=== PATIENT | male | born 1945 | race Caucasian/White ===

== ENCOUNTER 2019-09-01 11:16 | Inpatient (IN) | payer MEDICARE ==
--- OUTSIDE RECORDS SUMMARY | 2019-09-01 13:40 | XMS REPORT | Continuity of Care Document ---
:1945 External Reference #:[id number] Author Name Rafaela Gaviria MD Address [address] [place] [id number] Care Team Providers Name Role Phone Rafaela Gaviria MD - Family Medicine Care Team Information Stem Setter Problems Active Problems Provider Date Peripheral vascular disease Jose Main M.D., Onset: 01/08/[address] [facility] Testicular hypofunction Charline Shi M.D. Onset: 03/02/2012 Hyperlipidemia Charline Shi M.D. Onset: 07/23/2011 Edema Charline Shi M.D. Onset: 07/23/2011 Obesity Charline Shi M.D. Onset: 07/23/2011 Psoriasis Charline Shi M.D. Onset: 05/22/2016 Low back pain Vanessa Enriquez M.D. Onset: 02/12/2017 Benign prostatic hypertrophy without Evita Adler M.D. Onset: 07/07/2017 outflow obstruction Nocturia Bert Saleem M.D. Onset: 02/10/2018 Iron deficiency anemia Rafaela Gaviria MD Onset: 08/26/2018 Post-inflammatory pulmonary fibrosis Rafaela Gaviria MD Onset: 08/26/2018 Paroxysmal atrial fibrillation Rafaela Gaviria MD Onset: 08/26/2018 Hypertensive chronic kidney disease Rafaela Gaviria MD Onset: 08/26/2018 with stage 1 through stage 4 chronic kidney disease, or unspecified chronic kidney disease Dyspnea Jose Main M.D., Onset: 09/23/[address] [facility] Chronic obstructive lung disease Jose Main M.D., Onset: 12/21/[address] [facility] Type 2 diabetes mellitus Rafaela Gaviria MD Onset: 01/24/2019 History of acute renal failure Rafaela Gaviria MD Onset: 05/06/2019 Atopic dermatitis Rafaela Gaviria MD Onset: 08/02/2019 Arenas-Everette syndrome Rafaela Gaviria MD Onset: 08/20/2019 Social History Type Date Description Comments Sex Unknown Tobacco Use Start: Unknown End: Unknown Quit Cigarette Use Pack Years - 50 Smoking Status Reviewed: 08/20/19 Quit ETOH Use Denies alcohol use Tobacco Use Start: Unknown End: Unknown Patient is a former smoker Tobacco Use Start: Unknown Quit 10/2006 Allergies, Adverse Reactions, Alerts Description No Known Drug Allergies Medications Active Medications SIG Qnty Indications Ordering Date Provider Lidocaine Viscous 15 min gargle, 300ml K12.0 Clgerardo, 08/11/2019 HCL swish and swallow Jenniferleigh, 2% Solution up to 4 x a day CREDIT OFFICE MANAGER Methotrexate 7 tabs by mouth 42tabs Rafaela Gaviria, 08/02/2019 2.5mg each Sat. MD Tablets Folic Acid 1 by mouth every 100tabs Rafaela Gaviria, 08/02/2019 1mg day derm MD Tablets Hydroxyzine HCL 2 tablets by mouth 100tabs Rafaela Gaviria, 08/02/2019 25mg every 4 hours as MD Tablets needed for itching Clobetasol apply to affected 30gm Rafaela Gaviria, 08/02/2019 Propionate Emollient area(s) at bedtime MD as needed 0.05% Cream Sore Throat Lozenges 1 lozenger every 2 36units L20.9 Rafalea Gaviria, 04/2019 hrs as needed for MD 6-10mg Lozenges throat pain Tramadol HCL take one tablet by 90tabs Desmond, 08/26/2018 50mg mouth three times Jenniferleigh, Tablets a day as needed CREDIT OFFICE MANAGER for severe pain Reference #: [id number] Finasteride 1 by mouth every 90tabs Harper, 08/11/2018 5mg day Katina Noel Tablets Norvasc take one tablet by 90tabs Rafaela Gaviria, 05/13/2018 10mg Tablets mouth every day Oxygen increase oxygen to Rafaela Gaviria, 04/23/2018 2 l/min with MD ambulation. diagnosis: ild. Alcohol Swabs when checking 200units Vanessa Enriquez, 09/23/2017 70% blood glucose M.D. Pads Tamsulosin HCL 1 by mouth every 90caps N40.1 Harper, 07/08/2017 0.4mg day at bedtime Katina Noel Capsules Freestyle Lite Test test fingerstick 200units Vanessa Enriquez, 08/07/2016 blood sugar three M.D. Strips times a day Onetouch Ultra use to check bs 1units E11.9 Yuridia, 05/29/2015 System one to two times a Katina Olivier W/Device Kit day dx: 250.62 Onetouch Ultra Blue use to test blood 100units E11.9 Shi, 05/29/2015 sugar 1-2 a day Katina Olivier Strips Plavix 1 po qd 90tabs Unknown 75mg Tablets Aspirin Adult Low 1 po qd 30tabs Yuridia, Strength MD Charline 81mg Tablets DR Lovastatin take one tablet by 90tabs Rafaela Gaviria, 20mg mouth every day Tablets Triamcinolone apply to psoriatic 80gm Rafaela Gaviria, Acetonide lesions two times 0.1% Cream a day History Medications Prednisone 1 by mouth every 7tabs Rafaela Gaviria MD 08/02/2019 - 50mg Tablets day until gone 08/20/2019 Immunizations CPT Code Status Date Vaccine Lot # [id number] Given 07/20/2018 Influenza High Dose [id number] 81347 Given 07/31/2017 Influenza High Dose [id number] Q2038 Given 07/26/2016 Influenza Vaccine (Fluzone) Age 3 And Older [id number] 69942 Given 09/06/2015 Pneumococcal Conjugate Vaccine 13 Valent For [id number] Intramuscular Use Q2038 Given 07/11/2015 Influenza Vaccine (Fluzone) Age 3 And Older 57961 Given 05/29/2015 Tdap injection [id number] 92811 Given 07/19/2014 flu vaccination 79206 Given 07/18/2013 flu vaccination 93326 Given 07/22/2012 flu vaccination 56490 Given 09/02/2011 flu vaccination 99606 Given 09/02/2011 flu vaccination 67534 Given 08/29/2010 Pneumovax Injection 45825 Given 08/29/2010 flu vaccination 60920 Given 01/23/2010 H1N1 Immuniation Adminstration 32159 Given 07/27/2009 flu vaccination Vital Signs Date Vital Result Comment 08/20/2019 11:06am BP Systolic Sitting Left Arm 120 mmHg BP Diastolic Sitting Left Arm 64 mmHg Body Temperature 98.7 F Heart Rate 88 /min Respiratory Rate 18 /min Height 72 inches 6'0" Weight 225.00 lb BMI (Body Mass Index) 30.5 kg/m2 BSA (Body Surface Area) 2.24 m2 [place] body weight in kilograms 81 kg O2 % BldC Oximetry 97 % 08/19/2019 10:20am BP Systolic 132 mmHg BP Diastolic 69 mmHg Body Temperature 98.5 F Heart Rate 91 /min Respiratory Rate 18 /min Height 72 inches 6'0" Weight 228.00 lb BMI (Body Mass Index) 30.9 kg/m2 BSA (Body Surface Area) 2.25 m2 [place] body weight in kilograms 81 kg O2 % BldC Oximetry 96 % Pain Level 0 Results Test Date Facility Test Result H/L Range Note Ua RFX Micro & 07/31/2019 [facility] Urine Color Light-Yellow Yellow 1 Culture II [address] [place] [address] [phone] Urine Clarity Clear Clear Urine Glucose - Dipstick NEGATIVE mg/dL Negative Urine Bilirubin - Dipstick NEGATIVE Negative Urine Ketone NEGATIVE mg/dL Negative Urine Specific [place] 1.013 Normal 1.010-1.030 Urine Blood NEGATIVE 0-2 Urine PH 5.5 Low 6.5-7.5 Urine Protein - Dipstick TRACE mg/dL Negative Urine Urobilinogen - Dipstick < 2.0 mg/dL < 2.0 Urine Nitrite - Dipstick NEGATIVE Negative Urine Leuk Esterase SMALL Abnormal Negative Urine RBC 6-10 rbc/hpf Abnormal 0-2 Urine WBC 21-30 wbc/hpf 0-5 Urine Epithelial Cells FEW /lpf None Seen Urine Bacteria FEW None Seen Urine Mucus SMALL None Seen Source: URINE, CLEAN CAT <SEE NOTE> 2 Culture If 07/31/2019 [facility] Culture If CULTURE TO 3 Indicated Comment [address] Indicated Comment FOLLO <[place] [address] NOTE> [phone] Source: URINE, CLEAN CAT <SEE NOTE> 4 Urine Culture 07/31/2019 [facility] Urine Culture PSEUDOMONAS SPEC Abnormal [address] <SEE NOTE> [place] [address] [phone] Quantity 10,000 - 50,000 <SEE NOTE> 6 Urine Culture URETHRAL HUY Quantity < 10,000 CFU/mL Pseudomonas 07/31/2019 [facility] Ciprofloxacin <=0.25 Susceptible Species [address] [place] [address] [phone] Piperacillin/Tazobactam 8 Susceptible Ceftazidime 4 Susceptible Levofloxacin 0.5 Susceptible Gentamicin <=1 Susceptible Tobramycin <=1 Susceptible CBC W/Automated 07/31/2019 [facility] White Blood 7.7 K/uL Normal 3.4-10.[address] [place] [address] [phone] Red Blood Count 3.50 M/uL Low 4.20-5.80 Hemoglobin 10.2 gm/dL Low 12.8-17.0 Hematocrit 32.4 % Low 38.0-48.0 Mean Cell Volume 92.6 fl Normal 80.0-96.0 Mean Corpuscular HGB 29.1 pg Normal 27.0-33.0 Mean Corpuscular HGB Conc 31.5 g/dL Low 31.7-36.0 Platelet Count 192 K/uL Normal 155-360 Red Cell Distri Width SD 46.0 fl Normal 36-51 Red Cell Distri Width %CV 13.6 % Normal 11.6-15.8 Mean Platelet Volume 9.9 fl Normal 6.6-10.6 Neut% 74.1 % High 33.0-73.0 Lymph % 22.0 % Normal 20.0-42.0 [place] % 0.8 % Normal 0.0-10.0 Eo% 2.2 % Normal 0.0-6.6 Bas% 0.4 % Normal 0.0-1.1 Immature Grans 0.5 % Normal 0.0-5.0 NRBC % 0.0 /100WBC < 10/ 100 WBC Neut# 5.69 K/uL Normal 1.8-7.0 Lymph # 1.69 K/uL Normal 1.0-4.0 [place] # 0.06 K/uL Normal 0.0-0.8 Eos # 0.17 K/uL Normal 0.0-0.5 Baso # 0.03 K/uL Normal 0.0-0.1 Immature Grans Absolute 0.04 K/uL NRBC # 0.00 K/uL Comprehensive Metabolic 07/31/2019 [facility] Glucose 139 mg/dL High 74-106 Panel [address] [place] [address] [phone] BUN 43 mg/dL High 7-18 Creatinine 2.5 mg/dL High 0.6-1.3 Glom Filtration Rate, Estimate 27 mL/min >60 If 32 mL/min >60 7 BUN/Creat 17.2 ratio Sodium 136 mmol/L Normal 136-145 Potassium 4.7 mmol/L Normal 3.5-5.1 Chloride 108 mmol/L High 98-107 Carbon Dioxide 23 mmol/L Normal 21-32 Anion Gap 5 mEq/L Low 8-16 Calcium 8.5 mg/dL Normal 8.5-10.1 Total Protein 7.9 g/dL Normal 6.4-8.2 Albumin 3.7 g/dL Normal 3.4-5.0 Globulin 4.2 g/dL Normal 1.9-4.3 Alb/Glob 0.9 ratio Bilirubin,Total 0.8 mg/dL Normal 0.2-1.0 Sgot/Ast 15 U/L Normal 15-37 SGPT/Alt 20 U/L Normal 12-78 Alkaline Phosphatase 72 U/L Normal 45-117 Laboratory test 07/31/2019 [facility] Lipase 198 U/L Normal 56-289 finding [address] [place] [address] [phone] Basic Metabolic Panel 05/05/2019 [facility] Glucose 91 mg/dL Normal 74-106 8 [address] [place] [address] [phone] BUN 36 mg/dL High 7-18 Creatinine 2.2 mg/dL High 0.6-1.3 Glom Filtration Rate, Estimate 31 mL/min >60 If 38 mL/min >60 9 BUN/Creat 16.3 ratio Sodium 143 mmol/L Normal 136-145 Potassium 4.1 mmol/L Normal 3.5-5.1 Chloride 113 mmol/L High 98-107 Carbon Dioxide 22 mmol/L Normal 21-32 Anion Gap 8 mEq/L Normal 8-16 Calcium 8.6 mg/dL Normal 8.5-10.1 CBC W/Automated 05/05/2019 [facility] White Blood 10.3 K/uL Normal 3.4-10.[address] [place] [address] [phone] Red Blood Count 3.50 M/uL Low 4.20-5.80 Hemoglobin 10.2 gm/dL Low 12.8-17.0 Hematocrit 33.0 % Low 38.0-48.0 Mean Cell Volume 94.3 fl Normal 80.0-96.0 Mean Corpuscular HGB 29.1 pg Normal 27.0-33.0 Mean Corpuscular HGB Conc 30.9 g/dL Low 31.7-36.0 Platelet Count 248 K/uL Normal 155-360 Red Cell Distri Width SD 48.6 fl Normal 36-51 Red Cell Distri Width %CV 14.4 % Normal 11.6-15.8 Mean Platelet Volume 11.1 fl High 6.6-10.6 Neut% 61.1 % Normal 33.0-73.0 Lymph % 24.7 % Normal 20.0-42.0 [place] % 7.5 % Normal 0.0-10.0 Eo% 5.4 % Normal 0.0-6.6 Bas% 0.4 % Normal 0.0-1.1 Immature Grans 0.9 % Normal 0.0-5.0 NRBC % 0.0 /100WBC < 10/ 100 WBC Neut# 6.30 K/uL Normal 1.8-7.0 Lymph # 2.54 K/uL Normal 1.0-4.0 [place] # 0.77 K/uL Normal 0.0-0.8 Eos # 0.56 K/uL High 0.0-0.5 Baso # 0.04 K/uL Normal 0.0-0.1 Immature Grans Absolute 0.09 K/uL NRBC # 0.00 K/uL 1 FLU SYMPTOMS 2 URINE, CLEAN CATCH 3 CULTURE TO FOLLOW 4 URINE, CLEAN CATCH 5 PSEUDOMONAS SPECIES 6 10,000 - 50,000 CFU/mL 7 Note: Persistent reduction for 3 months or more in an eGFR <60 mL/min/1.73 m2 defines CKD. Patients with eGFR values >/=60 mL/min/1.73 m2 may also have CKD if evidence of persistent proteinuria is present. The original MDRD equation for estimated GFR is not valid for patients less than 18 years of age. Additional information may be found at [email or web address]. 8 I12.9 D50.9 9 Note: Persistent reduction for 3 months or more in an eGFR <60 mL/min/1.73 m2 defines CKD. Patients with eGFR values >/=60 mL/min/1.73 m2 may also have CKD if evidence of persistent proteinuria is present. The original MDRD equation for estimated GFR is not valid for patients less than 18 years of age. Additional information may be found at [email or web address]. Procedures Date Code Description Status 09/24/2017 [id number] Diabetic Foot Exam Completed 06/26/2015 [id number] Colonoscopy Completed Medical Devices Description No Information Available Encounters Type Date Location Provider Dx Diagnosis Office Visit 08/20/2019 Family Rafaela Solo L51.1 [place]- [place] 10:45a Christopher WETZEL MD syndrome Office Visit 08/19/2019 Urology Brian Kruger N40.1 Benign prostatic 10:15a SAMI Smith hyperplasia with lower urinary tract symp Office Visit 08/11/2019 Family Ruben Logan, K12.0 Recurrent oral 11:00a diana Gilliland RD CREDIT OFFICE MANAGER Office Visit 08/02/2019 Family Medicine Rafaela Gaviria L20.9 Atopic dermatitis, 1:45p Christopher WETZEL MD unspecified L40.9 Psoriasis, unspecified Office Visit 05/05/2019 2:45p Family Rafaela Solo, I12.9 Hypertensive Christopher WETZEL MD chronic kidney disease w stg 1-4/unsp chr kdny D50.9 Iron deficiency anemia, unspecified Assessments Date Code Description Provider 08/20/2019 L51.1 Arenas-Everette syndrome Rafaela Gaviria MD 08/19/2019 N40.1 Benign prostatic hyperplasia with lower Brian Kruger PA urinary tract symptoms 08/11/2019 K12.0 Recurrent oral aphthae Kole Logan FNP 08/02/2019 L20.9 Atopic dermatitis, unspecified Rafaela Gaviria MD 08/02/2019 L40.9 Psoriasis, unspecified Rafaela Gaviria MD 05/05/2019 I12.9 Hypertensive chronic kidney disease with Rafaela Gaviria MD stage 1 through sta 05/05/2019 D50.9 Iron deficiency anemia, unspecified Rafaela Gaviria MD Plan of Treatment Future Appointment(s):02/21/2020 1:15 pm - Brian Kruger PA at [email or web address] 3:30 pm - Rafaela Gaviria MD at [facility] RD08/20/2019 - Rafaela Gaviria MDL51.1 Arenas-Everette syndromeComments:CONTINUE ON CURRENT MEDS, FINISH PREDNISONE;LIDOCAINE VISCOUS FOR THROAT.Follow up:HAS APPT Functional Status Functional Condition Comment Date Status Independent with all ADL's Active Mental Status Description No Information Available Referrals Description No Information Available
--- OUTSIDE RECORDS SUMMARY | 2019-09-01 13:40 | XMS REPORT | Continuity of Care Document ---
:1945 External Reference #:[id number] Author Name Brian Kruger PA Address [address], [address] [place] [address] Care Team Providers Name Role Phone Rafaela Gaviria MD - Family Medicine Care Team Information Privacy Analyst [phone] Problems Active Problems Provider Date Peripheral vascular disease Jose Main M.D., Onset: 01/08/2012 [facility] Testicular hypofunction Charline Shi M.D. Onset: 03/02/2012 [...] disease Dyspnea Jose Main M.D., Onset: 09/23/2018 [facility] Chronic obstructive lung disease Jose Main M.D., Onset: 12/21/2018 [facility] Type 2 diabetes mellitus Rafaela Gaviria MD Onset: 01/24/2019 History of acute renal failure Rafaela Gaviria MD Onset: 05/06/2019 Atopic dermatitis Rafaela Gaviria MD Onset: 08/02/2019 Social History Type Date Description Comments Sex Unknown Tobacco Use Start: Unknown End: Unknown Quit Cigarette Use Pack Years - 50 Smoking Status Reviewed: 08/11/19 Quit ETOH Use Denies alcohol use Tobacco Use Start: Unknown End: Unknown Patient is a former smoker Tobacco Use Start: Unknown Quit 10/2006 Allergies, Adverse Reactions, Alerts Description No Known Drug Allergies Medications Active Medications SIG Qnty Indications Ordering Date Provider Lidocaine Viscous 15 min gargle, 300ml K12.0 Clune, 08/11/2019 HCL swish and swallow Jenniferleigh, 2% Solution up to 4 x a day SHIPPING CLERK CRATING Methotrexate 5 tabs by mouth 42tabs Rafaela Gaviria, 08/02/2019 2.5mg each friday derm. MD Tablets Folic Acid 1 by mouth every 100tabs Rafaela Gaviria, 08/02/2019 1mg day derm MD Tablets Prednisone 1 by mouth every 7tabs Rafaela Gaviria, 08/02/2019 50mg day until gone MD Tablets Hydroxyzine HCL 2 tablets by mouth 100tabs Rafaela Gaviria, 08/02/2019 25mg every 4 hours as MD Tablets needed for itching Clobetasol apply to affected 30gm Rafaela Gaviria, 08/02/2019 Propionate Emollient area(s) at bedtime MD as needed 0.05% Cream Sore Throat Lozenges 1 lozenger every 2 36units L20.9 Rafaela Gaviria, 04/2019 hrs as needed for MD 6-10mg Lozenges throat pain Tramadol HCL take one tablet by 90tabs Clune, 08/26/2018 50mg mouth three times Jenniferleigh, Tablets a day as needed SHIPPING CLERK CRATING for severe pain Reference #: [id number] Finasteride 1 by mouth every 90tabs Harper, 08/11/2018 5mg day Katina Noel Tablets Norvasc take one tablet by 90tabs Rafaela Gaviria, 05/13/2018 10mg Tablets mouth every day Oxygen increase oxygen to Rafaela Gaviria, 04/23/2018 2 l/min with MD ambulation. diagnosis: ild. Alcohol Swabs when checking 200units Zoe Vanessa, 09/23/2017 70% blood glucose M.DJaz Pads Tamsulosin HCL 1 by mouth every [...] 30tabs Yuridia, Strength MD Charline 81mg Tablets Lovastatin take one tablet by 90tabs Rafaela Gaviria, 20mg mouth every day Tablets Triamcinolone apply to psoriatic 453.600gm Rafaela Gaviria, Acetonide lesions two times 0.1% Cream a day Immunizations CPT Code Status Date Vaccine Lot # [id number] Given 07/20/2018 Influenza High Dose [id number] 51738 Given 07/31/2017 Influenza High Dose [id number] Q2038 Given 07/26/2016 Influenza Vaccine (Fluzone) Age 3 And Older [id number] 19603 Given 09/06/2015 Pneumococcal Conjugate Vaccine 13 Valent For [id number] Intramuscular Use Q2038 Given 07/11/2015 Influenza Vaccine (Fluzone) Age 3 And Older 89482 Given 05/29/2015 Tdap injection [id number] 47194 Given 07/19/2014 flu vaccination 66262 Given 07/18/2013 flu vaccination 29179 Given 07/22/2012 flu vaccination 87267 Given 09/02/2011 flu vaccination 42371 Given 09/02/2011 flu vaccination 40127 Given 08/29/2010 Pneumovax Injection 88159 Given 08/29/2010 flu vaccination 60279 Given 01/23/2010 H1N1 Immuniation Adminstration 93049 Given 07/27/2009 flu vaccination Vital Signs Date Vital Result Comment 08/19/2019 10:20am BP Systolic 132 mmHg BP Diastolic 69 mmHg Body Temperature 98.5 F Heart Rate 91 /min Respiratory Rate 18 /min Height 72 inches 6'0" Weight 228.00 lb BMI (Body Mass Index) 30.9 kg/m2 BSA (Body Surface Area) 2.25 m2 [place] body weight in kilograms 81 kg O2 % BldC Oximetry 96 % Pain Level 0 08/11/2019 10:56am BP Systolic 124 mmHg BP Diastolic 72 mmHg Body Temperature 97.9 F Heart Rate 92 /min Height 70 inches 5'10" Weight 227.00 lb BMI (Body Mass Index) 32.6 kg/m2 BSA (Body Surface Area) 2.20 m2 [place] body weight in kilograms 75 kg O2 % BldC Oximetry 97 % Ra Results Test Date Facility Test Result H/L Range Note Ua RFX Micro & 07/31/2019 [facility] Urine Color Light-Yellow Yellow 1 Culture II [address] [place], [place] [id number] [phone] Urine Clarity Clear Clear Urine Glucose - Dipstick NEGATIVE mg/dL Negative Urine Bilirubin - Dipstick NEGATIVE Negative Urine Ketone NEGATIVE mg/dL Negative Urine Specific [place] 1.013 Normal 1.010-1.030 Urine Blood NEGATIVE 0-2 [...] CAT <SEE NOTE> 2 Culture If 07/31/2019 [facility] Culture If CULTURE TO 3 Indicated Comment [address] Indicated Comment FOLLO <[place] [address] NOTE> [phone] Source: URINE, CLEAN CAT <SEE NOTE> 4 Urine Culture 07/31/2019 [facility] Urine Culture PSEUDOMONAS SPEC Abnormal [address] <SEE NOTE> [place], [place] [id number] [phone] Quantity 10,000 - 50,000 <SEE NOTE> 6 Urine Culture URETHRAL HUY Quantity < 10,000 CFU/mL Pseudomonas 07/31/2019 [facility] Ciprofloxacin <=0.25 Susceptible Species [address] [place] [address] [phone] Piperacillin/Tazobactam 8 Susceptible Ceftazidime 4 Susceptible Levofloxacin 0.5 Susceptible Gentamicin <=1 Susceptible Tobramycin <=1 Susceptible CBC W/Automated 07/31/2019 [facility] White Blood 7.7 K/uL Normal 3.4-10.[address] [place] [address] [phone] Red Blood Count 3.50 M/uL Low 4.20-5.80 [...] 33.0-73.0 Lymph % 22.0 % Normal 20.0-42.0 [place] % 0.8 % Normal 0.0-10.0 Eo% 2.2 % Normal 0.0-6.6 Bas% 0.4 % Normal 0.0-1.1 Immature Grans 0.5 % Normal 0.0-5.0 NRBC % 0.0 /100WBC < 10/ 100 WBC Neut# 5.69 K/uL Normal 1.8-7.0 Lymph # 1.69 K/uL Normal 1.0-4.0 [place] # 0.06 K/uL Normal 0.0-0.8 Eos # 0.17 K/uL Normal 0.0-0.5 Baso # 0.03 K/uL Normal 0.0-0.1 Immature Grans Absolute 0.04 K/uL NRBC # 0.00 K/uL Comprehensive Metabolic 07/31/2019 [facility] Glucose 139 mg/dL High 74-106 Panel [address] [place] [address] [phone] BUN 43 mg/dL High 7-18 Creatinine 2.5 [...] 72 U/L Normal 45-117 Laboratory test 07/31/2019 [facility] Lipase 198 U/L Normal 56-289 finding [address] [facility] [place] [address] [phone] Basic Metabolic Panel 05/05/2019 [facility] Glucose 91 mg/dL Normal 74-106 8 [address] [place] [address] [phone] BUN 36 mg/dL High 7-18 Creatinine 2.2 mg/dL High 0.6-1.3 Glom Filtration Rate, Estimate 31 mL/min >60 If 38 mL/min >60 9 BUN/Creat 16.3 ratio Sodium 143 mmol/L Normal 136-145 Potassium 4.1 mmol/L Normal 3.5-5.1 Chloride 113 mmol/L High 98-107 Carbon Dioxide 22 mmol/L Normal 21-32 Anion Gap 8 mEq/L Normal 8-16 Calcium 8.6 mg/dL Normal 8.5-10.1 CBC W/Automated 05/05/2019 [facility] White Blood 10.3 K/uL Normal 3.4-10.[address] [place] [address] [phone] Red Blood Count 3.50 M/uL Low 4.20-5.80 [...] 33.0-73.0 Lymph % 24.7 % Normal 20.0-42.0 [place] % 7.5 % Normal 0.0-10.0 Eo% 5.4 % Normal 0.0-6.6 Bas% 0.4 % Normal 0.0-1.1 Immature Grans 0.9 % Normal 0.0-5.0 NRBC % 0.0 /100WBC < 10/ 100 WBC Neut# 6.30 K/uL Normal 1.8-7.0 Lymph # 2.54 K/uL Normal 1.0-4.0 [place] # 0.77 K/uL Normal 0.0-0.8 Eos # [...] [email or web address]. Procedures Date Code Description Status 09/24/2017 [id number] Diabetic Foot Exam Completed 06/26/2015 [id number] Colonoscopy Completed Medical Devices Description No Information Available Encounters Type Date Location Provider Dx Diagnosis Office Visit 08/19/2019 Urology Brian Kruger N40.1 Benign prostatic 10:15a SAMI Smith hyperplasia with lower urinary tract symp Office Visit 08/11/2019 [facility] Desmond, K12.0 Recurrent oral 11:00a diana Gilliland RD SHIPPING CLERK CRATING Office Visit 08/02/2019 [facility] Rafaela Gaviria, L20.9 Atopic dermatitis, 1:45p Christopher WETZEL MD unspecified L40.9 Psoriasis, unspecified Office Visit 05/05/2019 2:45p [facility] Medicine Rafaela Gaviria, I12.9 Hypertensive Christopher WETZEL MD chronic kidney disease w stg 1-4/unsp chr kdny D50.9 Iron deficiency anemia, unspecified Assessments Date Code Description Provider 08/19/2019 N40.1 Benign prostatic hyperplasia with lower Brian Kruger PA urinary tract symptoms 08/11/2019 K12.0 Recurrent oral aphthae Kole Logan SHIPPING CLERK CRATING 08/02/2019 L20.9 Atopic dermatitis, unspecified Rafaela Gaviria MD 08/02/2019 L40.9 Psoriasis, unspecified Rafaela Gaviria MD 05/05/2019 I12.9 Hypertensive chronic kidney disease with Rafaela Gaviria MD stage 1 through sta 05/05/2019 D50.9 Iron deficiency anemia, unspecified Rafaela Gaviria MD Plan of Treatment Future Appointment(s):02/21/2020 1:15 pm - Brian Kruger PA at [email or web address] 3:30 pm - Rafaela G[facility]ia MD at [facility]08/19/2019 - Brian Kruger PAN40.1 Benign prostatic hyperplasia with lower urinary tract symptomsComments:Prescription refills faxed before pharmacy. Call for his review. I would hold off on any immunizations until this situation improves with his dermatologic condition Functional Status Functional Condition Comment Date Status Independent with all ADL's Active Mental Status Description No Information Available Referrals Description No Information Available
--- OUTSIDE RECORDS SUMMARY | 2019-09-01 13:40 | XMS REPORT | Continuity of Care Document ---
:1945 External Reference #:[id number] Author Name Kole LoganJUSTO Address [address] [place] [id number] Care Team Providers Name Role Phone Rafaela Gaviria MD - Family Medicine Care Team Information Sight Effects Specialist Problems Active Problems Provider Date Peripheral vascular disease Jose Main M.D., Onset: 01/08/2012 [facility] Testicular hypofunction Charline Shi M.D. Onset: [...] disease Dyspnea Jose Main M.D., Onset: 09/23/2018 [facility] Chronic obstructive lung disease Jose Main M.D., Onset: 12/21/2018 [facility] Type 2 diabetes mellitus Rafaela Gaviria [...] Solution up to 4 x a day REFRIGERATOR CRATER Methotrexate 5 tabs by mouth 42tabs Rafaela [...] times Jenniferleigh, Tablets a day as needed REFRIGERATOR CRATER for severe pain Reference #: [id number] Finasteride 1 by mouth every 90tabs Harper, 08/11/2018 5mg day Katina Noel Tablets Norvasc take one tablet by 90tabs Rafaela Gaviria, 05/13/2018 10mg Tablets mouth every day Oxygen increase oxygen to Rafaela Gaviria, 04/23/2018 2 l/min with MD ambulation. diagnosis: ild. Alcohol Swabs when checking 200units Zoe, Vanessa, 09/23/2017 70% blood glucose M.DJaz Pads [...] Blue use to test blood 100units E11.9 Yuridia, 05/29/2015 sugar 1-2 a day Katina Olivier [...] CPT Code Status Date Vaccine Lot # [id number] Given 07/20/2018 Influenza High Dose [id number] 71478 Given 07/31/2017 Influenza High Dose [id number] Q2038 Given 07/26/2016 Influenza Vaccine (Fluzone) Age 3 And Older [id number] 40421 Given 09/06/2015 Pneumococcal Conjugate Vaccine 13 Valent For [id number] Intramuscular Use Q2038 Given 07/11/2015 Influenza Vaccine (Fluzone) Age 3 And Older 39767 Given 05/29/2015 Tdap injection [id number] 52394 Given 07/19/2014 flu vaccination 51938 Given 07/18/2013 flu vaccination 17768 Given 07/22/2012 flu vaccination 82909 Given 09/02/2011 flu vaccination 96789 Given 09/02/2011 flu vaccination 71360 Given 08/29/2010 Pneumovax Injection 47937 Given 08/29/2010 flu vaccination 72205 Given 01/23/2010 H1N1 Immuniation Adminstration 73090 Given 07/27/2009 flu vaccination Vital Signs Date Vital Result Comment 08/11/2019 10:56am BP Systolic 124 mmHg BP Diastolic 72 mmHg Body Temperature 97.9 F Heart Rate 92 /min Height 70 inches 5'10" Weight 227.00 lb BMI (Body Mass Index) 32.6 kg/m2 BSA (Body Surface Area) 2.20 m2 [place] body weight in kilograms 75 kg O2 % BldC Oximetry 97 % Ra 08/02/2019 1:43pm BP Systolic Sitting Left Arm 122 mmHg BP Diastolic Sitting Left Arm 78 mmHg Body Temperature 97.9 F Heart Rate 92 /min Respiratory Rate 20 /min Height 70 inches 5'10" Weight 229.00 lb BMI (Body Mass Index) 32.9 kg/m2 BSA (Body Surface Area) 2.21 m2 [place] body weight in kilograms 75 kg Results Test Date Facility Test Result H/L Range Note Ua RFX Micro & 07/31/2019 [facility] Urine Color Light-Yellow Yellow 1 Culture II [address] [place] [address] [phone] Urine Clarity Clear Clear Urine Glucose - Dipstick NEGATIVE mg/dL Negative Urine Bilirubin - Dipstick NEGATIVE Negative Urine Ketone NEGATIVE mg/dL Negative Urine Specific [place] 1.013 Normal 1.010-1.030 Urine Blood NEGATIVE 0-2 [...] CAT <SEE NOTE> 2 Culture If 07/31/2019 [facility] Culture If CULTURE TO 3 Indicated Comment [address] Indicated Comment FOLLO <[place] [address] NOTE> [phone] Source: URINE, CLEAN CAT <SEE NOTE> 4 Urine Culture 07/31/2019 [facility] Urine Culture PSEUDOMONAS SPEC Abnormal [address] <SEE NOTE> [place] [id number] [phone] Quantity 10,000 - 50,000 <SEE NOTE> 6 Urine Culture URETHRAL HUY Quantity < 10,000 CFU/mL Pseudomonas 07/31/2019 [facility] Ciprofloxacin <=0.25 Susceptible Species [address] [place] [address] [phone] Piperacillin/Tazobactam 8 Susceptible Ceftazidime 4 Susceptible Levofloxacin 0.5 Susceptible Gentamicin <=1 Susceptible Tobramycin <=1 Susceptible CBC W/Automated 07/31/2019 [facility] White Blood 7.7 K/uL Normal 3.4-10.[address] [place] [address] [phone] Red Blood Count 3.50 M/uL Low 4.20-5.80 [...] 33.0-73.0 Lymph % 22.0 % Normal 20.0-42.0 Will % 0.8 % Normal 0.0-10.0 Eo% 2.2 % Normal 0.0-6.6 Bas% 0.4 % Normal 0.0-1.1 Immature Grans 0.5 % Normal 0.0-5.0 NRBC % 0.0 /100WBC < 10/ 100 WBC Neut# 5.69 K/uL Normal 1.8-7.0 Lymph # 1.69 K/uL Normal 1.0-4.0 Will # 0.06 K/uL Normal 0.0-0.8 Eos # 0.17 K/uL Normal 0.0-0.5 Baso # 0.03 K/uL Normal 0.0-0.1 Immature Grans Absolute 0.04 K/uL NRBC # 0.00 K/uL Comprehensive Metabolic 07/31/2019 [facility] Glucose 139 mg/dL High 74-106 Panel [address] [place], [place] [id number] [phone] BUN 43 mg/dL High 7-18 Creatinine 2.5 [...] 72 U/L Normal 45-117 Laboratory test 07/31/2019 [facility] Lipase 198 U/L Normal 56-289 finding [address] [place], [place] [id number] [phone] Basic Metabolic Panel 05/05/2019 [facility] Glucose 91 mg/dL Normal 74-106 8 [address] [place], [place] [address] [phone] BUN 36 mg/dL High 7-18 Creatinine 2.2 mg/dL High 0.6-1.3 Glom Filtration Rate, Estimate 31 mL/min >60 If 38 mL/min >60 9 BUN/Creat 16.3 ratio Sodium 143 mmol/L Normal 136-145 Potassium 4.1 mmol/L Normal 3.5-5.1 Chloride 113 mmol/L High 98-107 Carbon Dioxide 22 mmol/L Normal 21-32 Anion Gap 8 mEq/L Normal 8-16 Calcium 8.6 mg/dL Normal 8.5-10.1 CBC W/Automated 05/05/2019 [facility] White Blood 10.3 K/uL Normal 3.4-10.5 Diff [address] [place] [address] [phone] Red Blood Count 3.50 M/uL Low 4.20-5.80 [...] 33.0-73.0 Lymph % 24.7 % Normal 20.0-42.0 Will % 7.5 % Normal 0.0-10.0 Eo% 5.4 % Normal 0.0-6.6 Bas% 0.4 % Normal 0.0-1.1 Immature Grans 0.9 % Normal 0.0-5.0 NRBC % 0.0 /100WBC < 10/ 100 WBC Neut# 6.30 K/uL Normal 1.8-7.0 Lymph # 2.54 K/uL Normal 1.0-4.0 Will # 0.77 K/uL Normal 0.0-0.8 Eos # [...] [email or web address] Procedures Date Code Description Status 09/24/2017 [id number] Diabetic Foot Exam Completed 06/26/2015 [id number] Colonoscopy Completed Medical Devices Description No Information Available Encounters Type Date Location Provider Dx Diagnosis Office Visit 08/11/2019 [facility] Ruben Logan, K12.0 Recurrent oral 11:00a diana [address] REFRIGERATOR CRATER Office Visit 08/02/2019 [facility] Rafaela Solo, L20.9 Atopic dermatitis, 1:45p Christopher WETZEL MD unspecified L40.9 Psoriasis, unspecified Office Visit 05/05/2019 2:45p [facility] Rafaela Solo, I12.9 Hypertensive Christopher WETZEL MD chronic kidney disease w stg 1-4/unsp chr kdny D50.9 Iron deficiency anemia, unspecified Assessments Date Code Description Provider 08/11/2019 K12.0 Recurrent oral aphthae Kole Logan FNP 08/02/2019 L20.9 Atopic dermatitis, unspecified Rafaela Gaviria MD 08/02/2019 L40.9 Psoriasis, unspecified Rafaela Gaviria MD 05/05/2019 I12.9 Hypertensive chronic kidney disease with Rafaela Gaviria MD stage 1 through sta 05/05/2019 D50.9 Iron deficiency anemia, unspecified Rafaela Gaviria MD Plan of Treatment Future Appointment(s):08/20/2019 10:45 am - Rafaela Gaviria MD at [facility] Ruben [facility]09/08/2019 3:30 pm - Rafaela Gaviria MD at [facility] Functional Status Functional Condition Comment Date Status Independent with all ADL's Active Mental Status Description No Information Available Referrals Description No Information Available
--- OUTSIDE RECORDS SUMMARY | 2019-09-01 13:40 | XMS REPORT | Continuity of Care Document ---
:1945 External Reference #:[id number] Author Name Rafaela Gaviria MD Address [address] [place] [id number] Care Team Providers Name Role Phone Rafaela Gaviria MD - Family Medicine Care Team Information Biosecurity Officer [phone] Problems Active Problems Provider Date Peripheral vascular disease Jose Main M.D., Onset: 01/08/2012 [facility] Testicular hypofunction Charline Shi M.D. [...] disease Dyspnea Jose Main M.D., Onset: 09/23/2018 [facility] Chronic obstructive lung disease Jose Main M.D., Onset: 12/21/2018 [facility] Type 2 diabetes mellitus Rafaela Gaviria MD Onset: 01/24/2019 History of acute renal failure Rafaela Gaviria MD Onset: 05/06/2019 Atopic dermatitis Rafaela Gaviria MD Onset: 08/02/2019 Social History Type Date Description Comments Sex Unknown Tobacco Use Start: Unknown End: Unknown Quit Cigarette Use Pack Years - 48 Smoking Status Reviewed: 08/02/19 Quit ETOH Use Occasionally consumes alcohol RARE Tobacco Use Start: Unknown End: Unknown Patient is a former smoker Tobacco Use Start: Unknown Quit 10/2006 Allergies, Adverse Reactions, Alerts Description No Known Drug Allergies Medications Active Medications SIG Qnty Indications Ordering Date Provider Methotrexate 5 tabs by mouth 42tabs Rafaela [...] Tramadol HCL take one tablet by 90tabs Rafaela Gaviria, 08/26/2018 50mg mouth three times MD Tablets a day as needed for severe pain Reference #: [id number] Finasteride 1 by mouth every 90tabs Harper, [...] Ultra use to check bs 1units E11.9 Rew, 05/29/2015 System one to two times a Katina Olivier W/Device Kit day dx: 250.62 Onetouch Ultra Blue use to test blood 100units E11.9 Rew, 05/29/2015 sugar 1-2 a day Katina Olivier Strips Plavix 1 po qd 90tabs Unknown 75mg Tablets Aspirin Adult Low 1 po qd 30tabs Yuridia, Strength MD Charline 81mg Tablets Lovastatin take one tablet by 90tabs Rafaela Gaviria, 20mg mouth every day MD Tablets Triamcinolone apply to psoriatic 453.600gm Rafaela Gaviria, Acetonide lesions two times 0.1% Cream a day Immunizations CPT Code Status Date Vaccine Lot # [id number] Given 07/20/2018 Influenza High Dose [id number] 07147 Given 07/31/2017 Influenza High Dose [id number] Q2038 Given 07/26/2016 Influenza Vaccine (Fluzone) Age 3 And Older [id number] 41586 Given 09/06/2015 Pneumococcal Conjugate Vaccine 13 Valent For [id number] Intramuscular Use Q2038 Given 07/11/2015 Influenza Vaccine (Fluzone) Age 3 And Older 52514 Given 05/29/2015 Tdap injection [id number] 66972 Given 07/19/2014 flu vaccination 45678 Given 07/18/2013 flu vaccination 92278 Given 07/22/2012 flu vaccination 23372 Given 09/02/2011 flu vaccination 87788 Given 09/02/2011 flu vaccination 74130 Given 08/29/2010 Pneumovax Injection 51582 Given 08/29/2010 flu vaccination 86682 Given 01/23/2010 H1N1 Immuniation Adminstration 00599 Given 07/27/2009 flu vaccination Vital Signs Date Vital Result Comment 08/02/2019 1:43pm BP Systolic Sitting Left Arm 122 mmHg BP Diastolic Sitting Left Arm 78 mmHg Body Temperature 97.9 F Heart Rate 92 /min Respiratory Rate 20 /min Height 70 inches 5'10" Weight 229.00 lb BMI (Body Mass Index) 32.9 kg/m2 BSA (Body Surface Area) 2.21 m2 [place] body weight in kilograms 75 kg 05/05/2019 2:48pm BP Systolic Sitting Left Arm 128 mmHg BP Diastolic Sitting Left Arm 72 mmHg Heart Rate 76 /min Respiratory Rate 18 /min Height 70 inches 5'10" Weight 240.00 lb BMI (Body Mass Index) 34.4 kg/m2 BSA (Body Surface Area) 2.26 m2 [place] body weight in kilograms 75 kg O2 % BldC Oximetry 93 % Results Test Date Facility Test Result H/L Range Note Ua RFX Micro & 07/31/2019 [facility] Urine Color Light-Yellow Yellow 1 Culture II [address] [place] [address] [phone] Urine Clarity Clear Clear Urine Glucose - Dipstick NEGATIVE mg/dL Negative Urine Bilirubin - Dipstick NEGATIVE Negative Urine Ketone NEGATIVE mg/dL Negative Urine Specific [place] 1.013 Normal 1.010-1.030 Urine Blood NEGATIVE 0-2 [...] CAT <SEE NOTE> 2 Culture If 07/31/2019 [facility] Culture If CULTURE TO 3 Indicated Comment [address] Indicated Comment FOLLO <[place] [address] NOTE> [phone] Source: URINE, CLEAN CAT <SEE NOTE> 4 Urine Culture 07/31/2019 [facility] Urine Culture PSEUDOMONAS SPEC Abnormal 5 [address] [facility] <SEE NOTE> [place] [address] [phone] Quantity 10,000 - 50,000 <SEE NOTE> 6 Urine Culture URETHRAL HUY Quantity < 10,000 CFU/mL Pseudomonas 07/31/2019 [facility] Ciprofloxacin <=0.25 Susceptible Species [address] [place], [place] [address] [phone] Piperacillin/Tazobactam 8 Susceptible Ceftazidime 4 Susceptible Levofloxacin 0.5 Susceptible Gentamicin <=1 Susceptible Tobramycin <=1 Susceptible CBC W/Automated 07/31/2019 [facility] White Blood 7.7 K/uL Normal 3.4-10.[address] [place] [address] [phone] Red Blood Count 3.50 M/uL Low 4.20-5.80 [...] 33.0-73.0 Lymph % 22.0 % Normal 20.0-42.0 Tucker % 0.8 % Normal 0.0-10.0 Eo% 2.2 % Normal 0.0-6.6 Bas% 0.4 % Normal 0.0-1.1 Immature Grans 0.5 % Normal 0.0-5.0 NRBC % 0.0 /100WBC < 10/ 100 WBC Neut# 5.69 K/uL Normal 1.8-7.0 Lymph # 1.69 K/uL Normal 1.0-4.0 Tucker # 0.06 K/uL Normal 0.0-0.8 Eos # 0.17 K/uL Normal 0.0-0.5 Baso # 0.03 K/uL Normal 0.0-0.1 Immature Grans Absolute 0.04 K/uL NRBC # 0.00 K/uL Comprehensive Metabolic 07/31/2019 [facility] Glucose 139 mg/dL High 74-[address] [place], [place] [id number] [phone] BUN 43 mg/dL High 7-18 Creatinine 2.5 [...] 72 U/L Normal 45-117 Laboratory test 07/31/2019 [facility] Lipase 198 U/L Normal 56-289 finding [address] [place] [address] [phone] Basic Metabolic Panel 05/05/2019 [facility] Glucose 91 mg/dL Normal 74-106 8 [address] [place] [address] [phone] BUN 36 mg/dL High 7-18 Creatinine 2.2 mg/dL High 0.6-1.3 Glom Filtration Rate, Estimate 31 mL/min >60 If 38 mL/min >60 9 BUN/Creat 16.3 ratio Sodium 143 mmol/L Normal 136-145 Potassium 4.1 mmol/L Normal 3.5-5.1 Chloride 113 mmol/L High 98-107 Carbon Dioxide 22 mmol/L Normal 21-32 Anion Gap 8 mEq/L Normal 8-16 Calcium 8.6 mg/dL Normal 8.5-10.1 CBC W/Automated 05/05/2019 [facility] White Blood 10.3 K/uL Normal 3.4-10.5 Diff [address] [facility] [place] [address] [phone] Red Blood Count 3.50 M/uL Low 4.20-5.80 [...] 33.0-73.0 Lymph % 24.7 % Normal 20.0-42.0 [place] % 7.5 % Normal 0.0-10.0 Eo% 5.4 % Normal 0.0-6.6 Bas% 0.4 % Normal 0.0-1.1 Immature Grans 0.9 % Normal 0.0-5.0 NRBC % 0.0 /100WBC < 10/ 100 WBC Neut# 6.30 K/uL Normal 1.8-7.0 Lymph # 2.54 K/uL Normal 1.0-4.0 Tucker # 0.77 K/uL Normal 0.0-0.8 Eos # [...] [email or web address] Procedures Date Code Description Status 09/24/2017 [id number] Diabetic Foot Exam Completed 06/26/2015 [id number] Colonoscopy Completed Medical Devices Description No Information Available Encounters Type Date Location Provider Dx Diagnosis Office Visit 08/02/2019 Family Rafaela Solo, L20.9 Atopic dermatitis, 1:45p Christopher WETZEL MD unspecified L40.9 Psoriasis, unspecified Office Visit 05/05/2019 2:45p Rafaela Diggs, I12.9 Hypertensive Christopher WETZEL MD chronic kidney disease w stg 1-4/unsp chr kdny D50.9 Iron deficiency anemia, unspecified Assessments Date Code Description Provider 08/02/2019 L20.9 Atopic dermatitis, unspecified Rafaela Gaviria MD 08/02/2019 L40.9 Psoriasis, unspecified Rafaela Gaviria MD 05/05/2019 I12.9 Hypertensive chronic kidney disease with stage 1 Rafaela Gaviria MD through sta 05/05/2019 D50.9 Iron deficiency anemia, unspecified Rafaela Gaviria MD Plan of Treatment Future Appointment(s):08/10/2019 10:00 am - Brian Kruger [facility] at [email or web address] 11:15 am - Rafaela Gaviria MD at [facility]09/08/2019 3: 30 pm - Rafaela Gaviria MD at [facility] Functional Status Functional Condition Comment Date Status Independent with all ADL's Active Mental Status Description No Information Available Referrals Description No Information Available
[2019-09-01] MEDS ORDERED: HYDROmorphone INJ1* 1 MG/ML SYRINGE IV SLOW PU PRN ×2 (14:09→16:20)
--- NOTE | 2019-09-01 15:16 | HP ---
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 He had lab work done yesterday per his oncologist and was called and advised to come in to either the office or ED as lab work was worrying for significant dehydration however patient did not feel like leaving the house until this morning when his son came and got him. He reports 1 month of generalized fatigue, weakness, poor intake, dizziness. On evaluation in ED he was found to be febrile at 101.4 and tachycardic to 138. BP 149/64. On exam noted to appear dehydrated. Lips dry, cracked and bleeding, posterior pharynx with open lesions, tongue with adherent plaque. Open lesions also noted of the epidermis predominantly on extremities, and less so on the trunk. Skin appears dry and cracked open. Vital signs noted to be consistent with SIRS state. Bolused IVF with NS 30 ml/kg. Started on Vancomycin and Zosyn for broad spectrum coverage. CXR did not show any acute pathology. blood cultures sent. Dr. Botello was contacted and requested transfer to [place]. Pt received in [facility] ICU. Alert, complaining of significant pain at skin lesions. - Past Medical History Cardiac: CAD, Hyperlipidemia, Other - peripheral arterial disease Pulmonary: Other - lung disease Renal/: Chronic renal insuff Endocrine: Diabetes Dermatology: Psoriasis, Other - cutaneous Tcell lymphoma - Past Surgical History Past Surgical History: Appendectomy, Other - bilateral ulnar nerve repair, right orchiectomy, lung biopsy 2018, femoral artery stents - Past Social History Smoke: Quit - 2006 Alcohol: None Drugs: None Lives: With Family Review of Systems - Review of Systems Constitutional: Positive: Weakness, Malaise Gastrointestinal: Positive: Other - poor intake Skin: Positive: Lesions Neurological: Positive: Weakness, Other - dizziness - Medications/Allergies Allergies/Adverse Reactions: Allergies Allergy/AdvReac Type Severity Reaction Status Date / Time No Known Allergies Allergy Verified 09/01/19 14:19 Medications: Current Medications Aspirin (Aspirin 81 Mg Chew Tab*) 81 mg PO DAILY JAMES Clopidogrel Bisulfate (Plavix Tab*) 75 mg PO DAILY JAMES Finasteride (Proscar Tab*) 5 mg PO DAILY JAMES Hydromorphone HCl (Dilaudid Inj1s*) 1 mg IV SLOW PU Q4H PRN PRN Reason: PAIN - MODERATE Last Admin: 09/01/19 14:21 Dose: 1 mg Lidocaine (Xylocaine 2% Viscous*) 15 ml SWISH SPIT TID PRN PRN Reason: PAIN - MILD Lovastatin (Mevacor (Nf)) 20 mg PO 1700 JAMES Tamsulosin HCl (Flomax Cap*) 0.4 mg PO BEDTIME JAMES Exam - Exam Vital Signs: Vital Signs (72 hours) 09/01/19 09/01/19 09/01/19 13:46 13:53 13:58 Temperature 100.1 F Pulse Rate 121 120 119 Respiratory 16 19 23 Rate Blood Pressure 152/106 152/106 (mmHg) O2 Sat by Pulse 95 97 94 Oximetry 09/01/19 09/01/19 09/01/19 13:59 14:00 14:21 Temperature Pulse Rate 123 122 Respiratory 19 22 16 Rate Blood Pressure 98/60 122/58 (mmHg) O2 Sat by Pulse 97 96 Oximetry General: Alert, Oriented x3, Cooperative, Mild distress HEENT: Atraumatic, EOMI Lungs: Normal air movement, Other - nonlabored breathing Cardiovascular: Other - Tachycardic, regular rhythm Abdomen: Soft, Other - obese Extremities: Other - Peripheral skin lesions present Neurological: Normal speech, Strength at 5/5 X4 ext Psych/Mental Status: Mental status NL Assessment/Plan - Assessment/Plan Assessment: 74 yo M with recently diagnosed cutaneous Tcell lymphoma. Called by his outpatient oncologist (Dr. Botello) and told to come in. Plan: Hospital Diagnoses: #1: Neutropenic fever #2: #3: #4: Cardiovascular: (1) Sinus tachycardia -- HR 119-130 -- SBP 98-152 -- Telemetry Home meds: Plavix, ASA, amlodipine, lovastatin, Lisinopril Pulmonary: -- RR 16-23 -- sats 94-97 on RA -- CXR: -- ABG: pH ; pCO2 ; pO2 ; HCO3 ; BE ; %O2 Sat . Home meds: Gastrointestinal: (1) Mild hyperbilirubinemia -- LFTs Tbili 1.1, follow trend ALK 56 AST 6 ALT 16 -- diet: -- bowel regimen: -- ulcer prophylaxis: Home meds: Endocrine: -- monitor BGs Home meds: Renal: (1) Acute kidney injury; (2) Dehydration; (3) Hypocalcemia -- Cr 3.6 -- Lytes Na 137 K 4.2 Ca 8.4, replace Mag ordered with AM labs Phos ordered with AM Labs -- IVF: NS @ 100 ml/hr Home meds: Tamsulosin, Finasteride Infectious disease: -- Tmax 100.1 -- WBC 1.1 -- Micro -- ABX Zosyn Home meds: Neurologic: Home meds: Acetaminophen, MS contin, Hematological: (1) Pancytopenia with neutropenia; (2) Cutaneous Tcell lymphoma -- Hgb 6.1, received 1U PRBC in [place] -- Plt 79 -- Coags -- DVT prophylaxis: -- Oncology consulted Home meds: Plavix, ASA Metabolic: (1) Lactic acidosis -- Lactic acid 6.2, hydrate, follow trend Home meds: Other: () Psoriasis Home meds: Methotrexate, Folic acid Deep vein thrombosis prophylaxis: Dietary: Condition: Prognosis: Code status: Disposition: Family updated at bedside regarding interval events and plan of care Cumulative time spent in the care of this patient (excluding any procedure time) : at least minutes. Patient care included clinical interview (with patient and/or family), bedside exam of the patient, review of labs, x-rays, and other ancillary data, coordination of (respiratory, nursing care, review of patient's records, discussion regarding patients management with involved consultants, primary physician, pharmacists, and other healthcare personnel (dietary, case management , physical/occupational therapy etc.)
[2019-09-01] MEDS: NS 0.9% 1000 ML** 1,000 ML IV SCH ×2 (15:20→17:57)
[2019-09-01] MEDS ORDERED: NS 0.9% 1000 ML** 1,000 ML IV ONE (15:32)
[2019-09-01] MEDS ORDERED: ZOSYN 3.375 GM Q8H per EXTENDED INFUSION IVPB SCH ×4 (16:00→20:00)
[2019-09-01] MEDS ORDERED: Vancomycin 1500 MG IV - x ONCE IVPB ONE ×2 (16:00)
[2019-09-01] MEDS ORDERED: Vancomycin per Pharmacy* NOTE FOLLOW UP SCH (16:00)
[2019-09-01] MEDS ORDERED: Zosyn per Pharmacy* NOTE FOLLOW UP SCH ×2 (16:00→20:00)
--- NOTE | 2019-09-01 16:33 | CONSULT ---
Subjective Date of Service: 09/01/19 Interval History: Javy Delgado is a 74 years old white male who had long standing history of psoriasis since 7 years old which was mild for years. He had worsening skin rashes 3 years ago, large plaques of disease with itchiness, treated by Dr. Wing with topical steroid etc initially with no effects. He was subsequently followed by Dr. Early since April 2019, who tried topical therapy , secukinumab without effect. In early June, he started on Risankizumab injection, but noted symptoms worsened significantly after only one injection. He started to develop open wounds through skin with significant bleeding, also developed sore mouth and sore throat. 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 He was started on MTX 12.5mg per week, now taking 15mg on Friday and Friday, also started on pred taper, but his skin lesions got worse despite these treatment. His symptoms significantly worsened in the past 1 month, he felt increasing fatigue, lost weight 50lb in the past 1 month. In the past 1 week, he started to spike fever, with chills and sweats. He received oral antibiotics, but still not feeling better. He complained of severe pain all over the skin, as well as mouth pain and sore throat. Otherwise he denied all infective symptoms. Past Medical/Family/Social History: PMH 1. Benign Prostatic Hypertrophy 2. Hypertension 3. PVD 4. Superficial skin cancer, neck 5. Testicular cancer with surgery in 1970 PSH Appendectomy Stents on both legs Testicle Removal Ulnar Nerve Surgery Social History Mr. Delgado is , taking care of with stage IV throat cancer. He had 8 children, all staying local. Her daughter is the main one helping. No smoking, no alcohol use, worked as a machinist first class. Family History Mother from cancer at 39, unkown type Father lived to 93 3 sisters of cancer, not sure about exact type of cancer Consulting Service: Hematology/Oncology Reason for Consult: Cutaneous T cell lymphoma Review of Systems - Review of Systems Constitutional: Positive: Fever, Chills, Malaise Eyes: Negative: Pain, Vision Change, Conjunctivae Inflammation, Eyelid Inflammation, Redness, Other ENT: Positive: Mouth Pain, Throat Pain Respiratory: Positive: Shortness of Breath Cardiovascular: Negative: Chest Pain, Palpitations, Orthopnea, Paroxysmal Noc. Dyspnea, Edema, Light Headedness, Other Gastrointestinal: Negative: Nausea, Vomiting, Abdominal Pain, Diarrhea, Constipation, Melena, Hematochezia, Other Genitourinary: Negative: Dysuria, Frequency, Incontinence, Hematuria, Retention , Other Musculoskeletal: Negative: Neck Pain, Shoulder Pain, Arm Pain, Back Pain, Hand Pain, Leg Pain, Foot Pain, Other Skin: Negative: Rash, Lesions, Marcello, Bruising, Other Neurological: Positive: Weakness, Other - Dizziness - Medications/Allergies Allergies/Adverse Reactions: Allergies Allergy/AdvReac Type Severity Reaction Status Date / Time No Known Allergies Allergy Verified 09/01/19 14:19 Medications: Home Medication Aspirin (Aspirin 81 Mg Chew Tab*) 81 mg PO DAILY [facility] Clopidogrel Bisulfate (Plavix Tab*) 75 mg PO DAILY [facility] Finasteride (Proscar Tab*) 5 mg PO DAILY [facility] Lovastatin (Mevacor (Nf)) 20 mg PO 1700 [facility]AMES Lisinopril 2.5mg po daily Amlodipine 10mg po daily Methotrexate as directed Tamsulosin HCl (Flomax Cap*) 0.4 mg PO BEDTIME JAMES Clobetasol Propionate topical PRN Objective Active Medications: Aspirin (Aspirin 81 Mg Chew Tab*) 81 mg PO DAILY [facility] Clopidogrel Bisulfate (Plavix Tab*) 75 mg PO DAILY [facility] Finasteride (Proscar Tab*) 5 mg PO DAILY [facility] Hydromorphone HCl (Dilaudid Inj1s*) 1 mg IV SLOW PU Q4H PRN PRN Reason: PAIN - MODERATE Sodium Chloride (Ns 0.9% 1000 Ml) 1,000 mls @ 100 mls/hr IV PER RATE [facility] Last Admin: 09/01/19 15:20 Dose: 100 mls/hr Sodium Chloride (Ns 0.9% 1000 Ml) 1,000 mls @ 1,000 mls/hr IV ONCE ONE Stop: 09/01/19 16:31 Piperacillin Sod/Tazobactam (Sod 3.375 gm/ Sodium Chloride) 100 mls @ 25 mls/ hr IVPB Q8H [facility] Vancomycin HCl 1,500 mg/ (Sodium Chloride) 250 mls @ 166.667 mls/hr IVPB ONCE ONE Stop: 09/01/19 17:29 Lidocaine (Xylocaine 2% Viscous*) 15 ml SWISH SPIT TID PRN PRN Reason: PAIN - MILD Lovastatin (Mevacor (Nf)) 20 mg PO 1700 [facility] Morphine Sulfate (Ms Contin(*)) 30 mg PO Q12H [facility] Pharmacy Consult (Zosyn Per Pharmacy*) 1 note FOLLOW UP .ZOSYN PER PHARMACY [facility] Pharmacy Consult (Vancomycin Per Pharmacy*) 1 note FOLLOW UP .VANC PER PHARMACY [facility]; Protocol Tamsulosin HCl (Flomax Cap*) 0.4 mg PO BEDTIME [facility] Vital Signs - 8 hr 09/01/19 09/01/19 09/01/19 13:46 13:53 13:58 Temperature 100.1 F Pulse Rate 121 120 119 Respiratory 16 19 23 Rate Blood Pressure 152/106 152/106 (mmHg) O2 Sat by Pulse 95 97 94 Oximetry 09/01/19 09/01/19 09/01/19 13:59 14:00 14:21 Temperature Pulse Rate 123 122 Respiratory 19 22 16 Rate Blood Pressure 98/60 122/58 (mmHg) O2 Sat by Pulse 97 96 Oximetry 09/01/19 09/01/19 09/01/19 14:31 15:00 16:11 Temperature 101.1 F Pulse Rate 129 132 Respiratory 13 17 Rate Blood Pressure 131/59 136/74 (mmHg) O2 Sat by Pulse 90 91 Oximetry Oxygen Devices in Use Now: None Exam: General: Obese habitus, lethargic looking, dozed off a few times during conversation, in acute distress due to pain HEENT: Atraumatic, EOMI, large neck circumference, mouth ulcer with crusted blood seen on lower lips. Lungs: Clear anteriorly. Lymph node: no cervical, inguinal lymphadenopathy Cardiovascular: Tachycardic, regular rhythm, no murmur Abdomen: soft, tender due to skin lesion, hepatomegaly Extremities: moving all 4 limbs Neurological: Normal speech, Strength at 5/5 X4 ext Skin: scattered red plaques with scaling surface throughout body, involving about 60% skin, sparing genital mucosa, though mouth ulcer seen as mentioned above Psych/Mental Status: Alert, oriented x4, mood stable Result Diagrams: 09/02/19 04:23 09/02/19 04:23 Assess/Plan/Problems-Billing Assessment: 74 year old male with newly diagnosed cutaneous T cell lymphoma, presented with worsening skin symptoms, pancytopenia with recent treatment with oral MTX and pred 6 weeks ago. His staging is unclear at this moment, he has T3-T4 skin disease, node unclear, visceral involvement unclear, peripheral blood involvement unclear. Differential for his pancytopenia includes Sezary syndrome , marrow suppression from MTX, severe infection(viral, bacterial). He also had LAURE, which could be due to dehydration, sepsis, but need to look out for tumor lysis syndrome in view of the high tumor burden. - Patient Problems (1) Pancytopenia Current Visit: Yes Status: Acute Code(s): D61.818 - OTHER PANCYTOPENIA SNOMED Code(s): 203421066 Comment: - Diff including Sezary syndrome or marrow suppression from MTX or infection (viral or bacterial or tick borne) - neutropenic precaution - infective workup, empirical cover with abx as per ICU team - RBC transfusion - we will perform bone marrow biopsy tomorrow morning 8am with flow cytometry (2) LAURE (acute kidney injury) Current Visit: Yes Status: Acute Code(s): N17.9 - ACUTE KIDNEY FAILURE, UNSPECIFIED SNOMED Code(s): 87060117 Comment: - could be due to dehydration, sepsis, obstruction, but need to watch out for tumor lysis syndrome in view of high tumor burden - US kidney to rule out obstruction - check Ca, P, K, uric acid to watch out for tumor lysis (3) Cutaneous T-cell lymphoma Current Visit: Yes Status: Acute Code(s): C84.A0 - CUTANEOUS T-CELL LYMPHOMA , UNSPECIFIED, UNSPECIFIED SITE SNOMED Code(s): 705490934 Comment: - will do bone marrow tomorrow - will need further imaging to help with staging - will decide on chemotherpy based on the staging results Attestation Documenting Resident: Kiki Chase Supervising Physician: Ligia Cornejo Attending/Supervising Physician Comment: Patient seen and examined at bedside. Newly diagnosed T-cell lymphoma treated with several agents for presumed psoriasis prior to diagnosis, flaring shortly after the last biologic. Now on 30 mg of MTX weekly (with folic acid) presenting with severe pancytopenia and febrile neutropenia. Likely skin source given diffuse cutaneous involvement of lymphoma. Also with marked mucositis, ?oral involvement with lymphoma vs. from profound neutropenia. DDx of pancytopenia is MTX induced vs. marrow involvement. -hold asa and plavix given plts <50k -bone marrow bx, aspiration, flow, cytogenetics, FISH Tcell lymphoma ADEEL with conscious sedation -cont vanco/zosyn -add folic acid given recent MTX -add dexamethasone oral rinses QID -cont generous pain control and wound care as needed We did attempt bedside bone marrow biopsy but where unable to even position comfortably to attempt. will need conscious sedation. Attestation: This service has been performed in part by a resident under the direction of a teaching physician.I, Ligia Cornejo, performed the service, or was physically present during the critical, or triplett portions of the service, furnished by the resident. I participated in the management of the patient.
[2019-09-01 16:55] LABS: Activated Partial Thrombo Time 29.7 seconds (26.0-38.0); INR 1.26 (0.82-1.09)
[2019-09-01] MEDS ORDERED: Lovastatin (NF) 10 MG TAB PO SCH (17:00)
[2019-09-01 17:09] LABS: Albumin 2.9 g/dL (3.2-5.2); Albumin/Globulin Ratio 1.1 (1-3); BUN/Creatinine Ratio 14.4 (8-20); Calcium 7.6 mg/dL (8.6-10.3); EGFR African American 24.3 (>60); EGFR Non-African American 20.1 (>60); Globulin 2.7 g/dL (2-4); Magnesium 1.7 mg/dL (1.9-2.7); Phosphorus 3.9 mg/dL (2.5-5.0); Potassium 4.5 mmol/L (3.5-5.0); Total Bilirubin 1.4 mg/dL (0.2-1.0); Total Protein 5.6 g/dL (6.4-8.9)
[2019-09-01 17:19] LABS: ABS Lymphocytes 0.6 10^3/ul (1.0-4.8); ABS Neutrophils 0.1 10^3/ul (1.5-7.7); Eosinophil % 5.6 %; Hematocrit 18 % (42-52); Lymphocyte % 83.6 %; Mean Corpuscular HGB Conc 34 g/dL (31-36); Mean Corpuscular Hemoglobin 30 pg (27-31); Mean Corpuscular Volume 89 fL (80-94); Mean Platelet Volume 7.8 fL (7.4-10.4); Nucleated Red Blood Cells % 0.2; Platelet Count 70 10^3/uL (150-450); Red Blood Count 1.99 10^6 /uL (4.18-5.48); Red Cell Distribution Width 14 % (10-15); White Blood Count 0.8 10^3/uL (3.5-10.8)
[2019-09-01 17:21] LABS: TSH (Thyroid Stimulating Horm) 2.84 mcIU/mL (0.34-5.60)
[2019-09-01] MEDS ORDERED: Metoprolol Tartrate IV* 1 MG/ML 5 ML VIAL IV PRN (17:31)
[2019-09-01] MEDS ORDERED: Metoprolol Tartrate IV* 1 MG/ML 5 ML VIAL IV ONE (17:31)
[2019-09-01] MEDS ORDERED: Acetaminophen IV 1GM/100ML * 100 ML IVPB ONE (18:30)
[2019-09-01] MEDS: HYDROmorphone INJ1* 1 MG/ML SYRINGE IV SLOW PU PRN (18:51)
[2019-09-01] MEDS ORDERED: Piperacillin/Tazobac ADVAN(*) 3.375 GM in NS 0.9% 100 ML* 100 ML IVPB SCH (20:00)
[2019-09-01] MEDS ORDERED: Albumin Human 25%* 12.5 GM/50 ML BTL IV ONE (20:30)
[2019-09-01] MEDS ORDERED: Albumin Human 25%* 25 GM/100 ML BTL IV ONE (21:00)
[2019-09-01 21:21] LABS: Urine Appearance Cloudy; Urine Bacteria Absent (Absent); Urine Bilirubin Negative (Negative); Urine Blood 1+ (Negative); Urine Color Yellow; Urine Glucose Negative (Negative); Urine Ketones Negative (Negative); Urine Nitrite Negative (Negative); Urine Protein Negative (Negative); Urine Red Blood Cell 1+(3-5/hpf) (Absent); Urine Red Blood Cell Casts Present (Absent); Urine Squamous Epithelial Cell Present (Absent); Urine Urobilinogen Negative (Negative); Urine White Blood Cell Trace(0-5/hpf) (Absent)
[2019-09-01] MEDS: Morphine TAB Extended Release (*) 30 MG TAB.ER PO SCH (21:35)
[2019-09-01] MEDS: Tamsulosin CAP* 0.4 MG PO SCH (21:36)
[2019-09-01] MEDS ORDERED: Piperacillin/Tazobac (*) 3.375 GM BAG IVPB SCH (22:00)
[2019-09-01] MEDS: Piperacillin/Tazobac ADVAN(*) 3.375 GM in NS 0.9% 100 ML* 100 ML IVPB SCH (22:19)
[2019-09-01 23:45] LABS: ABS Lymphocytes 0.5 10^3/ul (1.0-4.8); Eosinophil % 5.9 %; Hematocrit 20 % (42-52); Hemoglobin 6.6 g/dL (14.0-18.0); Lymphocyte % 83.8 %; Mean Corpuscular HGB Conc 33 g/dL (31-36); Mean Corpuscular Hemoglobin 30 pg (27-31); Mean Corpuscular Volume 92 fL (80-94); Mean Platelet Volume 7.4 fL (7.4-10.4); Platelet Count 45 10^3/uL (150-450); Red Blood Count 2.17 10^6 /uL (4.18-5.48); Red Cell Distribution Width 15 % (10-15); White Blood Count 0.6 10^3/uL (3.5-10.8)
[2019-09-02 00:28] LABS: Nucleated Red Blood Cells % 0.7
[2019-09-02] MEDS: HYDROmorphone INJ1* 1 MG/ML SYRINGE IV SLOW PU PRN ×2 (01:00→05:44)
[2019-09-02] MEDS ORDERED: Acetaminophen IV 1GM/100ML * 100 ML ONE (03:22)
[2019-09-02] MEDS ORDERED: Acetaminophen IV 1GM/100ML * 100 ML IVPB ONE ×2 (04:30→18:18)
[2019-09-02 04:32] LABS: Hematocrit 20 % (42-52); Hemoglobin 6.7 g/dL (14.0-18.0); Mean Corpuscular HGB Conc 34 g/dL (31-36); Mean Corpuscular Hemoglobin 31 pg (27-31); Mean Corpuscular Volume 91 fL (80-94); Mean Platelet Volume 6.9 fL (7.4-10.4); Platelet Count 40 10^3/uL (150-450); Red Blood Count 2.18 10^6 /uL (4.18-5.48); Red Cell Distribution Width 14 % (10-15); White Blood Count 0.3 10^3/uL (3.5-10.8)
[2019-09-02 04:47] LABS: Albumin 2.9 g/dL (3.2-5.2); Albumin/Globulin Ratio 1.3 (1-3); BUN/Creatinine Ratio 13.9 (8-20); Calcium 7.3 mg/dL (8.6-10.3); EGFR African American 23.3 (>60); EGFR Non-African American 19.3 (>60); Globulin 2.3 g/dL (2-4); Magnesium 1.6 mg/dL (1.9-2.7); Phosphorus 4.9 mg/dL (2.5-5.0); Potassium 4.3 mmol/L (3.5-5.0); Total Bilirubin 2.5 mg/dL (0.2-1.0); Total Protein 5.2 g/dL (6.4-8.9)
[2019-09-02] MEDS: Piperacillin/Tazobac ADVAN(*) 3.375 GM in NS 0.9% 100 ML* 100 ML IVPB SCH ×3 (05:38→21:51)
[2019-09-02] MEDS ORDERED: Vancomycin Random Level* NOTE FOLLOW UP ONE (06:00)
[2019-09-02] MEDS: NS 0.9% 1000 ML** 1,000 ML IV SCH ×2 (06:24→17:01)
[2019-09-02] MEDS ORDERED: Lidocaine 2% PF * 5 ML VIAL INJ ONE (07:53)
[2019-09-02] MEDS ORDERED: HYDROmorphone INJ* 0.5 MG/0.5 ML SYRINGE IV SLOW PU ONE (07:55)
[2019-09-02] MEDS: Morphine TAB Extended Release (*) 30 MG TAB.ER PO SCH (08:26)
[2019-09-02] MEDS: Finasteride TAB* 5 MG PO SCH (08:26)
[2019-09-02] MEDS ORDERED: Aspirin 81 mg CHEW TAB* 81 MG TAB.CHEW PO SCH (09:00)
[2019-09-02] MEDS ORDERED: Clopidogrel TAB* 75 MG PO SCH (09:00)
--- NOTE | 2019-09-02 13:51 | PN ---
Date of Service: 09/02/19 - HD 2 Critical Care Services: 74 yo M recently diagnosed with cutaneous Tcell lymphoma. He had lab work done yesterday per his oncologist and was called and advised to come in to either the office or ED as lab work was worrying for significant dehydration however patient did not feel like leaving the house until this morning when his son came and got him. He reports 1 month of generalized fatigue, weakness, poor intake, dizziness. On evaluation in ED he was found to be febrile at 101.4 and tachycardic to 138. BP 149/64. On exam noted to appear dehydrated. Lips dry, cracked and bleeding, posterior pharynx with open lesions, tongue with adherent plaque. Open lesions also noted of the epidermis predominantly on extremities, and less so on the trunk. Skin appears dry and cracked open. Vital signs noted to be consistent with SIRS state. Bolused IVF with NS 30 ml/kg. Started on Vancomycin and Zosyn for broad spectrum coverage. CXR did not show any acute pathology. blood cultures sent. Dr. Botello was contacted and requested transfer to [place]. Pt received in [facility] ICU. Alert, complaining of significant pain at skin lesions. 09/02: Bone marrow biopsy attempted but aborted secondary to patient discomfort. Planning for bx by IR under sedation. Spoke with patient and his daughter today; they are both amenable to suspending his DNI to allow for anesthesia and intubation in the periprocedural period with the understanding that we would extubate after. IR is planning for biopsy tomorrow. Vital Signs: Temp Pulse Resp BP SpO2 FiO2 100.8 F 133 14 93/48 91 09/02/19 12:31 09/02/19 12:31 09/02/19 12:31 09/02/19 12:31 09/02/19 12:31 Physical Exam: Gen: appears uncomfortable HEENT: dry mucus membranes Lungs: rhonchorous Cardiac: tachycardic, regular Abdomen: soft, obese Extremities: Dry, warm. Scattered lesions unchanged Neuro: alert, oriented Fluid Balance (Past 24 Hours): I= O= Net Intake & Output 08/31/19 09/01/19 09/02/19 09/03/19 06:59 06:59 06:59 06:59 Intake Total 4598 325 Output Total 0867 610 Balance -17 -285 Weight 226 lb 3.108 oz Intake: IV Fluids 1828 NS 1828 IVPB 205 Tylenol 205 Packed Cells 325 325 Output: Urine 100 Gan 1615 610 Residual 660 Gan 16 Fr Temperature 660 Probe Labs: Laboratory Results - last 24 hr 09/01/19 09/01/19 09/01/19 16:15 16:15 16:15 WBC 0.8 L RBC 1.99 L Hgb 6.0 L* Hct 18 L MCV 89 MCH 30 MCHC 34 RDW 14 Plt Count 70 L MPV 7.8 Neut % (Auto) 9.2 Lymph % (Auto) 83.6 [place] % (Auto) 1.6 Eos % (Auto) 5.6 Baso % (Auto) 0.0 Absolute Neuts (auto) 0.1 L* Absolute Lymphs (auto) 0.6 L Absolute Monos (auto) 0.0 Absolute Eos (auto) 0.0 Absolute Basos (auto) 0.0 Absolute Nucleated RBC 0.0 Neutrophils % Lymphocytes % Monocytes % Eosinophils % Nucleated RBC % 0.2 Normal RBC Morphology Hem Pathologist Commnt INR (Anticoag Therapy) 1.26 H APTT 29.7 ABG pH ABG pCO2 ABG pO2 ABG HCO3 ABG O2 Saturation ABG Base Excess Sodium 136 Potassium 4.5 Chloride 110 Carbon Dioxide 19 L Anion Gap 7 BUN 44 H Creatinine 3.05 H Est GFR ( Amer) 24.3 Est GFR (Non-Af Amer) 20.1 BUN/Creatinine Ratio 14.4 Glucose 110 H Lactic Acid Calcium 7.6 L Phosphorus 3.9 Magnesium 1.7 L Total Bilirubin 1.40 H AST 10 L ALT 11 Alkaline Phosphatase 40 Total Protein 5.6 L Albumin 2.9 L Globulin 2.7 Albumin/Globulin Ratio 1.1 TSH 2.84 Urine Color Urine Appearance Urine pH Ur Specific Reliance Urine Protein Urine Ketones Urine Blood Urine Nitrate Urine Bilirubin Urine Urobilinogen Ur Leukocyte Esterase Urine WBC (Auto) Urine RBC (Auto) Ur Squamous Epith Cells Amorphous Crystals Urine Bacteria RBC Casts Urine Glucose Random Vancomycin Blood Type Antibody Screen Crossmatch Transfusion React Rpt Donor Unit # Post-Trans Blood Type Post-Trans CAROL Reaction Interpretation 09/01/19 09/01/19 09/01/19 16:15 16:15 18:12 WBC RBC Hgb Hct MCV MCH MCHC RDW Plt Count MPV Neut % (Auto) Lymph % (Auto) [place] % (Auto) Eos % (Auto) Baso % (Auto) Absolute Neuts (auto) Absolute Lymphs (auto) Absolute Monos (auto) Absolute Eos (auto) Absolute Basos (auto) Absolute Nucleated RBC Neutrophils % Lymphocytes % Monocytes % Eosinophils % Nucleated RBC % Normal RBC Morphology Hem Pathologist Commnt INR (Anticoag Therapy) APTT ABG pH ABG pCO2 ABG pO2 ABG HCO3 ABG O2 Saturation ABG Base Excess Sodium Potassium Chloride Carbon Dioxide Anion Gap BUN Creatinine Est GFR ( Amer) Est GFR (Non-Af Amer) BUN/Creatinine Ratio Glucose Lactic Acid 1.2 Calcium Phosphorus Magnesium Total Bilirubin AST ALT Alkaline Phosphatase Total Protein Albumin Globulin Albumin/Globulin Ratio TSH Urine Color Urine Appearance Urine pH Ur Specific [place] Urine Protein Urine Ketones Urine Blood Urine Nitrate Urine Bilirubin Urine Urobilinogen Ur Leukocyte Esterase Urine WBC (Auto) Urine RBC (Auto) Ur Squamous Epith Cells Amorphous Crystals Urine Bacteria RBC Casts Urine Glucose Random Vancomycin Blood Type O Negative O Negative Antibody Screen Negative Crossmatch See Detail See Detail Transfusion React Rpt Donor Unit # Post-Trans Blood Type Post-Trans CAROL Reaction Interpretation 09/01/19 09/01/19 09/01/19 20:25 23:21 23:21 WBC 0.6 L RBC 2.17 L Hgb 6.6 L Hct 20 L MCV 92 MCH 30 MCHC 33 RDW 15 Plt Count 45 L MPV 7.4 Neut % (Auto) 7.7 Lymph % (Auto) 83.8 [place] % (Auto) 2.6 Eos % (Auto) 5.9 Baso % (Auto) 0.0 Absolute Neuts (auto) 0.0 L* Absolute Lymphs (auto) 0.5 L Absolute Monos (auto) 0.0 Absolute Eos (auto) 0.0 Absolute Basos (auto) 0.0 Absolute Nucleated RBC 0.0 Neutrophils % 6.0 Lymphocytes % 92.0 Monocytes % 1.0 Eosinophils % 1.0 Nucleated RBC % 0.7 Normal RBC Morphology Normal Hem Pathologist Commnt INR (Anticoag Therapy) APTT ABG pH ABG pCO2 ABG pO2 ABG HCO3 ABG O2 Saturation ABG Base Excess Sodium Potassium Chloride Carbon Dioxide Anion Gap BUN Creatinine Est GFR ( Amer) Est GFR (Non-Af Amer) BUN/Creatinine Ratio Glucose Lactic Acid Calcium Phosphorus Magnesium Total Bilirubin AST ALT Alkaline Phosphatase Total Protein Albumin Globulin Albumin/Globulin Ratio TSH Urine Color Yellow Urine Appearance Cloudy Urine pH 5.0 Ur Specific [place] 1.010 Urine Protein Negative Urine Ketones Negative Urine Blood 1+ A Urine Nitrate Negative Urine Bilirubin Negative Urine Urobilinogen Negative Ur Leukocyte Esterase Negative Urine WBC (Auto) Trace(0-5/hpf) Urine RBC (Auto) 1+(3-5/hpf) A Ur Squamous Epith Cells Present A Amorphous Crystals Present A Urine Bacteria Absent RBC Casts Present A Urine Glucose Negative Random Vancomycin Blood Type Antibody Screen Crossmatch Transfusion React Rpt Donor Unit # [id number] Post-Trans Blood Type O Negative Post-Trans CAROL Negative Reaction Interpretation 09/02/19 09/02/19 09/02/19 04:20 04:20 04:23 WBC RBC Hgb Hct MCV MCH MCHC RDW Plt Count MPV Neut % (Auto) Lymph % (Auto) [place] % (Auto) Eos % (Auto) Baso % (Auto) Absolute Neuts (auto) Absolute Lymphs (auto) Absolute Monos (auto) Absolute Eos (auto) Absolute Basos (auto) Absolute Nucleated RBC Neutrophils % Lymphocytes % Monocytes % Eosinophils % Nucleated RBC % Normal RBC Morphology Hem Pathologist Commnt INR (Anticoag Therapy) APTT ABG pH 7.36 ABG pCO2 27 L ABG pO2 64 L ABG HCO3 18.0 L ABG O2 Saturation TNP ABG Base Excess -8.6 L Sodium Potassium Chloride Carbon Dioxide Anion Gap BUN Creatinine Est GFR ( Amer) Est GFR (Non-Af Amer) BUN/Creatinine Ratio Glucose Lactic Acid Calcium Phosphorus Magnesium Total Bilirubin AST ALT Alkaline Phosphatase Total Protein Albumin Globulin Albumin/Globulin Ratio TSH Urine Color Urine Appearance Urine pH Ur Specific [place] Urine Protein Urine Ketones Urine Blood Urine Nitrate Urine Bilirubin Urine Urobilinogen Ur Leukocyte Esterase Urine WBC (Auto) Urine RBC (Auto) Ur Squamous Epith Cells Amorphous Crystals Urine Bacteria RBC Casts Urine Glucose Random Vancomycin 23.4 Blood Type Antibody Screen Crossmatch Transfusion React Rpt Donor Unit # [id number] Post-Trans Blood Type O Negative Post-Trans CAROL Negative Reaction Interpretation 09/02/19 09/02/19 09/02/19 04:23 04:23 04:23 WBC 0.3 L RBC 2.18 L Hgb 6.7 L Hct 20 L MCV 91 MCH 31 MCHC 34 RDW 14 Plt Count 40 L MPV 6.9 L Neut % (Auto) Lymph % (Auto) [place] % (Auto) Eos % (Auto) Baso % (Auto) Absolute Neuts (auto) Absolute Lymphs (auto) Absolute Monos (auto) Absolute Eos (auto) Absolute Basos (auto) Absolute Nucleated RBC Neutrophils % Lymphocytes % Monocytes % Eosinophils % Nucleated RBC % Normal RBC Morphology Hem Pathologist Commnt INR (Anticoag Therapy) APTT ABG pH ABG pCO2 ABG pO2 ABG HCO3 ABG O2 Saturation ABG Base Excess Sodium 139 Potassium 4.3 Chloride 114 H Carbon Dioxide 16 L Anion Gap 9 BUN 44 H Creatinine 3.16 H Est GFR ( Amer) 23.3 Est GFR (Non-Af Amer) 19.3 BUN/Creatinine Ratio 13.9 Glucose 90 Lactic Acid 0.6 Calcium 7.3 L Phosphorus 4.9 Magnesium 1.6 L Total Bilirubin 2.50 H AST 13 ALT 9 Alkaline Phosphatase 33 L Total Protein 5.2 L Albumin 2.9 L Globulin 2.3 Albumin/Globulin Ratio 1.3 TSH Urine Color Urine Appearance Urine pH Ur Specific [place] Urine Protein Urine Ketones Urine Blood Urine Nitrate Urine Bilirubin Urine Urobilinogen Ur Leukocyte Esterase Urine WBC (Auto) Urine RBC (Auto) Ur Squamous Epith Cells Amorphous Crystals Urine Bacteria RBC Casts Urine Glucose Random Vancomycin Blood Type Antibody Screen Crossmatch Transfusion React Rpt Donor Unit # Post-Trans Blood Type Post-Trans CAROL Reaction Interpretation Studies: None Nutrition: Full liquids with softs as tolerated Impression: 74 yo M with recently diagnosed cutaneous Tcell lymphoma. Called by his outpatient oncologist (Dr. Botello) and told to come in for severe dehydration. Plan: Plan: Hospital Diagnoses: #1: Neutropenic fever #2: Sepsis #3: Dehydration #4: Acute kidney injury Cardiovascular: (1) Sinus tachycardia secondary to sepsis; (2) Hypotension secondary to sepsis; (2) Essential HTN: (3) CAD; (4) Hyperlipidemia; (5) PAD -- HR 88-141 -- SBP 62-139 -- Telemetry -- scheduled albumin -- hold home ASA and Plavix for bone marrow bx -- pt refusing to take home lovastatin because of oral pain Home meds: Plavix, ASA, amlodipine, Lisinopril, Lovastatin Pulmonary: (1) Chronic hypoxic respiratory failure -- RR 16-24 -- sats 84-98 on 3L NC -- CXR ordered for AM Home meds: Home O2 Gastrointestinal: (1) Hyperbilirubinemia -- Liver US ordered -- LFTs Tbili 2.50 from 1.40, follow trend Dbili ordered ALK 33 AST 13 ALT 9 -- diet: FLD -- bowel regimen: None -- ulcer prophylaxis: not indicated at this time Home meds: None Endocrine: No acute issues -- monitor BGs Home meds: None Renal: (1) Acute kidney injury; (2) Dehydration; (3) Hypocalcemia; (4) Hypomagnesemia -- UOP: 200 ml/hr -- Cr 3.16 from 3.05 -- Lytes Na 139 from 137 K 4.3 Ca 7.3, replace Mag 1.6, replace Phos 4.9 -- IVF: NS @ 100 ml/hr Home meds: Tamsulosin, Finasteride Infectious disease: (1) Sepsis; (2) Neutropenic fever -- Tmax 102.4 -- WBC 0.3 from 0.6 -- Micro 09/01 blood in progress UA negative MRSA negative -- ABX Zosyn Vancomycin Home meds: None Neurologic: (1) Pain secondary to oral and cutaneous cancer lesions -- PRN Tylenol -- Resume home MS contin, dose increased -- PRN Dilaudid Home meds: Acetaminophen, MS contin Hematological: (1) Pancytopenia with neutropenia; (2) Cutaneous Tcell lymphoma -- Hgb 6.7 from 6.6, received 1U PRBC in [place] -- Plt 40 from 45, transfuse platelets for planned bone marrow bx tomorrow -- DVT prophylaxis: unable to use chemoprophylaxis due to platelets. unable to use SCDs due to skin lesions -- Viscous lidocaine & dexamethasone, swish and spit, for oral ulcers -- hold home ASA and Plavix for bone marrow biopsy -- Oncology consulted Home meds: Plavix, ASA Metabolic: (1) Lactic acidosis, resolved -- Lactic acid 0.6 from 1.2 Home meds: None Other: (1) Psoriasis -- Folic acid Home meds: Methotrexate, Folic acid Deep vein thrombosis prophylaxis: unable to use chemoprophylaxis due to platelets. unable to use SCDs due to skin lesions Dietary: not indicated at this time Condition: serious Prognosis: guarded Code status: DNR Disposition: continue ICU care Cumulative time spent in the care of this patient (excluding any procedure time) : at least 40 minutes. Patient care included clinical interview (with patient and/or family), bedside exam of the patient, review of labs, x-rays, and other ancillary data, coordination of (respiratory, nursing care, review of patient's records, discussion regarding patients management with involved consultants, primary physician, pharmacists, and other healthcare personnel (dietary, case management , physical/occupational therapy etc.) Critical Care Time: None
[2019-09-02] MEDS ORDERED: Acetaminophen ADULT LIQ* 650 MG/20.3 ML UDC PO PRN (13:53)
[2019-09-02] MEDS: Dexamethasone Oral Solution* 1 MG/ML 10 ML UDC (10 MG) PO SCH ×3 (14:37→21:20)
[2019-09-02] MEDS: Folic Acid TAB* 1 MG PO SCH (14:37)
[2019-09-02] MEDS ORDERED: Magnesium Sulfate 2 GM IV* 2 GM/50 ML BAG IVPB ONE (16:00)
[2019-09-02] MEDS ORDERED: Calcium Gluconate INJ* 1 GM in NS 0.9% 50 ML* 50 ML IVPB ONE (16:30)
[2019-09-02] MEDS ORDERED: Vancomycin(*) 1,250 MG IV x ONCE IVPB ONE ×2 (17:00)
[2019-09-02] MEDS: Albumin Human 25%* 12.5 GM/50 ML BTL IV SCH ×2 (18:08→21:52)
[2019-09-02] MEDS: fentaNYL Patch Check Q Shift 1 NOTE SCH (19:08)
[2019-09-02] MEDS: fentaNYL PATCH 50 MCG/HR TRANSDERM SCH (19:08)
[2019-09-02 19:18] LABS: Hematocrit 20 % (42-52); Hemoglobin 6.5 g/dL (14.0-18.0); Mean Corpuscular HGB Conc 34 g/dL (31-36); Mean Corpuscular Hemoglobin 31 pg (27-31); Mean Corpuscular Volume 93 fL (80-94); Mean Platelet Volume 7.2 fL (7.4-10.4); Platelet Count 27 10^3/uL (150-450); Red Cell Distribution Width 15 % (10-15); White Blood Count 0.4 10^3/uL (3.5-10.8)
[2019-09-02] MEDS: Tamsulosin CAP* 0.4 MG PO SCH (21:04)
[2019-09-03] MEDS: NS 0.9% 1000 ML** 1,000 ML IV SCH ×2 (03:01→12:08)
[2019-09-03] MEDS: Albumin Human 25%* 12.5 GM/50 ML BTL IV SCH ×2 (04:24→11:20)
[2019-09-03] MEDS: Piperacillin/Tazobac ADVAN(*) 3.375 GM in NS 0.9% 100 ML* 100 ML IVPB SCH ×3 (07:09→23:04)
[2019-09-03 07:34] LABS: Mean Platelet Volume 7.8 fL (7.4-10.4); Platelet Count 44 10^3/uL (150-450)
[2019-09-03 07:35] LABS: Hematocrit 29 % (42-52); Hemoglobin 9.8 g/dL (14.0-18.0); Mean Corpuscular HGB Conc 34 g/dL (31-36); Mean Corpuscular Hemoglobin 30 pg (27-31); Mean Corpuscular Volume 90 fL (80-94); Mean Platelet Volume 7.9 fL (7.4-10.4); Platelet Count 46 10^3/uL (150-450); Red Blood Count 3.22 10^6 /uL (4.18-5.48); Red Cell Distribution Width 15 % (10-15); White Blood Count 0.3 10^3/uL (3.5-10.8)
[2019-09-03 07:36] LABS: Albumin 3.3 g/dL (3.2-5.2); Albumin/Globulin Ratio 1.3 (1-3); BUN/Creatinine Ratio 14.4 (8-20); Calcium 7.9 mg/dL (8.6-10.3); EGFR African American 20.8 (>60); EGFR Non-African American 17.2 (>60); Globulin 2.5 g/dL (2-4); Magnesium 2.3 mg/dL (1.9-2.7); Phosphorus 7.2 mg/dL (2.5-5.0); Potassium 4.9 mmol/L (3.5-5.0); Total Bilirubin 1.3 mg/dL (0.2-1.0); Total Protein 5.8 g/dL (6.4-8.9)
--- NOTE | 2019-09-03 09:06 | PN ---
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 He had lab work done yesterday per his oncologist and was called and advised to come in to either the office or ED as lab work was worrying for significant dehydration however patient did not feel like leaving the house until this morning when his son came and got him. He reports 1 month of generalized fatigue, weakness, poor intake, dizziness. On evaluation in ED he was found to be febrile at 101.4 and tachycardic to 138. BP 149/64. On exam noted to appear dehydrated. Lips dry, cracked and bleeding, posterior pharynx with open lesions, tongue with adherent plaque. Open lesions also noted of the epidermis predominantly on extremities, and less so on the trunk. Skin appears dry and cracked open. Vital signs noted to be consistent with SIRS state. Bolused IVF with NS 30 ml/kg. Started on Vancomycin and Zosyn for broad spectrum coverage. CXR did not show any acute pathology. blood cultures sent. Dr. Botello was contacted and requested transfer to [place]. Pt received in [facility] ICU. Alert, complaining of significant pain at skin lesions. 09/02: Bone marrow biopsy attempted but aborted secondary to patient discomfort. Planning for bx by IR under sedation. Spoke with patient and his daughter today; they are both amenable to suspending his DNI to allow for anesthesia and intubation in the periprocedural period with the understanding that we would extubate after. IR is planning for biopsy tomorrow. 09/03: No overnight events. IR bone marrow biopsy today Vital Signs: Temp Pulse Resp BP SpO2 FiO2 97.0 F 98 16 106/53 97 09/03/19 08:00 09/03/19 08:00 09/03/19 08:00 09/03/19 08:00 09/03/19 08:00 Physical Exam: Gen: resting comfortably HEENT: dry mucus membranes Lungs: nonlabored Cardiac: irregularly irregular Abdomen: soft, obese Extremities: warm, dry Neuro: sleeping Fluid Balance (Past 24 Hours): I= O= Net Intake & Output 09/01/19 09/02/19 09/03/19 09/04/19 06:59 06:59 06:59 06:59 Intake Total 2358 2982 1904 Output Total 2375 2045 190 Balance -17 937 1714 Weight 226 lb 3.108 oz 227 lb 11.8 oz Intake: IV Fluids 9809 581 8619 NS 1586 644 5488 IVPB 205 395 Tylenol 205 abx 395 Packed Cells 325 1460 Platelets 580 Albumin 48 Output: Urine 100 Gan 1615 2045 190 Residual 660 Gan 16 Fr Temperature 660 Probe Labs: Laboratory Results - last 24 hr 09/01/19 09/01/19 09/01/19 18:12 23:21 23:21 WBC RBC Hgb Hct MCV MCH MCHC RDW Plt Count MPV Hem Pathologist Commnt Sodium Potassium Chloride Carbon Dioxide Anion Gap BUN Creatinine Est GFR ( Amer) Est GFR (Non-Af Amer) BUN/Creatinine Ratio Glucose Lactic Acid Calcium Phosphorus Magnesium Total Bilirubin Direct Bilirubin AST ALT Alkaline Phosphatase Total Protein Albumin Globulin Albumin/Globulin Ratio Blood Type O Negative Crossmatch See Detail Transfusion React Rpt Donor Unit # Post-Trans Blood Type Post-Trans CAROL Reaction Interpretation 09/02/19 09/02/19 09/02/19 04:20 15:48 15:56 WBC RBC Hgb Hct MCV MCH MCHC RDW Plt Count MPV Hem Pathologist Commnt Sodium Potassium Chloride Carbon Dioxide Anion Gap BUN Creatinine Est GFR ( Amer) Est GFR (Non-Af Amer) BUN/Creatinine Ratio Glucose Lactic Acid Calcium Phosphorus Magnesium Total Bilirubin Direct Bilirubin AST ALT Alkaline Phosphatase Total Protein Albumin Globulin Albumin/Globulin Ratio Blood Type Crossmatch See Detail Transfusion React Rpt Donor Unit # [id number] Post-Trans Blood Type O Negative Post-Trans CAROL Negative Reaction Interpretation 09/02/19 09/03/19 09/03/19 18:55 07:10 07:11 WBC 0.4 L 0.3 L RBC 2.10 L 3.22 L Hgb 6.5 L 9.8 L Hct 20 L 29 L MCV 93 90 MCH 31 30 MCHC 34 34 RDW 15 15 Plt Count 27 L 44 L D 46 L MPV 7.2 L 7.8 7.9 Hem Pathologist Commnt Sodium Potassium Chloride Carbon Dioxide Anion Gap BUN Creatinine Est GFR ( Amer) Est GFR (Non-Af Amer) BUN/Creatinine Ratio Glucose Lactic Acid Calcium Phosphorus Magnesium Total Bilirubin Direct Bilirubin AST ALT Alkaline Phosphatase Total Protein Albumin Globulin Albumin/Globulin Ratio Blood Type Crossmatch Transfusion React Rpt Donor Unit # Post-Trans Blood Type Post-Trans CAROL Reaction Interpretation 09/03/19 09/03/19 07:11 07:11 WBC RBC Hgb Hct MCV MCH MCHC RDW Plt Count MPV Hem Pathologist Commnt Sodium 145 Potassium 4.9 Chloride 117 H Carbon Dioxide 13 L* Anion Gap 15 H BUN 50 H Creatinine 3.48 H Est GFR ( Amer) 20.8 Est GFR (Non-Af Amer) 17.2 BUN/Creatinine Ratio 14.4 Glucose 101 H Lactic Acid 0.8 Calcium 7.9 L Phosphorus 7.2 H Magnesium 2.3 Total Bilirubin 1.30 H Direct Bilirubin 0.70 H AST 21 ALT 12 Alkaline Phosphatase 36 Total Protein 5.8 L Albumin 3.3 Globulin 2.5 Albumin/Globulin Ratio 1.3 Blood Type Crossmatch Transfusion React Rpt Donor Unit # Post-Trans Blood Type Post-Trans CAROL Reaction Interpretation Studies: 09/03 CXR : progression of diffuse pattern of coarse reticular opacitifcation suggestive of acute intersitital process including edema, overlying chronic pulmonary fibrotic changes Nutrition: NPO for procedure Impression: 74 yo M with recently diagnosed cutaneous Tcell lymphoma. Called by his outpatient oncologist (Dr. Botello) and told to come in for severe dehydration. Plan: Hospital Diagnoses: #1: Neutropenic fever #2: Sepsis #3: Dehydration #4: Acute kidney injury Cardiovascular: (1) Paroxysmal atrial fibrillation; (2) Hypotension secondary to sepsis; (2) Essential HTN: (3) CAD; (4) Hyperlipidemia; (5) PAD -- HR 83-137 -- SBP 85-144 -- Telemetry -- TTE ordered for new onset afib -- scheduled albumin -- hold home ASA and Plavix for bone marrow bx -- pt refusing to take home lovastatin because of oral pain Home meds: Plavix, ASA, amlodipine, Lisinopril, Lovastatin Pulmonary: (1) Chronic hypoxic respiratory failure; (2) Pulmonary edema -- RR 10-25 -- sats 84-100 on 4L NC -- CXR, 09/03: pulmonary edema Home meds: Home O2 Gastrointestinal: (1) Hyperbilirubinemia -- Liver US ordered -- LFTs Tbili 1.30 from 2.50, follow trend Dbili 0.70 ALK 36 AST 21 ALT 12 -- diet: NPO for procedure -- bowel regimen: None -- ulcer prophylaxis: not indicated at this time Home meds: None Endocrine: No acute issues -- monitor BGs Home meds: None Renal: (1) Acute kidney injury; (2) Dehydration; (3) Hypocalcemia; (4) Hypomagnesemia -- UOP: 80 ml/hr -- Cr 3.48 from 3.16 -- Lytes Na 145 K 4.9 Ca 7.9, replace Mag 2.3 Phos 7.2, hydrate, follow trend -- IVF: NS @ 100 ml/hr -- consult nephrology for LAURE Home meds: Tamsulosin, Finasteride Infectious disease: (1) Sepsis; (2) Neutropenic fever -- Tmax 101.7 -- WBC 0.3 from 0.3 -- Micro 09/01 blood in progress Urine negative MRSA negative -- ABX Zosyn Vancomycin Home meds: None Neurologic: (1) Pain secondary to oral and cutaneous cancer lesions -- PRN Tylenol -- Fentanyl patch and PRN Dilaudid for pain control Home meds: Acetaminophen, MS contin Hematological: (1) Pancytopenia with neutropenia; (2) Cutaneous Tcell lymphoma -- Hgb 9.8 from 6.7, s/p transfusion -- Plt 46 from 40 -- DVT prophylaxis: unable to use chemoprophylaxis due to platelets. unable to use SCDs due to skin lesions -- Viscous lidocaine & dexamethasone, swish and spit, for oral ulcers -- hold home ASA and Plavix for bone marrow biopsy -- Oncology consulted Home meds: Plavix, ASA Metabolic: (1) Lactic acidosis, resolved Home meds: None Other: (1) Psoriasis -- Folic acid Home meds: Methotrexate, Folic acid Deep vein thrombosis prophylaxis: unable to use chemoprophylaxis due to platelets. unable to use SCDs due to skin lesions Dietary: not indicated at this time Condition: serious Prognosis: guarded Code status: DNR Disposition: continue ICU care Cumulative time spent in the care of this patient (excluding any procedure time) : at least 40 minutes. Patient care included clinical interview (with patient and/or family), bedside exam of the patient, review of labs, x-rays, and other ancillary data, coordination of (respiratory, nursing care, review of patient's records, discussion regarding patients management with involved consultants, primary physician, pharmacists, and other healthcare personnel (dietary, case management , physical/occupational therapy etc.) Critical Care Time: None
[2019-09-03] MEDS ORDERED: Midazolam* 1 MG/ML 10 ML VIAL (10 MG) ONE (09:29)
[2019-09-03] MEDS ORDERED: Etomidate* 2 MG/ML 20 ML VIAL (40 MG) ONE (09:29)
[2019-09-03] MEDS ORDERED: Calcium Gluconate INJ* 1 GM in NS 0.9% 50 ML* 50 ML IVPB ONE (09:30)
[2019-09-03] MEDS: HYDROmorphone INJ1* 1 MG/ML SYRINGE IV SLOW PU PRN ×2 (09:37→12:17)
--- NOTE | 2019-09-03 09:46 | OP ---
Operative Report - Blank - Operative Report Date of Operation: 09/03/19 - INTUBATION Note: Procedure: Intubation Consent obtained: Verbal, from daughter Time out performed: Yes Indications: OR procedure with anesthesia Intubation method: Video-assisted Patient status: Sedated Preoxygenation: BVM Pretreatment meds: Versed Sedation: Etomidate Paralytic: None Laryngoscope size: 3Mac ETT size: 8.0 F Type: Cuffed # of attempts: 1 Cords visualized: Yes Post procedure assessment: CO2 detector Breath sounds: Equal Cuff inflated: Yes ETT to lip: 22cm Tube secured with: ETT rivera CXR: ordered PT tolerated the procedure well with no immediate complications
[2019-09-03] MEDS: Folic Acid TAB* 1 MG PO SCH (09:56)
[2019-09-03] MEDS: Finasteride TAB* 5 MG PO SCH (09:56)
[2019-09-03] MEDS: Dexamethasone Oral Solution* 1 MG/ML 10 ML UDC (10 MG) PO SCH ×3 (09:56→17:43)
[2019-09-03] MEDS: fentaNYL Patch Check Q Shift 1 NOTE SCH ×2 (09:56→18:44)
[2019-09-03] MEDS ORDERED: Midazolam IV for DRIP* 100 MG in NS 0.9% 100 ML* 80 ML IV SCH (10:00)
[2019-09-03] MEDS ORDERED: Perflutren Lipid Microsphere* 3 ML VIAL ONE (10:17)
[2019-09-03] MEDS ORDERED: Vancomycin Random Level* NOTE FOLLOW UP ONE (13:00)
--- NOTE | 2019-09-03 14:17 | ECHO ---
*[facility]* [place] [address] Fax #: [phone] Transthoracic Echocardiogram Patient: Nolan Delgado : 1945 Study Date: 09/03/2019 Age: 74 Gender: M HR: 93 bpm Height: 72 in /182.9 cm BSA: 2.25 m^2 Weight: 226.5 lb /103 kg BMI: 30.8 kg/m^2 *Wildlife Enforcement Major: * Andree Ambrose [facility] *Referring Physician: * Mckenna Branch *Reading Physician: * Taiwo Patten MD Indications: Abnormal EKG. History: Coronary artery disease. Recent Cutaneous T-cell Lymphoma diagnosis. Risk factors: Hypertension. Dyslipidemia. Conclusions Summary: - Left ventricle: The cavity size is at the upper limits of normal. Wall thickness is at the upper limits of normal. Systolic function is normal. The estimated ejection fraction is 55-60%. - Right ventricle: The cavity size is mildly dilated. - Ventricular septum: There is septal flattening of the interventricular septum consistent with RV volume or pressure overload. - Left atrium: The atrium is severely dilated. - Right atrium: The atrium is severely dilated. - Mitral valve: There is trace to mild regurgitation. - Aortic valve: The valve is trileaflet. The leaflets are mildly thickened. - Tricuspid valve: There is mild-moderate regurgitation. - Aortic root: The aortic root is mildly dilated. - Ascending aorta: The ascending aorta is mildly dilated. - Rapid irregular rhythm; possible atrial fibrillation. Study data: Transthoracic echocardiogram. Procedure: Transthoracic echocardiography was performed. Image quality was suboptimal. The study was technically limited due to Patient on ventilator. Intravenous Definity , 3 mlswas administered. Complete 2D, spectral Doppler, and color flow Doppler. Location: ICU Patient status: Inpatient. Patient room number: ICU-2. No prior study is available for comparison. Rhythm: Atrial fibrillation. Findings Left ventricle: The cavity size is at the upper limits of normal. Wall thickness is at the upper limits of normal. Systolic function is normal. The estimated ejection fraction is 55-60%. Wall motion is normal; there are no regional wall motion abnormalities. Left ventricular diastolic function parameters are indeterminate. Right ventricle: The cavity size is mildly dilated. Systolic function is normal. Ventricular septum: There is septal flattening of the interventricular septum consistent with RV volume or pressure overload. Left atrium: The atrium is severely dilated. Right atrium: The atrium is severely dilated. Mitral valve: The leaflets are mildly thickened. There is no evidence of stenosis. There is trace to mild regurgitation. Aortic valve: The valve is trileaflet. The leaflets are mildly thickened. There is no evidence of stenosis. There is no significant regurgitation. Tricuspid valve: The leaflets are normal thickness. There is no evidence of stenosis. There is mild-moderate regurgitation. Pulmonic valve: The leaflets are normal thickness. There is no evidence of stenosis. There is trace regurgitation. Aorta: Aortic root: The aortic root is mildly dilated. Ascending aorta: The ascending aorta is mildly dilated. Aortic arch: The aortic arch is poorly visualized. Pericardium: There is no significant pericardial effusion. Pulmonary arteries: The main pulmonary artery is normal-sized. Systolic pressure cannot be accurately determined, but appears to be increased. Systemic veins: Inferior vena cava: Not well visualized. Measurements Left ventricle Value Ref Right atrium continued Value Ref ALBERTO, LAX 5.8 cm 4.2 - 5.8 SI dim, ES, A4C (H) 6.3 cm 3.4 - 5.3 ESD, LAX 4.0 cm 2.5 - 4.0 SI dim/bsa, ES, 2.8 cm/m^2 1.8 - 3.0 FS, LAX 31 % 25 - 43 A4C PW, ED, LAX 1.0 cm 0.6 - 1.0 FS 31 % 25 - 43 Aortic valve Value Ref PW, ED 1.0 cm 0.6 - 1.0 Espinoza diam, ED 2.4 cm --------- E', lat espinoza, TDI 12.3 cm/sec >=10.0 Peak v, S 0.99 m/sec - -------- E/e', lat espinoza, 9 VTI, S 17.0 cm ---- ----- TDI Mean grad, S 1.0 mm Hg --------- E', med espinoza, TDI 11.1 cm/sec >=7.0 Peak grad, S 4.0 mm Hg - -------- E/e', med espinoza, 10 LVOT/AV, VTI 0.76 ---- ----- TDI ratio E', avg, TDI 11.7 cm/sec E/e', avg, TDI 9 <=14 Mitral valve Value R ef Peak E 1.06 m/sec --------- LVOT Value Ref Peak A 0.02 m/sec --------- Peak janes, S 0.89 m/sec Decel time 215 ms --------- VTI, S 13.0 cm Peak grad, D 4.5 mm Hg --------- Mean grad, S 1 mm Hg Peak E/A ratio 70.7 --------- Ventricular septum Value Ref Pulmonic valve Value Ref IVS, ED 0.9 cm 0.6 - 1.0 Peak v, S 1.05 m/sec --------- Peak grad, S 4.0 mm Hg --------- Right ventricle Value Ref ALBERTO, LAX 3.2 cm Tricuspid valve Value Ref ALBERTO minor ax, (H) 4.2 cm 1.9 - 3.5 TR peak v (H) 3.3 m/sec <=2.8 A4C mid Peak RV-RA grad, 44 mm Hg --------- S Left atrium Value Ref AP dim, ES (H) 5.10 cm 3.00 - Aortic root Value Ref 4.00 Root diam 4.0 cm <4.3 ML dim, A4C 5.2 cm SI dim, A4C 6.1 cm Ascending aorta Value Ref Vol/bsa, ES, 1-p (H) 52 ml/m^2 12 - 37 AAo AP diam, S 3.7 cm --------- A4C Vol/bsa, ES, A/L (H) 58 ml/m^2 16 - 34 Decending aorta Value Ref [place] peak janes 0.84 m/sec --------- Right atrium Value Ref SI dim, ES (H) 6.3 cm 3.4 - 5.3 ML dim, ES, A4C (H) 5.1 cm 2.6 - 4.4 Legend: (L) and (H) kavita values outside specified reference range. Prepared and electronically signed by Taiwo Patten MD 09/03/2019 14:16
--- NOTE | 2019-09-03 14:39 | CONSULT ---
Consult Consult: Consult requested for: LAURE. Consult requested by: Dr. Branch, from ICU Performed by Dr. Steff Nicholson, [facility] Nephrology 09/03/2019 74 yo M recently (06/2019) diagnosed with cutaneous T Cell lymphoma (Mycosis Fungides). He was started on MTX & Prednisone. Dx was delayed as it was thought t be Psoriasis. Of note, has Psoriasis since childhood Had 1 month Hx of fatigue, weakness, poor intake & wt. loss of 50 Lbs. Had fever for 1 week before this with chills and sweats. Admitted via ED 08/31 with BUN/sCr 40/2.80~08/31/2019 44/3.05~09/01/2019 44/3.16~09/02 50/4.48~09/03 He's in Fluid overload and oliguric LAURE likely 2/2 ATN vs. TLS?! but no recent Uric Acid. Family leaning towards not doing HD once indicated. Lactic acid was 1.2 on admission & Hb/Hct 04/13 & neutropenia Baseline sCr baseline 1.1-1.3. eGFR 55-65. CKD 3A On admission had fever 101.4 and tachycardia 140/min. Started on IV ABx and IVF: Vancomycin and Zosyn for broad spectrum coverage. Infection source likely Skin & soft tissue. Today was intubated for BM Bx under sedation, adam to be extubated. He's DNR He was seen by Hem/Onc for Neutropenic fever, Sepsis: Pancytopenia with neutropenia; in setting of Cutaneous T Cell lymphoma, s/p PRBCs & Platelets. s/ p Bone marrow Bx today. Had few episodes of hypotension, SBP 90s. Off Lisinopril. In MICU managed by Fur Polisher, chronic hypoxic respiratory failure On IVF NS @ 100 ml/hr PMH: BPH Testicular CA 1971 HTN PVD CKD 3A Hospital Meds: Acetaminophen Dexamethasone Fentanyl Finasteride Folic Acid Hydromorphone Sodium Chloride 100 mls/hr Piperacillin Sod/Tazobactam 3.375 g Q8Hr Midazolam Tamsulosin Allergies: No Known Allergies Allergy (Verified 09/01/19 14:19) Social History: Denied Alcohol, smoking. No IVDA. . Retired Management Liaison. Has 25 grand kids and 12 great grand kids Family History: Negative for Dialysis, ESRD or Renal Transplant. Positive for HTN & DM 12-Point Review of System obtained from the chart as he's intubated: Constitutional: Fatigue. fever & weight loss as above Eyes No blurry vision. No red eye CV: SOB at rest & exertion, no chest pain no syncope or edema Respiratory: SOB at rest no cough no wheezing G.I: no diarrhea no nausea no vomiting no pain no blood per rectum no burning no obstruction symptoms Skin rash as above Neurology No seizures or neurologic deficit Endocrine no diabetes, no heat or cold intolerance Hem/Lymphatic lymphoma, skin, skin lesions Immune/Allergy no allergic reactions Musculoskeletal: No arthritis, no swelling Psych no anxiety no depression no hallucination Objective: Vital Signs Temp 97.3 F 09/03/19 14:00 Pulse 83 09/03/19 14:00 Resp 18 09/03/19 14:00 BP 96/57 09/03/19 12:00 Pulse Ox 100 09/03/19 14:00 Intake & Output 09/02/19 09/03/19 09/03/19 18:59 06:59 18:59 Intake Total 1267 1715 2814 Output Total 1395 650 430 Balance -128 1065 2384 Weight 103.3 kg Intake: IV Fluids 894 2419 NS 894 2209 abx 210 IVPB 395 abx 395 Packed Cells 325 1135 Platelets 580 Albumin 48 Output: Gan 1395 650 430 Other: Date of Last Bowel Unknown Movement 10 Point multi system exam: Constitutional Alert Oriented x 3 HEENT: No Conjunctivitis Abdomen Soft Abdomen No Ascites Heart: NSR, No LE Edema, No murmur Lungs: B/L Crackles Extremities: No edema Skin rash as above, diffuse, open sores Neurology No deficit. CN intact Hem/Lymph: Cutaneous Lymphoma Musculoskeletal: No joint swelling Laboratory Reviewed ABG pH 7.36 (7.35-7.45) 09/02/19 04:20 ABG HCO3 18.0 mmol/L (19-31) L 09/02/19 04:20 Sodium 145 mmol/L (135-145) 09/03/19 07:11 Potassium 4.9 mmol/L (3.5-5.0) 09/03/19 07:11 BUN 50 mg/dL (6-24) H 09/03/19 07:11 Creatinine 3.48 mg/dL (0.67-1.17) H 09/03/19 07:11 Calcium 7.9 mg/dL (8.6-10.3) L 09/03/19 07:11 Magnesium 2.3 mg/dL (1.9-2.7) 09/03/19 07:11 AST 21 U/L (13-39) 09/03/19 07:11 ALT 12 U/L (7-52) 09/03/19 07:11 Imaging: CXR 09/03/2019 Diffuse coarse reticular opacification suggestive of an acute infiltrative process, including pulmonary interstitial edema overlying pulmonary fibrotic changes Assessment and Plan: LAURE, may progress to requiring POWDER COATER, family hesitant and reluctant. Low Platelet will be challenging wit regard to placing HD access. LAURE 2/2 ATN vs. TLS in a setting Sepsis and pancytopenia. Adjust ABx to eGFR 10-30 TLS. Check Uric Acid. R/O TLS Fluid Oveload. Stop IVF. Trial Lasix 80-100 mg IVP stat Electrolytes: K Ok. HCo3 low: HAGMA 2/2 LAURE and sepsis: Add Biacarb IV pushes 2 amp q 4Hr. Family were informed about lab/radiology results & prognosis. All questions were answered. They were made part of the treatment plan. Case discussed with Dr. Branch
[2019-09-03] MEDS ORDERED: Furosemide IV* 10 MG/ML VIAL (40 MG) IV SLOW PU ONE (15:41)
[2019-09-03] MEDS ORDERED: NS 0.9% 1000 ML** 1,000 ML IV SCH (16:05)
[2019-09-03] MEDS: Sodium Bicarbonate 8.4%* 50 ML SYRINGE IV SCH ×2 (16:14→23:16)
[2019-09-03 16:16] LABS: Uric Acid 5.7 mg/dL (4.4-7.6)
[2019-09-03] MEDS ORDERED: Vancomycin(*) 1,000 MG in NS 0.9% 250 ML* 250 ML IV ONE (19:30)
[2019-09-04] MEDS: Tamsulosin CAP* 0.4 MG PO SCH ×2 (02:48→20:38)
[2019-09-04] MEDS: Lidocaine 2% VISCOUS* 15 ML UDC SWISH SPIT PRN ×4 (02:48→21:07)
[2019-09-04] MEDS: HYDROmorphone INJ1* 1 MG/ML SYRINGE IV SLOW PU PRN ×4 (02:48→22:27)
[2019-09-04] MEDS: Chlorhexidine MOUTHWASH 0.12%* 15 ML UDC TOPICAL SCH ×6 (02:48→23:47)
[2019-09-04] MEDS: Dexamethasone Oral Solution* 1 MG/ML 10 ML UDC (10 MG) PO SCH ×5 (02:56→21:07)
[2019-09-04] MEDS: Sodium Bicarbonate 8.4%* 50 ML SYRINGE IV SCH ×2 (04:16→09:21)
[2019-09-04] MEDS: Piperacillin/Tazobac ADVAN(*) 3.375 GM in NS 0.9% 100 ML* 100 ML IVPB SCH ×2 (05:25→18:18)
[2019-09-04 06:10] LABS: Hematocrit 27 % (42-52); Hemoglobin 8.8 g/dL (14.0-18.0); Mean Corpuscular HGB Conc 33 g/dL (31-36); Mean Corpuscular Hemoglobin 30 pg (27-31); Mean Corpuscular Volume 89 fL (80-94); Mean Platelet Volume 8.3 fL (7.4-10.4); Platelet Count 31 10^3/uL (150-450); Red Blood Count 2.98 10^6 /uL (4.18-5.48); Red Cell Distribution Width 16 % (10-15); White Blood Count 0.5 10^3/uL (3.5-10.8)
[2019-09-04 06:17] LABS: Albumin/Globulin Ratio 1.3 (1-3); BUN/Creatinine Ratio 16.2 (8-20); Calcium 7.8 mg/dL (8.6-10.3); EGFR African American 16.8 (>60); EGFR Non-African American 13.9 (>60); Globulin 2.4 g/dL (2-4); Magnesium 2.4 mg/dL (1.9-2.7); Phosphorus 8.6 mg/dL (2.5-5.0); Potassium 4.8 mmol/L (3.5-5.0); Total Bilirubin 0.8 mg/dL (0.2-1.0); Total Protein 5.4 g/dL (6.4-8.9)
[2019-09-04] MEDS: fentaNYL Patch Check Q Shift 1 NOTE SCH ×2 (07:03→19:31)
[2019-09-04] MEDS ORDERED: Famotidine IV* 10 MG/ML 2 ML (20 mg) IV SLOW PU SCH (09:00)
[2019-09-04] MEDS: Folic Acid TAB* 1 MG PO SCH (09:20)
[2019-09-04] MEDS: Finasteride TAB* 5 MG PO SCH (09:20)
--- NOTE | 2019-09-04 12:13 | PN ---
Date of Service: 09/04/19 Critical Care Services: extubated in AM oxygenating well bump in renal functions Vital Signs: Temp Pulse Resp BP SpO2 FiO2 98.2 F 103 17 159/55 93 30 09/04/19 11:01 09/04/19 11:01 09/04/19 11:20 09/04/19 11:01 09/04/19 11:01 09/04 08:36 Physical Exam: Gen: obese, HEENT:EOMI Lungs:Decreased BS's Cardiac: RRR Abdomen:Obese, Soft, NTP Extremities:1 + MAY. painful to palpation. diffuse skin lesions globally Neuro:moving all extremities but weak and lethargic Fluid Balance (Past 24 Hours): I= O= Net Intake & Output 09/02/19 09/03/19 09/04/19 09/05/19 06:59 06:59 06:59 06:59 Intake Total 2358 2982 4329 Output Total 2375 2045 1018 375 Balance -17 937 3311 -375 Weight 226 lb 3.108 oz 227 lb 11.8 oz 230 lb 13.184 oz Intake: IV Fluids 0552 692 2318 NS 2955 905 7783 Zosyn 210 IVPB 205 916 Vanco 205 287 Zosyn 629 Packed Cells 325 1460 Platelets 580 Albumin 48 Output: Urine 100 Gan 1615 2045 1018 375 Residual 660 Gan 16 Fr Temperature 660 Probe Other: Date of Last Bowel Unknown Movement Labs: Laboratory Results - last 24 hr 09/03/19 09/03/19 09/04/19 07:11 14:38 05:50 WBC 0.5 L RBC 2.98 L Hgb 8.8 L Hct 27 L MCV 89 MCH 30 MCHC 33 RDW 16 H Plt Count 31 L MPV 8.3 Sodium 145 Potassium 4.9 Chloride 117 H Carbon Dioxide 13 L* Anion Gap 15 H BUN 50 H Creatinine 3.48 H Est GFR ( Amer) 20.8 Est GFR (Non-Af Amer) 17.2 BUN/Creatinine Ratio 14.4 Glucose 101 H Lactic Acid Uric Acid 5.7 Calcium 7.9 L Phosphorus 7.2 H Magnesium 2.3 Total Bilirubin 1.30 H Direct Bilirubin 0.70 H AST 21 ALT 12 Alkaline Phosphatase 36 Total Protein 5.8 L Albumin 3.3 Globulin 2.5 Albumin/Globulin Ratio 1.3 Random Vancomycin 19.7 09/04/19 09/04/19 05:50 05:50 WBC RBC Hgb Hct MCV MCH MCHC RDW Plt Count MPV Sodium 148 H Potassium 4.8 Chloride 119 H Carbon Dioxide 15 L Anion Gap 14 H BUN 68 H Creatinine 4.20 H Est GFR ( Amer) 16.8 Est GFR (Non-Af Amer) 13.9 BUN/Creatinine Ratio 16.2 Glucose 118 H Lactic Acid 0.6 Uric Acid Calcium 7.8 L Phosphorus 8.6 H Magnesium 2.4 Total Bilirubin 0.80 Direct Bilirubin AST 11 L ALT 10 Alkaline Phosphatase 29 L Total Protein 5.4 L Albumin 3.0 L Globulin 2.4 Albumin/Globulin Ratio 1.3 Random Vancomycin Impression: Neutropenic fevers s/p BM biopsy LAURE s/p extubation hx of cutaneous T-Cell Lymphoma previously on MTX and Prednisone Thrombocytopenia hypernatremia Plan: continue to monitor secretions increase IVF"s and f/u renal functions BM biopsy pending No need for platelets now continue empiric ABX for neutropenia patient DNR/DNI Family deciding whether or not patient should have renal replacement therapy Critical Care Time: 38
[2019-09-04] MEDS ORDERED: NS 0.9% 1000 ML** 1,000 ML IV SCH (12:15)
[2019-09-04] MEDS ORDERED: Vancomycin Random Level* NOTE FOLLOW UP ONE (13:00)
[2019-09-05] MEDS: HYDROmorphone INJ1* 1 MG/ML SYRINGE IV SLOW PU PRN ×4 (01:39→19:43)
[2019-09-05] MEDS: Chlorhexidine MOUTHWASH 0.12%* 15 ML UDC TOPICAL SCH ×6 (02:17→20:34)
[2019-09-05] MEDS: Piperacillin/Tazobac ADVAN(*) 3.375 GM in NS 0.9% 100 ML* 100 ML IVPB SCH ×2 (05:50→17:12)
[2019-09-05] MEDS ORDERED: Vancomycin Random Level* NOTE FOLLOW UP ONE (06:00)
[2019-09-05 06:25] LABS: Hematocrit 26 % (42-52); Hemoglobin 8.7 g/dL (14.0-18.0); Mean Corpuscular HGB Conc 33 g/dL (31-36); Mean Corpuscular Hemoglobin 30 pg (27-31); Mean Corpuscular Volume 89 fL (80-94); Mean Platelet Volume 8.2 fL (7.4-10.4); Platelet Count 20 10^3/uL (150-450); Red Blood Count 2.94 10^6 /uL (4.18-5.48); Red Cell Distribution Width 16 % (10-15); White Blood Count 0.5 10^3/uL (3.5-10.8)
[2019-09-05 06:31] LABS: Vancomycin Random 24.3 mcg/mL
[2019-09-05 06:32] LABS: Albumin 2.9 g/dL (3.2-5.2); Albumin/Globulin Ratio 1.1 (1-3); BUN/Creatinine Ratio 17.5 (8-20); Calcium 7.7 mg/dL (8.6-10.3); EGFR African American 15.3 (>60); EGFR Non-African American 12.6 (>60); Globulin 2.6 g/dL (2-4); Magnesium 2.5 mg/dL (1.9-2.7); Phosphorus 7.7 mg/dL (2.5-5.0); Potassium 4.7 mmol/L (3.5-5.0); Total Bilirubin 0.7 mg/dL (0.2-1.0); Total Protein 5.5 g/dL (6.4-8.9)
[2019-09-05] MEDS: fentaNYL Patch Check Q Shift 1 NOTE SCH ×2 (07:06→18:52)
[2019-09-05] MEDS: Finasteride TAB* 5 MG PO SCH (08:14)
[2019-09-05] MEDS: Folic Acid TAB* 1 MG PO SCH (08:14)
[2019-09-05] MEDS: Dexamethasone Oral Solution* 1 MG/ML 10 ML UDC (10 MG) PO SCH ×4 (08:15→20:33)
[2019-09-05] MEDS: Famotidine IV* 10 MG/ML 2 ML (20 mg) IV SLOW PU SCH (08:15)
[2019-09-05] MEDS: Lidocaine 2% VISCOUS* 15 ML UDC SWISH SPIT PRN (08:15)
--- NOTE | 2019-09-05 11:12 | PN ---
Date of Service: 09/05/19 Critical Care Services: extubated yesterday still somnolent renal functions worsening platelet count remains low Vital Signs: Temp Pulse Resp BP SpO2 FiO2 97.9 F 84 7 135/62 98 30 09/05/19 10:00 09/05/19 10:00 09/05/19 10:00 09/05/19 10:00 09/05/19 10:00 09/04 08:36 Physical Exam: Gen:lethargic. minimally responsive HEENT:EOMI Lungs:B/L decreased BS"s Cardiac: RRR Abdomen:+BS's, soft, NTP Extremities:painful on palpation LE's B/L Neuro:no focal deficits Fluid Balance (Past 24 Hours): I= O= Net Intake & Output 09/03/19 09/04/19 09/05/19 09/06/19 06:59 06:59 06:59 06:59 Intake Total 2982 4329 1977 Output Total 2045 1018 1990 290 Balance 937 3311 -14 -290 Weight 227 lb 11.8 oz 230 lb 13.184 oz 230 lb 6.129 oz Intake: IV Fluids 894 3413 1889 NS 894 3203 1774 Zosyn 210 115 IVPB 916 88 NS 88 Vanco 287 Zosyn 629 Packed Cells 1460 Platelets 580 Albumin 48 Output: Gan 2045 1018 1990 290 Other: Date of Last Bowel Unknown Movement Labs: Laboratory Results - last 24 hr 09/05/19 09/05/19 09/05/19 05:35 05:35 05:35 WBC 0.5 L RBC 2.94 L Hgb 8.7 L Hct 26 L MCV 89 MCH 30 MCHC 33 RDW 16 H Plt Count 20 L MPV 8.2 Sodium 152 H Potassium 4.7 Chloride 122 H Carbon Dioxide 19 L Anion Gap 11 BUN 80 H Creatinine 4.56 H Est GFR ( Amer) 15.3 Est GFR (Non-Af Amer) 12.6 BUN/Creatinine Ratio 17.5 Glucose 159 H Lactic Acid 0.5 Calcium 7.7 L Phosphorus 7.7 H Magnesium 2.5 Total Bilirubin 0.70 AST 14 ALT 11 Alkaline Phosphatase 27 L Total Protein 5.5 L Albumin 2.9 L Globulin 2.6 Albumin/Globulin Ratio 1.1 Random Vancomycin 24.3 Impression: Neutropenic fevers s/p BM biopsy LAURE s/p extubation hx of cutaneous T-Cell Lymphoma previously on MTX and Prednisone Thrombocytopenia hypernatremia Encephalopathy Plan: Plan: continue to monitor secretions increase IVF"s and f/u renal functions BM biopsy pending No need for platelets now continue empiric ABX for neutropenia patient DNR/DNI Family deciding whether or not patient should have renal replacement therapy add d5w for hypernatremia. keep positive balance Had again d/w family regarding GOC. Also, d/w Oncology at the bedside. Critical Care Time: 45
[2019-09-05] MEDS: D5W 1000 ML BAG* 1,000 ML IV SCH ×2 (12:36→19:17)
[2019-09-05] MEDS: fentaNYL PATCH 50 MCG/HR TRANSDERM SCH (17:09)
[2019-09-05] MEDS: Tamsulosin CAP* 0.4 MG PO SCH (20:33)
--- NOTE | 2019-09-05 21:15 | PN ---
Progress Note - Progress Note Date of Service: 09/05/19 Note: Nephrology f/u note Performed by Dr. Steff Nicholson, [facility] Nephrology 09/05/2019 Cutaneous T Cell lymphoma (Mycosis Fungides). Psoriasis since childhood Baseline sCr baseline 1.1-1.3. eGFR 55-65. CKD 3A BUN/sCr trend 40/2.80~08/31/2019 44/3.05~09/01/2019 44/3.16~09/02 50/4.48~09/03 68/4.20~09/04 80/4.56~09/05 Fluid overload LAURE likely 2/2 ATN. TLS unlikely as Uric Acid normal Family leaning towards not doing HD, still reluctant no final decision Neutropenic fever, Sepsis & Pancytopenia In MICU managed by Freelance Writer, chronic hypoxic respiratory failure Worsening Hypernatremia. 136 on admission, to 139, 145, 148 to 152 today. Was on IVF NS @ 100 cc/hr, switched to D5W today 125 cc/Hr Hospital Meds: Acetaminophen (Tylenol Adult Liq*) 650 mg PO Q4H PRN PRN Reason: MILD PAIN or TEMP > 100.4 Chlorhexidine Gluconate (Peridex Mouth Wash 0.12%*) 15 ml TOPICAL Q4H [facility] Last Admin: 09/05/19 20:34 Dose: Not Given Dexamethasone (Decadron Oral Solution*) 1 mg PO QID [facility] Last Admin: 09/05/19 20:33 Dose: 1 mg Famotidine (Pepcid Iv*) 20 mg IV SLOW PU DAILY [facility] Last Admin: 09/05/19 08:15 Dose: 20 mg Fentanyl (Duragesic Patch 50 Mcg/Hr*) 50 mcg TRANSDERM Q72H [facility] Last Admin: 09/05/19 17:09 Dose: 50 mcg Finasteride (Proscar Tab*) 5 mg PO DAILY [facility] Last Admin: 09/05/19 08:14 Dose: Not Given Folic Acid (Folvite Tab*) 1 mg PO DAILY [facility] Last Admin: 09/05/19 08:14 Dose: Not Given Hydromorphone HCl (Dilaudid Inj1s*) 1 mg IV SLOW PU Q2H PRN PRN Reason: PAIN - MODERATE Last Admin: 09/05/19 19:43 Dose: 1 mg Piperacillin Sod/Tazobactam (Sod 3.375 gm/ Sodium Chloride) 100 mls @ 25 mls/ hr IVPB Q12H [facility] Last Admin: 09/05/19 17:12 Dose: 25 mls/hr Dextrose (D5w 1000 Ml Bag*) 1,000 mls @ 125 mls/hr IV PER RATE [facility] Last Admin: 09/05/19 19:17 Dose: 125 mls/hr Lidocaine (Xylocaine 2% Viscous*) 15 ml SWISH SPIT TID PRN PRN Reason: PAIN - MILD Last Admin: 09/05/19 08:15 Dose: 15 ml Pharmacy Consult (Vancomycin Per Pharmacy*) 1 note FOLLOW UP .VANC PER PHARMACY [facility]; Protocol Pharmacy Consult (Zosyn Per Pharmacy*) 1 note FOLLOW UP .ZOSYN PER PHARMACY [facility] Pharmacy Consult (Vancomycin Random Level*) 1 note FOLLOW UP ONCE ONE Stop: 09/06/19 06:01 Pharmacy Profile Note (Fentanyl Patch Check Q Shift) 1 note N/A 0700,1900 [facility] Last Admin: 09/05/19 18:52 Dose: 1 note Tamsulosin HCl (Flomax Cap*) 0.4 mg PO BEDTIME [facility] Last Admin: 09/05/19 20:33 Dose: Not Given Objective: Vital Signs Temp 98.4 F 09/05/19 19:00 Pulse 101 09/05/19 19:00 Resp 18 09/05/19 19:43 BP 143/72 09/05/19 19:00 Pulse Ox 98 09/05/19 19:00 Intake & Output 09/05/19 09/05/19 09/06/19 06:59 18:59 06:59 Intake Total 1369 1291 Output Total 991 1240 330 Balance 378 51 -330 Weight 104.5 kg Intake: IV Fluids 1281 593 D5W 593 NS 1281 IVPB 88 698 NS 88 Vanco 600 Zosyn 98 Output: Gan 991 1240 330 10 Point multi system exam: HEENT: Oral Ulcers, excessive secretions Abdomen Soft Heart: NSR, No LE Edema Lungs: B/L Crackles Extremities: No edema Skin rash diffuse, open sores Neurology csant fully assess Hem/Lymph: Cutaneous Lymphoma Musculoskeletal: No joint swelling Laboratory Reviewed ABG pH 7.36 (7.35-7.45) 09/02/19 04:20 ABG HCO3 18.0 mmol/L (19-31) L 09/02/19 04:20 Sodium 152 mmol/L (135-145) H 09/05/19 05:35 Potassium 4.7 mmol/L (3.5-5.0) 09/05/19 05:35 BUN 80 mg/dL (6-24) H 09/05/19 05:35 Creatinine 4.56 mg/dL (0.67-1.17) H 09/05/19 05:35 Calcium 7.7 mg/dL (8.6-10.3) L 09/05/19 05:35 Magnesium 2.5 mg/dL (1.9-2.7) 09/05/19 05:35 AST 14 U/L (13-39) 09/05/19 05:35 ALT 11 U/L (7-52) 09/05/19 05:35 Assessment and Plan: LAURE, progressive LAURE 2/2 ATN in a setting Sepsis and pancytopenia. Onc contemplating a treatment regimen vs. possible palliative care Fluid Overload. Off saline. Electrolytes: K Ok. HCo3 Ok Hypernatremia started on D5W Dialysis isn't indicated yet, but if patient is DNR & DNI, with advanced Lymphoma CART[employer] ANIMATOR may not change outcome. Family were informed about lab/radiology results & prognosis. All questions were answered. They were made part of the treatment plan. Case discussed with Dr. Mena. Family still undecided on C[employer]IMATOR.
[2019-09-06] MEDS: HYDROmorphone INJ1* 1 MG/ML SYRINGE IV SLOW PU PRN ×2 (02:52→09:45)
[2019-09-06] MEDS: Chlorhexidine MOUTHWASH 0.12%* 15 ML UDC TOPICAL SCH ×6 (02:52→21:34)
[2019-09-06] MEDS: D5W 1000 ML BAG* 1,000 ML IV SCH ×4 (04:00→17:36)
[2019-09-06 05:08] LABS: Hematocrit 28 % (42-52); Hemoglobin 9.1 g/dL (14.0-18.0); Mean Corpuscular HGB Conc 33 g/dL (31-36); Mean Corpuscular Hemoglobin 30 pg (27-31); Mean Corpuscular Volume 90 fL (80-94); Mean Platelet Volume 8.1 fL (7.4-10.4); Platelet Count 15 10^3/uL (150-450); Red Blood Count 3.08 10^6 /uL (4.18-5.48); Red Cell Distribution Width 16 % (10-15); White Blood Count 0.8 10^3/uL (3.5-10.8)
[2019-09-06 05:23] LABS: Albumin 2.9 g/dL (3.2-5.2); Albumin/Globulin Ratio 1.2 (1-3); BUN/Creatinine Ratio 17.6 (8-20); Calcium 7.6 mg/dL (8.6-10.3); EGFR African American 16.2 (>60); EGFR Non-African American 13.4 (>60); Globulin 2.5 g/dL (2-4); Magnesium 2.2 mg/dL (1.9-2.7); Phosphorus 4.9 mg/dL (2.5-5.0); Total Bilirubin 0.8 mg/dL (0.2-1.0); Total Protein 5.4 g/dL (6.4-8.9); Vancomycin Random 20.1 mcg/mL
[2019-09-06] MEDS: Piperacillin/Tazobac ADVAN(*) 3.375 GM in NS 0.9% 100 ML* 100 ML IVPB SCH ×2 (05:35→18:25)
[2019-09-06] MEDS ORDERED: Vancomycin Random Level* NOTE FOLLOW UP ONE (06:00)
[2019-09-06] MEDS: Folic Acid TAB* 1 MG PO SCH (10:17)
[2019-09-06] MEDS: Finasteride TAB* 5 MG PO SCH (10:17)
[2019-09-06] MEDS: fentaNYL Patch Check Q Shift 1 NOTE SCH ×2 (10:17→18:57)
[2019-09-06] MEDS: Dexamethasone Oral Solution* 1 MG/ML 10 ML UDC (10 MG) PO SCH ×4 (10:17→21:34)
[2019-09-06] MEDS: Famotidine IV* 10 MG/ML 2 ML (20 mg) IV SLOW PU SCH (10:29)
--- NOTE | 2019-09-06 10:30 | PN ---
Progress Note - Progress Note Date of Service: 09/06/19 SOAP: Subjective: [Delirium, not responding to questions, in sever pain with any movement. ] Acetaminophen (Tylenol Adult Liq*) 650 mg PO Q4H PRN PRN Reason: MILD PAIN or TEMP > 100.4 Chlorhexidine Gluconate (Peridex Mouth Wash 0.12%*) 15 ml TOPICAL Q4H [facility] Last Admin: 09/06/19 05:35 Dose: Not Given Dexamethasone (Decadron Oral Solution*) 1 mg PO QID [facility] Last Admin: 09/05/19 20:33 Dose: 1 mg Famotidine (Pepcid Iv*) 20 mg IV SLOW PU DAILY [facility] Last Admin: 09/05/19 08:15 Dose: 20 mg Fentanyl (Duragesic Patch 50 Mcg/Hr*) 50 mcg TRANSDERM Q72H [facility] Last Admin: 09/05/19 17:09 Dose: 50 mcg Finasteride (Proscar Tab*) 5 mg PO DAILY [facility] Last Admin: 09/05/19 08:14 Dose: Not Given Folic Acid (Folvite Tab*) 1 mg PO DAILY [facility] Last Admin: 09/05/19 08:14 Dose: Not Given Piperacillin Sod/Tazobactam (Sod 3.375 gm/ Sodium Chloride) 100 mls @ 25 mls/ hr IVPB Q12H [facility] Last Admin: 09/06/19 05:35 Dose: 25 mls/hr Dextrose (D5w 1000 Ml Bag*) 1,000 mls @ 125 mls/hr IV PER RATE [facility] Last Admin: 09/06/19 04:00 Dose: 125 mls/hr Lidocaine (Xylocaine 2% Viscous*) 15 ml SWISH SPIT TID PRN PRN Reason: PAIN - MILD Last Admin: 09/05/19 08:15 Dose: 15 ml Pharmacy Consult (Vancomycin Per Pharmacy*) 1 note FOLLOW UP .VANC PER PHARMACY [facility]; Protocol Pharmacy Consult (Zosyn Per Pharmacy*) 1 note FOLLOW UP .ZOSYN PER PHARMACY [facility] Pharmacy Consult (Vancomycin Random Level*) 1 note FOLLOW UP ONCE ONE Stop: 09/07/19 06:01 Pharmacy Profile Note (Fentanyl Patch Check Q Shift) 1 note N/A 0700,1900 [facility] Last Admin: 09/05/19 18:52 Dose: 1 note Tamsulosin HCl (Flomax Cap*) 0.4 mg PO BEDTIME [facility] Last Admin: 09/05/19 20:33 Dose: Not Given Objective: [] Vital Signs Temp Pulse Resp BP Pulse Ox 98.4 F 87 15 130/72 100 09/06/19 09:00 09/06/19 09:00 09/06/19 09:45 09/06/19 09:00 09/06/19 09:00 HEENT: OM dry and blood. he is very tender to any palpation, movment. diffuse skin breakdown, cutaneous lesions, unchanged to slightly improved with RN care poor BS, non cooperative, no crackles RRR S1S2 +BS tender to palpatin. Ext +1 MAY Cr 4.33 (up) WBC 0.8 Plts 15 Hgb 9.1 (up) B12 [address] CT for Bmbx: no hydronephrosis. BmBx: aspirate, hyopcellular, scattered RBC progenitors. Assessment: [] 74 year old who presented with CTCL, dehydrated, ARF and pancytopenic after several weeks therapy with MTX. Admission with IVF, pain control with Fentanyl and Dilaudid. He has contined ARF, c/w ATN after fluid challenge, slight rise in blood counts. Prognosis from CTCL if he survives acute event is 1-2 years with therapy. Plan: []1. Pancytopenia. Ddx: paraneoplastic, MTX toxicity and I suspect the later. - check differential and follow counts next 2-3 days. - BL B12. Check MMA, then will give B12 - Bmbx next 48 hrs 2. CTCL. No therapy at this time, skin lesions c/w known disiease. 3. Delirium. Ddx: hypernatremia, pain medication - D5 - stop dialudid, ineffective 4. Pain. Sever pain from skin lesions and hyper-sensitized. - Cont Fentanly, hold Dilaudid. 5. ARF. Will follow, no indication for HD 6. DNR/DNI
--- NOTE | 2019-09-06 11:48 | PN ---
Date of Service: 09/06/19 Critical Care Services: confused slight improvement in renal functions and WBC count family at the bedside low platelets Vital Signs: Temp Pulse Resp BP SpO2 FiO2 99.0 F 93 14 131/63 99 30 09/06/19 11:00 09/06/19 11:00 09/06/19 11:00 09/06/19 11:00 09/06/19 11:00 09/04 08:36 Physical Exam: gen:lethargic. minimally responsive . obese. HEENT:EOMI Lungs:B/L decreased BS"s Cardiac: RRR Abdomen:+BS's, soft, NTP Extremities:painful on palpation LE's B/L Neuro:no focal deficits Fluid Balance (Past 24 Hours): I= O= Net Intake & Output 09/04/19 09/05/19 09/06/19 09/07/19 06:59 06:59 06:59 06:59 Intake Total 4329 1976 2969 714 Output Total 1018 1990 2535 405 Balance 3311 -14 434 309 Weight 230 lb 13.184 oz 230 lb 6.129 oz 230 lb 12.93 oz Intake: IV Fluids 3413 1889 2167 607 D5W 2167 607 NS 3203 1774 Zosyn 210 115 IVPB 916 88 802 107 D5W 104 107 NS 88 Vanco 287 600 Zosyn 629 98 Output: Gan 1018 1990 2535 405 Other: Date of Last Bowel Unknown Movement Labs: Laboratory Results - last 24 hr 09/06/19 09/06/19 04:50 04:50 WBC 0.8 L RBC 3.08 L Hgb 9.1 L Hct 28 L MCV 90 MCH 30 MCHC 33 RDW 16 H Plt Count 15 L* MPV 8.1 Sodium 150 H Potassium 4.0 Chloride 122 H Carbon Dioxide 20 L Anion Gap 8 BUN 76 H Creatinine 4.33 H Est GFR ( Amer) 16.2 Est GFR (Non-Af Amer) 13.4 BUN/Creatinine Ratio 17.6 Glucose 166 H Calcium 7.6 L Phosphorus 4.9 Magnesium 2.2 Total Bilirubin 0.80 AST 17 ALT 13 Alkaline Phosphatase 30 L Total Protein 5.4 L Albumin 2.9 L Globulin 2.5 Albumin/Globulin Ratio 1.2 Random Vancomycin 20.1 Impression: Neutropenic fevers s/p BM biopsy LAURE s/p extubation hx of cutaneous T-Cell Lymphoma previously on MTX and Prednisone Thrombocytopenia hypernatremia Encephalopathy Plan: Plan: continue IVF"s, D5w, and f/u renal functions No need for platelets now as not bleeding continue empiric ABX for neutropenia patient DNR/DNI keep positive balance Had again d/w family regarding GOC. Also, d/w Oncology at the bedside. Critical Care Time: 56
--- NOTE | 2019-09-06 13:13 | PN ---
PROGRESS NOTE: DATE OF VISIT: 09/06/19 SERVICE: [facility] Nephrology. SUBJECTIVE: The patient was seen and examined at bedside. The patient appears confused, but alert and responds to questions. Vitals and labs have been reviewed. PHYSICAL EXAMINATION: HEENT: NC/AT. Heart: S1, S2 present. Regular at the time of exam. Lungs: Decreased breath sounds bilaterally. Noted to have minimal crackles. Abdomen: Soft. Extremities noted to have multiple rashes, purpura and open areas with edema. ASSESSMENT AND PLAN: 1. Acute kidney injury secondary to acute tubular necrosis in the setting of pancytopenia and sepsis. 2. Possible methotrexate renal toxicity; however, this is usually seen with methotrexate infusion and it appears that the patient was only on low-dose p.o. methotrexate and hence we will hold off on further treatment and does not need any leucovorin rescue; however, we will add sodium bicarbonate p.o. to keep his urine alkaline. 3. Metabolic acidosis. We will add p.o. bicarbonate. 4. Acute tubular necrosis. Appears to be in plateau to recovery phase. The patient's creatinine noted to be mildly improved and the patient is beginning to make urine. The patient does not have any acute indications for dialysis and the patient's family also does not want dialysis. The patient may be able to recover his renal function without dialysis during this hospital stay and we will monitor his renal function and acute tubular necrosis recovery closely. 5. Hypernatremia. We will watch closely for post acute tubular necrosis diuresis and hypernatremia. Also agree with D5W supplementation and this can be increased further and follow sodium closely. We will follow with the ICU team and Oncology. [id number]/[facility] #: [id number] DONYA
[2019-09-06] MEDS: Sodium Citrate/Citric Acid* 15 ML UDC PO SCH ×2 (14:14→21:34)
[2019-09-06] MEDS ORDERED: Cyanocobalamin INJ * 1,000 MCG/ML VIAL 1 ML VIAL IM ONE (15:00)
[2019-09-06] MEDS: Tamsulosin CAP* 0.4 MG PO SCH (21:34)
[2019-09-07] MEDS: D5W 1000 ML BAG* 1,000 ML IV SCH ×4 (02:34→23:16)
[2019-09-07] MEDS: Chlorhexidine MOUTHWASH 0.12%* 15 ML UDC TOPICAL SCH ×3 (03:25→10:26)
[2019-09-07 04:50] LABS: Hematocrit 28 % (42-52); Hemoglobin 9.3 g/dL (14.0-18.0); Mean Corpuscular HGB Conc 34 g/dL (31-36); Mean Corpuscular Hemoglobin 30 pg (27-31); Mean Corpuscular Volume 88 fL (80-94); Mean Platelet Volume 8.6 fL (7.4-10.4); Platelet Count 11 10^3/uL (150-450); Red Blood Count 3.12 10^6 /uL (4.18-5.48); Red Cell Distribution Width 16 % (10-15)
[2019-09-07 05:05] LABS: Albumin 2.8 g/dL (3.2-5.2); Albumin/Globulin Ratio 1.1 (1-3); BUN/Creatinine Ratio 16.8 (8-20); Calcium 7.8 mg/dL (8.6-10.3); EGFR African American 18.5 (>60); EGFR Non-African American 15.3 (>60); Globulin 2.6 g/dL (2-4); Phosphorus 2.8 mg/dL (2.5-5.0); Potassium 3.7 mmol/L (3.5-5.0); Total Bilirubin 1.4 mg/dL (0.2-1.0); Total Protein 5.4 g/dL (6.4-8.9)
[2019-09-07 05:22] LABS: Vancomycin Random 16.7 mcg/mL
[2019-09-07] MEDS ORDERED: Vancomycin Random Level* NOTE FOLLOW UP ONE (06:00)
[2019-09-07] MEDS: Piperacillin/Tazobac ADVAN(*) 3.375 GM in NS 0.9% 100 ML* 100 ML IVPB SCH ×2 (06:24→18:12)
[2019-09-07 06:43] LABS: ABS Eosinophils 0.1 10^3/ul (0-0.6); ABS Lymphocytes 0.8 10^3/ul (1.0-4.8); ABS Monocytes 0.1 10^3/ul (0-0.8); Eosinophil % 9.5 %; Lymphocyte % 82.8 %; Nucleated Red Blood Cells % 0.1
[2019-09-07] MEDS: fentaNYL Patch Check Q Shift 1 NOTE SCH (07:32)
[2019-09-07] MEDS: Famotidine IV* 10 MG/ML 2 ML (20 mg) IV SLOW PU SCH (08:53)
[2019-09-07] MEDS: fentaNYL PATCH 50 MCG/HR TRANSDERM SCH (10:25)
--- NOTE | 2019-09-07 10:29 | PN ---
Date of Service: 09/07/19 Critical Care Services: more awake today though only AO times 1. Still lethargic Less pain on LE's Renal functions, UOP, and WBC count improving Vital Signs: Temp Pulse Resp BP SpO2 FiO2 99.3 F 92 19 148/68 98 30 09/07/19 09:00 09/07/19 09:00 09/07/19 09:00 09/07/19 09:00 09/07/19 09:00 09/04 08:36 Physical Exam: Gen:. AO times 1. lethargic. Heart: RRR, Lungs: Decreased Breath sounds, crackles b/l. GI: +BSs, soft, NTP. No rebound or guarding. Neuro: No focal deficits. Extremities: less swelling and tenderness to palpation. Fluid Balance (Past 24 Hours): I= O= Net Intake & Output 09/05/19 09/06/19 09/07/19 09/08/19 06:59 06:59 06:59 06:59 Intake Total 1976 2969 2324 Output Total 1990 0188 1419 897 Balance -14 434 -326 -843 Weight 230 lb 6.129 oz 230 lb 12.93 oz 227 lb 11.8 oz Intake: IV Fluids 1889 2167 2217 D5W 2167 2112 NS 1774 Zosyn 115 105 IVPB 88 802 107 D5W 104 107 NS 88 Vanco 600 Zosyn 98 Output: Urine 200 Gan 1990 0150 5166 580 Labs: Laboratory Results - last 24 hr 09/07/19 09/07/19 04:30 04:30 WBC 1.0 L RBC 3.12 L Hgb 9.3 L Hct 28 L MCV 88 MCH 30 MCHC 34 RDW 16 H Plt Count 11 L* MPV 8.6 Neut % (Auto) 1.4 Lymph % (Auto) 82.8 [place] % (Auto) 6.3 Eos % (Auto) 9.5 Baso % (Auto) 0.0 Absolute Neuts (auto) 0.0 L* Absolute Lymphs (auto) 0.8 L Absolute Monos (auto) 0.1 Absolute Eos (auto) 0.1 Absolute Basos (auto) 0.0 Absolute Nucleated RBC 0.0 Neutrophils % 0.0 Lymphocytes % 89.0 Monocytes % 4.0 Eosinophils % 7.0 Nucleated RBC % 0.1 Normal RBC Morphology Not Reportable Anisocytosis 2+ Sodium 145 Potassium 3.7 Chloride 115 H Carbon Dioxide 22 Anion Gap 8 BUN 65 H Creatinine 3.86 H Est GFR ( Amer) 18.5 Est GFR (Non-Af Amer) 15.3 BUN/Creatinine Ratio 16.8 Glucose 166 H Calcium 7.8 L Phosphorus 2.8 Magnesium 2.0 Total Bilirubin 1.40 H AST 18 ALT 15 Alkaline Phosphatase 36 Total Protein 5.4 L Albumin 2.8 L Globulin 2.6 Albumin/Globulin Ratio 1.1 Random Vancomycin 16.7 Impression: Neutropenic fevers LAURE- resolving s/p extubation hx of cutaneous T-Cell Lymphoma previously on MTX and Prednisone Thrombocytopenia hypernatremia Encephalopathy Plan: Plan: continue d5w for 24 more hours continue empiric ABX for neutropenia patient DNR/DNI keep positive balance hold Fentanyl patch to see if becomes more alert. only PRN pain medications D/W Oncology at the bedside. Critical Care Time: 56
[2019-09-07] MEDS ORDERED: Morphine INJ* 2 MG/ML 1 ML SYRINGE (TWO MG - NEW SYRINGE VERSION) ONE (12:04)
[2019-09-07] MEDS: Morphine INJ* 2 MG/ML 1 ML SYRINGE (TWO MG - NEW SYRINGE VERSION) IV PRN (12:06)
--- NOTE | 2019-09-07 13:16 | PN ---
PROGRESS NOTE: DATE OF VISIT: 09/07/19 SERVICE: [facility] Nephrology. SUBJECTIVE: The patient was seen and examined at bedside. The patient appears less confused and able to communicate more today. Vitals and labs have been reviewed. PHYSICAL EXAMINATION: HEENT: NC/AT. Heart: S1, S2 present. Regular at the time of exam. Lungs: Decreased breath sounds bilaterally. Abdomen: Soft. Extremities noted to have significant edema and purpura and rashes including psoriasis. ASSESSMENT AND PLAN: 1. Acute kidney injury secondary to acute tubular necrosis in the setting of pancytopenia and sepsis. 2. Possible methotrexate renal toxicity, but the patient has only been on p.o. methotrexate. 3. Metabolic acidosis. Started on p.o. bicarbonate. 4. Also recommend p.o. bicarbonate to keep to his urine alkaline in the setting of prior methotrexate use. Does not need further aggressive therapy. 5. Acute tubular necrosis in recovery phase. Does not need dialysis. The patient's kidney function and urine output have improved. 6. Hypernatremia. Agree with continuing D5W for another 24 hours and this is resolved. 7. We will follow with the ICU team. [id number]/[facility] #: [id number] DONYA
[2019-09-07] MEDS: fentaNYL PATCH 25 MCG/HR TRANSDERM SCH (13:27)
[2019-09-07] MEDS ORDERED: Dexamethasone IV* 4 MG/ML 1 ML (4 MG) IV SLOW PU SCH (14:00)
[2019-09-07] MEDS: Dexamethasone Oral Solution* 1 MG/ML 10 ML UDC (10 MG) PO SCH (14:01)
[2019-09-07] MEDS: Sodium Citrate/Citric Acid* 15 ML UDC PO SCH ×3 (14:11→20:53)
[2019-09-07] MEDS: Finasteride TAB* 5 MG PO SCH (14:11)
[2019-09-07] MEDS: Folic Acid TAB* 1 MG PO SCH (14:11)
--- NOTE | 2019-09-07 14:59 | PN ---
Progress Note - Progress Note Date of Service: 09/07/19 SOAP: Subjective: []More oriented today, alert to hospital and name. responding to basic questions , pain is decreased but remains high. Acetaminophen (Tylenol Adult Liq*) 650 mg PO Q4H PRN PRN Reason: MILD PAIN or TEMP > 100.4 Citric Acid/Sodium Citrate (Bicitra*) 30 ml PO TID [facility] Last Admin: 09/07/19 14:11 Dose: Not Given Dexamethasone (Decadron Oral Solution*) 1 mg PO QID [facility] Dexamethasone Sodium Phosphate (Decadron Iv*) 40 mg IVPB DAILY [facility] Stop: 09/11/19 13:59 Famotidine (Pepcid Iv*) 20 mg IV SLOW PU DAILY [facility] Last Admin: 09/07/19 08:53 Dose: 20 mg Fentanyl (Duragesic Patch 25 Mcg/Hr*) 25 mcg TRANSDERM Q72H [facility] Last Admin: 09/07/19 13:27 Dose: 25 mcg Finasteride (Proscar Tab*) 5 mg PO DAILY [facility] Last Admin: 09/07/19 14:11 Dose: Not Given Folic Acid (Folvite Tab*) 1 mg PO DAILY [facility] Last Admin: 09/07/19 14:11 Dose: Not Given Piperacillin Sod/Tazobactam (Sod 3.375 gm/ Sodium Chloride) 100 mls @ 25 mls/ hr IVPB Q12H [facility] Last Admin: 09/07/19 06:24 Dose: 25 mls/hr Dextrose (D5w 1000 Ml Bag*) 1,000 mls @ 150 mls/hr IV PER RATE [facility] Last Admin: 09/07/19 09:06 Dose: 150 mls/hr Vancomycin HCl 1,000 mg/ (Sodium Chloride) 250 mls @ 166.667 mls/hr IV ONCE ONE Stop: 09/07/19 18:29 Lidocaine (Xylocaine 2% Viscous*) 15 ml SWISH SPIT TID PRN PRN Reason: PAIN - MILD Last Admin: 09/05/19 08:15 Dose: 15 ml Morphine Sulfate (Morphine Inj (Syringe))*) 2 mg IV Q2H PRN PRN Reason: PAIN - SEVERE Last Admin: 09/07/19 12:06 Dose: 2 mg Pantoprazole Sodium (Protonix Iv*) 40 mg IV Q12H [facility] Pharmacy Consult (Vancomycin Per Pharmacy*) 1 note FOLLOW UP .VANC PER PHARMACY [facility]; Protocol Pharmacy Consult (Zosyn Per Pharmacy*) 1 note FOLLOW UP .ZOSYN PER PHARMACY [facility] Pharmacy Consult (Vancomycin Random Level*) 1 note FOLLOW UP 0600 ONE Stop: 09/09/19 06:01 Pharmacy Profile Note (Fentanyl Patch Check Q Shift) 1 note FOLLOW UP 0700, 1900 [facility] Tamsulosin HCl (Flomax Cap*) 0.4 mg PO BEDTIME [facility] Last Admin: 09/06/19 21:34 Dose: Not Given Objective: [] Vital Signs Temp Pulse Resp BP Pulse Ox 99.3 F 90 20 128/59 94 09/07/19 11:00 09/07/19 13:00 09/07/19 13:27 09/07/19 13:00 09/07/19 13:00 HEENT: OM dry and blood. skin non tender oriented to hospital diffuse skin breakdown, cutaneous lesions, unchanged to slightly improved with RN care poor BS, non cooperative, no crackles RRR S1S2 +BS non tender. Ext +1 MAY Cr 4.33 (up) WBC 0.8 Plts 15 Hgb 9.1 (up) B12 210 BmBx: marked hypocellularity, flow failed peripheral blood: reactive lyphocytes, not appear to be malignant. Assessment: [] 74 year old who presented with CTCL, dehydrated, ARF and pancytopenic after several weeks therapy with MTX. Admission with IVF, pain control with Fentanyl and Dilaudid. He has contined ARF, c/w ATN after fluid challenge, slight rise in blood counts. Prognosis from CTCL if he survives acute event is 1-2 years with therapy. Plan: []1. Pancytopenia. Ddx: paraneoplastic, MTX toxicity. He has atypical regeneration w/o neutrophils. Suspect tumor effect. - Dex 40 IV qd x 4 days - check differential and follow counts next 2-3 days. - Consider GCSF if no response - Tx pltx < 10k 2. CTCL. HD Steriods, skin improving s/p MTX 3. Delirium. Ddx: hypernatremia, pain medication - D5 - Decrease Fentanyl to 25 mcg 4. Pain. Sever pain but improved today. 5. ARF. Will follow, no indication for HD 6. PPI with Dex 7. DNR/DNI
[2019-09-07] MEDS: Pantoprazole IV* 40 MG IV SCH (15:25)
[2019-09-07] MEDS ORDERED: Vancomycin(*) 1,000 MG in NS 0.9% 250 ML* 250 ML IV ONE (17:00)
[2019-09-07] MEDS: fentaNYL Patch Check Q Shift 1 NOTE FOLLOW UP SCH (19:01)
[2019-09-07] MEDS: Tamsulosin CAP* 0.4 MG PO SCH (20:54)
[2019-09-08] MEDS: Pantoprazole IV* 40 MG IV SCH ×2 (02:04→14:06)
[2019-09-08] MEDS: Morphine INJ* 2 MG/ML 1 ML SYRINGE (TWO MG - NEW SYRINGE VERSION) IV PRN ×2 (03:05→18:53)
[2019-09-08] MEDS: Piperacillin/Tazobac ADVAN(*) 3.375 GM in NS 0.9% 100 ML* 100 ML IVPB SCH ×3 (05:32→21:39)
[2019-09-08 06:04] LABS: ABS Eosinophils 0.1 10^3/ul (0-0.6); ABS Lymphocytes 1.1 10^3/ul (1.0-4.8); ABS Monocytes 0.1 10^3/ul (0-0.8); ABS Neutrophils 0.1 10^3/ul (1.5-7.7); Eosinophil % 5.4 %; Hematocrit 29 % (42-52); Hemoglobin 9.7 g/dL (14.0-18.0); Lymphocyte % 80.4 %; Mean Corpuscular HGB Conc 34 g/dL (31-36); Mean Corpuscular Hemoglobin 30 pg (27-31); Mean Corpuscular Volume 88 fL (80-94); Mean Platelet Volume 8.8 fL (7.4-10.4); Nucleated Red Blood Cells % 0.5; Platelet Count 19 10^3/uL (150-450); Red Blood Count 3.27 10^6 /uL (4.18-5.48); Red Cell Distribution Width 15 % (10-15); White Blood Count 1.4 10^3/uL (3.5-10.8)
[2019-09-08 06:13] LABS: Albumin 2.7 g/dL (3.2-5.2); BUN/Creatinine Ratio 15.4 (8-20); Calcium 7.5 mg/dL (8.6-10.3); EGFR Non-African American 18.2 (>60); Globulin 2.6 g/dL (2-4); Magnesium 1.7 mg/dL (1.9-2.7); Potassium 3.1 mmol/L (3.5-5.0); Total Bilirubin 1.9 mg/dL (0.2-1.0); Total Protein 5.3 g/dL (6.4-8.9)
[2019-09-08] MEDS: D5W 1000 ML BAG* 1,000 ML IV SCH ×4 (06:22→21:39)
[2019-09-08] MEDS: fentaNYL Patch Check Q Shift 1 NOTE FOLLOW UP SCH ×3 (07:15→18:48)
[2019-09-08] MEDS: Dexamethasone IV* 4 MG/ML 5 ML VIAL (20 MG) IVPB SCH (09:14)
[2019-09-08] MEDS: Famotidine IV* 10 MG/ML 2 ML (20 mg) IV SLOW PU SCH (09:14)
[2019-09-08] MEDS ORDERED: Potassium Chlor TAB* 20 MEQ TAB.ER PO ONE (09:40)
--- NOTE | 2019-09-08 10:33 | PN ---
Progress Note - Progress Note Date of Service: 09/08/19 SOAP: Subjective: hematuria started at some point yesterday. refusing all POs ("I am not hungry") . When asked if he wants to live he states "Yes" Objective: Vital Signs Temp Pulse Resp BP Pulse Ox 99.7 F 95 13 147/71 92 09/08/19 06:00 09/08/19 06:00 09/08/19 06:12 09/08/19 06:00 09/08/19 06:00 lying flat, minimally responsive but will engage if prompted +mucositis dry lips cta ant s1 s2 nl tender everywhere but not focally diffuse skin ulceration, dressings applied A+O x 3, globally weak Laboratory Results - last 24 hr 09/03/19 09/07/19 09/08/19 13:20 04:30 05:45 WBC 1.4 L RBC 3.27 L Hgb 9.7 L Hct 29 L MCV 88 MCH 30 MCHC 34 RDW 15 Plt Count 19 L* D MPV 8.8 Neut % (Auto) 9.7 Lymph % (Auto) 80.4 Cherry % (Auto) 4.2 Eos % (Auto) 5.4 Baso % (Auto) 0.3 Absolute Neuts (auto) 0.1 L* Absolute Lymphs (auto) 1.1 Absolute Monos (auto) 0.1 Absolute Eos (auto) 0.1 Absolute Basos (auto) 0.0 Absolute Nucleated RBC 0.0 Neutrophils % 6.0 Lymphocytes % 88.0 Reactive Lymphs % 2.0 Monocytes % 4.0 Eosinophils % 0.0 Basophils % 0.0 Nucleated RBC % 0.5 Normal RBC Morphology Not Reportable Anisocytosis 1+ Hem Pathologist Commnt Sodium Potassium Chloride Carbon Dioxide Anion Gap BUN Creatinine Est GFR ( Amer) Est GFR (Non-Af Amer) BUN/Creatinine Ratio Glucose Calcium Phosphorus Magnesium Total Bilirubin AST ALT Alkaline Phosphatase Total Protein Albumin Globulin Albumin/Globulin Ratio Flow Intrp 2-8 Markers TNP Flow Intrp 9-15 Marker TNP Flow Intrp 16+ Markers 09/08/19 05:45 WBC RBC Hgb Hct MCV MCH MCHC RDW Plt Count MPV Neut % (Auto) Lymph % (Auto) Cherry % (Auto) Eos % (Auto) Baso % (Auto) Absolute Neuts (auto) Absolute Lymphs (auto) Absolute Monos (auto) Absolute Eos (auto) Absolute Basos (auto) Absolute Nucleated RBC Neutrophils % Lymphocytes % Reactive Lymphs % Monocytes % Eosinophils % Basophils % Nucleated RBC % Normal RBC Morphology Anisocytosis Hem Pathologist Commnt Sodium 139 Potassium 3.1 L Chloride 109 Carbon Dioxide 23 Anion Gap 7 BUN 51 H Creatinine 3.32 H Est GFR ( Amer) 22.0 Est GFR (Non-Af Amer) 18.2 BUN/Creatinine Ratio 15.4 Glucose 169 H Calcium 7.5 L Phosphorus 2.0 L Magnesium 1.7 L Total Bilirubin 1.90 H AST 13 ALT 13 Alkaline Phosphatase 40 Total Protein 5.3 L Albumin 2.7 L Globulin 2.6 Albumin/Globulin Ratio 1.0 Flow Intrp 2-8 Markers Flow Intrp 9-15 Marker Flow Intrp 16+ Markers Acetaminophen (Tylenol Adult Liq*) 650 mg PO Q4H PRN PRN Reason: MILD PAIN or TEMP > 100.4 Citric Acid/Sodium Citrate (Bicitra*) 30 ml PO TID [facility] Last Admin: 09/07/19 20:53 Dose: Not Given Dexamethasone (Decadron Oral Solution*) 1 mg PO QID [facility] Dexamethasone Sodium Phosphate (Decadron Iv*) 40 mg IVPB DAILY [facility] Stop: 09/11/19 13:59 Last Admin: 09/08/19 09:14 Dose: 40 mg Famotidine (Pepcid Iv*) 20 mg IV SLOW PU DAILY [facility] Last Admin: 09/08/19 09:14 Dose: 20 mg Fentanyl (Duragesic Patch 25 Mcg/Hr*) 25 mcg TRANSDERM Q72H [facility] Last Admin: 09/07/19 13:27 Dose: 25 mcg Filgrastim-Sndz (Zarxio*) 480 mcg SUBCUT DAILY [facility] Finasteride (Proscar Tab*) 5 mg PO DAILY [facility] Last Admin: 09/07/19 14:11 Dose: Not Given Folic Acid (Folvite Tab*) 1 mg PO DAILY [facility] Last Admin: 09/07/19 14:11 Dose: Not Given Piperacillin Sod/Tazobactam (Sod 3.375 gm/ Sodium Chloride) 100 mls @ 25 mls/ hr IVPB Q12H [facility] Last Admin: 09/08/19 05:32 Dose: 25 mls/hr Dextrose (D5w 1000 Ml Bag*) 1,000 mls @ 150 mls/hr IV PER RATE [facility] Last Admin: 09/08/19 06:22 Dose: 150 mls/hr Lidocaine (Xylocaine 2% Viscous*) 15 ml SWISH SPIT TID PRN PRN Reason: PAIN - MILD Last Admin: 09/05/19 08:15 Dose: 15 ml Loperamide HCl (Imodium Liq*) 2 mg PO .SEE ORDER PRN PRN Reason: DIARRHEA Morphine Sulfate (Morphine Inj (Syringe))*) 2 mg IV Q2H PRN PRN Reason: PAIN - SEVERE Last Admin: 09/08/19 03:05 Dose: 2 mg Pantoprazole Sodium (Protonix Iv*) 40 mg IV Q12H [facility] Last Admin: 09/08/19 02:04 Dose: 40 mg Pharmacy Consult (Vancomycin Per Pharmacy*) 1 note FOLLOW UP .VANC PER PHARMACY [facility]; Protocol Pharmacy Consult (Zosyn Per Pharmacy*) 1 note FOLLOW UP .ZOSYN PER PHARMACY [facility] Pharmacy Consult (Vancomycin Random Level*) 1 note FOLLOW UP 0600 ONE Stop: 09/09/19 06:01 Pharmacy Profile Note (Fentanyl Patch Check Q Shift) 1 note FOLLOW UP 0700, 1900 [facility] Last Admin: 09/08/19 07:15 Dose: 1 note Tamsulosin HCl (Flomax Cap*) 0.4 mg PO BEDTIME [facility] Last Admin: 09/07/19 20:54 Dose: Not Given Assessment: 74 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 His temperature has started to increase after being completely afebrile for several days. Will need to panculture and consider ID consult and broadening abx. I did have a very ty conversation with Bill about needing to eat/get nutrition, vs. pursuing hospice. He is very clear that he wants to try to live and fight this, and did verbally contract to try eating a little more today. That being said, it is unclear to me if he will survive this acute event. Plan: -if temp >100.4 please reculture urine/blood, particularly given de-escalation of abx after several days of being afebrile -cont zosyn -cont high dose dexamethasone, day 2 -add neupogen today -resume PO dex rinses (topical anti-inflammatory for mucositis) -transfuse platelets today for ty hematuria -add imodium for diarrhea -renal failure stable dnr 60 mins spent in discussing with patient and coordination of care
[2019-09-08] MEDS ORDERED: fentaNYL PATCH 25 MCG/HR TRANSDERM SCH (10:45)
[2019-09-08] MEDS: Sodium Citrate/Citric Acid* 15 ML UDC PO SCH ×2 (11:06→16:09)
[2019-09-08] MEDS: Loperamide LIQ* 2 MG/10 ML UDC PO PRN (11:06)
[2019-09-08] MEDS: FILGRASTIM-SNDZ* 480 MCG/0.8 ML SYRINGE SUBCUT SCH (11:10)
--- NOTE | 2019-09-08 11:11 | PN ---
Date of Service: 09/08/19 Critical Care Services: Ao times 3 though lethargic. hematuria this AM and Platelets at 19 pain improved. renal functions continue to improve spiked low grade fevers last night but now AF. refusing PT/OT and to eat Vital Signs: Temp Pulse Resp BP SpO2 FiO2 99.7 F 95 13 147/71 92 30 09/08/19 06:00 09/08/19 06:00 09/08/19 06:12 09/08/19 06:00 09/08/19 06:00 09/08 04:00 Physical Exam: Gen: letharic. obese. MM dry. RRR. Decreased BS's. Diffused skin lesions especially tender to palpation on LE's B/L. No MAY. Fluid Balance (Past 24 Hours): I= O= Net Intake & Output 09/06/19 09/07/19 09/08/19 09/09/19 06:59 06:59 06:59 06:59 Intake Total 2969 2324 3561 1166 Output Total 2535 3120 2786 340 Balance 434 -796 775 826 Weight 230 lb 12.93 oz 227 lb 11.8 oz 225 lb 8.526 oz Intake: IV Fluids 2167 2217 3199 1166 D5W 2167 2112 3199 1166 Zosyn 105 IVPB 802 107 362 D5W 104 107 Vanco 600 255 Zosyn 98 107 Output: Urine 200 Gan 2535 2920 2786 340 Other: Estimated Void Large Estimated Stool Amount Large # Voids 1 Labs: Laboratory Results - last 24 hr 09/03/19 09/07/19 09/08/19 13:20 04:30 05:45 WBC 1.4 L RBC 3.27 L Hgb 9.7 L Hct 29 L MCV 88 MCH 30 MCHC 34 RDW 15 Plt Count 19 L* D MPV 8.8 Neut % (Auto) 9.7 Lymph % (Auto) 80.4 [place] % (Auto) 4.2 Eos % (Auto) 5.4 Baso % (Auto) 0.3 Absolute Neuts (auto) 0.1 L* Absolute Lymphs (auto) 1.1 Absolute Monos (auto) 0.1 Absolute Eos (auto) 0.1 Absolute Basos (auto) 0.0 Absolute Nucleated RBC 0.0 Neutrophils % 6.0 Lymphocytes % 88.0 Reactive Lymphs % 2.0 Monocytes % 4.0 Eosinophils % 0.0 Basophils % 0.0 Nucleated RBC % 0.5 Normal RBC Morphology Not Reportable Anisocytosis 1+ Hem Pathologist Commnt Sodium Potassium Chloride Carbon Dioxide Anion Gap BUN Creatinine Est GFR ( Amer) Est GFR (Non-Af Amer) BUN/Creatinine Ratio Glucose Calcium Phosphorus Magnesium Total Bilirubin AST ALT Alkaline Phosphatase Total Protein Albumin Globulin Albumin/Globulin Ratio Flow Intrp 2-8 Markers TNP Flow Intrp 9-15 Marker TNP Flow Intrp 16+ Markers 09/08/19 05:45 WBC RBC Hgb Hct MCV MCH MCHC RDW Plt Count MPV Neut % (Auto) Lymph % (Auto) Norman % (Auto) Eos % (Auto) Baso % (Auto) Absolute Neuts (auto) Absolute Lymphs (auto) Absolute Monos (auto) Absolute Eos (auto) Absolute Basos (auto) Absolute Nucleated RBC Neutrophils % Lymphocytes % Reactive Lymphs % Monocytes % Eosinophils % Basophils % Nucleated RBC % Normal RBC Morphology Anisocytosis Hem Pathologist Commnt Sodium 139 Potassium 3.1 L Chloride 109 Carbon Dioxide 23 Anion Gap 7 BUN 51 H Creatinine 3.32 H Est GFR ( Amer) 22.0 Est GFR (Non-Af Amer) 18.2 BUN/Creatinine Ratio 15.4 Glucose 169 H Calcium 7.5 L Phosphorus 2.0 L Magnesium 1.7 L Total Bilirubin 1.90 H AST 13 ALT 13 Alkaline Phosphatase 40 Total Protein 5.3 L Albumin 2.7 L Globulin 2.6 Albumin/Globulin Ratio 1.0 Flow Intrp 2-8 Markers Flow Intrp 9-15 Marker Flow Intrp 16+ Markers Impression: s/p Neutropenic fevers LAURE- resolving s/p extubation s/p delirium 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 Patient was re-cultured today keep positive balance requires low dose Fentanyl patch--when took off patient complained of severe pain remains on chemotherapy keep in ICU overnight as high nursing demands Platelets ordered requires dietary and nutrition input D/W Oncologist at the bedside Critical Care Time: 56 minutes
[2019-09-08] MEDS: Finasteride TAB* 5 MG PO SCH (11:16)
[2019-09-08] MEDS: Dexamethasone Oral Solution* 1 MG/ML 10 ML UDC (10 MG) PO SCH ×3 (11:16→21:25)
[2019-09-08] MEDS: Folic Acid TAB* 1 MG PO SCH (11:16)
--- NOTE | 2019-09-08 12:25 | PN ---
PROGRESS NOTE: DATE OF VISIT: 09/08/19 - ROOM #ICU-02 SUBJECTIVE: The patient was seen and examined at bedside, appears to be more alert, awake, and answering questions; however, is not eating yet. Vitals and labs have been reviewed. PHYSICAL EXAMINATION: HEENT: NC/AT. Heart: S1, S2 present. Lungs: Decreased breath sounds bilaterally. Abdomen: Soft. Extremities noted to have some edema with multiple lesions. ASSESSMENT AND PLAN: 1. Acute kidney injury secondary to acute tubular necrosis, in recovery phase. Urine output has improved and kidney function is improving. 2. No indication for acute renal replacement therapy. 3. We will sign off for now and be available for any questions based on the patient's hospital course. [id number]/[facility] #: [id number] [facility]ITAL[facility]a
[2019-09-08] MEDS ORDERED: KCL 20 MEQ/100 ML IVPREMIX* 20 MEQ/100 ML BAG IV SCH (13:00)
[2019-09-08] MEDS: Tamsulosin CAP* 0.4 MG PO SCH (21:26)
[2019-09-09] MEDS: Pantoprazole IV* 40 MG IV SCH (02:09)
[2019-09-09] MEDS: D5W 1000 ML BAG* 1,000 ML IV SCH ×3 (04:06→21:45)
[2019-09-09] MEDS ORDERED: Vancomycin Random Level* NOTE FOLLOW UP ONE (06:00)
[2019-09-09] MEDS: Piperacillin/Tazobac ADVAN(*) 3.375 GM in NS 0.9% 100 ML* 100 ML IVPB SCH ×3 (06:10→21:45)
[2019-09-09] MEDS: fentaNYL Patch Check Q Shift 1 NOTE FOLLOW UP SCH ×2 (06:45→18:45)
[2019-09-09 07:20] LABS: Mean Platelet Volume 9.9 fL (7.4-10.4); Platelet Count 60 10^3/uL (150-450)
[2019-09-09] MEDS: Dexamethasone IV* 4 MG/ML 5 ML VIAL (20 MG) IVPB SCH (08:11)
[2019-09-09] MEDS: Finasteride TAB* 5 MG PO SCH (08:11)
[2019-09-09] MEDS: Dexamethasone Oral Solution* 1 MG/ML 10 ML UDC (10 MG) PO SCH ×4 (08:11→21:45)
[2019-09-09] MEDS: Folic Acid TAB* 1 MG PO SCH (08:11)
[2019-09-09] MEDS: FILGRASTIM-SNDZ* 480 MCG/0.8 ML SYRINGE SUBCUT SCH (08:35)
[2019-09-09 08:43] LABS: Albumin 2.8 g/dL (3.2-5.2); BUN/Creatinine Ratio 16.2 (8-20); Calcium 7.6 mg/dL (8.6-10.3); EGFR African American 23.4 (>60); EGFR Non-African American 19.3 (>60); Globulin 2.7 g/dL (2-4); Potassium 3.6 mmol/L (3.5-5.0); Total Bilirubin 1.7 mg/dL (0.2-1.0); Total Protein 5.5 g/dL (6.4-8.9)
--- NOTE | 2019-09-09 08:59 | PN ---
Progress Note - Progress Note Date of Service: 09/09/19 SOAP: Subjective: markedly better this am. did take some POs last night. pain under better control Objective: Vital Signs Temp Pulse Resp BP Pulse Ox 97.3 F 73 24 142/69 97 09/09/19 08:00 09/09/19 08:00 09/09/19 08:00 09/09/19 08:00 09/09/19 08:00 lying flat, talkative this am op less ulcerated CTA anteriorly s1 s2 nl soft nt +Bs trace LE edema diffuse skin changes/ulcerations moving all extremities coherent having full conversation with me today Laboratory Results - last 24 hr 09/08/19 09/09/19 09/09/19 05:45 07:00 07:05 Plt Count 60 L D MPV 9.9 Hem Pathologist Commnt Sodium 134 L Potassium 3.6 Chloride 105 Carbon Dioxide 18 L Anion Gap 11 BUN 51 H Creatinine 3.15 H Est GFR ( Amer) 23.4 Est GFR (Non-Af Amer) 19.3 BUN/Creatinine Ratio 16.2 Glucose 367 H Calcium 7.6 L Total Bilirubin 1.70 H AST 12 L ALT 14 Alkaline Phosphatase 42 Total Protein 5.5 L Albumin 2.8 L Globulin 2.7 Albumin/Globulin Ratio 1.0 Acetaminophen (Tylenol Adult Liq*) 650 mg PO Q4H PRN PRN Reason: MILD PAIN or TEMP > 100.4 Dexamethasone (Decadron Oral Solution*) 1 mg PO QID [facility] Last Admin: 09/09/19 08:11 Dose: 1 mg Dexamethasone Sodium Phosphate (Decadron Iv*) 40 mg IVPB DAILY [facility] Stop: 09/11/19 13:59 Last Admin: 09/09/19 08:11 Dose: 40 mg Fentanyl (Duragesic Patch 25 Mcg/Hr*) 25 mcg TRANSDERM Q72H [facility] Last Admin: 09/07/19 13:27 Dose: 25 mcg Filgrastim-Sndz (Zarxio*) 480 mcg SUBCUT DAILY [facility] Last Admin: 09/09/19 08:35 Dose: 480 mcg Finasteride (Proscar Tab*) 5 mg PO DAILY [facility] Last Admin: 09/09/19 08:11 Dose: 5 mg Folic Acid (Folvite Tab*) 1 mg PO DAILY [facility] Last Admin: 09/09/19 08:11 Dose: 1 mg Dextrose (D5w 1000 Ml Bag*) 1,000 mls @ 150 mls/hr IV PER RATE [facility] Last Admin: 09/09/19 04:06 Dose: 150 mls/hr Piperacillin Sod/Tazobactam (Sod 3.375 gm/ Sodium Chloride) 100 mls @ 25 mls/ hr IVPB Q8H [facility] Last Admin: 09/09/19 06:10 Dose: 25 mls/hr Lidocaine (Xylocaine 2% Viscous*) 15 ml SWISH SPIT TID PRN PRN Reason: PAIN - MILD Last Admin: 09/05/19 08:15 Dose: 15 ml Loperamide HCl (Imodium Liq*) 2 mg PO .SEE ORDER PRN PRN Reason: DIARRHEA Last Admin: 09/08/19 11:06 Dose: 2 mg Morphine Sulfate (Morphine Inj (Syringe))*) 2 mg IV Q2H PRN PRN Reason: PAIN - SEVERE Last Admin: 09/08/19 18:53 Dose: 2 mg Pantoprazole Sodium (Protonix Iv*) 40 mg IV Q12H [facility] Last Admin: 09/09/19 02:09 Dose: 40 mg Pharmacy Consult (Vancomycin Per Pharmacy*) 1 note FOLLOW UP .VANC PER PHARMACY [facility]; Protocol Pharmacy Consult (Zosyn Per Pharmacy*) 1 note FOLLOW UP .ZOSYN PER PHARMACY [facility] Pharmacy Profile Note (Fentanyl Patch Check Q Shift) 1 note FOLLOW UP 0700, 1900 [facility] Last Admin: 09/09/19 06:45 Dose: 1 note Tamsulosin HCl (Flomax Cap*) 0.4 mg PO BEDTIME [facility] Last Admin: 09/08/19 21:26 Dose: 0.4 mg Assessment: 74 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 He does seem to be turning the corner today and has started to participate in some self care. I had an extensive conversation again with Nolan, and with his family today, about goals of care. He does seem to be improving/recovering from this acute insult. Plan: -cont zosyn -cont high dose dexamethasone, day 3 -cont neupogen -cont PO dex rinses (topical anti-inflammatory for mucositis) -cont imodium for diarrhea -renal failure improving -transfer out of ICU dnr but wants to pursue care
[2019-09-09] MEDS: Morphine INJ* 2 MG/ML 1 ML SYRINGE (TWO MG - NEW SYRINGE VERSION) IV PRN (09:15)
[2019-09-09 11:03] LABS: Hematocrit 29 % (42-52); Hemoglobin 9.8 g/dL (14.0-18.0); Mean Corpuscular HGB Conc 34 g/dL (31-36); Mean Corpuscular Hemoglobin 30 pg (27-31); Mean Corpuscular Volume 88 fL (80-94); Red Blood Count 3.33 10^6 /uL (4.18-5.48); Red Cell Distribution Width 15 % (10-15); White Blood Count 1.4 10^3/uL (3.5-10.8)
[2019-09-09] MEDS: Tamsulosin CAP* 0.4 MG PO SCH (21:45)
[2019-09-10] MEDS: D5W 1000 ML BAG* 1,000 ML IV SCH (04:32)
[2019-09-10] MEDS: Piperacillin/Tazobac ADVAN(*) 3.375 GM in NS 0.9% 100 ML* 100 ML IVPB SCH ×3 (06:08→21:38)
[2019-09-10] MEDS: fentaNYL Patch Check Q Shift 1 NOTE FOLLOW UP SCH ×2 (06:46→19:33)
[2019-09-10] MEDS: Dexamethasone IV* 4 MG/ML 5 ML VIAL (20 MG) IVPB SCH (08:01)
[2019-09-10] MEDS: Dexamethasone Oral Solution* 1 MG/ML 10 ML UDC (10 MG) PO SCH ×4 (08:01→21:38)
[2019-09-10] MEDS: Folic Acid TAB* 1 MG PO SCH (08:02)
[2019-09-10] MEDS: Finasteride TAB* 5 MG PO SCH (08:02)
[2019-09-10] MEDS: FILGRASTIM-SNDZ* 480 MCG/0.8 ML SYRINGE SUBCUT SCH (08:02)
[2019-09-10] MEDS: Pantoprazole TAB * 40 MG TAB PO SCH (08:02)
[2019-09-10] MEDS: Morphine INJ* 2 MG/ML 1 ML SYRINGE (TWO MG - NEW SYRINGE VERSION) IV PRN (08:25)
[2019-09-10 08:48] LABS: Hematocrit 27 % (42-52); Hemoglobin 9.2 g/dL (14.0-18.0); Mean Corpuscular HGB Conc 34 g/dL (31-36); Mean Corpuscular Hemoglobin 30 pg (27-31); Mean Corpuscular Volume 89 fL (80-94); Mean Platelet Volume 10.6 fL (7.4-10.4); Platelet Count 116 10^3/uL (150-450); Red Blood Count 3.08 10^6 /uL (4.18-5.48); Red Cell Distribution Width 15 % (10-15); White Blood Count 7.6 10^3/uL (3.5-10.8)
[2019-09-10 09:09] LABS: Albumin 2.7 g/dL (3.2-5.2); BUN/Creatinine Ratio 16.7 (8-20); Calcium 7.5 mg/dL (8.6-10.3); EGFR Non-African American 16.6 (>60); Globulin 2.7 g/dL (2-4); Potassium 3.7 mmol/L (3.5-5.0); Total Bilirubin 1.5 mg/dL (0.2-1.0); Total Protein 5.4 g/dL (6.4-8.9)
[2019-09-10] MEDS ORDERED: Dextrose 50% VIAL 50 ml IV PUSH PRN (09:56)
[2019-09-10] MEDS ORDERED: NS 0.45% IV SCH (11:30)
[2019-09-10] MEDS ORDERED: SODIUM BICARBONATE IV SCH (11:30)
--- NOTE | 2019-09-10 12:27 | PN ---
PROGRESS NOTE: DATE OF VISIT: 09/10/19 SUBJECTIVE: The patient was seen and examined at bedside. Looks significantly better today. Alert, oriented, communicating, also eating more. Vitals and labs have been reviewed. PHYSICAL EXAMINATION: HEENT: NC/AT. Heart: S1, S2 present. Regular at the time of exam. Lungs: Decreased breath sounds bilaterally. Abdomen: Soft. 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 ASSESSMENT AND PLAN: 1. Acute kidney injury on chronic kidney disease secondary to acute tubular necrosis in recovery pha se, improved. 2. No acute renal replacement therapy indication. 3. Minimal worsening in kidney function. Recommend continuing IV fluids. 4. Agree with stopping D5W. The patient's glucose noted to be elevated. 5. We will recommend bicarb with the half-normal saline that he is on to continue bicarb infusion fo r his metabolic acidosis and acute kidney injury. 6. Metabolic acidosis. Continue IV bicarb. 7. We will also place the patient on p.o. bicarbonate. We will follow with the medical team as needed for any renal issues. [id number]/[facility] #: [id number]
[2019-09-10] MEDS: fentaNYL PATCH 25 MCG/HR TRANSDERM SCH (14:09)
[2019-09-10] MEDS: Sodium Bicarbonate (ANTACID)* 650 MG TAB PO SCH ×2 (14:09→19:41)
[2019-09-10] MEDS: Insulin LISPRO* 1 UNITS UNIT SUBCUT SCH ×2 (14:10→19:40)
--- NOTE | 2019-09-10 17:36 | PN ---
Progress Note - Progress Note Date of Service: 09/10/19 SOAP: Subjective: [Continues to do relatively well. Reports that his mouth sores are somewhat worse today, making it difficult to eat. Pain is reasonably well controlled. ] Objective: [ Vital Signs: Temp Pulse Resp BP Pulse Ox 97.2 F 70 18 114/45 95 09/10/19 08:01 09/10/19 08:01 09/10/19 14:09 09/10/19 08:01 09/10/19 08:01 Acetaminophen (Tylenol Adult Liq*) 650 mg PO Q4H PRN PRN Reason: MILD PAIN or TEMP > 100.4 Dexamethasone (Decadron Oral Solution*) 1 mg PO QID [facility] Last Admin: 09/10/19 14:24 Dose: 1 mg Dexamethasone Sodium Phosphate (Decadron Iv*) 40 mg IVPB DAILY [facility] Stop: 09/11/19 13:59 Last Admin: 09/10/19 08:01 Dose: 40 mg Dextrose (Dextrose 50% Vial 50 Ml*) 25 ml IV PUSH .FOR FS < 60 - SS PRN PRN Reason: FS < 60 Fentanyl (Duragesic Patch 25 Mcg/Hr*) 25 mcg TRANSDERM Q72H [facility] Last Admin: 09/10/19 14:09 Dose: 25 mcg Finasteride (Proscar Tab*) 5 mg PO DAILY [facility] Last Admin: 09/10/19 08:02 Dose: 5 mg Folic Acid (Folvite Tab*) 1 mg PO DAILY [facility] Last Admin: 09/10/19 08:02 Dose: 1 mg Piperacillin Sod/Tazobactam (Sod 3.375 gm/ Sodium Chloride) 100 mls @ 25 mls/ hr IVPB Q8H [facility] Last Admin: 09/10/19 14:24 Dose: 25 mls/hr Sodium Bicarbonate 150 meq/ (Sodium Chloride) 1,000 mls @ 100 mls/hr IV .Q24H [facility] Last Admin: 09/10/19 13:35 Dose: 100 mls/hr Insulin Human Lispro (Humalog*) 0 units SUBCUT AC [facility]; Protocol Last Admin: 09/10/19 14:10 Dose: 12 units Lidocaine (Xylocaine 2% Viscous*) 15 ml SWISH SPIT TID PRN PRN Reason: PAIN - MILD Last Admin: 09/05/19 08:15 Dose: 15 ml Loperamide HCl (Imodium Liq*) 2 mg PO .SEE ORDER PRN PRN Reason: DIARRHEA Last Admin: 09/08/19 11:06 Dose: 2 mg Morphine Sulfate (Morphine Inj (Syringe))*) 2 mg IV Q2H PRN PRN Reason: PAIN - SEVERE Last Admin: 09/10/19 08:25 Dose: 2 mg Pantoprazole Sodium (Protonix Tab*) 40 mg PO DAILY [facility] Last Admin: 09/10/19 08:02 Dose: 40 mg Pharmacy Consult (Zosyn Per Pharmacy*) 1 note FOLLOW UP .ZOSYN PER PHARMACY [facility] Pharmacy Profile Note (Fentanyl Patch Check Q Shift) 1 note FOLLOW UP 0700, 1900 [facility] Last Admin: 09/10/19 06:46 Dose: 1 note Sodium Bicarbonate (Sodium Bicarbonate (Antacid)*) 1,300 mg PO Q8H [facility] Last Admin: 09/10/19 14:09 Dose: 1,300 mg Tamsulosin HCl (Flomax Cap*) 0.4 mg PO BEDTIME [facility] Last Admin: 09/09/19 21:45 Dose: 0.4 mg Valacyclovir HCl (Valtrex 1 Gm(*)) 1 gm PO BID [facility]; Protocol Laboratory Results - last 24 hr 09/10/19 09/10/19 09/10/19 08:42 08:42 13:28 WBC 7.6 RBC 3.08 L Hgb 9.2 L Hct 27 L MCV 89 MCH 30 MCHC 34 RDW 15 Plt Count 116 L MPV 10.6 H Neut % (Auto) Not Reportable Lymph % (Auto) Not Reportable [place] % (Auto) Not Reportable Eos % (Auto) Not Reportable Baso % (Auto) Not Reportable Absolute Neuts (auto) Not Reportable Absolute Lymphs (auto) Not Reportable Absolute Monos (auto) Not Reportable Absolute Eos (auto) Not Reportable Absolute Basos (auto) Not Reportable Absolute Nucleated RBC Not Reportable Immature Gran % 19.0 H Neutrophils % 41.0 Band Neutrophils % 13.0 H Lymphocytes % 24.0 Reactive Lymphs % 5.0 Monocytes % 8.0 Metamyelocytes % 2.0 Myelocytes % 1.0 Promyelocytes % 3.0 Blast Cells % 3.0 H* Nucleated RBC % Not Reportable Abs Neuts (Manual) 4.6 Abs Lymphs (Manual) 2.2 Abs Monocytes (Manual) 0.6 Absolute Eos (Manual) 0.0 Abs Basophils (Manual) 0.0 Normal RBC Morphology Not Reportable Anisocytosis 1+ Hem Pathologist Commnt Sodium 132 L Potassium 3.7 Chloride 103 Carbon Dioxide 17 L Anion Gap 12 H BUN 60 H Creatinine 3.60 H Est GFR ( Amer) 20.0 Est GFR (Non-Af Amer) 16.6 BUN/Creatinine Ratio 16.7 Glucose 501 H* POC Glucose (mg/dL) > 444 H* Glucose Meter Confirm Calcium 7.5 L Total Bilirubin 1.50 H AST 16 ALT 14 Alkaline Phosphatase 49 Total Protein 5.4 L Albumin 2.7 L Globulin 2.7 Albumin/Globulin Ratio 1.0 09/10/19 13:33 WBC RBC Hgb Hct MCV MCH MCHC RDW Plt Count MPV Neut % (Auto) Lymph % (Auto) [place] % (Auto) Eos % (Auto) Baso % (Auto) Absolute Neuts (auto) Absolute Lymphs (auto) Absolute Monos (auto) Absolute Eos (auto) Absolute Basos (auto) Absolute Nucleated RBC Immature Gran % Neutrophils % Band Neutrophils % Lymphocytes % Reactive Lymphs % Monocytes % Metamyelocytes % Myelocytes % Promyelocytes % Blast Cells % Nucleated RBC % Abs Neuts (Manual) Abs Lymphs (Manual) Abs Monocytes (Manual) Absolute Eos (Manual) Abs Basophils (Manual) Normal RBC Morphology Anisocytosis Hem Pathologist Commnt Sodium Potassium Chloride Carbon Dioxide Anion Gap BUN Creatinine Est GFR ( Amer) Est GFR (Non-Af Amer) BUN/Creatinine Ratio Glucose POC Glucose (mg/dL) Glucose Meter Confirm 455 H Calcium Total Bilirubin AST ALT Alkaline Phosphatase Total Protein Albumin Globulin Albumin/Globulin Ratio Exam: Gen: generally ill appearing 74 yo male in NAD HEENT: diffuse mucositis, but few small bullae over his lips CV:RRR, no m/r/g Resp: CTA, no w/c/r Skin: diffuse skin ulcerations] [Assessment: 74 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 Plan: 1. Febrile neutropenia - resolved - stop neupogen - cont Zosyn for now 2. 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 Renal failure - improving - maintain Gan for additional 24h for monitoring purposes, but consider dc tomorrow if continuing to improve 4. Hyperglycemia - pt has known DM, but has not required an hypoglycemic agents for some time, hyperglycemia is certainly induced by high dose steroids and D5 drip - stop D5 - start SS Humalog with glucose monitoring at mealtime 4. 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 DNR Dispo: transfer to medical floor
[2019-09-10] MEDS: ValACYclovir (*) 1 GM TAB PO SCH (19:41)
[2019-09-10] MEDS: Tamsulosin CAP* 0.4 MG PO SCH (21:38)
[2019-09-11 04:55] LABS: Hematocrit 28 % (42-52); Hemoglobin 9.4 g/dL (14.0-18.0); Mean Corpuscular HGB Conc 34 g/dL (31-36); Mean Corpuscular Hemoglobin 29 pg (27-31); Mean Corpuscular Volume 87 fL (80-94); Red Blood Count 3.23 10^6 /uL (4.18-5.48); Red Cell Distribution Width 15 % (10-15); White Blood Count 21.6 10^3/uL (3.5-10.8)
[2019-09-11] MEDS: Sodium Bicarbonate (ANTACID)* 650 MG TAB PO SCH ×4 (05:12→22:21)
[2019-09-11] MEDS: NS 0.45% IV SCH ×2 (05:12→16:38)
[2019-09-11] MEDS: Piperacillin/Tazobac ADVAN(*) 3.375 GM in NS 0.9% 100 ML* 100 ML IVPB SCH ×3 (05:12→22:24)
[2019-09-11] MEDS: SODIUM BICARBONATE IV SCH ×2 (05:12→16:38)
[2019-09-11 05:13] LABS: Albumin 2.6 g/dL (3.2-5.2); Calcium 7.5 mg/dL (8.6-10.3); EGFR African American 21.2 (>60); EGFR Non-African American 17.5 (>60); Globulin 2.5 g/dL (2-4); Potassium 3.8 mmol/L (3.5-5.0); Total Bilirubin 1.6 mg/dL (0.2-1.0); Total Protein 5.1 g/dL (6.4-8.9)
[2019-09-11 06:04] LABS: Microcytosis 2+
[2019-09-11 06:06] LABS: ABS Lymphocytes 3.3 10^3/ul (1.0-4.8); ABS Monocytes 0.1 10^3/ul (0-0.8); ABS Neutrophils 18.2 10^3/ul (1.5-7.7); ABS Nucleated RBC 0.1 10^3/ul; Lymphocyte % 15.2 %; Nucleated Red Blood Cells % 0.2; Platelet Count Platelets clumped. 10^3/uL (150-450); Platelet Morphology Large
[2019-09-11] MEDS: fentaNYL Patch Check Q Shift 1 NOTE FOLLOW UP SCH ×2 (06:49→19:08)
--- NOTE | 2019-09-11 07:30 | PN ---
Progress Note - Progress Note Date of Service: 09/11/19 SOAP: Subjective: feeling better (looks much better than ). mouth still sore but healing. trying to eat more Objective: [] Vital Signs Temp Pulse Resp BP Pulse Ox 97.2 F 70 14 114/45 95 09/10/19 08:01 09/10/19 08:01 09/10/19 20:00 09/10/19 08:01 09/10/19 08:01 sitting up watching TV in nad perr eomi op much less mucositis, lip healed almost CTA ant s1 s2 nl soft nt +bs sloughing of skin, much less erythema, appears to be healing A+O x 3 today, nonfocal Laboratory Results - last 24 hr 09/10/19 09/10/19 09/10/19 08:42 08:42 13:28 WBC 7.6 RBC 3.08 L Hgb 9.2 L Hct 27 L MCV 89 MCH 30 MCHC 34 RDW 15 Plt Count 116 L MPV 10.6 H Neut % (Auto) Not Reportable Lymph % (Auto) Not Reportable [place] % (Auto) Not Reportable Eos % (Auto) Not Reportable Baso % (Auto) Not Reportable Absolute Neuts (auto) Not Reportable Absolute Lymphs (auto) Not Reportable Absolute Monos (auto) Not Reportable Absolute Eos (auto) Not Reportable Absolute Basos (auto) Not Reportable Absolute Nucleated RBC Not Reportable Immature Gran % 19.0 H Neutrophils % 41.0 Band Neutrophils % 13.0 H Lymphocytes % 24.0 Reactive Lymphs % 5.0 Monocytes % 8.0 Metamyelocytes % 2.0 Myelocytes % 1.0 Promyelocytes % 3.0 Blast Cells % 3.0 H* Nucleated RBC % Not Reportable Abs Neuts (Manual) 4.6 Abs Lymphs (Manual) 2.2 Abs Monocytes (Manual) 0.6 Absolute Eos (Manual) 0.0 Abs Basophils (Manual) 0.0 Platelet Morphology Normal RBC Morphology Not Reportable Anisocytosis 1+ Microcytosis Hem Pathologist Commnt Sodium 132 L Potassium 3.7 Chloride 103 Carbon Dioxide 17 L Anion Gap 12 H BUN 60 H Creatinine 3.60 H Est GFR ( Amer) 20.0 Est GFR (Non-Af Amer) 16.6 BUN/Creatinine Ratio 16.7 Glucose 501 H* POC Glucose (mg/dL) > 444 H* Glucose Meter Confirm Calcium 7.5 L Total Bilirubin 1.50 H AST 16 ALT 14 Alkaline Phosphatase 49 Total Protein 5.4 L Albumin 2.7 L Globulin 2.7 Albumin/Globulin Ratio 1.0 09/10/19 09/10/19 09/11/19 13:33 19:32 04:42 WBC 21.6 H RBC 3.23 L Hgb 9.4 L Hct 28 L MCV 87 MCH 29 MCHC 34 RDW 15 Plt Count Platelets clumped. H MPV Vehicle Window [place] Neut % (Auto) 84.2 Lymph % (Auto) 15.2 [place] % (Auto) 0.6 Eos % (Auto) 0.0 Baso % (Auto) 0.0 Absolute Neuts (auto) 18.2 H Absolute Lymphs (auto) 3.3 Absolute Monos (auto) 0.1 Absolute Eos (auto) 0.0 Absolute Basos (auto) 0.0 Absolute Nucleated RBC 0.1 Immature Gran % 16.0 H Neutrophils % 56.0 Band Neutrophils % 10.0 H Lymphocytes % 19.0 Reactive Lymphs % 3.0 Monocytes % 6.0 Metamyelocytes % 2.0 Myelocytes % 2.0 H Promyelocytes % 2.0 Blast Cells % Nucleated RBC % 0.2 Abs Neuts (Manual) Abs Lymphs (Manual) Abs Monocytes (Manual) Absolute Eos (Manual) Abs Basophils (Manual) Platelet Morphology Large Normal RBC Morphology Not Reportable Anisocytosis Microcytosis 2+ Hem Pathologist Commnt Sodium Potassium Chloride Carbon Dioxide Anion Gap BUN Creatinine Est GFR ( Amer) Est GFR (Non-Af Amer) BUN/Creatinine Ratio Glucose POC Glucose (mg/dL) 283 H Glucose Meter Confirm 455 H Calcium Total Bilirubin AST ALT Alkaline Phosphatase Total Protein Albumin Globulin Albumin/Globulin Ratio 09/11/19 04:42 WBC RBC Hgb Hct MCV MCH MCHC RDW Plt Count MPV Neut % (Auto) Lymph % (Auto) [place] % (Auto) Eos % (Auto) Baso % (Auto) Absolute Neuts (auto) Absolute Lymphs (auto) Absolute Monos (auto) Absolute Eos (auto) Absolute Basos (auto) Absolute Nucleated RBC Immature Gran % Neutrophils % Band Neutrophils % Lymphocytes % Reactive Lymphs % Monocytes % Metamyelocytes % Myelocytes % Promyelocytes % Blast Cells % Nucleated RBC % Abs Neuts (Manual) Abs Lymphs (Manual) Abs Monocytes (Manual) Absolute Eos (Manual) Abs Basophils (Manual) Platelet Morphology Normal RBC Morphology Anisocytosis Microcytosis Hem Pathologist Commnt Sodium 141 D Potassium 3.8 Chloride 107 Carbon Dioxide 23 Anion Gap 11 BUN 65 H Creatinine 3.43 H Est GFR ( Amer) 21.2 Est GFR (Non-Af Amer) 17.5 BUN/Creatinine Ratio 19.0 Glucose 204 H POC Glucose (mg/dL) Glucose Meter Confirm Calcium 7.5 L Total Bilirubin 1.60 H AST 28 ALT 19 Alkaline Phosphatase 66 Total Protein 5.1 L Albumin 2.6 L Globulin 2.5 Albumin/Globulin Ratio 1.0 Acetaminophen (Tylenol Adult Liq*) 650 mg PO Q4H PRN PRN Reason: MILD PAIN or TEMP > 100.4 Dexamethasone (Decadron Oral Solution*) 1 mg PO QID [facility] Last Admin: 09/10/19 21:38 Dose: 1 mg Dexamethasone Sodium Phosphate (Decadron Iv*) 40 mg IVPB DAILY [facility] Stop: 09/11/19 13:59 Last Admin: 09/10/19 08:01 Dose: 40 mg Dextrose (Dextrose 50% Vial 50 Ml*) 25 ml IV PUSH .FOR FS < 60 - SS PRN PRN Reason: FS < 60 Fentanyl (Duragesic Patch 25 Mcg/Hr*) 25 mcg TRANSDERM Q72H [facility] Last Admin: 09/10/19 14:09 Dose: 25 mcg Finasteride (Proscar Tab*) 5 mg PO DAILY [facility] Last Admin: 09/10/19 08:02 Dose: 5 mg Folic Acid (Folvite Tab*) 1 mg PO DAILY [facility] Last Admin: 09/10/19 08:02 Dose: 1 mg Piperacillin Sod/Tazobactam (Sod 3.375 gm/ Sodium Chloride) 100 mls @ 25 mls/ hr IVPB Q8H [facility] Last Admin: 09/11/19 05:12 Dose: 25 mls/hr Sodium Bicarbonate 150 meq/ (Sodium Chloride) 1,000 mls @ 100 mls/hr IV Q10H [facility] Last Admin: 09/11/19 05:12 Dose: 100 mls/hr Insulin Human Lispro (Humalog*) 0 units SUBCUT AC [facility]; Protocol Last Admin: 09/10/19 19:40 Dose: 6 units Lidocaine (Xylocaine 2% Viscous*) 15 ml SWISH SPIT TID PRN PRN Reason: PAIN - MILD Last Admin: 09/05/19 08:15 Dose: 15 ml Loperamide HCl (Imodium Liq*) 2 mg PO .SEE ORDER PRN PRN Reason: DIARRHEA Last Admin: 09/08/19 11:06 Dose: 2 mg Morphine Sulfate (Morphine Inj (Syringe))*) 2 mg IV Q2H PRN PRN Reason: PAIN - SEVERE Last Admin: 09/10/19 08:25 Dose: 2 mg Pantoprazole Sodium (Protonix Tab*) 40 mg PO DAILY [facility] Last Admin: 09/10/19 08:02 Dose: 40 mg Pharmacy Consult (Zosyn Per Pharmacy*) 1 note FOLLOW UP .ZOSYN PER PHARMACY [facility] Pharmacy Profile Note (Fentanyl Patch Check Q Shift) 1 note FOLLOW UP 0700, 1900 [facility] Last Admin: 09/11/19 06:49 Dose: 1 note Sodium Bicarbonate (Sodium Bicarbonate (Antacid)*) 1,300 mg PO Q8HR [facility] Last Admin: 09/11/19 05:12 Dose: 1,300 mg Tamsulosin HCl (Flomax Cap*) 0.4 mg PO BEDTIME [facility] Last Admin: 09/10/19 21:38 Dose: 0.4 mg Valacyclovir HCl (Valtrex 1 Gm(*)) 1 gm PO Q24H [facility]; Protocol Last Admin: 09/10/19 19:41 Dose: 1 gm Assessment: 74 yo M w CTCL a/w pancytopenia, febrile neutropenia and hypocellular marrow, likely related to MTX, recovering! Plan: 1. Febrile neutropenia - resolved -neupogen stopped - cont Zosyn for now, will likely D/C Friday if stable 2. 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 Renal failure - stable, appreciate renal consultation, on sodium bicarb w 1/2 NS now 4. 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 DNR Dispo: transfer to medical floor
[2019-09-11] MEDS: Dexamethasone Oral Solution* 1 MG/ML 10 ML UDC (10 MG) PO SCH ×4 (08:15→22:22)
[2019-09-11] MEDS: Pantoprazole TAB * 40 MG TAB PO SCH (08:15)
[2019-09-11] MEDS: Dexamethasone IV* 4 MG/ML 5 ML VIAL (20 MG) IVPB SCH (08:15)
[2019-09-11] MEDS: Folic Acid TAB* 1 MG PO SCH (08:15)
[2019-09-11] MEDS: Finasteride TAB* 5 MG PO SCH (08:15)
[2019-09-11] MEDS: Insulin LISPRO* 1 UNITS UNIT SUBCUT SCH ×3 (08:15→18:09)
[2019-09-11] MEDS: Morphine INJ* 2 MG/ML 1 ML SYRINGE (TWO MG - NEW SYRINGE VERSION) IV PRN ×3 (08:15→16:39)
[2019-09-11] MEDS: Heparin VIAL(*) 5000 UNITS/ML VIAL (FIVE THOUSAND) SUBCUT SCH (13:37)
[2019-09-11] MEDS: ValACYclovir (*) 1 GM TAB PO SCH (18:09)
[2019-09-11] MEDS: Tamsulosin CAP* 0.4 MG PO SCH (22:21)
[2019-09-12] MEDS: Heparin VIAL(*) 5000 UNITS/ML VIAL (FIVE THOUSAND) SUBCUT SCH ×2 (00:19→13:16)
[2019-09-12] MEDS: SODIUM BICARBONATE IV SCH ×3 (03:32→21:38)
[2019-09-12] MEDS: NS 0.45% IV SCH ×3 (03:32→21:38)
[2019-09-12] MEDS: Lidocaine 2% VISCOUS* 15 ML UDC SWISH SPIT PRN ×2 (03:35→18:16)
[2019-09-12 04:58] LABS: Hematocrit 26 % (42-52); Hemoglobin 8.6 g/dL (14.0-18.0); Mean Corpuscular HGB Conc 33 g/dL (31-36); Mean Corpuscular Hemoglobin 28 pg (27-31); Mean Corpuscular Volume 87 fL (80-94); Mean Platelet Volume 10.8 fL (7.4-10.4); Platelet Count 186 10^3/uL (150-450); Red Blood Count 3.04 10^6 /uL (4.18-5.48); Red Cell Distribution Width 15 % (10-15); White Blood Count 29.2 10^3/uL (3.5-10.8)
[2019-09-12 05:21] LABS: Albumin 2.5 g/dL (3.2-5.2); Calcium 7.1 mg/dL (8.6-10.3); Magnesium 1.8 mg/dL (1.9-2.7); Potassium 3.3 mmol/L (3.5-5.0); Total Bilirubin 1.1 mg/dL (0.2-1.0)
[2019-09-12 05:27] LABS: ABS Basophils 0.1 10^3/ul (0-0.2); ABS Lymphocytes 3.1 10^3/ul (1.0-4.8); ABS Monocytes 0.7 10^3/ul (0-0.8); ABS Neutrophils 25.2 10^3/ul (1.5-7.7); ABS Nucleated RBC 0.1 10^3/ul; Albumin/Globulin Ratio 1.1 (1-3); EGFR African American 21.8 (>60); Globulin 2.2 g/dL (2-4); Lymphocyte % 10.7 %; Nucleated Red Blood Cells % 0.2; Total Protein 4.7 g/dL (6.4-8.9)
[2019-09-12 05:34] LABS: Polychromasia 1+
[2019-09-12] MEDS: Piperacillin/Tazobac ADVAN(*) 3.375 GM in NS 0.9% 100 ML* 100 ML IVPB SCH ×3 (05:59→21:50)
[2019-09-12] MEDS: Sodium Bicarbonate (ANTACID)* 650 MG TAB PO SCH ×3 (06:54→21:52)
[2019-09-12] MEDS: fentaNYL Patch Check Q Shift 1 NOTE FOLLOW UP SCH ×2 (06:55→19:46)
[2019-09-12] MEDS: Dexamethasone Oral Solution* 1 MG/ML 10 ML UDC (10 MG) PO SCH ×4 (07:35→21:52)
[2019-09-12] MEDS: Folic Acid TAB* 1 MG PO SCH (07:35)
[2019-09-12] MEDS: Finasteride TAB* 5 MG PO SCH ×3 (07:35→09:20)
[2019-09-12] MEDS: Pantoprazole TAB * 40 MG TAB PO SCH (07:35)
[2019-09-12] MEDS ORDERED: Magnesium Sulfate 2 GM IV* 2 GM/50 ML BAG IVPB ONE (07:54)
[2019-09-12] MEDS ORDERED: Petrolatum 390 GM* 390 GM GEL TOPICAL ONE (08:04)
--- NOTE | 2019-09-12 08:07 | PN ---
Progress Note - Progress Note Date of Service: 09/12/19 SOAP: Subjective: feels better this am. "I want to go home tomorrow". tachy/amrita over night. reports being told at some point in the past that he had a slow or irregular HB. sees Dr. Main in [place], actually has an appointment this week. denies chest pain. Objective: Vital Signs Temp Pulse Resp BP Pulse Ox 97.5 F 57 15 145/55 88 09/12/19 07:14 09/12/19 07:14 09/12/19 07:14 09/12/19 07:14 09/12/19 07:14 lying flat in nad perr eomi op dry, crusted lesion on lip CTA bl irregular soft nt +Bs diffuse sloughing of skin, improved A+O x 3 Laboratory Results - last 24 hr 09/11/19 09/11/19 09/11/19 07:53 12:29 16:43 WBC RBC Hgb Hct MCV MCH MCHC RDW Plt Count MPV Neut % (Auto) Lymph % (Auto) [place] % (Auto) Eos % (Auto) Baso % (Auto) Absolute Neuts (auto) Absolute Lymphs (auto) Absolute Monos (auto) Absolute Eos (auto) Absolute Basos (auto) Absolute Nucleated RBC Immature Gran % Neutrophils % Band Neutrophils % Lymphocytes % Monocytes % Metamyelocytes % Myelocytes % Promyelocytes % Blast Cells % Nucleated RBC % Nucleated RBCs/100 WBC Normal RBC Morphology Polychromasia Acanthocytes (Spur) Sodium Potassium Chloride Carbon Dioxide Anion Gap BUN Creatinine Est GFR ( Amer) Est GFR (Non-Af Amer) BUN/Creatinine Ratio Glucose POC Glucose (mg/dL) 240 H 303 H 310 H Calcium Magnesium Total Bilirubin AST ALT Alkaline Phosphatase Total Protein Albumin Globulin Albumin/Globulin Ratio 09/12/19 09/12/19 04:15 04:15 WBC 29.2 H RBC 3.04 L Hgb 8.6 L Hct 26 L MCV 87 MCH 28 MCHC 33 RDW 15 Plt Count 186 MPV 10.8 H Neut % (Auto) 86.5 Lymph % (Auto) 10.7 [place] % (Auto) 2.5 Eos % (Auto) 0.0 Baso % (Auto) 0.3 Absolute Neuts (auto) 25.2 H Absolute Lymphs (auto) 3.1 Absolute Monos (auto) 0.7 Absolute Eos (auto) 0.0 Absolute Basos (auto) 0.1 Absolute Nucleated RBC 0.1 Immature Gran % 10.0 H Neutrophils % 65.0 Band Neutrophils % 1.0 Lymphocytes % 15.0 Monocytes % 9.0 Metamyelocytes % 3.0 H Myelocytes % 2.0 H Promyelocytes % 4.0 Blast Cells % 1.0 H* Nucleated RBC % 0.2 Nucleated RBCs/100 WBC 1.0 H Normal RBC Morphology Not Reportable Polychromasia 1+ Acanthocytes (Spur) Sodium 144 Potassium 3.3 L Chloride 105 Carbon Dioxide 30 Anion Gap 9 BUN 67 H Creatinine 3.35 H Est GFR ( Amer) 21.8 Est GFR (Non-Af Amer) 18.0 BUN/Creatinine Ratio 20.0 Glucose 212 H POC Glucose (mg/dL) Calcium 7.1 L Magnesium 1.8 L Total Bilirubin 1.10 H AST 30 ALT 18 Alkaline Phosphatase 84 Total Protein 4.7 L Albumin 2.5 L Globulin 2.2 Albumin/Globulin Ratio 1.1 Acetaminophen (Tylenol Adult Liq*) 650 mg PO Q4H PRN PRN Reason: MILD PAIN or TEMP > 100.4 Dexamethasone (Decadron Oral Solution*) 1 mg PO QID [facility] Last Admin: 09/12/19 07:35 Dose: 1 mg Dextrose (Dextrose 50% Vial 50 Ml*) 25 ml IV PUSH .FOR FS < 60 - SS PRN PRN Reason: FS < 60 Fentanyl (Duragesic Patch 25 Mcg/Hr*) 25 mcg TRANSDERM Q72H [facility] Last Admin: 09/10/19 14:09 Dose: 25 mcg Finasteride (Proscar Tab*) 5 mg PO DAILY [facility] Last Admin: 09/12/19 07:41 Dose: Not Given Folic Acid (Folvite Tab*) 1 mg PO DAILY [facility] Last Admin: 09/12/19 07:35 Dose: 1 mg Heparin Sodium (Porcine) (Heparin Vial(*)) 5,000 units SUBCUT Q12H [facility] Last Admin: 09/12/19 00:19 Dose: 5,000 units Piperacillin Sod/Tazobactam (Sod 3.375 gm/ Sodium Chloride) 100 mls @ 25 mls/ hr IVPB Q8H [facility] Last Admin: 09/12/19 05:59 Dose: 25 mls/hr Sodium Bicarbonate 150 meq/ (Sodium Chloride) 1,000 mls @ 100 mls/hr IV Q10H [facility] Last Admin: 09/12/19 03:32 Dose: 100 mls/hr Magnesium Sulfate (Magnesium Sulfate 2 Gm Iv*) 2 gm in 50 mls @ 50 mls/hr IVPB ONCE ONE Stop: 09/12/19 08:53 Insulin Human Lispro (Humalog*) 0 units SUBCUT AC [facility]; Protocol Last Admin: 09/11/19 18:09 Dose: 8 units Lidocaine (Xylocaine 2% Viscous*) 15 ml SWISH SPIT TID PRN PRN Reason: PAIN - MILD Last Admin: 09/12/19 03:35 Dose: 15 ml Loperamide HCl (Imodium Liq*) 2 mg PO .SEE ORDER PRN PRN Reason: DIARRHEA Last Admin: 09/08/19 11:06 Dose: 2 mg Morphine Sulfate (Morphine Inj (Syringe))*) 2 mg IV Q2H PRN PRN Reason: PAIN - SEVERE Last Admin: 09/11/19 16:39 Dose: 2 mg Pantoprazole Sodium (Protonix Tab*) 40 mg PO DAILY [facility] Last Admin: 09/12/19 07:35 Dose: 40 mg Pharmacy Consult (Zosyn Per Pharmacy*) 1 note FOLLOW UP .ZOSYN PER PHARMACY [facility] Pharmacy Profile Note (Fentanyl Patch Check Q Shift) 1 note FOLLOW UP 0700, 1900 [facility] Last Admin: 09/12/19 06:55 Dose: 1 note Potassium Chloride (Klor Con Er Tab*) 20 meq PO BID [facility] Sodium Bicarbonate (Sodium Bicarbonate (Antacid)*) 1,300 mg PO Q8HR [facility] Last Admin: 09/12/19 06:54 Dose: 1,300 mg Tamsulosin HCl (Flomax Cap*) 0.4 mg PO BEDTIME [facility] Last Admin: 09/11/19 22:21 Dose: 0.4 mg Valacyclovir HCl (Valtrex 1 Gm(*)) 1 gm PO Q24H [facility]; Protocol Last Admin: 09/11/19 18:09 Dose: 1 gm Assessment: 74 yo M w CTCL a/w pancytopenia, febrile neutropenia and hypocellular marrow, likely related to MTX, recovering. leukocytosis and blasts VERY likely from neupogen, not sepsis. Plan: 1. Febrile neutropenia - resolved -neupogen stopped - cont Zosyn for now, will likely D/C Friday if stable 2. 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 Renal failure - stable, appreciate renal consultation, on sodium bicarb w 1/2 NS now 4. 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 tachy/amrita: unclear to me on strips if sinus arrhythmia or afib. will get EKG this am. May need cardiology consult -replete electrolytes -tele monitoring 7. DNR Dispo: PT/OT consult, may need STR, though patient hopeful for discharge home at this point this seems unlikely to me
[2019-09-12] MEDS: Potassium Chlor TAB* 20 MEQ TAB.ER PO SCH ×2 (09:20→21:52)
[2019-09-12] MEDS: Morphine INJ* 2 MG/ML 1 ML SYRINGE (TWO MG - NEW SYRINGE VERSION) IV PRN (09:22)
[2019-09-12] MEDS: Insulin LISPRO* 1 UNITS UNIT SUBCUT SCH ×3 (09:27→18:06)
[2019-09-12] MEDS: ValACYclovir (*) 1 GM TAB PO SCH (18:06)
[2019-09-12] MEDS: Tamsulosin CAP* 0.4 MG PO SCH (21:52)
[2019-09-13] MEDS: Heparin VIAL(*) 5000 UNITS/ML VIAL (FIVE THOUSAND) SUBCUT SCH ×2 (00:14→13:36)
[2019-09-13] MEDS: SODIUM BICARBONATE IV SCH ×5 (03:00→15:14)
[2019-09-13] MEDS: NS 0.45% IV SCH (03:00)
[2019-09-13] MEDS: NS IV SCH ×4 (03:16→15:14)
[2019-09-13] MEDS: Piperacillin/Tazobac ADVAN(*) 3.375 GM in NS 0.9% 100 ML* 100 ML IVPB SCH (06:21)
[2019-09-13] MEDS: fentaNYL Patch Check Q Shift 1 NOTE FOLLOW UP SCH ×2 (07:11→19:31)
[2019-09-13 09:10] LABS: Hematocrit 30 % (42-52); Mean Corpuscular HGB Conc 33 g/dL (31-36); Mean Corpuscular Hemoglobin 29 pg (27-31); Mean Corpuscular Volume 88 fL (80-94); Mean Platelet Volume 10.4 fL (7.4-10.4); Platelet Count 193 10^3/uL (150-450); Red Blood Count 3.46 10^6 /uL (4.18-5.48); Red Cell Distribution Width 15 % (10-15)
[2019-09-13] MEDS: Folic Acid TAB* 1 MG PO SCH (09:10)
[2019-09-13] MEDS: Dexamethasone Oral Solution* 1 MG/ML 10 ML UDC (10 MG) PO SCH ×4 (09:11→20:41)
[2019-09-13] MEDS: Finasteride TAB* 5 MG PO SCH (09:11)
[2019-09-13] MEDS: Potassium Chlor TAB* 20 MEQ TAB.ER PO SCH ×2 (09:11→20:40)
[2019-09-13] MEDS: Lidocaine 2% VISCOUS* 15 ML UDC SWISH SPIT PRN ×2 (09:11→13:43)
[2019-09-13] MEDS: Insulin LISPRO* 1 UNITS UNIT SUBCUT SCH ×3 (09:11→17:38)
[2019-09-13] MEDS: Pantoprazole TAB * 40 MG TAB PO SCH (09:11)
[2019-09-13 09:20] LABS: Albumin 2.7 g/dL (3.2-5.2); Albumin/Globulin Ratio 1.1 (1-3); BUN/Creatinine Ratio 17.4 (8-20); Calcium 7.1 mg/dL (8.6-10.3); EGFR African American 22.8 (>60); EGFR Non-African American 18.8 (>60); Globulin 2.5 g/dL (2-4); Potassium 3.1 mmol/L (3.5-5.0); Total Protein 5.2 g/dL (6.4-8.9)
--- NOTE | 2019-09-13 09:40 | PN ---
Progress Note - Progress Note Date of Service: 09/13/19 SOAP: Subjective: []Feeling better, still pain in mouth and pain with swallowing. Also, cannot eat thicket because causes nausea. No SOB and no chest pain, no palpitations. Skin is better less pain but still an issues. He cannot get up without assistance. Acetaminophen (Tylenol Adult Liq*) 650 mg PO Q4H PRN PRN Reason: MILD PAIN or TEMP > 100.4 Dexamethasone (Decadron Oral Solution*) 1 mg PO QID [facility] Last Admin: 09/13/19 09:11 Dose: 1 mg Dextrose (Dextrose 50% Vial 50 Ml*) 25 ml IV PUSH .FOR FS < 60 - SS PRN PRN Reason: FS < 60 Fentanyl (Duragesic Patch 25 Mcg/Hr*) 25 mcg TRANSDERM Q72H [facility] Last Admin: 09/10/19 14:09 Dose: 25 mcg Finasteride (Proscar Tab*) 5 mg PO DAILY [facility] Last Admin: 09/13/19 09:11 Dose: 5 mg Folic Acid (Folvite Tab*) 1 mg PO DAILY [facility] Last Admin: 09/13/19 09:10 Dose: 1 mg Heparin Sodium (Porcine) (Heparin Vial(*)) 5,000 units SUBCUT Q12H [facility] Last Admin: 09/13/19 00:14 Dose: 5,000 units Piperacillin Sod/Tazobactam (Sod 3.375 gm/ Sodium Chloride) 100 mls @ 25 mls/ hr IVPB Q8H [facility] Last Admin: 09/13/19 06:21 Dose: 25 mls/hr Sodium Bicarbonate 150 meq/ (Sodium Chloride) 1,150 mls @ 115 mls/hr IV Q10H [facility] Last Admin: 09/13/19 03:16 Dose: Not Given Insulin Human Lispro (Humalog*) 0 units SUBCUT AC [facility]; Protocol Last Admin: 09/13/19 09:11 Dose: 2 units Lidocaine (Xylocaine 2% Viscous*) 15 ml SWISH SPIT TID PRN PRN Reason: PAIN - MILD Last Admin: 09/13/19 09:11 Dose: 15 ml Loperamide HCl (Imodium Liq*) 2 mg PO .SEE ORDER PRN PRN Reason: DIARRHEA Last Admin: 09/08/19 11:06 Dose: 2 mg Morphine Sulfate (Morphine Inj (Syringe))*) 2 mg IV Q2H PRN PRN Reason: PAIN - SEVERE Last Admin: 09/12/19 09:22 Dose: 2 mg Pantoprazole Sodium (Protonix Tab*) 40 mg PO DAILY [facility] Last Admin: 09/13/19 09:11 Dose: 40 mg Pharmacy Consult (Zosyn Per Pharmacy*) 1 note FOLLOW UP .ZOSYN PER PHARMACY [facility] Pharmacy Profile Note (Fentanyl Patch Check Q Shift) 1 note FOLLOW UP 0700, 1900 [facility] Last Admin: 09/13/19 07:11 Dose: 1 note Potassium Chloride (Klor Con Er Tab*) 20 meq PO BID [facility] Last Admin: 09/13/19 09:11 Dose: 20 meq Sodium Bicarbonate (Sodium Bicarbonate (Antacid)*) 1,300 mg PO Q8HR [facility] Last Admin: 09/12/19 21:52 Dose: 1,300 mg Tamsulosin HCl (Flomax Cap*) 0.4 mg PO BEDTIME [facility] Last Admin: 09/12/19 21:52 Dose: 0.4 mg Valacyclovir HCl (Valtrex 1 Gm(*)) 1 gm PO Q24H [facility]; Protocol Last Admin: 09/12/19 18:06 Dose: 1 gm Objective: [] Vital Signs Temp Pulse Resp BP Pulse Ox 97.7 F 64 14 149/60 96 09/13/19 08:00 09/13/19 08:00 09/13/19 08:00 09/13/19 08:00 09/13/19 08:00 HEENT: mouth soars and lip ulcerations are much better. Still dry, still some lip lesions. CTA Irreg at 90-100, S1S2, sounds distant +BS NT ND obeses Ext +1 edema skin: diffuse ulcerations but much better then last week. has very good skin care by nursing. Assessment: 74 yo M w CTCL a/w pancytopenia, febrile neutropenia and hypocellular marrow, likely related to MTX, recovering. Diffuse skin lesions are improving, likely from MTX therapy. Plan: 1. Febrile neutropenia - resolved -neupogen stopped - will dc zozyn 2. Mucositis - cont dexamethasone rise - Valtrex for possible HSV - Improving 3. Renal failure - stable, appreciate renal consultation, on sodium bicarb w 1/2 NS - would like to see further improvement 4. 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 6. tachy/amrita: - No intervention as rate < 120 - check lytes today - consult cardiology, case discussed. 7. DNR 8. MS improved, re-check swallow evaluation today. 9. Discussed may need ST rehab prior to going home.
[2019-09-13] MEDS: Sodium Bicarbonate (ANTACID)* 650 MG TAB PO SCH ×3 (09:59→21:38)
[2019-09-13 10:36] LABS: ABS Basophils 0.2 10^3/ul (0-0.2); ABS Eosinophils 0.1 10^3/ul (0-0.6); ABS Lymphocytes 4.2 10^3/ul (1.0-4.8); ABS Monocytes 0.7 10^3/ul (0-0.8); ABS Neutrophils 24.9 10^3/ul (1.5-7.7); ABS Nucleated RBC 0.1 10^3/ul; Eosinophil % 0.2 %; Lymphocyte % 13.9 %; Nucleated Red Blood Cells % 0.2
[2019-09-13] MEDS: fentaNYL PATCH 25 MCG/HR TRANSDERM SCH (13:36)
[2019-09-13] MEDS: Loperamide LIQ* 2 MG/10 ML UDC PO PRN (15:23)
[2019-09-13] MEDS: ValACYclovir (*) 1 GM TAB PO SCH (17:18)
[2019-09-13] MEDS: Sodium Bicarbonate 8.4% IV* 150 MEQ in NS 0.45% 1000 ML BAG* 1,000 ML IV SCH (17:18)
--- NOTE | 2019-09-13 19:43 | CONS ---
CC: Dr. Botello; Dr. Main, [place], [place] * CARDIOLOGY CONSULTATION: DATE OF CONSULT: 09/13/19 INDICATION FOR CONSULTATION: Paroxysmal atrial fibrillation. HISTORY OF PRESENT ILLNESS: The patient is a 74-year-old gentleman with a history of peripheral vascular disease, hyperlipidemia, and atrial fibrillation who is now admitted to the hospital for his cutaneous T-cell lymphoma. The patient has had a reaction to the current chemotherapy and has had neutropenic fever. The patient has been on telemetry at [facility] since 09/03/19 and he has had episodes of paroxysmal atrial fibrillation. Occasionally, his atrial fibrillation goes up to as high as 150 beats a minute, but then resolves on its own. He has had sinus bradycardia down to 50 beats per minute. In speaking with the patient, I cannot elicit any cardiac symptoms. He denies any palpitations. He denies any chest pain. He denies any shortness of breath. He denies any lightheadedness or dizziness. The patient's hospitalization has been complicated by recurrent febrile episodes. The patient does state that he has a history of atrial fibrillation. He is seen by Dr. Main. Apparently, he has not been on any treatment for it, nor has been on anticoagulation. The patient is on chronic Plavix therapy because of his peripheral vascular disease. PAST MEDICAL HISTORY: Significant for peripheral vascular disease, hyperlipidemia, lung pneumonitis, chronic renal insufficiency, diabetes, psoriasis, and now continuous T-cell lymphoma. PAST SURGICAL HISTORY: Appendectomy, right orchiectomy, lung biopsy, femoral artery stents in the past. OUTPATIENT MEDICATIONS: Difficult to assess as I do not have an accurate list of his outpatient medications. He was on: 1. Plavix 75 mg a day. 2. Aspirin 81 mg a day. 3. Finasteride 5 mg a day. Other medications are difficult to assess. ALLERGIES: No known drug allergies. SOCIAL HISTORY: He is . Denies tobacco or alcohol use. He is retired. He does not get any regular exercise. REVIEW OF SYSTEMS: Negative for changes in bowel or bladder habits. Negative for change in weight. Positive for fevers. Other 12-point review is unremarkable. PHYSICAL EXAM: Height is 6 feet, weight 227 pounds. Temperature is 98.2, heart rate is 60, blood pressure 153/68, oxygen saturation 94% on 2 L. Sclerae anicteric. Oropharynx is pink without erythema. Carotids are 2+ without bruits. JVD is normal. Thyroid is normal. Cardiac Exam: S1, S2 without any murmurs, rubs, or gallops. Lungs are clear to auscultation. Abdomen is soft, nontender, and nondistended with normoactive bowel sounds. Extremities show 2+ edema. He has 2+ pulses throughout. The patient is awake, alert, and oriented. He moves all 4 extremities equally. DIAGNOSTIC STUDIES/LAB DATA: Laboratory Studies: White cell count today is 30, 000; it was 1.4 back on 09/08/19, hemoglobin 10, hematocrit 30, platelet count 193. Chemistries: Potassium 3.1, BUN 56, creatinine 3.2. Troponins were never obtained. AST and ALT are normal. TSH is normal on 09/01/19 at 2.8. Today's EKG demonstrates normal EKG with frequent PACs. Telemetry strips do show mostly sinus rhythm, but brief episodes of atrial fibrillation, some atrial fibrillation with rapid ventricular response. Echocardiogram during this hospitalization demonstrates normal LV size and systolic function, no focal wall motion abnormalities, severe left atrial enlargement, mild- to-moderate tricuspid regurgitation. I could not estimate PA systolic pressures. IMPRESSION AND PLAN: This is a 74-year-old gentleman with a history of paroxysmal atrial fibrillation who was admitted to the hospital with a reaction to the medications for his chemotherapy. The patient also had some worsening of his renal insufficiency while he was here in the hospital. The patient does have some mild tachybrady syndrome. He was having tachycardias up to 160 beats a minute with atrial fibrillation at rest. He has heart rates down into the 50s. The patient denies any symptoms associated with his arrhythmias or bradycardia. For now, my recommendation is to not do any medical therapy. The patient does not need antiarrhythmic therapy. The only medication I will use for antiarrhythmic will be amiodarone given his severe renal insufficiency. The patient is asymptomatic from his atrial fibrillation. Thus, I do not think antiarrhythmics are necessary. The patient is on Plavix and aspirin for his peripheral vascular disease. It would be my recommendation that the patient undergo full anticoagulation given his frequency of paroxysmal atrial fibrillation. I did talk to Hematology/ Oncology about potentially starting Coumadin for him as he is not a candidate for the NOACs. Please feel free to contact me if he has further episodes of atrial fibrillation that are difficult to control. Otherwise, the patient should see Dr. Main as an outpatient. [id number]/[facility] #: [id number] DONYA
[2019-09-13] MEDS: Tamsulosin CAP* 0.4 MG PO SCH (20:40)
[2019-09-14] MEDS: Heparin VIAL(*) 5000 UNITS/ML VIAL (FIVE THOUSAND) SUBCUT SCH ×2 (00:29→12:50)
[2019-09-14] MEDS: Sodium Bicarbonate 8.4% IV* 150 MEQ in NS 0.45% 1000 ML BAG* 1,000 ML IV SCH ×3 (03:22→23:45)
[2019-09-14] MEDS: Sodium Bicarbonate (ANTACID)* 650 MG TAB PO SCH ×2 (05:04→14:08)
[2019-09-14 05:42] LABS: Hematocrit 28 % (42-52); Hemoglobin 9.2 g/dL (14.0-18.0); Mean Corpuscular HGB Conc 33 g/dL (31-36); Mean Corpuscular Hemoglobin 29 pg (27-31); Mean Corpuscular Volume 88 fL (80-94); Mean Platelet Volume 10.5 fL (7.4-10.4); Platelet Count 157 10^3/uL (150-450); Red Blood Count 3.14 10^6 /uL (4.18-5.48); Red Cell Distribution Width 16 % (10-15); White Blood Count 26.8 10^3/uL (3.5-10.8)
[2019-09-14 05:59] LABS: Albumin 2.5 g/dL (3.2-5.2); Albumin/Globulin Ratio 1.1 (1-3); Calcium 6.7 mg/dL (8.6-10.3); EGFR African American 24.2 (>60); Globulin 2.3 g/dL (2-4); Magnesium 1.8 mg/dL (1.9-2.7); Total Bilirubin 0.8 mg/dL (0.2-1.0); Total Protein 4.8 g/dL (6.4-8.9)
[2019-09-14 07:38] LABS: ABS Basophils 0.1 10^3/ul (0-0.2); ABS Lymphocytes 3.7 10^3/ul (1.0-4.8); ABS Neutrophils 22.1 10^3/ul (1.5-7.7); Lymphocyte % 13.9 %; Nucleated Red Blood Cells % 0.1
[2019-09-14] MEDS: fentaNYL Patch Check Q Shift 1 NOTE FOLLOW UP SCH ×2 (07:55→19:05)
[2019-09-14] MEDS: Pantoprazole TAB * 40 MG TAB PO SCH (08:26)
[2019-09-14] MEDS: Insulin LISPRO* 1 UNITS UNIT SUBCUT SCH ×3 (08:26→17:37)
[2019-09-14] MEDS: Folic Acid TAB* 1 MG PO SCH (08:26)
[2019-09-14] MEDS: Potassium Chlor TAB* 20 MEQ TAB.ER PO SCH ×2 (08:26→20:44)
[2019-09-14] MEDS: Finasteride TAB* 5 MG PO SCH (08:26)
[2019-09-14] MEDS: Dexamethasone Oral Solution* 1 MG/ML 10 ML UDC (10 MG) PO SCH ×4 (08:26→21:06)
[2019-09-14] MEDS ORDERED: Magnesium Sulfate 2 GM IV* 2 GM/50 ML BAG IVPB ONE (09:46)
--- NOTE | 2019-09-14 09:48 | PN ---
Progress Note - Progress Note Date of Service: 09/14/19 SOAP: Subjective: []Feeling well today and in good spritits. Motivated to be working towards rehab. Mouth still sore, but a little better day by day and swallowing better. Denies chest pain and pressure. Medications: Acetaminophen (Tylenol Adult Liq*) 650 mg PO Q4H PRN PRN Reason: MILD PAIN or TEMP > 100.4 Dexamethasone (Decadron Oral Solution*) 1 mg PO QID [facility] Last Admin: 09/14/19 08:26 Dose: 1 mg Dextrose (Dextrose 50% Vial 50 Ml*) 25 ml IV PUSH .FOR FS < 60 - SS PRN PRN Reason: FS < 60 Fentanyl (Duragesic Patch 25 Mcg/Hr*) 25 mcg TRANSDERM Q72H [facility] Last Admin: 09/13/19 13:36 Dose: 25 mcg Finasteride (Proscar Tab*) 5 mg PO DAILY [facility] Last Admin: 09/14/19 08:26 Dose: 5 mg Folic Acid (Folvite Tab*) 1 mg PO DAILY [facility] Last Admin: 09/14/19 08:26 Dose: 1 mg Heparin Sodium (Porcine) (Heparin Vial(*)) 5,000 units SUBCUT Q12H [facility] Last Admin: 09/14/19 00:29 Dose: 5,000 units Sodium Bicarbonate 150 meq/ (Sodium Chloride) 1,150 mls @ 115 mls/hr IV Q10H [facility] Last Admin: 09/14/19 03:22 Dose: 115 mls/hr Magnesium Sulfate (Magnesium Sulfate 2 Gm Iv*) 2 gm in 50 mls @ 50 mls/hr IVPB ONCE ONE Stop: 09/14/19 10:45 Potassium Chloride (Potassium Chloride 20 Meq/100 Ml Ivpremix*) 20 meq in 100 mls @ 50 mls/hr IV Q2H [facility] Stop: 09/14/19 13:59 Insulin Human Lispro (Humalog*) 0 units SUBCUT AC [facility]; Protocol Last Admin: 09/14/19 08:26 Dose: 1 units Lidocaine (Xylocaine 2% Viscous*) 15 ml SWISH SPIT TID PRN PRN Reason: PAIN - MILD Last Admin: 09/13/19 13:43 Dose: 15 ml Loperamide HCl (Imodium Liq*) 2 mg PO .SEE ORDER PRN PRN Reason: DIARRHEA Last Admin: 09/13/19 15:23 Dose: 2 mg Morphine Sulfate (Morphine Inj (Syringe))*) 2 mg IV Q2H PRN PRN Reason: PAIN - SEVERE Last Admin: 09/12/19 09:22 Dose: 2 mg Pantoprazole Sodium (Protonix Tab*) 40 mg PO DAILY [facility] Last Admin: 09/14/19 08:26 Dose: 40 mg Pharmacy Profile Note (Fentanyl Patch Check Q Shift) 1 note FOLLOW UP 0700, 1900 [facility] Last Admin: 09/14/19 07:55 Dose: 1 note Potassium Chloride (Klor Con Er Tab*) 20 meq PO BID [facility] Last Admin: 09/14/19 08:26 Dose: 20 meq Sodium Bicarbonate (Sodium Bicarbonate (Antacid)*) 1,300 mg PO Q8HR [facility] Last Admin: 09/14/19 05:04 Dose: 1,300 mg Tamsulosin HCl (Flomax Cap*) 0.4 mg PO BEDTIME [facility] Last Admin: 09/13/19 20:40 Dose: 0.4 mg Valacyclovir HCl (Valtrex 1 Gm(*)) 1 gm PO Q24H [facility]; Protocol Last Admin: 09/13/19 17:18 Dose: 1 gm Objective: [] Vital Signs Temp Pulse Resp BP Pulse Ox 97.9 F 82 24 142/58 94 09/14/19 08:00 09/14/19 08:00 09/14/19 08:00 09/14/19 08:00 09/14/19 08:00 A&Ox3, EOMI, neuro grossly non-focal HRR, S1S2, tele SR with no further SVT overnight LS clear though poor resp. effort with mildly dim. bases +BS, soft and non-tender Bilat. LEs with several open areas no deep ulcerations, healing lesions as well Laboratory Results - last 24 hr 09/11/19 09/12/19 09/13/19 04:42 04:15 08:41 WBC 30.0 H RBC 3.46 L Hgb 10.0 L Hct 30 L MCV 88 MCH 29 MCHC 33 RDW 15 Plt Count 193 MPV 10.4 Neut % (Auto) 83.1 Lymph % (Auto) 13.9 [place] % (Auto) 2.3 Eos % (Auto) 0.2 Baso % (Auto) 0.5 Absolute Neuts (auto) 24.9 H Absolute Lymphs (auto) 4.2 Absolute Monos (auto) 0.7 Absolute Eos (auto) 0.1 Absolute Basos (auto) 0.2 Absolute Nucleated RBC 0.1 Immature Gran % 15.0 H Neutrophils % 57.0 Band Neutrophils % 4.0 Lymphocytes % 19.0 Reactive Lymphs % 2.0 Monocytes % 4.0 Metamyelocytes % 3.0 H Myelocytes % 5.0 H Promyelocytes % 3.0 Blast Cells % 3.0 H* Nucleated RBC % 0.2 Nucleated RBCs/100 WBC 1.0 H Toxic Granulation 2+ Normal RBC Morphology Not Reportable Hem Pathologist Commnt Sodium Potassium Chloride Carbon Dioxide Anion Gap BUN Creatinine Est GFR ( Amer) Est GFR (Non-Af Amer) BUN/Creatinine Ratio Glucose POC Glucose (mg/dL) Calcium Magnesium Total Bilirubin AST ALT Alkaline Phosphatase Total Protein Albumin Globulin Albumin/Globulin Ratio 09/13/19 09/13/19 09/14/19 12:14 17:32 05:12 WBC 26.8 H RBC 3.14 L Hgb 9.2 L Hct 28 L MCV 88 MCH 29 MCHC 33 RDW 16 H Plt Count 157 MPV 10.5 H Neut % (Auto) 82.2 Lymph % (Auto) 13.9 [place] % (Auto) 3.7 Eos % (Auto) 0.0 Baso % (Auto) 0.2 Absolute Neuts (auto) 22.1 H Absolute Lymphs (auto) 3.7 Absolute Monos (auto) 1.0 H Absolute Eos (auto) 0.0 Absolute Basos (auto) 0.1 Absolute Nucleated RBC 0.0 Immature Gran % 16.0 H Neutrophils % 62.0 Band Neutrophils % 8.0 Lymphocytes % 16.0 Reactive Lymphs % Monocytes % 3.0 Metamyelocytes % 5.0 H Myelocytes % 3.0 H Promyelocytes % Blast Cells % 3.0 H* Nucleated RBC % 0.1 Nucleated RBCs/100 WBC Toxic Granulation 2+ Normal RBC Morphology Normal Hem Pathologist Commnt Sodium Potassium Chloride Carbon Dioxide Anion Gap BUN Creatinine Est GFR ( Amer) Est GFR (Non-Af Amer) BUN/Creatinine Ratio Glucose POC Glucose (mg/dL) 165 H 285 H Calcium Magnesium Total Bilirubin AST ALT Alkaline Phosphatase Total Protein Albumin Globulin Albumin/Globulin Ratio 09/14/19 09/14/19 05:12 07:38 WBC RBC Hgb Hct MCV MCH MCHC RDW Plt Count MPV Neut % (Auto) Lymph % (Auto) [place] % (Auto) Eos % (Auto) Baso % (Auto) Absolute Neuts (auto) Absolute Lymphs (auto) Absolute Monos (auto) Absolute Eos (auto) Absolute Basos (auto) Absolute Nucleated RBC Immature Gran % Neutrophils % Band Neutrophils % Lymphocytes % Reactive Lymphs % Monocytes % Metamyelocytes % Myelocytes % Promyelocytes % Blast Cells % Nucleated RBC % Nucleated RBCs/100 WBC Toxic Granulation Normal RBC Morphology Hem Pathologist Commnt Sodium 145 Potassium 3.0 L Chloride 100 L Carbon Dioxide 37 H Anion Gap 8 BUN 46 H Creatinine 3.06 H Est GFR ( Amer) 24.2 Est GFR (Non-Af Amer) 20.0 BUN/Creatinine Ratio 15.0 Glucose 152 H POC Glucose (mg/dL) 139 H Calcium 6.7 L Magnesium 1.8 L Total Bilirubin 0.80 AST 29 ALT 16 Alkaline Phosphatase 87 Total Protein 4.8 L Albumin 2.5 L Globulin 2.3 Albumin/Globulin Ratio 1.1 Assessment: []74 yo M w CTCL a/w pancytopenia, febrile neutropenia and hypocellular marrow, likely related to MTX, recovering. Diffuse skin lesions are improving, likely from MTX therapy. Plan: []1. Febrile neutropenia: resolved - excellent response to neupogen, follow counts - off abx. 2. Mucositis: slowly improving - cont dexamethasone rise - Valtrex for possible HSV 3. Renal failure - stable, appreciate renal consultation, on sodium bicarb w 1/2 NS 4. 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 6. tachy/amrita: - no further episodes overnight, cont. to monitor - aggressive electrolyte management with daily labs DNR Dispo: pending stabilization of electrolytes however will need rehab, request consult from [facility] though I suspect he needs [facility]
[2019-09-14] MEDS: KCL 20 MEQ/100 ML IVPREMIX* 20 MEQ/100 ML BAG IV SCH ×3 (11:52→14:03)
[2019-09-14] MEDS: ValACYclovir (*) 1 GM TAB PO SCH (17:37)
--- NOTE | 2019-09-14 18:20 | CONSULT ---
Subjective Date of Service: 09/14/19 Interval History: Mr. Delgado is a 74 yo male with PMH significant for CAD, HLD, PAD s/p femoral stenting, chronic renal insufficiency, DM2, psoriasis, and cutaneous T cell lymphoma. He presented to the hospital at the request of Oncology for dehydration and was found to have neutropenic fever. He presented to the hospital with lesions on the extremities and torso secondary to T cell lymphoma. The wounds have been treated with Vaseline during his hospitalization. He was not seen last week for a wound consultation, per [facility] staff due to being very combative in the ICU (this behavior has resolved). Patient seen and examined at bedside. Family History: Unchanged from Admission Social History: Unchanged from Admission Past Medical History: Unchanged from Admission Review of Systems - Measurements Intake and Output: Intake and Output Last 24 Hours 09/12/19 09/13/19 09/14/19 09/15/19 06:59 06:59 06:59 06:59 Intake Total 2202 4969 3692 640 Output Total 1690 1250 3480 1525 Balance 512 3719 212 -885 Intake: IV Fluids 1300 81 1382 Bicarb 1130 1357 NS (0.9%) 70 25 Zosyn 100 81 IVPB 842 2268 1110 Bicarb 632 1892 1000 Vanco 110 Zosyn 100 376 110 Oral 60 2620 1200 640 Output: Urine 0 400 3480 1525 Gan 1690 850 Other: Estimated Void Large Medium # Bowel Movements 1 1 Estimated Stool Amount Large Medium # Voids 1 0 1 - Review of Systems Constitutional Symptoms: Negative: Fever, Other - Chills Dermatology: Positive: Skin Lesions Objective Active Medications: Acetaminophen (Tylenol Adult Liq*) 650 mg PO Q4H PRN Reason: MILD PAIN or TEMP > 100.4 Dexamethasone (Decadron Oral Solution*) 1 mg PO QID [facility] Dextrose (Dextrose 50% Vial 50 Ml*) 25 ml IV PUSH PRN Reason: FS < 60 Fentanyl (Duragesic Patch 25 Mcg/Hr*) 25 mcg TRANSDERM Q72H [facility] Finasteride (Proscar Tab*) 5 mg PO DAILY [facility] Folic Acid (Folvite Tab*) 1 mg PO DAILY [facility] Heparin Sodium (Porcine) (Heparin Vial(*)) 5,000 units SUBCUT Q12H [facility] Sodium Bicarbonate 150 meq/ (Sodium Chloride) 1,150 mls @ 115 mls/hr IV Q10H [facility] Insulin Human Lispro (Humalog*) 0 units SUBCUT AC [facility]; Protocol Lidocaine (Xylocaine 2% Viscous*) 15 ml SWISH SPIT TID PRN Reason: PAIN - MILD Loperamide HCl (Imodium Liq*) 2 mg PO .SEE ORDER PRN Reason: DIARRHEA Oxycodone HCl (Roxycodone Tab*) 5 mg PO Q6H PRN Reason: PAIN - MODERATE Pantoprazole Sodium (Protonix Tab*) 40 mg PO DAILY [facility] Pharmacy Profile Note (Fentanyl Patch Check Q Shift) 1 note FOLLOW UP 0700, 1900 [facility] Potassium Chloride (Klor Con Er Tab*) 20 meq PO BID [facility] Sodium Bicarbonate (Sodium Bicarbonate (Antacid)*) 1,300 mg PO Q8HR [facility] Tamsulosin HCl (Flomax Cap*) 0.4 mg PO BEDTIME [facility] Valacyclovir HCl (Valtrex 1 Gm(*)) 1 gm PO Q24H [facility]; Protocol Vital Signs 09/14/19 09/14/19 15:00 16:00 Temperature 97.9 F Temperature Oral Source Heart Rate 94 Respiratory 20 Rate Blood Pressure 153/50 (mmHg) Blood Pressure 84 Mean O2 Sat by Pulse 92 Oximetry Patient on Room Yes Air Oxygen Devices in Use Now: None Appearance: NAD, laying in bed Ears/Nose/Mouth/Throat: Mucous Membranes Moist Respiratory: Symmetrical Chest Expansion and Respiratory Effort Skin: - - see skin note below Neurological: Alert and Oriented x 3 Result Diagrams: 09/19/19 07:27 09/19/19 07:27 Additional Lab and Data: Above labs were pulled into the note, when the note was edited prior to signing. Please see below for labs from day of consultation. Laboratory Tests 09/14/19 09/14/19 05:12 05:12 WBC 26.8 H Hgb 9.2 L Hct 28 L Plt Count 157 Sodium 145 Potassium 3.0 L Chloride 100 L Carbon Dioxide 37 H BUN 46 H Creatinine 3.06 H Glucose 152 H Total Protein 4.8 L Albumin 2.5 L Microbiology and Other Data: 07/21/19 - Skin Biopsy: 1. Skin, right superior lateral mid back, biopsy: -- Cutaneous T cell lymphoma (mycosis fungoides); see comment. 2. Skin, right lateral abdomen, biopsy: -- Subacute spongiotic dermatitis; see comment. Skin Deviation Note - Skin Deviation Findings Buttocks - Right hip with superficial open areas. The proximal wound measures 4.5 cm x 2.5 cm x 0.1 cm and the distal cluster of wounds measures 3.5 cm x 5 cm x 0.1 cm. The wound bases are red granulation tissue. There is no drainage. Left buttock with 2 superficial open wounds, proximal and smaller wound measures 0.5 cm x 0.5 cm x 0.1 cm. The wound base is red granulation tissue. There is no drainage. The larger and distal wound measures 1.6 cm x 1.7 cm x 0.1 cm. The wound base is yellow slough, surrounded by red granulation tissue. The surrounding skin with blanchable erythema. Left back/flank - There are superficial open areas and scabbing. Open area at the lateral back (left of the ruler), measures 1.7 cm x 1.3 cm x 0.1 cm. The wound base is yellow slough with red granulation tissue. The surrounding skin is intact, there is no drainage. Open area on the right side, measures 1.5 cm x 1 cm x 0.1 cm. The wound base is yellow slough. The surrounding skin is intact. There area of erythema, these are healed ulcers. There are 2 scabbed areas on the right side, not measured. Right lower leg - Multiple areas with skin flaking and some black eschar. There is mild erythema. No warmth. No drainage. The surrounding skin is intact. Left lateral lower leg and right medial lower leg - Multiple areas with skin flaking and some black eschar. There is mild erythema. No warmth. No drainage. The surrounding skin is intact. Wound Problem/Plan Assessment: Mr. Delgado is a 74 yo male with PMH significant for CAD, HLD, PAD s/p femoral stenting, chronic renal insufficiency, DM2, psoriasis, and cutaneous T cell lymphoma. He presented to the hospital at the request of Oncology for dehydration and was found to have neutropenic fever. He presented to the hospital with lesions on the extremities and torso secondary to T cell lymphoma. 1. Lesions secondary to cutaneous T cell lymphoma. Recommend washing the skin with soap and water, apply lotion to the intact area. Apply petroleum jelly or petroleum impregnated gauze to the open areas once daily and as needed. Could consider using rolled gauze on the legs to help keep the ointment/dressing in place. Consider obtaining ABIs to evaluate vascular status in legs. 2. Psoriasis. On methotrexate at home. 3. DM2. HgA1C was 6.1 on 07/26/19. 4. Diet. Unrestricted, mechanical ground. 5. Code Status. DNR. 6. Disposition. Inpatient, disposition per primary team. TIME SPENT: Time for this wound consultation was 30 minutes and 20 minutes was spent with the patient at bedside discussing past medical history; assessing, measuring, and photographing wounds. Is Patient a Wound Clinic Patient: No Attending: Zoila Atkins
[2019-09-14] MEDS: Tamsulosin CAP* 0.4 MG PO SCH (20:44)
[2019-09-15] MEDS: Sodium Bicarbonate 8.4% IV* 150 MEQ in NS 0.45% 1000 ML BAG* 1,000 ML IV SCH ×3 (00:07→23:32)
[2019-09-15] MEDS: Sodium Bicarbonate (ANTACID)* 650 MG TAB PO SCH ×4 (00:55→20:01)
[2019-09-15] MEDS: Heparin VIAL(*) 5000 UNITS/ML VIAL (FIVE THOUSAND) SUBCUT SCH (00:55)
[2019-09-15] MEDS: oxyCODONE TAB* 5 MG TAB PO PRN (02:41)
[2019-09-15 04:52] LABS: Hematocrit 26 % (42-52); Hemoglobin 8.4 g/dL (14.0-18.0); Mean Corpuscular HGB Conc 33 g/dL (31-36); Mean Corpuscular Hemoglobin 29 pg (27-31); Mean Corpuscular Volume 89 fL (80-94); Mean Platelet Volume 10.4 fL (7.4-10.4); Platelet Count 137 10^3/uL (150-450); Red Blood Count 2.89 10^6 /uL (4.18-5.48); Red Cell Distribution Width 15 % (10-15); White Blood Count 27.1 10^3/uL (3.5-10.8)
[2019-09-15 04:59] LABS: Albumin 2.4 g/dL (3.2-5.2); Albumin/Globulin Ratio 1.1 (1-3); BUN/Creatinine Ratio 12.6 (8-20); Calcium 6.5 mg/dL (8.6-10.3); EGFR African American 26.2 (>60); EGFR Non-African American 21.7 (>60); Globulin 2.2 g/dL (2-4); Potassium 3.5 mmol/L (3.5-5.0); Total Bilirubin 0.8 mg/dL (0.2-1.0); Total Protein 4.6 g/dL (6.4-8.9)
[2019-09-15 06:22] LABS: ABS Basophils 0.1 10^3/ul (0-0.2); ABS Lymphocytes 3.1 10^3/ul (1.0-4.8); ABS Monocytes 1.3 10^3/ul (0-0.8); ABS Neutrophils 22.6 10^3/ul (1.5-7.7); Lymphocyte % 11.5 %; Nucleated Red Blood Cells % 0.1
[2019-09-15] MEDS: fentaNYL Patch Check Q Shift 1 NOTE FOLLOW UP SCH ×2 (07:09→19:28)
[2019-09-15] MEDS: Finasteride TAB* 5 MG PO SCH (09:11)
[2019-09-15] MEDS: Folic Acid TAB* 1 MG PO SCH (09:13)
[2019-09-15] MEDS: Potassium Chlor TAB* 20 MEQ TAB.ER PO SCH ×2 (09:14→19:59)
[2019-09-15] MEDS: Pantoprazole TAB * 40 MG TAB PO SCH (09:14)
[2019-09-15] MEDS: Insulin LISPRO* 1 UNITS UNIT SUBCUT SCH ×3 (09:18→19:09)
[2019-09-15] MEDS: Dexamethasone Oral Solution* 1 MG/ML 10 ML UDC (10 MG) PO SCH (10:44)
--- NOTE | 2019-09-15 11:31 | PN ---
Progress Note - Progress Note Date of Service: 09/15/19 SOAP: Subjective: []Called this AM by nursing with dark red and brown stool (not streaked), liquid with some mucous. Mr. Delgado states he feels more fatigued than he has in several days. "I don't know why." Admits to dizziness when he got up, this is new. No exertion that would cause SOB. No chest pain or pressure No abd. pain or cramping. Medications: Acetaminophen (Tylenol Adult Liq*) 650 mg PO Q4H PRN PRN Reason: MILD PAIN or TEMP > 100.4 Dextrose (Dextrose 50% Vial 50 Ml*) 25 ml IV PUSH .FOR FS < 60 - SS PRN PRN Reason: FS < 60 Fentanyl (Duragesic Patch 25 Mcg/Hr*) 25 mcg TRANSDERM Q72H [facility] Last Admin: 09/13/19 13:36 Dose: 25 mcg Finasteride (Proscar Tab*) 5 mg PO DAILY [facility] Last Admin: 09/15/19 09:11 Dose: 5 mg Folic Acid (Folvite Tab*) 1 mg PO DAILY [facility] Last Admin: 09/15/19 09:13 Dose: 1 mg Sodium Bicarbonate 150 meq/ (Sodium Chloride) 1,150 mls @ 115 mls/hr IV Q10H [facility] Last Admin: 09/15/19 11:07 Dose: 115 mls/hr Insulin Human Lispro (Humalog*) 0 units SUBCUT AC [facility]; Protocol Last Admin: 09/15/19 09:18 Dose: 1 units Lidocaine (Xylocaine 2% Viscous*) 15 ml SWISH SPIT TID PRN PRN Reason: PAIN - MILD Last Admin: 09/13/19 13:43 Dose: 15 ml Loperamide HCl (Imodium Liq*) 2 mg PO .SEE ORDER PRN PRN Reason: DIARRHEA Last Admin: 09/13/19 15:23 Dose: 2 mg Multi-Ingredient Mouthwash/Gargle (Magic Mouth Was-Clyde/Maal/Lido*) 10 ml SWISH SPIT QID [facility] Oxycodone HCl (Roxycodone Tab*) 5 mg PO Q6H PRN PRN Reason: PAIN - MODERATE Last Admin: 09/15/19 02:41 Dose: 5 mg Pantoprazole Sodium (Protonix Iv*) 40 mg IV DAILY [facility] Pharmacy Profile Note (Fentanyl Patch Check Q Shift) 1 note FOLLOW UP 0700, 1900 [facility] Last Admin: 09/15/19 07:09 Dose: 1 note Potassium Chloride (Klor Con Er Tab*) 20 meq PO BID [facility] Last Admin: 09/15/19 09:14 Dose: 20 meq Sodium Bicarbonate (Sodium Bicarbonate (Antacid)*) 1,300 mg PO Q8HR [facility] Last Admin: 09/15/19 07:29 Dose: 1,300 mg Tamsulosin HCl (Flomax Cap*) 0.4 mg PO BEDTIME [facility] Last Admin: 09/14/19 20:44 Dose: 0.4 mg Valacyclovir HCl (Valtrex 1 Gm(*)) 1 gm PO Q24H [facility]; Protocol Last Admin: 09/14/19 17:37 Dose: 1 gm Objective: [] Vital Signs Temp Pulse Resp BP Pulse Ox 98.2 F 113 17 116/43 91 09/15/19 10:53 09/15/19 10:53 09/15/19 10:53 09/15/19 10:53 09/15/19 10:53 A&Ox3, neuro grossly non-focal HRR, S1S2 LS clear +BS, abd. soft and non-tender throughout Diffuse skin lesions healing, no deep ulcerations Laboratory Results - last 24 hr 09/14/19 09/14/19 09/14/19 05:12 05:12 12:08 WBC RBC Hgb Hct MCV MCH MCHC RDW Plt Count MPV Neut % (Auto) Lymph % (Auto) [place] % (Auto) Eos % (Auto) Baso % (Auto) Absolute Neuts (auto) Absolute Lymphs (auto) Absolute Monos (auto) Absolute Eos (auto) Absolute Basos (auto) Absolute Nucleated RBC Immature Gran % Neutrophils % Band Neutrophils % Lymphocytes % Reactive Lymphs % Monocytes % Eosinophils % Metamyelocytes % Myelocytes % Blast Cells % Nucleated RBC % Normal RBC Morphology Hem Pathologist Commnt INR (Anticoag Therapy) APTT Sodium 145 Potassium 3.0 L Chloride 100 L Carbon Dioxide 37 H Anion Gap 8 BUN 46 H Creatinine 3.06 H Est GFR ( Amer) 24.2 Est GFR (Non-Af Amer) 20.0 BUN/Creatinine Ratio 15.0 Glucose 152 H POC Glucose (mg/dL) 138 H Calcium 6.7 L Magnesium 1.8 L Total Bilirubin 0.80 AST 29 ALT 16 Alkaline Phosphatase 87 Total Protein 4.8 L Albumin 2.5 L Globulin 2.3 Albumin/Globulin Ratio 1.1 Prealbumin 18 Blood Type Antibody Screen Crossmatch 09/14/19 09/15/19 09/15/19 17:01 04:21 04:30 WBC 27.1 H RBC 2.89 L Hgb 8.4 L Hct 26 L MCV 89 MCH 29 MCHC 33 RDW 15 Plt Count 137 L MPV 10.4 Neut % (Auto) 83.4 Lymph % (Auto) 11.5 [place] % (Auto) 4.8 Eos % (Auto) 0.0 Baso % (Auto) 0.3 Absolute Neuts (auto) 22.6 H Absolute Lymphs (auto) 3.1 Absolute Monos (auto) 1.3 H Absolute Eos (auto) 0.0 Absolute Basos (auto) 0.1 Absolute Nucleated RBC 0.0 Immature Gran % 9.0 Neutrophils % 70.0 Band Neutrophils % 3.0 Lymphocytes % 13.0 Reactive Lymphs % 1.0 Monocytes % 5.0 Eosinophils % 1.0 Metamyelocytes % 2.0 Myelocytes % 4.0 H Blast Cells % 1.0 H* Nucleated RBC % 0.1 Normal RBC Morphology Normal Hem Pathologist Commnt INR (Anticoag Therapy) APTT Sodium Potassium Chloride Carbon Dioxide Anion Gap BUN Creatinine Est GFR ( Amer) Est GFR (Non-Af Amer) BUN/Creatinine Ratio Glucose POC Glucose (mg/dL) 290 H Calcium Magnesium Total Bilirubin AST ALT Alkaline Phosphatase Total Protein Albumin Globulin Albumin/Globulin Ratio Prealbumin Blood Type O Negative Antibody Screen Negative Crossmatch See Detail 09/15/19 09/15/19 09/15/19 04:30 07:56 11:36 WBC RBC Hgb Hct MCV MCH MCHC RDW Plt Count MPV Neut % (Auto) Lymph % (Auto) [place] % (Auto) Eos % (Auto) Baso % (Auto) Absolute Neuts (auto) Absolute Lymphs (auto) Absolute Monos (auto) Absolute Eos (auto) Absolute Basos (auto) Absolute Nucleated RBC Immature Gran % Neutrophils % Band Neutrophils % Lymphocytes % Reactive Lymphs % Monocytes % Eosinophils % Metamyelocytes % Myelocytes % Blast Cells % Nucleated RBC % Normal RBC Morphology Hem Pathologist Commnt INR (Anticoag Therapy) 1.30 H APTT 29.7 Sodium 142 Potassium 3.5 Chloride 99 L Carbon Dioxide 37 H Anion Gap 6 BUN 36 H Creatinine 2.85 H Est GFR ( Amer) 26.2 Est GFR (Non-Af Amer) 21.7 BUN/Creatinine Ratio 12.6 Glucose 142 H POC Glucose (mg/dL) 131 H Calcium 6.5 L Magnesium 2.0 Total Bilirubin 0.80 AST 29 ALT 16 Alkaline Phosphatase 83 Total Protein 4.6 L Albumin 2.4 L Globulin 2.2 Albumin/Globulin Ratio 1.1 Prealbumin Blood Type Antibody Screen Crossmatch Assessment: []74 yo M w CTCL a/w pancytopenia, febrile neutropenia and hypocellular marrow, likely related to MTX, with improvement, however now with evidence for GI bleed. Plan: []1. GI Bleed: - NPO except ice chips and meds OK - IV protonix, additional 40 mg now - Consult GI, Dr. De La Torre aware 2. Recurrent anemia: - related GI bleed and management as above - transfuse 1 unit PRBCs today, pt. aware of plan and denies questions 3. Febrile neutropenia: resolved, follow counts 4. Mucositis: improving - d/c steroid rinse with GI bleed, start Magic Mouth Wash - Valtrex for possible HSV 5. Renal failure - appreciate renal consultation, on sodium bicarb w 1/2 NS with slow improvement - follow labs 6. 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 8. tachy/amrita: - no further episodes overnight, cont. to monitor - aggressive electrolyte management with daily labs DNR
[2019-09-15 11:54] LABS: Activated Partial Thrombo Time 29.7 seconds (26.0-38.0); INR 1.3 (0.82-1.09)
[2019-09-15] MEDS ORDERED: fentaNYL* 50 MCG/ML 2 ML VIAL (100 MCG VIAL) ONE (16:16)
[2019-09-15] MEDS ORDERED: Midazolam* 1 MG/ML 10 ML VIAL (10 MG) ONE (16:17)
[2019-09-15] MEDS: Magic Mouth Was-BEN/MAAL/LIDO SWISH SPIT SCH ×3 (16:18→19:59)
--- NOTE | 2019-09-15 18:01 | PN ---
Progress Note - Progress Note Date of Service: 09/15/19
--- NOTE | 2019-09-15 18:16 | CONS ---
CC: Piedad Murphy NP; Dr. Botello * GASTROENTEROLOGY CONSULT REPORT: DATE OF CONSULT: 09/15/19 REQUESTING PROVIDER: Piedad Murphy NP. REASON FOR CONSULT: Concern for GI bleeding. HISTORY OF PRESENT ILLNESS: Mr. Delgado is a 74-year-old gentleman with a history of peripheral arterial disease and recent diagnosis with cutaneous T- cell lymphoma, who is admitted after he presented with dehydration, renal failure, pancytopenia, and fever in the setting of several weeks of methotrexate therapy. After admission, patient was started on IV fluids and pain control. Labs concerning for acute tubular necrosis with a recent improvement in his creatinine level over the last few days. Per the primary team, Mr. Delgado had been doing better over the last few days. This morning, however, he had an episode of brown stool mixed with dark blood. He had 2 subsequent episodes at 10:30 a.m. and approximately at 2 p.m. Per nursing, there was slightly more red blood seen in the later episode. No hematemesis. Hemodynamically, the patient has remained stable. Labs have demonstrated a decrease in his hemoglobin to 8.4, which is in comparison to 9.2 and 10 over the last 2 days. He was given a unit of blood. GI was consulted. On interview, Mr. Delgado reports that he feels a bit sleepy, but he denies any other symptoms. No nausea, vomiting, dysphagia, GERD, abdominal pain. He is uncertain of his bowel movement consistency or appearance. He does not believe that he has ever had GI bleeding in the past. He has a history of Plavix use, which was stopped on admission. Last colonoscopy in August 2018 demonstrated 2 polyps (hyperplastic) and moderate diverticulosis. PAST MEDICAL HISTORY: 1. Peripheral arterial disease. 2. Hyperlipidemia. 3. Cutaneous T-cell lymphoma, managed initially with methotrexate and prednisone. Methotrexate has been held due to pancytopenia. 4. Testicular cancer in 1970. 5. CKD. PAST SURGICAL HISTORY: 1. Appendectomy. 2. Bilateral ulnar nerve repair. 3. Right orchiectomy. 4. Lung biopsy. 5. Femoral artery stents. HOME MEDICATIONS: 1. Aspirin 81 mg daily. 2. Clopidogrel 75 mg daily. 3. Finasteride 5 mg daily. 4. Lovastatin 20 mg daily. 5. Tamsulosin 0.4 mg daily. ALLERGIES: No known allergies. SOCIAL HISTORY: The patient lives in [place]. He is and has been for the past 60 years. He is retired and worked at [employer] as his last job. Former smoker. No significant alcohol or drug use. REVIEW OF SYSTEMS: Twelve point review of systems is negative, except as above. PHYSICAL EXAM: Vital Signs: Temperature 98.2, heart rate in the 70s, although it was charted as 113 this morning, blood pressure of 116/43, 91% on room air. General: Elderly gentleman. Chronically ill appearing. Lying comfortably in bed. No acute distress. HEENT: Mucous membranes are moist. Cardiovascular: Regular rate and rhythm. Pulmonary: Breathing comfortably. Lungs: Clear to auscultation in the anterior lung miranda. Abdomen: Soft, nontender, nondistended. Obese. Extremities: Diffuse skin lesions. DIAGNOSTIC STUDIES/LAB DATA: Labs reviewed. White count is 27.1, hemoglobin is 8.4 with a hematocrit of 26. Hemoglobin trend has been as low as 6 on admission in the setting of pancytopenia up to 10 as the peak on 09/13/19. INR is 1.3. Comprehensive panel notable for a BUN of 36 and creatinine of 2.85. Albumin is low at 2.4. Imaging: No abdominal imaging. Endoscopy: Colonoscopy report from 08/2018 reviewed. Two hyperplastic polyps were removed. Moderate diverticulosis seen. IMPRESSION AND RECOMMENDATIONS: Mr. Delgado is a 74-year-old gentleman with a history of testicular cancer, peripheral arterial disease, chronic renal insufficiency, diabetes, and recent diagnosis of cutaneous T-cell lymphoma, who is admitted for neutropenic fever, acute kidney injury, dehydration, and pancytopenia in the setting of methotrexate use. Methotrexate has been discontinued. The patient received Neupogen. His labs had improved and he appeared to be clinically improving as well over the last few days. Today, he developed several episodes of rectal bleeding with initially dark bloody stools with some change to more bright red blood this afternoon. Hemodynamically stable. Labs notable for a mild decrease in the hemoglobin, although this is not outside of where he has been over the last few days. I think it is reasonable to proceed with upper endoscopy to evaluate upper GI tract to make sure there is no brisk upper GI bleeding source. Agree with IV PPI drip or b.i.d. Please keep n.p.o. Will plan for an EGD this afternoon. If upper endoscopy is unrevealing, then a lower GI source is more probable. The patient is certainly at risk for diverticular bleeding having a history of diverticulosis seen on the colonoscopy in August 2018. A colon polyp or mass is unlikely given this colonoscopy within the last year. Colitis is possible, particularly ischemic in the setting of vascular disease. Thank you very much for this consult. GI will continue to follow along. [id number]/[facility] #: [id number] [facility] HOSPITALFreda
--- NOTE | 2019-09-15 19:14 | PRO ---
CC: Piedad Murphy NP; Espinoza Botello MD * DATE OF PROCEDURE: 09/15/19 - ROOM #401 PROCEDURE: EGD with biopsy and clip placement x2. REFERRING PROVIDER: Piedad Murphy NP and Espinoza Botello MD. INDICATION: The patient was admitted with complications of cutaneous T-cell lymphoma treatment. Noted to have dark bloody stools today with a slight drop in his hemoglobin. The patient had been on prednisone in the outpatient setting for treatment of the methotrexate. Plan is for EGD to evaluate for any upper GI bleeding source. MEDICATIONS GIVEN: Midazolam 5 mg IV, Fentanyl 50 mcg IV. DESCRIPTION OF PROCEDURE: Full disclosure of risks was reviewed with the patient as detailed on the consent form. The patient was placed in the left lateral decubitus position and monitored with continuous pulse oximetry, capnography, interval blood pressure monitoring, and direct observation. An adult gastroscope was then inserted into the patient's mouth and advanced down the esophagus, into the stomach, and into the distal duodenum. Findings and interventions are described below. FINDINGS: Esophagus was a tubular structure without rings or strictures. GE junction was irregular and occurred at 40 cm. No esophagitis. Scope was advanced into the stomach. Stomach was examined in the forward and retroflexed views. Gastric mucosa was normal in appearance. No ulcers or erosions. No fresh or old blood. Scope was then advanced into the duodenum to at least the third portion. Distal duodenum was unremarkable with cornelius bilious fluid. No fresh or old blood. Scope was then withdrawn back into the duodenal bulb. There was a mildly pitted appearance to the duodenal bulb as well as some erythema and nodularity. There was also a duodenal bulb ulcer, which was clean- based. Ulcer was not bleeding. Two clips were placed to close ulcer site. Biopsies were obtained from the duodenal bulb. Scope was then withdrawn from the patient. The patient tolerated the procedure well and was recovered in the GI recovery area. IMPRESSION: 1. Complete upper endoscopy to the distal duodenum. 2. No fresh or active bleeding. 3. Duodenal bulb ulcer. Clipped x 2. It is possible that this ulcer could be a source of bleeding, although I would have expected the patient to have had melena as opposed to maroon to bright red blood. In addition, there was no evidence of any old blood within the stomach or duodenum arguing against recent bleeding. Possible that this ulcer was incidental with the bleeding source in the lower GI tract. FOLLOWUP: 1. PPI IV b.i.d. 2. Sips and ice chips okay tonight. Can advance to clears tomororw if stable. 3. Would check stool for H. pylori antigen. 4. If ongoing bleeding and hemoglobin drop continues, then I would consider evaluation for a lower GI source of bleeding. Diverticular bleeding is on the differential as diverticulosis was seen on last colonoscopy. Thank you very much for this consult. GI will continue to follow. [id number]/[facility] #: [id number] [facility] NETWORKFreda
[2019-09-15] MEDS: ValACYclovir (*) 1 GM TAB PO SCH (19:22)
[2019-09-15] MEDS: Tamsulosin CAP* 0.4 MG PO SCH (19:59)
[2019-09-16] MEDS: oxyCODONE TAB* 5 MG TAB PO PRN (01:04)
[2019-09-16 07:02] LABS: Albumin 1.9 g/dL (3.2-5.2); Albumin/Globulin Ratio 0.9 (1-3); BUN/Creatinine Ratio 9.9 (8-20); EGFR African American 25.5 (>60); EGFR Non-African American 21.1 (>60); Globulin 2.1 g/dL (2-4); Magnesium 1.7 mg/dL (1.9-2.7); Potassium 3.3 mmol/L (3.5-5.0); Total Bilirubin 0.7 mg/dL (0.2-1.0)
[2019-09-16 07:14] LABS: Hematocrit 19 % (42-52); Hemoglobin 6.3 g/dL (14.0-18.0); Mean Corpuscular HGB Conc 34 g/dL (31-36); Mean Corpuscular Hemoglobin 30 pg (27-31); Mean Corpuscular Volume 88 fL (80-94); Mean Platelet Volume 10.2 fL (7.4-10.4); Platelet Count 123 10^3/uL (150-450); Red Blood Count 2.12 10^6 /uL (4.18-5.48); Red Cell Distribution Width 15 % (10-15); White Blood Count 27.6 10^3/uL (3.5-10.8)
[2019-09-16] MEDS: fentaNYL Patch Check Q Shift 1 NOTE FOLLOW UP SCH ×2 (07:44→19:37)
[2019-09-16 08:18] LABS: ABS Basophils 0.2 10^3/ul (0-0.2); ABS Lymphocytes 4.4 10^3/ul (1.0-4.8); ABS Monocytes 1.7 10^3/ul (0-0.8); ABS Neutrophils 21.4 10^3/ul (1.5-7.7); Eosinophil % 0.1 %; Lymphocyte % 15.9 %; Nucleated Red Blood Cells % 0.1
[2019-09-16] MEDS ORDERED: Calcium Gluconate INJ* 2 GM in NS 0.9% 100 ML* 100 ML IV ONE (08:48)
[2019-09-16] MEDS ORDERED: KCL 20 MEQ/100 ML IVPREMIX* 20 MEQ/100 ML BAG IV ONE (08:48)
[2019-09-16] MEDS ORDERED: Magnesium Sulfate 2 GM IV* 2 GM/50 ML BAG IVPB ONE (08:49)
[2019-09-16 08:50] LABS: Hematocrit 19 % (42-52); Hemoglobin 6.3 g/dL (14.0-18.0); Mean Corpuscular HGB Conc 33 g/dL (31-36); Mean Corpuscular Hemoglobin 29 pg (27-31); Mean Corpuscular Volume 88 fL (80-94); Mean Platelet Volume 10.6 fL (7.4-10.4); Platelet Count 132 10^3/uL (150-450); Red Blood Count 2.16 10^6 /uL (4.18-5.48); Red Cell Distribution Width 15 % (10-15); White Blood Count 29.1 10^3/uL (3.5-10.8)
--- NOTE | 2019-09-16 08:51 | PN ---
Progress Note - Progress Note Date of Service: 09/16/19 SOAP: Subjective: []Ty red bloody stools this AM with hmg down to 6.3, mild hypoxia on RA resolved with supplemental O2. No hypotension or tachycardia. Feels very weak and tired. C/o feeling cold, though improved with warm blanket. Wants to have medical interventions, but would not want CPR or Intubation. Medications: Acetaminophen (Tylenol Adult Liq*) 650 mg PO Q4H PRN PRN Reason: MILD PAIN or TEMP > 100.4 Dextrose (Dextrose 50% Vial 50 Ml*) 25 ml IV PUSH .FOR FS < 60 - SS PRN PRN Reason: FS < 60 Fentanyl (Duragesic Patch 25 Mcg/Hr*) 25 mcg TRANSDERM Q72H [facility] Last Admin: 09/13/19 13:36 Dose: 25 mcg Finasteride (Proscar Tab*) 5 mg PO DAILY [facility] Last Admin: 09/15/19 09:11 Dose: 5 mg Folic Acid (Folvite Tab*) 1 mg PO DAILY [facility] Last Admin: 09/15/19 09:13 Dose: 1 mg Sodium Bicarbonate 150 meq/ (Sodium Chloride) 1,150 mls @ 115 mls/hr IV Q10H [facility] Last Admin: 09/15/19 23:32 Dose: 115 mls/hr Insulin Human Lispro (Humalog*) [address] [facility]; Protocol Last Admin: 09/15/19 19:09 Dose: Not Given Lidocaine (Xylocaine 2% Viscous*) 15 ml SWISH SPIT TID PRN PRN Reason: PAIN - MILD Last Admin: 09/13/19 13:43 Dose: 15 ml Loperamide HCl (Imodium Liq*) 2 mg PO .SEE ORDER PRN PRN Reason: DIARRHEA Last Admin: 09/13/19 15:23 Dose: 2 mg Morphine Sulfate (Morphine Inj (Syringe))*) 2 mg IV Q4H PRN PRN Reason: PAIN - MODERATE Multi-Ingredient Mouthwash/Gargle (Magic Mouth Was-Clyde/Maal/Lido*) 10 ml SWISH SPIT QID [facility] Last Admin: 09/15/19 19:59 Dose: 10 ml Oxycodone HCl (Roxycodone Tab*) 5 mg PO Q6H PRN PRN Reason: PAIN - MODERATE Last Admin: 09/16/19 01:04 Dose: 5 mg Pantoprazole Sodium (Protonix Iv*) 40 mg IV BID [facility] Pharmacy Profile Note (Fentanyl Patch Check Q Shift) 1 note FOLLOW UP 0700, 1900 [facility] Last Admin: 09/16/19 07:44 Dose: 1 note Potassium Chloride (Klor Con Er Tab*) 20 meq PO BID [facility] Last Admin: 09/15/19 19:59 Dose: 20 meq Sodium Bicarbonate (Sodium Bicarbonate (Antacid)*) 1,300 mg PO Q8HR JAMES Last Admin: 09/15/19 20:01 Dose: 1,300 mg Tamsulosin HCl (Flomax Cap*) 0.4 mg PO BEDTIME JAMES Last Admin: 09/15/19 19:59 Dose: 0.4 mg Valacyclovir HCl (Valtrex 1 Gm(*)) 1 gm PO Q24H [facility]; Protocol Last Admin: 09/15/19 19:22 Dose: 1 gm Objective: [] Vital Signs Temp Pulse Resp BP Pulse Ox 98.7 F 91 18 146/40 89 09/16/19 07:15 09/16/19 07:15 09/16/19 07:15 09/16/19 07:15 09/16/19 07:15 A&Ox3, notably tired today Palor HRR, tele SR LS dim. @ bases +BS, non-tender Laboratory Results - last 24 hr 09/15/19 09/15/19 09/15/19 04:21 04:30 11:36 WBC RBC Hgb Hct MCV MCH MCHC RDW Plt Count MPV Neut % (Auto) Lymph % (Auto) Hill % (Auto) Eos % (Auto) Baso % (Auto) Absolute Neuts (auto) Absolute Lymphs (auto) Absolute Monos (auto) Absolute Eos (auto) Absolute Basos (auto) Absolute Nucleated RBC Immature Gran % Neutrophils % Band Neutrophils % Lymphocytes % Monocytes % Eosinophils % Basophils % Metamyelocytes % Myelocytes % Nucleated RBC % Normal RBC Morphology Hem Pathologist Commnt INR (Anticoag Therapy) 1.30 H APTT 29.7 Sodium Potassium Chloride Carbon Dioxide Anion Gap BUN Creatinine Est GFR ( Amer) Est GFR (Non-Af Amer) BUN/Creatinine Ratio Glucose POC Glucose (mg/dL) Calcium Magnesium Total Bilirubin AST ALT Alkaline Phosphatase Total Protein Albumin Globulin Albumin/Globulin Ratio Blood Type O Negative Antibody Screen Negative Crossmatch See Detail 09/15/19 09/15/19 09/16/19 12:47 18:55 06:35 WBC 27.6 H RBC 2.12 L Hgb 6.3 L* Hct 19 L MCV 88 MCH 30 MCHC 34 RDW 15 Plt Count 123 L MPV 10.2 Neut % (Auto) 77.2 Lymph % (Auto) 15.9 Hill % (Auto) 6.1 Eos % (Auto) 0.1 Baso % (Auto) 0.7 Absolute Neuts (auto) 21.4 H Absolute Lymphs (auto) 4.4 Absolute Monos (auto) 1.7 H Absolute Eos (auto) 0.0 Absolute Basos (auto) 0.2 Absolute Nucleated RBC 0.0 Immature Gran % 25.0 H Neutrophils % 48.0 Band Neutrophils % 11.0 H Lymphocytes % 20.0 Monocytes % 5.0 Eosinophils % 1.0 Basophils % 1.0 Metamyelocytes % 4.0 H Myelocytes % 10.0 H Nucleated RBC % 0.1 Normal RBC Morphology Normal Hem Pathologist Commnt INR (Anticoag Therapy) APTT Sodium Potassium Chloride Carbon Dioxide Anion Gap BUN Creatinine Est GFR ( Amer) Est GFR (Non-Af Amer) BUN/Creatinine Ratio Glucose POC Glucose (mg/dL) 312 H 188 H Calcium Magnesium Total Bilirubin AST ALT Alkaline Phosphatase Total Protein Albumin Globulin Albumin/Globulin Ratio Blood Type Antibody Screen Crossmatch 09/16/19 09/16/19 09/16/19 06:35 08:11 08:23 WBC 29.1 H RBC 2.16 L Hgb 6.3 L* Hct 19 L MCV 88 MCH 29 MCHC 33 RDW 15 Plt Count 132 L MPV 10.6 H Neut % (Auto) Lymph % (Auto) Hill % (Auto) Eos % (Auto) Baso % (Auto) Absolute Neuts (auto) Absolute Lymphs (auto) Absolute Monos (auto) Absolute Eos (auto) Absolute Basos (auto) Absolute Nucleated RBC Immature Gran % Neutrophils % Band Neutrophils % Lymphocytes % Monocytes % Eosinophils % Basophils % Metamyelocytes % Myelocytes % Nucleated RBC % Normal RBC Morphology Hem Pathologist Commnt INR (Anticoag Therapy) APTT Sodium 142 Potassium 3.3 L Chloride 100 L Carbon Dioxide 37 H Anion Gap 5 BUN 29 H Creatinine 2.92 H Est GFR ( Amer) 25.5 Est GFR (Non-Af Amer) 21.1 BUN/Creatinine Ratio 9.9 Glucose 123 H POC Glucose (mg/dL) 147 H Calcium 6.0 L* Magnesium 1.7 L Total Bilirubin 0.70 AST 23 ALT 12 Alkaline Phosphatase 63 Total Protein 4.0 L Albumin 1.9 L Globulin 2.1 Albumin/Globulin Ratio 0.9 L Blood Type Antibody Screen Crossmatch Assessment: []74 yo M w CTCL a/w pancytopenia, febrile neutropenia and hypocellular marrow, likely related to MTX, with improvement, however evidence for GI bleed yesterday with EGD without significant source of bleed and now ty red blood per rectum. Plan: []1. GI Bleed: - NPO - IV protonix 40 mg BID - Consult GI: called Dr. Johnson regarding progressive symptoms of lower bowl bleed with hopes for colonoscopy 2. Acute Blood loss anemia: - transfuse 2 units PRBCs today 3. Electrolyte imbalance - IV replacement today 4. Renal failure - appreciate renal consultation, on sodium bicarb w 1/2 NS since 09/11 with slow improvement, however now acute blood loss with slight recurrent bump. Requested nephrology weigh back in and management. 5. Mucositis: improving - cont. Magic Mouth Wash - Valtrex for possible HSV 6. 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 8. tachy/amrita: - no further episodes overnight, cont. to monitor - aggressive electrolyte management with daily labs 9. Febrile neutropenia: resolved, follow counts DNR
[2019-09-16] MEDS ORDERED: Morphine INJ* 4 MG/ML 1 ML SYRINGE (NEW SYRINGE VERSION) IV PRN (08:52)
[2019-09-16] MEDS ORDERED: Morphine INJ* 2 MG/ML 1 ML SYRINGE (TWO MG - NEW SYRINGE VERSION) IV PRN ×2 (08:54→12:10)
[2019-09-16 08:57] LABS: BUN/Creatinine Ratio 9.9 (8-20); EGFR African American 25.5 (>60); EGFR Non-African American 21.1 (>60); Potassium 3.4 mmol/L (3.5-5.0); Total Bilirubin 0.7 mg/dL (0.2-1.0)
[2019-09-16 09:05] LABS: Calcium 5.9 mg/dL (8.6-10.3)
[2019-09-16] MEDS: Pantoprazole IV* 40 MG IV SCH ×2 (09:35→21:39)
[2019-09-16] MEDS: Insulin LISPRO* 1 UNITS UNIT SUBCUT SCH ×4 (09:35→21:31)
[2019-09-16] MEDS: Sodium Bicarbonate 8.4% IV* 150 MEQ in NS 0.45% 1000 ML BAG* 1,000 ML IV SCH ×3 (09:36→19:36)
[2019-09-16] MEDS: Magic Mouth Was-BEN/MAAL/LIDO SWISH SPIT SCH ×4 (09:52→21:57)
[2019-09-16] MEDS ORDERED: Pantoprazole IV* 40 MG IV SCH (11:20)
[2019-09-16] MEDS: Sodium Bicarbonate (ANTACID)* 650 MG TAB PO SCH ×3 (11:21→21:28)
[2019-09-16] MEDS: Folic Acid TAB* 1 MG PO SCH (11:21)
[2019-09-16] MEDS: Potassium Chlor TAB* 20 MEQ TAB.ER PO SCH ×2 (11:21→21:57)
[2019-09-16] MEDS: Finasteride TAB* 5 MG PO SCH (11:21)
[2019-09-16 12:38] LABS: Hematocrit 17 % (42-52); Hemoglobin 5.7 g/dL (14.0-18.0)
[2019-09-16] MEDS ORDERED: Midazolam* 1 MG/ML 10 ML VIAL (10 MG) ONE (13:54)
[2019-09-16] MEDS ORDERED: fentaNYL* 50 MCG/ML 2 ML VIAL (100 MCG VIAL) ONE (13:54)
[2019-09-16] MEDS: fentaNYL PATCH 25 MCG/HR TRANSDERM SCH (14:25)
--- NOTE | 2019-09-16 16:35 | PN ---
Progress Note - Progress Note Date of Service: 09/16/19 Note: GI Brief Note 2nd look EGD: E: nml G: gastritis, no ulcer D: duodenal ulcer with clip. No fresh or old blood on entire exam Colon to TI Extensive old blood and clot Irrigated and suctioned with biovac. On TI valve, large very irregular ulcer ?mass. Bx taken. No fresh bleeding at site Continued washing entire colon again to rectum, reintubated to terminal ileum. No active site Terminal ileum without any blood or backwash. Rec: Keep 2 units on hold at all times Transfuse 2 additional units ? Cecal ulcer as source, may be mass. unusual location for stercoral ulcer. no other clear finding but views limited by old blood Monitor in ICU Small biopsies taken due to concern for bleeding, yield may not be high. Kyaw Mayes DO 09/16/19 [id number]
[2019-09-16 18:18] LABS: Hematocrit 23 % (42-52); Hemoglobin 7.6 g/dL (14.0-18.0)
[2019-09-16] MEDS ORDERED: Ergocalciferol CAP* 50000 UNIT PO SCH (19:00)
--- NOTE | 2019-09-16 19:23 | PN ---
NEPHROLOGY HOSPITAL PROGRESS NOTE: DATE OF SERVICE: 09/16/19 CHIEF COMPLAINT: Acute kidney injury. HISTORY OF PRESENT ILLNESS: Mr. Delgado is a very nice gentleman who was admitted on 09/01/19 with neutropenia, sepsis, volume depletion, and acute kidney injury. Nephrology service was initially consulted at the time of admission. The patient was felt to have ATN secondary to septic shock. Since then, the patient has received appropriate antibiotics and treatment and his serum creatinine has been getting better every day. His serum creatinine peaked on 09/05/19 where it was 4.56 and since then has been slowly declining down to 2.85 mg/dL on 09/15/19. On 09/16/19, his creatinine has remained stable at 2.92 mg/dL. On 09/15/19, he was found to have significant blood loss with a hemoglobin that slowly dropped from 10 on 09/13/19 to 8.4 on 09/15/19 and dropped severely on 09/16/19 down to 6.3 g/dL. The last hemoglobin at 12 o' clock today was 5.7 g/dL. He had an EGD on 09/15/19, which showed no fresh or active bleeding. Duodenal bulb ulcer, which was clipped x2. It was felt that this ulcer could have been the source of bleeding. It was also possible that the ulcer was incidentally found with a bleeding source in the lower GI tract. He continues to have good urine output. On 09/15/19, he was recorded to have about 1.8 L, but previously 3.4 L in a day. He has been receiving IV fluids including bicarbonate. CURRENT MEDICATIONS: 1. Acetaminophen 650 mg p.o. q.4 hours as needed. 2. Ergocalciferol 50,000 units every 7 days. 3. Fentanyl patch 25 mcg every 72 hours. 4. Finasteride 5 mg daily. 5. Folic acid 1 mg daily. 6. Insulin Humalog lispro, which is sliding scale. 7. Loperamide 2 mg p.o. as needed for diarrhea. 8. Morphine sulfate 4 mg IV every 4 hours as needed for pain. 9. Mouthwash. 10. Oxycodone as needed for pain. 11. Protonix IV 40 mg twice a day. 12. Potassium chloride 20 mEq p.o. b.i.d. 13. Sodium bicarbonate 1300 mg by mouth every 8 hours. 14. Bicarbonate drip. 15. Tamsulosin 0.4 mg p.o. at bedtime. 16. Valtrex 1 g p.o. every 24 hours. REVIEW OF SYSTEMS: He states he feels weak, but other than that he does not have any abdominal pain. No chest pain, no shortness of breath, no palpitations. He still makes urine.denies dysuria or hematuria. denies abdominal pain, nausea or vomiting. all systems were reviewed and they were all negative unless otherwise specified. PHYSICAL EXAM: Temperature is 98.7 Fahrenheit, heart rate is 91 beats per minute, respiratory rate is 18 per minute, blood pressure 146/40, and pulse ox is 89. Constitutional: He is alert and oriented x3, in no acute distress, conversational, very pleasant. HEENT: head is atraumatic and normocephalic, neck is supple , with good ROM, no thyromegaly , trachea midline. ears and nose appear normal. poor dentition. Eyes: conjunctiva slightly pale , anicteric sclerae, no ptosis , normal eyelids. Chest is clear to auscultation with good respiratory effort. Heart shows S1, S2. Regular rate and rhythm. No murmurs, rubs, or gallops. Abdomen has positive bowel sounds. Nontender, nondistended, without organomegaly appreciated.Extremities:. He has significant lower extremity edema about 2+ and no clubbing, no cyanosis. Skin: no ulcerations . normal turgor. Neurological: speech fluent , no tremors and grossly non focal . Psychiatric: AAOx3 , judgement and insight appropriate, normal mood. LABORATORY DATA: Labs from today show white blood cell count of 29.1, hemoglobin 6.3 in the morning and then 5.7 later in the day, hematocrit 19 and then dropped to 17, platelet count 132. Sodium 142, potassium 3.4, chloride 100 , total CO2 of 35, creatinine 2.92, glucose 119, calcium is 5.9. Albumin is 2.0. PTH 146. The only UA was done on 09/01/19 at the time of admission and he had no protein, but was 1+ positive for blood and had 1+ red blood cells by auto microscopy. Interestingly, red blood cell casts were described as present. ASSESSMENT AND PLAN: Mr. Nolan Delgado is a very unfortunate gentleman who was admitted with neutropenic fever, sepsis, acute kidney injury. He has been improving. He was transferred from ICU to the floor. For the last day, he was noted to have ty red bloody stools, hemoglobin dropped significantly and his creatinine has remained elevated without further decline. 1. Acute kidney injury, initially was acute tubular necrosis which was recovering. The reason why his creatinine is not recovering anymore is probably due to hemodynamic changes associated with significant gastrointestinal bleed. I would continue conservative management. Blood transfusions to keep hemoglobin greater than 7 or 8. 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 - strict intake and output, daily weights if possible. 2. Acute blood loss. He is on PPI IV twice a day. GI is following. 3. Metabolic alkalosis, due to alkali addition through iv and po routes. The most recent bicarb is 35. I would stop bicarb drip and p.o. bicarbonate. 4. Hypocalcemia. Replace calcium. 5. Hyperparathyroidism due to hypocalcemia. It should recover when the calcium is repleted. 6. Hypomagnesemia. Last magnesium was 1.7. Replete IV. [id number]/[facility] #: [id number] [facility]a
--- NOTE | 2019-09-16 19:26 | PN ---
Date of Service: 09/16/19 Critical Care Services: Patient with T-cell lymphoma known to this service, had GI endoscopy today for BRB per rectum this AM - Hb down to 5.7 - caecal ulcer identified as possible aource, although no active bleeding at time of endoscopy Vital Signs: Temp Pulse Resp BP SpO2 FiO2 98.5 F 88 12 140/66 100 30 Physical Exam: Gen:Somnolent but arousable HEENT:no facial asymmetry Lungs: clear Cardiac: reg rhythm Abdomen:not distended Extremities: Warm. No cyanosi Fluid Balance (Past 24 Hours): 09/14/19 09/15/19 09/16/19 06:59 06:59 06:59 Intake Total 3692 2963 1880 Output Total 3480 3235 625 Balance 212 -272 1255 Intake: IV Fluids 1382 1853 1440 Bicarb 1357 1853 1440 NS (0.9%) 25 IVPB 1110 260 Bicarb 1000 Zosyn 110 magnesium 60 potasium chloride 200 Oral 1200 850 440 Output: Urine 3480 1835 350 Gan 1100 275 Liquid Stool 300 Other: Estimated Void Medium Small Date of Last Bowel 09/15/19 Movement # Bowel Movements 1 1 0 Estimated Stool Amount Medium Medium Medium # Voids 1 1 Labs: Laboratory Results - last 24 hr 09/15/19 09/15/19 09/16/19 04:21 18:55 06:35 WBC 27.6 H RBC 2.12 L Hgb 6.3 L* Hct 19 L MCV 88 MCH 30 MCHC 34 RDW 15 Plt Count 123 L MPV 10.2 Neut % (Auto) 77.2 Lymph % (Auto) 15.9 Harper % (Auto) 6.1 Eos % (Auto) 0.1 Baso % (Auto) 0.7 Absolute Neuts (auto) 21.4 H Absolute Lymphs (auto) 4.4 Absolute Monos (auto) 1.7 H Absolute Eos (auto) 0.0 Absolute Basos (auto) 0.2 Absolute Nucleated RBC 0.0 Immature Gran % 25.0 H Neutrophils % 48.0 Band Neutrophils % 11.0 H Lymphocytes % 20.0 Monocytes % 5.0 Eosinophils % 1.0 Basophils % 1.0 Metamyelocytes % 4.0 H Myelocytes % 10.0 H Nucleated RBC % 0.1 Normal RBC Morphology Normal Hem Pathologist Commnt Sodium Potassium Chloride Carbon Dioxide Anion Gap BUN Creatinine Est GFR ( Amer) Est GFR (Non-Af Amer) BUN/Creatinine Ratio Glucose POC Glucose (mg/dL) 188 H Calcium Magnesium Total Bilirubin AST ALT Alkaline Phosphatase Total Protein Albumin Globulin Albumin/Globulin Ratio 25-OH Vitamin D Total PTH Intact Calcium (PTH Intact) Blood Type O Negative Antibody Screen Negative Crossmatch See Detail 09/16/19 09/16/19 09/16/19 06:35 06:35 08:11 WBC 29.1 H RBC 2.16 L Hgb 6.3 L* Hct 19 L MCV 88 MCH 29 MCHC 33 RDW 15 Plt Count 132 L MPV 10.6 H Neut % (Auto) Lymph % (Auto) Harper % (Auto) Eos % (Auto) Baso % (Auto) Absolute Neuts (auto) Absolute Lymphs (auto) Absolute Monos (auto) Absolute Eos (auto) Absolute Basos (auto) Absolute Nucleated RBC Immature Gran % Neutrophils % Band Neutrophils % Lymphocytes % Monocytes % Eosinophils % Basophils % Metamyelocytes % Myelocytes % Nucleated RBC % Normal RBC Morphology Hem Pathologist Commnt Sodium 142 Potassium 3.3 L Chloride 100 L Carbon Dioxide 37 H Anion Gap 5 BUN 29 H Creatinine 2.92 H Est GFR ( Amer) 25.5 Est GFR (Non-Af Amer) 21.1 BUN/Creatinine Ratio 9.9 Glucose 123 H POC Glucose (mg/dL) Calcium 6.0 L* Magnesium 1.7 L Total Bilirubin 0.70 AST 23 ALT 12 Alkaline Phosphatase 63 Total Protein 4.0 L Albumin 1.9 L Globulin 2.1 Albumin/Globulin Ratio 0.9 L 25-OH Vitamin D Total 7.0 L PTH Intact 146.4 H Calcium (PTH Intact) 5.9 L* Blood Type Antibody Screen Crossmatch 09/16/19 09/16/19 09/16/19 08:11 08:23 12:08 WBC RBC Hgb 5.7 L* Hct 17 L MCV MCH MCHC RDW Plt Count MPV Neut % (Auto) Lymph % (Auto) Harper % (Auto) Eos % (Auto) Baso % (Auto) Absolute Neuts (auto) Absolute Lymphs (auto) Absolute Monos (auto) Absolute Eos (auto) Absolute Basos (auto) Absolute Nucleated RBC Immature Gran % Neutrophils % Band Neutrophils % Lymphocytes % Monocytes % Eosinophils % Basophils % Metamyelocytes % Myelocytes % Nucleated RBC % Normal RBC Morphology Hem Pathologist Commnt Sodium 142 Potassium 3.4 L Chloride 100 L Carbon Dioxide 35 H Anion Gap 7 BUN 29 H Creatinine 2.92 H Est GFR ( Amer) 25.5 Est GFR (Non-Af Amer) 21.1 BUN/Creatinine Ratio 9.9 Glucose 119 H POC Glucose (mg/dL) 147 H Calcium 5.9 L* Magnesium Total Bilirubin 0.70 AST 28 ALT 14 Alkaline Phosphatase 64 Total Protein 4.0 L Albumin 2.0 L Globulin 2.0 Albumin/Globulin Ratio 1.0 25-OH Vitamin D Total PTH Intact Calcium (PTH Intact) Blood Type Antibody Screen Crossmatch 09/16/19 09/16/19 12:34 18:00 WBC RBC Hgb 7.6 L Hct 23 L MCV MCH MCHC RDW Plt Count MPV Neut % (Auto) Lymph % (Auto) Harper % (Auto) Eos % (Auto) Baso % (Auto) Absolute Neuts (auto) Absolute Lymphs (auto) Absolute Monos (auto) Absolute Eos (auto) Absolute Basos (auto) Absolute Nucleated RBC Immature Gran % Neutrophils % Band Neutrophils % Lymphocytes % Monocytes % Eosinophils % Basophils % Metamyelocytes % Myelocytes % Nucleated RBC % Normal RBC Morphology Hem Pathologist Commnt Sodium Potassium Chloride Carbon Dioxide Anion Gap BUN Creatinine Est GFR ( Amer) Est GFR (Non-Af Amer) BUN/Creatinine Ratio Glucose POC Glucose (mg/dL) 147 H Calcium Magnesium Total Bilirubin AST ALT Alkaline Phosphatase Total Protein Albumin Globulin Albumin/Globulin Ratio 25-OH Vitamin D Total PTH Intact Calcium (PTH Intact) Blood Type Antibody Screen Crossmatch Studies: Endoscopy, as mentoned Impression: No evidence of active bleeding at the present time. Plan: Monitor BP, urine output, H/H. Transfuse RBCs to keep Hb above 7 gm/dL Critical Care Time: 35 minutes
[2019-09-16] MEDS: ValACYclovir (*) 1 GM TAB PO SCH (21:26)
[2019-09-16] MEDS: Tamsulosin CAP* 0.4 MG PO SCH (21:57)
[2019-09-16 22:10] LABS: Hematocrit 24 % (42-52)
[2019-09-16 22:29] LABS: BUN/Creatinine Ratio 8.6 (8-20); Calcium 6.5 mg/dL (8.6-10.3); EGFR African American 25.7 (>60); EGFR Non-African American 21.3 (>60)
[2019-09-16 22:32] LABS: Potassium 3.7 mmol/L (3.5-5.0)
[2019-09-17] MEDS: Insulin LISPRO* 1 UNITS UNIT SUBCUT SCH ×6 (02:08→21:59)
[2019-09-17] MEDS: Sodium Bicarbonate 8.4% IV* 150 MEQ in NS 0.45% 1000 ML BAG* 1,000 ML IV SCH ×3 (02:20→09:22)
[2019-09-17] MEDS ORDERED: Dextrose 50% VIAL 50 ml IV PUSH ONE (03:00)
[2019-09-17 04:57] LABS: Hematocrit 22 % (42-52); Hemoglobin 7.3 g/dL (14.0-18.0)
[2019-09-17] MEDS: Sodium Bicarbonate (ANTACID)* 650 MG TAB PO SCH (04:57)
[2019-09-17 06:31] LABS: Hematocrit 23 % (42-52); Hemoglobin 7.6 g/dL (14.0-18.0); Mean Corpuscular HGB Conc 34 g/dL (31-36); Mean Corpuscular Hemoglobin 29 pg (27-31); Mean Corpuscular Volume 87 fL (80-94); Mean Platelet Volume 9.9 fL (7.4-10.4); Platelet Count 96 10^3/uL (150-450); Red Cell Distribution Width 16 % (10-15); White Blood Count 27.6 10^3/uL (3.5-10.8)
[2019-09-17 06:42] LABS: ABS Basophils 0.2 10^3/ul (0-0.2); ABS Lymphocytes 3.3 10^3/ul (1.0-4.8); ABS Monocytes 2.5 10^3/ul (0-0.8); ABS Neutrophils 21.7 10^3/ul (1.5-7.7); Albumin 2.2 g/dL (3.2-5.2); BUN/Creatinine Ratio 8.3 (8-20); EGFR African American 25.9 (>60); EGFR Non-African American 21.4 (>60); Eosinophil % 0.1 %; Globulin 2.1 g/dL (2-4); Lymphocyte % 11.9 %; Magnesium 1.9 mg/dL (1.9-2.7); Potassium 3.4 mmol/L (3.5-5.0); Total Bilirubin 0.8 mg/dL (0.2-1.0); Total Protein 4.3 g/dL (6.4-8.9)
[2019-09-17 06:46] LABS: Calcium 6.4 mg/dL (8.6-10.3)
[2019-09-17] MEDS: fentaNYL Patch Check Q Shift 1 NOTE FOLLOW UP SCH ×2 (07:24→20:25)
[2019-09-17] MEDS: Folic Acid TAB* 1 MG PO SCH (09:21)
[2019-09-17] MEDS: Finasteride TAB* 5 MG PO SCH (09:21)
[2019-09-17] MEDS: Pantoprazole IV* 40 MG IV SCH ×2 (09:21→21:57)
[2019-09-17] MEDS: Magic Mouth Was-BEN/MAAL/LIDO SWISH SPIT SCH ×4 (09:21→21:59)
[2019-09-17] MEDS: Potassium Chlor TAB* 20 MEQ TAB.ER PO SCH ×2 (09:22→21:59)
[2019-09-17] MEDS ORDERED: Calcium Gluconate INJ* 2 GM in NS 0.9% 100 ML* 100 ML IV ONE (10:00)
--- NOTE | 2019-09-17 15:18 | PRO ---
CC: Dr. Rafaela Gaviria * ESOPHAGOGASTRODUODENOSCOPY AND COLONOSCOPY REPORT: DATE OF PROCEDURE: 09/16/19 - ROOM #[id number] PRIMARY CARE PHYSICIAN: Dr. Rafaela Gaviria. INDICATION FOR PROCEDURE: Acute blood loss anemia. PROCEDURE PERFORMED: Esophagogastroduodenoscopy and complete colonoscopy to the terminal ileum with biopsies. MEDICATIONS GIVEN: 5 mg IV midazolam. DESCRIPTION OF PROCEDURE: After the EGD and colonoscopy procedure including the risks, benefits, and alternatives with the risks not limited to perforation , surgery, missed lesions, and/or were explained to the patient, written informed consent was obtained, IV medication was given, and a bite-block was placed between the teeth. The adult Olympus gastroscope was then inserted into the patient's oropharynx into the tubular esophagus. The tubular esophagus was normal in appearance. The scope was advanced through the lower esophageal sphincter into the stomach. Mild gastritis was appreciated. No fresh or old blood on the exam. On retroflexion, no significant abnormalities were appreciated. The scope was advanced through the widely patent pylorus into the duodenal bulb, C-loop, and distal duodenum. Evidence of previous duodenal ulcer with clips was visualized. There was no bleeding from the site. There was no fresh or old blood on the exam. Scope was then removed from the patient. He tolerated the procedure well. He was then rotated, given additional IV sedation medication. A rectal exam was performed. The rectal exam revealed maroon-colored stool with normal tone. Next, the adult Olympus colonoscope was inserted into the patient's rectum and advanced very carefully through the entirety of the colon into the cecal base. Extensive washing needed to be done with lots of old blood and clots. Over 3 L of irrigation was used along with suctioning. At the cecum along the terminal ileal valve, there was ty ulceration, very irregular. No distinct mass-like lesion, but appear to be full underneath the ulcerated area. I did take biopsies of this gently. After extensive washing and suctioning, no fresh blood was noted and no distinct vessel to clip was visualized given the friability. No therapy was done given no active bleeding. The scope was carefully withdrawn washing the mucosa all the way back to the rectum. No other source of bleeding was visualized. However, the views were limited by the old blood. I then reintubated all the way into the cecum again. I did not find any evidence of fresh bleeding. The scope was then removed from the patient. He tolerated the procedure well. He did have slight episodes of hypotension during the procedure without even any fentanyl, down to 76/48. He was getting blood during the procedure as well. Given the large bleed that he did have even though he is currently stable, he has high risk feature for re-bleeding and I would plan on having him transfer to the ICU for monitoring overnight at least. IMPRESSION: 1. Complete esophagogastroduodenoscopy. 2. Complete colonoscopy to the terminal ileum with biopsies. 3. Normal EGD with duodenal ulcer clip. 4. No fresh or old blood on EGD exam. 5. Complete colonoscopy to the terminal ileum with biopsies. 6. Poor prep limited by the old blood and clots. 7. Extensive irrigation. 8. Ulcer on the TI valve, very irregular, biopsied. 9. No bleeding at conclusion of exam. RECOMMENDATIONS: We will transfer the patient to ICU for monitoring given the large bleed that he did have. Suspect that he bled from the ulcerated area on the GI, unclear etiology. I do wonder if there is a mass below this or a primary source, potentially malignancy here on top of this T-cell lymphoma. The yield on the biopsies may be low as I took a very small bite given the large blood loss that he did have. Would monitor in the ICU. Transfuse as needed. Addendum: biopsies suspicious for bone marrow emboli. Would like to repeat with a full prep to ensure no further malignancy. [id number]/[facility] #: [id number] DONYA
[2019-09-17 15:42] LABS: BM Result Summary Abnormal
--- NOTE | 2019-09-17 16:55 | PN ---
Progress Note - Progress Note Date of Service: 09/17/19 SOAP: Subjective: [Feeling ok today, just fatigued. No stools overnight. He was transferred to ICU following upper and lower endoscopy which revealed a large cecal ulceration. Hgb has been stable since the procedure. No c/o abd pain.] Objective: [ Vital Signs: Temp Pulse Resp BP Pulse Ox 99.1 F 92 18 144/57 92 09/17/19 15:10 09/17/19 15:10 09/17/19 15:10 09/17/19 15:10 09/17/19 15:10 Acetaminophen (Tylenol Adult Liq*) 650 mg PO Q4H PRN PRN Reason: MILD PAIN or TEMP > 100.4 Dextrose (Dextrose 50% Vial 50 Ml*) 25 ml IV PUSH .FOR FS < 60 - SS PRN PRN Reason: FS < 60 Ergocalciferol (Drisdol Cap*) 50,000 unit PO Q7D [facility] Last Admin: 09/16/19 21:27 Dose: Not Given Fentanyl (Duragesic Patch 25 Mcg/Hr*) 25 mcg TRANSDERM Q72H [facility] Last Admin: 09/16/19 14:25 Dose: 25 mcg Finasteride (Proscar Tab*) 5 mg PO DAILY [facility] Last Admin: 09/17/19 09:21 Dose: 5 mg Folic Acid (Folvite Tab*) 1 mg PO DAILY [facility] Last Admin: 09/17/19 09:21 Dose: 1 mg Insulin Human Lispro (Humalog*) 0 units SUBCUT [facility]; Protocol Lidocaine (Xylocaine 2% Viscous*) 15 ml SWISH SPIT TID PRN PRN Reason: PAIN - MILD Last Admin: 09/13/19 13:43 Dose: 15 ml Loperamide HCl (Imodium Liq*) 2 mg PO .SEE ORDER PRN PRN Reason: DIARRHEA Last Admin: 09/13/19 15:23 Dose: 2 mg Morphine Sulfate (Morphine Inj (Syringe))*) 4 mg IV Q4H PRN PRN Reason: PAIN - MODERATE WHILE NPO Multi-Ingredient Mouthwash/Gargle (Magic Mouth Was-Clyde/Maal/Lido*) 10 ml SWISH SPIT QID [facility] Last Admin: 09/17/19 13:59 Dose: 10 ml Oxycodone HCl (Roxycodone Tab*) 5 mg PO Q6H PRN PRN Reason: PAIN - MODERATE Last Admin: 09/16/19 01:04 Dose: 5 mg Pantoprazole Sodium (Protonix Iv*) 40 mg IV BID [facility] Last Admin: 09/17/19 09:21 Dose: 40 mg Pharmacy Profile Note (Fentanyl Patch Check Q Shift) 1 note FOLLOW UP 0700, 1900 [facility] Last Admin: 09/17/19 07:24 Dose: 1 note Potassium Chloride (Klor Con Er Tab*) 20 meq PO BID [facility] Last Admin: 09/17/19 09:22 Dose: 20 meq Tamsulosin HCl (Flomax Cap*) 0.4 mg PO BEDTIME [facility] Last Admin: 09/16/19 21:57 Dose: Not Given Valacyclovir HCl (Valtrex 1 Gm(*)) 1 gm PO Q24H [facility]; Protocol Last Admin: 09/16/19 21:26 Dose: Not Given Laboratory Results - last 24 hr 09/03/19 09/15/19 09/16/19 13:20 04:21 18:00 WBC RBC Hgb 7.6 L Hct 23 L MCV MCH MCHC RDW Plt Count MPV Neut % (Auto) Lymph % (Auto) Randolph % (Auto) Eos % (Auto) Baso % (Auto) Absolute Neuts (auto) Absolute Lymphs (auto) Absolute Monos (auto) Absolute Eos (auto) Absolute Basos (auto) Absolute Nucleated RBC Immature Gran % Neutrophils % Band Neutrophils % Lymphocytes % Reactive Lymphs % Monocytes % Eosinophils % Basophils % Blast Cells % Nucleated RBC % Normal RBC Morphology Hem Pathologist Commnt Sodium Potassium Chloride Carbon Dioxide Anion Gap BUN Creatinine Est GFR ( Amer) Est GFR (Non-Af Amer) BUN/Creatinine Ratio Glucose POC Glucose (mg/dL) Calcium Magnesium Total Bilirubin AST ALT Alkaline Phosphatase Total Protein Albumin Globulin Albumin/Globulin Ratio BM Chromosome Specimen Bone marrow BM Chromo Refer Reason See comment BM Chromosome Source Not Reportable BM Chromosome Method See comment Banding Technique See comment BM Chromosome Analysis See comment BM Chromosome Res Sum Abnormal BM Chromosome Interp See comment BM Chromo Add Info Not Reportable BM Chromo Release By See comment Misc Pathology Test See comment Blood Type O Negative Antibody Screen Negative Crossmatch See Detail Transfusion React Rpt Donor Unit # Post-Trans Blood Type Post-Trans CAROL Reaction Interpretation 09/16/19 09/16/19 09/16/19 18:00 18:19 20:12 WBC RBC Hgb Hct MCV MCH MCHC RDW Plt Count MPV Neut % (Auto) Lymph % (Auto) Randolph % (Auto) Eos % (Auto) Baso % (Auto) Absolute Neuts (auto) Absolute Lymphs (auto) Absolute Monos (auto) Absolute Eos (auto) Absolute Basos (auto) Absolute Nucleated RBC Immature Gran % Neutrophils % Band Neutrophils % Lymphocytes % Reactive Lymphs % Monocytes % Eosinophils % Basophils % Blast Cells % Nucleated RBC % Normal RBC Morphology Hem Pathologist Commnt Sodium Potassium Chloride Carbon Dioxide Anion Gap BUN Creatinine Est GFR ( Amer) Est GFR (Non-Af Amer) BUN/Creatinine Ratio Glucose POC Glucose (mg/dL) 123 H 167 H Calcium Magnesium Total Bilirubin AST ALT Alkaline Phosphatase Total Protein Albumin Globulin Albumin/Globulin Ratio BM Chromosome Specimen BM Chromo Refer Reason BM Chromosome Source BM Chromosome Method Banding Technique BM Chromosome Analysis BM Chromosome Res Sum BM Chromosome Interp BM Chromo Add Info BM Chromo Release By [facility] Test Blood Type Antibody Screen Crossmatch Transfusion React Rpt Donor Unit # [id number] Post-Trans Blood Type O Negative Post-Trans CAROL Negative Reaction Interpretation 09/16/19 09/16/19 09/16/19 21:48 21:48 23:55 WBC RBC Hgb 8.0 L Hct 24 L MCV MCH MCHC RDW Plt Count MPV Neut % (Auto) Lymph % (Auto) Randolph % (Auto) Eos % (Auto) Baso % (Auto) Absolute Neuts (auto) Absolute Lymphs (auto) Absolute Monos (auto) Absolute Eos (auto) Absolute Basos (auto) Absolute Nucleated RBC Immature Gran % Neutrophils % Band Neutrophils % Lymphocytes % Reactive Lymphs % Monocytes % Eosinophils % Basophils % Blast Cells % Nucleated RBC % Normal RBC Morphology Hem Pathologist Commnt Sodium 142 Potassium 3.7 Chloride 100 L Carbon Dioxide 37 H Anion Gap 5 BUN 25 H Creatinine 2.90 H Est GFR ( Amer) 25.7 Est GFR (Non-Af Amer) 21.3 BUN/Creatinine Ratio 8.6 Glucose 103 H POC Glucose (mg/dL) 114 H Calcium 6.5 L Magnesium Total Bilirubin AST ALT Alkaline Phosphatase Total Protein Albumin Globulin Albumin/Globulin Ratio BM Chromosome Specimen BM Chromo Refer Reason BM Chromosome Source BM Chromosome Method Banding Technique BM Chromosome Analysis BM Chromosome Res Sum BM Chromosome Interp BM Chromo Add Info BM Chromo Release By Misc Pathology Test Blood Type Antibody Screen Crossmatch Transfusion React Rpt Donor Unit # Post-Trans Blood Type Post-Trans CAROL Reaction Interpretation 09/17/19 09/17/19 09/17/19 02:07 02:19 05:50 WBC 27.6 H RBC 2.60 L Hgb 7.3 L 7.6 L Hct 22 L 23 L MCV 87 MCH 29 MCHC 34 RDW 16 H Plt Count 96 L MPV 9.9 Neut % (Auto) 78.5 Lymph % (Auto) 11.9 Randolph % (Auto) 8.9 Eos % (Auto) 0.1 Baso % (Auto) 0.6 Absolute Neuts (auto) 21.7 H Absolute Lymphs (auto) 3.3 Absolute Monos (auto) 2.5 H Absolute Eos (auto) 0.0 Absolute Basos (auto) 0.2 Absolute Nucleated RBC 0.0 Immature Gran % 1.0 Neutrophils % 47.0 Band Neutrophils % 1.0 Lymphocytes % 24.0 Reactive Lymphs % 3.0 Monocytes % 18.0 Eosinophils % 4.0 Basophils % 1.0 Blast Cells % 2.0 H* Nucleated RBC % 0.0 Normal RBC Morphology Normal Hem Pathologist Commnt Sodium Potassium Chloride Carbon Dioxide Anion Gap BUN Creatinine Est GFR ( Amer) Est GFR (Non-Af Amer) BUN/Creatinine Ratio Glucose POC Glucose (mg/dL) 68 L Calcium Magnesium Total Bilirubin AST ALT Alkaline Phosphatase Total Protein Albumin Globulin Albumin/Globulin Ratio BM Chromosome Specimen BM Chromo Refer Reason BM Chromosome Source BM Chromosome Method Banding Technique BM Chromosome Analysis BM Chromosome Res Sum BM Chromosome Interp BM Chromo Add Info BM Chromo Release By [facility] Test Blood Type Antibody Screen Crossmatch Transfusion React Rpt Donor Unit # Post-Trans Blood Type Post-Trans CAROL Reaction Interpretation 09/17/19 09/17/19 05:50 10:38 WBC RBC Hgb Hct MCV MCH MCHC RDW Plt Count MPV Neut % (Auto) Lymph % (Auto) Randolph % (Auto) Eos % (Auto) Baso % (Auto) Absolute Neuts (auto) Absolute Lymphs (auto) Absolute Monos (auto) Absolute Eos (auto) Absolute Basos (auto) Absolute Nucleated RBC Immature Gran % Neutrophils % Band Neutrophils % Lymphocytes % Reactive Lymphs % Monocytes % Eosinophils % Basophils % Blast Cells % Nucleated RBC % Normal RBC Morphology Hem Pathologist Commnt Sodium 142 Potassium 3.4 L Chloride 102 Carbon Dioxide 34 H Anion Gap 6 BUN 24 Creatinine 2.88 H Est GFR ( Amer) 25.9 Est GFR (Non-Af Amer) 21.4 BUN/Creatinine Ratio 8.3 Glucose 99 POC Glucose (mg/dL) 89 Calcium 6.4 L* Magnesium 1.9 Total Bilirubin 0.80 AST 30 ALT 11 Alkaline Phosphatase 63 Total Protein 4.3 L Albumin 2.2 L Globulin 2.1 Albumin/Globulin Ratio 1.0 BM Chromosome Specimen BM Chromo Refer Reason BM Chromosome Source BM Chromosome Method Banding Technique BM Chromosome Analysis BM Chromosome Res Sum BM Chromosome Interp BM Chromo Add Info BM Chromo Release By [facility] Test Blood Type Antibody Screen Crossmatch Transfusion React Rpt Donor Unit # Post-Trans Blood Type Post-Trans CAROL Reaction Interpretation Exam: Gen: chronically ill appearing 74 yo male in NAD HEENT: MMM, mucositis which appears to be improving CV: RRR, no m/r/g Resp: CTA, no w/c/r Abd: soft, nonTTP Ext: diffuse edema, ~2+ Skin: multiple areas of ecchymosis - few ulcerated skin lesions around ankles] Assessment: [Assessment: []74 yo M w CTCL a/w pancytopenia, febrile neutropenia and hypocellular marrow, likely related to MTX, with improvement now c/b a large GIB, likely from a cecal ulceration with biopsies pending. Plan: []1. GI Bleed: - likely from cecal ulceration - biopsy results are pending - cont IV protonix 40 mg BID - advance diet to clear liquids, if Hgb remains stable can progress to a soft diet over the next 24 hours 2. Acute Blood loss anemia: - Hgb stable with appropriate response to transfusion yesterday - transfuse 1 additional unit of PRBCs today with goal of keeping Hgb >8 given other comorbities 3. Electrolyte imbalance - replete Ca - gave additional 2g ca gluconate today 4. Renal failure - appreciate nephrology consultation - serum bicarb is noted to be high - stop HCO3 drip and oral supplementation 5. Mucositis: improving - cont. Magic Mouth Wash - Valtrex for possible HSV 6. 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 8. tachy/amrita: - no further episodes overnight, cont. to monitor - aggressive electrolyte management with daily labs 9. Febrile neutropenia: resolved, follow counts DNR Dispo: appropriate to transfer back to the telemetry floor at this time. Anticipate dc to [facility] early next week
[2019-09-17] MEDS: ValACYclovir (*) 1 GM TAB PO SCH (18:06)
--- NOTE | 2019-09-17 18:25 | PN ---
Progress Note - Progress Note Date of Service: 09/17/19 Note: Cc: LAURE HPI: I saw Weeks after he was transferred back to the medical floor after he recovered in ICU post repeat EGD and colonoscopy which showed old blood in the colon , and possibly a cecal ulcer . no active bleeding was noted. He is still a little sleepy, but states he feels well. Kidney function is stable. He denies CP, SOB, abdominal pain or vomiting. Intake and output was 3.4 L in and 1.2 L out. His 2 L positive in the last 24 hours and 7 L positive since admission On exam : Blood pressure 133/56, heart rate 84 bpm, respiration rate 18/min, oxygen saturation 92% on room air Constitutional: Chronically ill patient, he is in no acute distress, conversant Chest is clear to auscultation with good respiratory effort. Anasarca present. Heart shows S1-S2 regular rate and rhythm no murmurs rubs or gallops Abdomen is soft, nontender and nondistended and obese. Difficult to appreciate masses or hepatosplenomegaly Extremities: +3 lower extremities edema, no clubbing or cyanosis Labs: Hemoglobin 7.6 g/dL from the lowest 5.7, platelets 96, sodium 142, potassium 3.4, total CO2 34, creatinine 2.88 stable Assessment and plan: 74-year-old gentleman with complicated past medical history admitted for neutropenic fever and sepsis, complicated with ATN. Hospital course was further complicated by GI bleed with acute anemia. 1. Acute kidney injury secondary to acute tubular necrosis, hemodynamic changes, and decreased oxygen delivery to the kidneys , associated with significant GI bleed. Kidney function is stable. 2. Anasarca. Continue Is and Os and daily weights. Start Lasix 60 mg IV twice a day. This can cause hyponatremia but hydrochlorothiazide is not going to work with his level of kidney function. He may respond to Diuril , which will try if hypernatremia occurs with loop diuretic. 3. Metabolic alkalosis due to sodium bicarbonate which was stopped, and citrate from the blood transfusions 4. Hypocalcemia as a side effect of a blood transfusion. Citrate binds calcium and causes hypocalcemia. Replete IV with calcium chloride and repeat calcium in the morning. 5. Acute anemia due to GI bleed - GI involved. On ppi Entered by: Jonna German MD Entered Date/Time: 09/17/19 [id number] Copy to:
[2019-09-17 19:44] LABS: Hematocrit 27 % (42-52)
[2019-09-17] MEDS: Tamsulosin CAP* 0.4 MG PO SCH (21:59)
[2019-09-18 06:08] LABS: Hematocrit 24 % (42-52); Hemoglobin 8.1 g/dL (14.0-18.0); Mean Corpuscular HGB Conc 34 g/dL (31-36); Mean Corpuscular Hemoglobin 29 pg (27-31); Mean Corpuscular Volume 87 fL (80-94); Mean Platelet Volume 9.6 fL (7.4-10.4); Platelet Count 137 10^3/uL (150-450); Red Blood Count 2.79 10^6 /uL (4.18-5.48); Red Cell Distribution Width 15 % (10-15); White Blood Count 24.3 10^3/uL (3.5-10.8)
[2019-09-18] MEDS: fentaNYL Patch Check Q Shift 1 NOTE FOLLOW UP SCH ×2 (06:22→19:36)
[2019-09-18 06:29] LABS: Albumin 2.1 g/dL (3.2-5.2); Calcium 6.6 mg/dL (8.6-10.3); Magnesium 1.8 mg/dL (1.9-2.7); Potassium 3.1 mmol/L (3.5-5.0); Total Bilirubin 0.8 mg/dL (0.2-1.0)
[2019-09-18 06:35] LABS: BUN/Creatinine Ratio 6.6 (8-20); EGFR African American 24.5 (>60); EGFR Non-African American 20.2 (>60); Globulin 2.1 g/dL (2-4); Total Protein 4.2 g/dL (6.4-8.9)
[2019-09-18 07:19] LABS: ABS Basophils 0.2 10^3/ul (0-0.2); ABS Lymphocytes 3.2 10^3/ul (1.0-4.8); ABS Monocytes 2.6 10^3/ul (0-0.8); ABS Neutrophils 18.3 10^3/ul (1.5-7.7); ABS Nucleated RBC 0.1 10^3/ul; Eosinophil % 0.1 %; Lymphocyte % 13.2 %; Nucleated Red Blood Cells % 0.2
[2019-09-18] MEDS ORDERED: Cyanocobalamin INJ * 1,000 MCG/ML VIAL 1 ML VIAL IM ONE (08:00)
[2019-09-18] MEDS ORDERED: Magnesium Sulfate IV* 3 GM in NS 0.9% 100 ML* 100 ML IVPB ONE (08:00)
[2019-09-18] MEDS ORDERED: NS 0.9% 100 ML* 100 ML ONE (09:47)
[2019-09-18] MEDS: Insulin LISPRO* 1 UNITS UNIT SUBCUT SCH ×4 (09:54→22:04)
[2019-09-18] MEDS: Folic Acid TAB* 1 MG PO SCH (09:55)
[2019-09-18] MEDS: Pantoprazole IV* 40 MG IV SCH ×2 (09:55→21:48)
[2019-09-18] MEDS: Finasteride TAB* 5 MG PO SCH (09:55)
[2019-09-18] MEDS: Potassium Chlor TAB* 20 MEQ TAB.ER PO SCH ×2 (09:55→21:50)
[2019-09-18] MEDS: Magic Mouth Was-BEN/MAAL/LIDO SWISH SPIT SCH ×4 (09:55→21:50)
--- NOTE | 2019-09-18 10:35 | PN ---
Progress Note - Progress Note Date of Service: 09/18/19 SOAP: Subjective: []Feels better today. He is not in pain. Eating. Has had diarrhea. Still in bed through day, up with assist. No fevers. Acetaminophen (Tylenol Adult Liq*) 650 mg PO Q4H PRN PRN Reason: MILD PAIN or TEMP > 100.4 Dextrose (Dextrose 50% Vial 50 Ml*) 25 ml IV PUSH .FOR FS < 60 - SS PRN PRN Reason: FS < 60 Ergocalciferol (Drisdol Cap*) 50,000 unit PO Q7D [facility] Last Admin: 09/16/19 21:27 Dose: Not Given Fentanyl (Duragesic Patch 25 Mcg/Hr*) 25 mcg TRANSDERM Q72H [facility] Last Admin: 09/16/19 14:25 Dose: 25 mcg Finasteride (Proscar Tab*) 5 mg PO DAILY [facility] Last Admin: 09/18/19 09:55 Dose: 5 mg Folic Acid (Folvite Tab*) 1 mg PO DAILY [facility] Last Admin: 09/18/19 09:55 Dose: 1 mg Insulin Human Lispro (Humalog*) 0 units SUBCUT [facility]; Protocol Last Admin: 09/18/19 09:54 Dose: Not Given Lidocaine (Xylocaine 2% Viscous*) 15 ml SWISH SPIT TID PRN PRN Reason: PAIN - MILD Last Admin: 09/13/19 13:43 Dose: 15 ml Loperamide HCl (Imodium Liq*) 2 mg PO .SEE ORDER PRN PRN Reason: DIARRHEA Last Admin: 09/13/19 15:23 Dose: 2 mg Morphine Sulfate (Morphine Inj (Syringe))*) 4 mg IV Q4H PRN PRN Reason: PAIN - MODERATE WHILE NPO Multi-Ingredient Mouthwash/Gargle (Magic Mouth Was-Clyde/Maal/Lido*) 10 ml SWISH SPIT QID [facility] Last Admin: 09/18/19 09:55 Dose: 10 ml Oxycodone HCl (Roxycodone Tab*) 5 mg PO Q6H PRN PRN Reason: PAIN - MODERATE Last Admin: 09/16/19 01:04 Dose: 5 mg Pantoprazole Sodium (Protonix Iv*) 40 mg IV BID [facility] Last Admin: 09/18/19 09:55 Dose: 40 mg Pharmacy Profile Note (Fentanyl Patch Check Q Shift) 1 note FOLLOW UP 0700, 1900 [facility] Last Admin: 09/18/19 06:22 Dose: 1 note Potassium Chloride (Klor Con Er Tab*) 20 meq PO BID [facility] Last Admin: 09/18/19 09:55 Dose: 20 meq Tamsulosin HCl (Flomax Cap*) 0.4 mg PO BEDTIME [facility] Last Admin: 09/17/19 21:59 Dose: 0.4 mg Valacyclovir HCl (Valtrex 1 Gm(*)) 1 gm PO Q24H [facility]; Protocol Last Admin: 09/17/19 18:06 Dose: 1 gm Objective: [] Vital Signs Temp Pulse Resp BP Pulse Ox 98.2 F 84 16 132/54 93 09/18/19 02:59 09/18/19 02:59 09/18/19 06:39 09/18/19 02:59 09/18/19 02:59 Exam: Gen: no distress HEENT: MMM, mucositis which appears to be improving skin: marked imrovment from admission. breakdown buttocks. legs, chest, abd healed. CV: RRR, no m/r/g Resp: CTA, no w/c/r Abd: soft, nonTTP Ext: diffuse edema, ~2+ [Assessment: []74 yo M w CTCL a/w pancytopenia, febrile neutropenia and hypocellular marrow, likely related to MTX, with improvement now c/b a large GIB, likely from a cecal ulceration with biopsies pending. Lymphoma is getting better, etiology of cecal mass is unclear. Plan: []1. GI Bleed: - likely from cecal ulceration - biopsy results are pending - cont IV protonix 40 mg BID - soft diet 2. Acute Blood loss anemia: - Hgb drifting down, continued bleeding vs equlibrium - keep Hgb >8 given other comorbities - No transfusion today. - b12 BL at 210, B12 IM x 1 today - Check Retic and Epo tomorrow with am labs. 3. Electrolyte imbalance. Now on BID Lasix - Ca improved today, follow - IV Mg 3 G x 1 and follow - K-dur 20 mg po bid, hold for K > 3.9 - Check K and Mg daily. 4. Renal failure - appreciate nephrology consultation - serum bicarb is noted to be high - stop HCO3 drip and oral supplementation - Lasix per nephrology, appears closer to euvolemic today 5. Mucositis: improving - cont. Magic Mouth Wash - Valtrex for possible HSV 6. 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 - MTX held and has completed 4 days HD steriods, appears to be improving which is likely r/t Mtx therefore, - Will need close follow up on discharge, re-start MTX 20 mg po weekly with weekly CBC. - much less skin breakdown then on admission. 8. tachy/amrita: - stable at this time - Replete Mg and K. 9. DNR 10. Anticipate dc to [facility] early next week
--- NOTE | 2019-09-18 15:34 | PN ---
Progress Note - Progress Note Date of Service: 09/18/19 Note: CC: Acute kidney injury HPI: Mr. Delgado is doing very well today. He is fully awake, in very good mood. He denies any discomfort. Denies chest pain, shortness of breath, nausea , vomiting, constipation or diarrhea. He is still volume overloaded. Kidney function is a little worse than yesterday. Intake and output is 3.4 L in and 1.2 L out. He is +2 L yesterday, and has been in continuous positive balance since admission. He voids without difficulty Medications: Ergocalciferol 50,000 units weekly Fentanyl patch 25 mcg every 72 8 hours Proscar 5 mg daily Folic acid 1 mg daily Insulin lispro per sliding scale Magic mouthwash Loperamide as needed for diarrhea Oxycodone 5 mg by mouth every 6 hours as needed for pain Protonix 40 mg IV twice a day Potassium chloride 20 mEq by mouth twice a day Flomax 0.4 mg at bedtime Valtrex 1 g by mouth every 24 hours Physical exam: Blood pressure 140/47, O2 saturation 94% on room air, heart rate 85, respiration rate 16/min, temperature 98.4 Constitutional: No acute distress, pleasant and conversant, chronically ill Chest is clear to auscultation with good respiratory effort Heart exam shows S1-S2 regular rate and rhythm no murmurs rubs or gallops. Generalized edema Abdomen: Is soft nontender nondistended. Extremities: +3 lower extremities edema no clubbing or cyanosis Psychiatric: Alert and oriented 3, normal mood, judgment and insight appropriate Labs for today show a white blood cell count of 24.3, hemoglobin 8.1 g/dL from 1 9 last night, platelets 137, sodium 140, potassium 3.1, total CO2 33, creatinine 3.03 mg/dL which is worse than yesterday 2.88. Calcium is 6.6, magnesium 1.8, albumin is 2.1 which makes his calculated calcium slightly low at 8.2 mg/dL. Assessment and plan: Nolan Delgado is a 74-year-old gentleman with complicated past medical history including cutaneous T-cell lymphoma, was admitted with neutropenic fever and sepsis. Hospital course was further complicated by GI bleed with acute anemia. 1. Acute kidney injury due to ATN. Kidney function is not improving yet. 2. Anasarca. Continue Is and Os and daily weights. I will start Lasix 60 mg IV daily for now. 3. Metabolic alkalosis is off sodium bicarbonate. 4. Acute anemia due to GI bleed. Post blood transfusions. On PPI 5. hypertension. He is not on any blood pressure medications but his blood pressure is reasonable And I would keep him the same
[2019-09-18] MEDS: Furosemide IV* 10 MG/ML 10 ML VIAL (100 MG) IV SCH (17:23)
[2019-09-18] MEDS: ValACYclovir (*) 1 GM TAB PO SCH (17:24)
[2019-09-18] MEDS: Tamsulosin CAP* 0.4 MG PO SCH (21:50)
[2019-09-19] MEDS: fentaNYL Patch Check Q Shift 1 NOTE FOLLOW UP SCH ×2 (07:13→18:33)
[2019-09-19 07:41] LABS: Hematocrit 25 % (42-52); Hemoglobin 8.4 g/dL (14.0-18.0); Mean Corpuscular HGB Conc 34 g/dL (31-36); Mean Corpuscular Hemoglobin 30 pg (27-31); Mean Corpuscular Volume 87 fL (80-94); Mean Platelet Volume 9.2 fL (7.4-10.4); Platelet Count 175 10^3/uL (150-450); Red Blood Count 2.81 10^6 /uL (4.18-5.48); Red Cell Distribution Width 16 % (10-15); White Blood Count 23.1 10^3/uL (3.5-10.8)
[2019-09-19 07:50] LABS: Albumin 2.1 g/dL (3.2-5.2); Calcium 6.9 mg/dL (8.6-10.3); Magnesium 1.8 mg/dL (1.9-2.7); Potassium 3.1 mmol/L (3.5-5.0); Total Bilirubin 0.8 mg/dL (0.2-1.0)
[2019-09-19 07:56] LABS: Albumin/Globulin Ratio 0.9 (1-3); BUN/Creatinine Ratio 6.1 (8-20); EGFR African American 22.3 (>60); EGFR Non-African American 18.4 (>60); Globulin 2.4 g/dL (2-4); Total Protein 4.5 g/dL (6.4-8.9)
[2019-09-19] MEDS: Insulin LISPRO* 1 UNITS UNIT SUBCUT SCH ×4 (09:25→21:18)
[2019-09-19] MEDS: Potassium Chlor TAB* 20 MEQ TAB.ER PO SCH ×2 (09:25→21:19)
[2019-09-19] MEDS: Finasteride TAB* 5 MG PO SCH (09:25)
[2019-09-19] MEDS: Folic Acid TAB* 1 MG PO SCH (09:25)
[2019-09-19] MEDS: Magic Mouth Was-BEN/MAAL/LIDO SWISH SPIT SCH ×4 (09:26→21:37)
[2019-09-19] MEDS: Furosemide IV* 10 MG/ML 10 ML VIAL (100 MG) IV SCH ×2 (09:26→21:29)
[2019-09-19] MEDS: Pantoprazole IV* 40 MG IV SCH ×2 (09:27→21:19)
--- NOTE | 2019-09-19 11:38 | PN ---
Progress Note - Progress Note Date of Service: 09/18/19 Note: CC: Acute kidney injury - HPI: Mr. Delgado continues to improve clinically. He is awake, lying in bed. He denies chest pain, shortness of breath, abdominal pain, nausea, vomiting or diarrhea. He is still edematous. Started on Lasix 60 mg IV he received a dose at 5:23 PM yesterday with good diuretic response. his urine output was 2.2 yesterday with 1.2 L in and -980 cc fluid balance. - Labs White blood cell count 23.1 decreasing, hemoglobin stable at 8.4 mg/dL , sodium 138, potassium 3.1, BUN 20 creatinine 3.28 slightly worse than yesterday. Magnesium 1.8, calculated calcium is 8.4 to still low. - Medications: - Ergocalciferol 50,000 units weekly - Fentanyl patch 25 mcg every 72 8 hours - Proscar 5 mg daily - Folic acid 1 mg daily - Insulin lispro per sliding scale - Magic mouthwash - Loperamide as needed for diarrhea - Oxycodone 5 mg by mouth every 6 hours as needed for pain - Protonix 40 mg IV twice a day - Potassium chloride 20 mEq by mouth twice a day - Flomax 0.4 mg at bedtime - Valtrex 1 g by mouth every 24 hours - Lasix 60 mg IV qd Physical exam: - Vitals remained pressure 140/46, respiration rate 18/min, oxygen saturation is 96%, temperature 98, heart rate is 84 bpm. Constitutional: No acute distress, pleasant and conversant, chronically ill Chest is clear to auscultation with good respiratory effort Heart exam shows S1-S2 regular rate and rhythm no murmurs rubs or gallops. Generalized edema Abdomen: Is soft nontender nondistended. Extremities: slightly improved lower extremities edema no clubbing or cyanosis Psychiatric: Alert and oriented 3, normal mood, judgment and insight appropriate Assessment and plan: Nolan Delgado is a 74-year-old gentleman with complicated past medical history including cutaneous T-cell lymphoma, was admitted with neutropenic fever and sepsis. Hospital course was further complicated by GI bleed with acute anemia. 1. Acute kidney injury due to ATN vs postinfectios GN. Repeat UA. Kidney function is not improving yet, actually is little worse than yesterday with volume retention with anasarca can cause renal congestion and worsening of the kidney function. This is why we should continue to diurese him. He was not hemodynamically stable yesterday 2. Anasarca. Continue Is and Os and daily weights. increase Lasix to 60 mg IV twice a day 3. Metabolic alkalosis Stable 4. Hypocalcemia- replete with 1 gram of calcium gluconate- repeat labs in the am 5. Hypokalemia - in increase potassium chloride from 20 twice a day to 40 twice a day. Repeat labs in a.m.
[2019-09-19] MEDS: fentaNYL PATCH 25 MCG/HR TRANSDERM SCH (13:15)
[2019-09-19] MEDS ORDERED: Calcium Gluconate INJ* 1 GM in NS 0.9% 50 ML* 50 ML IVPB ONE (14:45)
[2019-09-19] MEDS ORDERED: Magnesium Sulfate 2 GM IV* 2 GM/50 ML BAG IVPB ONE (14:51)
--- NOTE | 2019-09-19 14:53 | PN ---
Subjective Date of Service: 09/19/19 Interval History: Mr. Delgado is feeling well today. He offers no complaints. Not having any pain. He is hungry and is not happy with his current diet. He is hoping to go home soon. Denies SOB, CP, N/V. No concerns from nursing. Family History: Unchanged from Admission Social History: Unchanged from Admission Past Medical History: Unchanged from Admission Objective Active Medications: Acetaminophen (Tylenol Adult Liq*) 650 mg PO Q4H PRN MILD PAIN or TEMP > 100.4 Dextrose (Dextrose 50% Vial 50 Ml*) 25 ml IV PUSH .FOR FS < 60 - SS PRN FS < 60 Ergocalciferol (Drisdol Cap*) 50,000 unit PO Q7D [facility] Fentanyl (Duragesic Patch 25 Mcg/Hr*) 25 mcg TRANSDERM Q72H [facility] Finasteride (Proscar Tab*) 5 mg PO DAILY [facility] Folic Acid (Folvite Tab*) 1 mg PO DAILY [facility] Furosemide (Lasix Iv*) 60 mg IV BID [facility] Calcium Gluconate 1 gm/ Sodium (Chloride) 60 mls @ 60 mls/hr IVPB ONCE ONE Insulin Human Lispro (Humalog*) 0 units SUBCUT [facility]; Protocol Lidocaine (Xylocaine 2% Viscous*) 15 ml SWISH SPIT TID PRN PAIN - MILD Loperamide HCl (Imodium Liq*) 2 mg PO .SEE ORDER PRN DIARRHEA Morphine Sulfate (Morphine Inj (Syringe))*) 4 mg IV Q4H PRN PAIN - MODERATE WHILE NPO Multi-Ingredient Mouthwash/Gargle (Magic Mouth Was-Clyde/Maal/Lido*) 10 ml SWISH SPIT QID [facility] Oxycodone HCl (Roxycodone Tab*) 5 mg PO Q6H PRN PAIN - MODERATE Pantoprazole Sodium (Protonix Iv*) 40 mg IV BID [facility] Pharmacy Profile Note (Fentanyl Patch Check Q Shift) 1 note FOLLOW UP 0700, 1900 [facility] Potassium Chloride (Klor Con Er Tab*) 40 meq PO BID [facility] Tamsulosin HCl (Flomax Cap*) 0.4 mg PO BEDTIME [facility] Valacyclovir HCl (Valtrex 1 Gm(*)) 1 gm PO Q24H [facility]; Protocol Vital Signs - 8 hr 09/19/19 09/19/19 09/19/19 07:45 08:00 10:00 Temperature 98.3 F Pulse Rate 85 Respiratory 16 16 Rate Blood Pressure 133/43 (mmHg) O2 Sat by Pulse 97 96 Oximetry 09/19/19 09/19/19 11:00 13:15 Temperature 98.7 F Pulse Rate 96 Respiratory 18 18 Rate Blood Pressure 132/64 (mmHg) O2 Sat by Pulse 92 Oximetry Oxygen Devices in Use Now: Nasal Cannula - 2.5L Appearance: Elderly male sitting in bed in NAD Neck: NL Appearance and Movements; NL JVP, Trachea Midline Respiratory: Symmetrical Chest Expansion and Respiratory Effort, Clear to Auscultation Cardiovascular: NL Sounds; No Murmurs; No JVD, RRR Abdominal: NL Sounds; No Tenderness; No Distention Extremities: - - +2 pitting generalized Neurological: Alert and Oriented x 3 Lines/Tubes/Other Access: Clean, Dry and Intact Peripheral IV Nutrition: Taking PO's Result Diagrams: 09/19/19 07:27 09/19/19 07:27 Assess/Plan/Problems-Billing Assessment: 74 yo M w CTCL a/w pancytopenia, febrile neutropenia and hypocellular marrow, likely related to MTX, with improvement now c/b a large GIB, likely from a cecal ulceration with biopsies pending. Lymphoma is getting better, etiology of cecal mass is unclear. Plan: 1. GI Bleed: - likely from cecal ulceration - biopsy results are pending - cont IV protonix 40 mg BID - soft diet 2. Acute Blood loss anemia: - Hgb drifting down, continued bleeding vs equlibrium - keep Hgb >8 given other comorbities - No transfusion today - b12 BL at 210 3. Electrolyte imbalance. Now on BID Lasix - Ca down today - give 1gm calcium gluconate per Nephrology - IV Mg 2G x1 - K-dur increased to 40 mg po bid per Nephrology, hold for K > 3.9 - Check K and Mg daily 4. Renal failure - appreciate nephrology consultation - serum bicarb is noted to be high - stop HCO3 drip and oral supplementation - Lasix per nephrology (changed to 40meq BID) 5. Mucositis: improving - cont. Magic Mouth Wash - Valtrex for possible HSV 6. 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 - MTX held and has completed 4 days HD steriods, appears to be improving which is likely r/t Mtx - Will need close follow up on discharge, re-start MTX 20 mg po weekly with weekly CBC - much less skin breakdown then on admission 8. tachy/amrita: - stable at this time - Replete Mg and K 9. DNR 10. Anticipate dc to [facility] early next week Attending: Xander Haq
[2019-09-19] MEDS: ValACYclovir (*) 1 GM TAB PO SCH (17:30)
[2019-09-19] MEDS: Tamsulosin CAP* 0.4 MG PO SCH (21:19)
[2019-09-20] MEDS: oxyCODONE TAB* 5 MG TAB PO PRN (03:22)
[2019-09-20 06:31] LABS: Hematocrit 25 % (42-52); Hemoglobin 8.7 g/dL (14.0-18.0); Mean Corpuscular HGB Conc 34 g/dL (31-36); Mean Corpuscular Hemoglobin 30 pg (27-31); Mean Corpuscular Volume 88 fL (80-94); Mean Platelet Volume 8.6 fL (7.4-10.4); Platelet Count 216 10^3/uL (150-450); Red Cell Distribution Width 15 % (10-15); White Blood Count 21.6 10^3/uL (3.5-10.8)
[2019-09-20 06:42] LABS: Calcium 7.3 mg/dL (8.6-10.3); Magnesium 2.1 mg/dL (1.9-2.7); Potassium 3.2 mmol/L (3.5-5.0)
[2019-09-20 06:47] LABS: BUN/Creatinine Ratio 5.6 (8-20); EGFR African American 20.1 (>60); EGFR Non-African American 16.6 (>60)
[2019-09-20] MEDS: fentaNYL Patch Check Q Shift 1 NOTE FOLLOW UP SCH (06:51)
[2019-09-20] MEDS: Insulin LISPRO* 1 UNITS UNIT SUBCUT SCH ×4 (08:10→20:12)
[2019-09-20 08:23] LABS: ABS Basophils 0.2 10^3/ul (0-0.2); ABS Lymphocytes 2.3 10^3/ul (1.0-4.8); ABS Monocytes 3.2 10^3/ul (0-0.8); ABS Neutrophils 15.8 10^3/ul (1.5-7.7); Eosinophil % 0.1 %; Lymphocyte % 10.8 %; Nucleated Red Blood Cells % 0.1
[2019-09-20] MEDS: Potassium Chlor TAB* 20 MEQ TAB.ER PO SCH (10:03)
[2019-09-20] MEDS: Finasteride TAB* 5 MG PO SCH (10:03)
[2019-09-20] MEDS: Folic Acid TAB* 1 MG PO SCH (10:03)
[2019-09-20] MEDS: Pantoprazole IV* 40 MG IV SCH ×2 (10:04→20:12)
[2019-09-20] MEDS: Magic Mouth Was-BEN/MAAL/LIDO SWISH SPIT SCH ×4 (10:04→20:48)
[2019-09-20] MEDS: Furosemide IV* 10 MG/ML 10 ML VIAL (100 MG) IV SCH (10:05)
--- NOTE | 2019-09-20 10:22 | PN ---
Progress Note - Progress Note Date of Service: 09/20/19 SOAP: Subjective: [Feels like he is doing well. Having loose stools without bleeding. No abd pain. ] Objective: [ Vital Signs: Temp Pulse Resp BP Pulse Ox 98 F 90 18 118/48 98 09/20/19 07:50 09/20/19 07:50 09/20/19 07:51 09/20/19 07:50 09/20/19 07:50 Acetaminophen (Tylenol Adult Liq*) 650 mg PO Q4H PRN PRN Reason: MILD PAIN or TEMP > 100.4 Dextrose (Dextrose 50% Vial 50 Ml*) 25 ml IV PUSH .FOR FS < 60 - SS PRN PRN Reason: FS < 60 Ergocalciferol (Drisdol Cap*) 50,000 unit PO Q7D [facility] Last Admin: 09/16/19 21:27 Dose: Not Given Finasteride (Proscar Tab*) 5 mg PO DAILY [facility] Last Admin: 09/20/19 10:03 Dose: 5 mg Folic Acid (Folvite Tab*) 1 mg PO DAILY [facility] Last Admin: 09/20/19 10:03 Dose: 1 mg Furosemide (Lasix Iv*) 60 mg IV BID [facility] Last Admin: 09/20/19 10:05 Dose: 60 mg Potassium Chloride (Potassium Chloride 10 Meq/50 Ml Ivpremix*) 10 meq in 50 mls @ 50 mls/hr IV Q1H [facility] Stop: 09/20/19 13:59 Insulin Human Lispro (Humalog*) 0 units SUBCUT ACHS [facility]; Protocol Last Admin: 09/20/19 08:10 Dose: Not Given Lidocaine (Xylocaine 2% Viscous*) 15 ml SWISH SPIT TID PRN PRN Reason: PAIN - MILD Last Admin: 09/13/19 13:43 Dose: 15 ml Loperamide HCl (Imodium Liq*) 2 mg PO .SEE ORDER PRN PRN Reason: DIARRHEA Last Admin: 09/13/19 15:23 Dose: 2 mg Morphine Sulfate (Morphine Inj (Syringe))*) 4 mg IV Q4H PRN PRN Reason: PAIN - MODERATE WHILE NPO Multi-Ingredient Mouthwash/Gargle (Magic Mouth Was-Clyde/Maal/Lido*) 10 ml SWISH SPIT QID [facility] Last Admin: 09/20/19 10:04 Dose: 10 ml Oxycodone HCl (Roxycodone Tab*) 5 mg PO Q6H PRN PRN Reason: PAIN - MODERATE Last Admin: 09/20/19 03:22 Dose: 5 mg Pantoprazole Sodium (Protonix Iv*) 40 mg IV BID [facility] Last Admin: 09/20/19 10:04 Dose: 40 mg Potassium Chloride (Klor Con Er Tab*) 40 meq PO BID [facility] Last Admin: 09/20/19 10:03 Dose: 40 meq Tamsulosin HCl (Flomax Cap*) 0.4 mg PO BEDTIME [facility] Last Admin: 09/19/19 21:19 Dose: 0.4 mg Valacyclovir HCl (Valtrex 1 Gm(*)) 1 gm PO Q24H [facility]; Protocol Last Admin: 09/19/19 17:30 Dose: 1 gm Laboratory Results - last 24 hr 09/19/19 09/19/19 09/19/19 11:35 16:30 21:17 WBC RBC Hgb Hct MCV MCH MCHC RDW Plt Count MPV Neut % (Auto) Lymph % (Auto) [place] % (Auto) Eos % (Auto) Baso % (Auto) Absolute Neuts (auto) Absolute Lymphs (auto) Absolute Monos (auto) Absolute Eos (auto) Absolute Basos (auto) Absolute Nucleated RBC Immature Gran % Neutrophils % Band Neutrophils % Lymphocytes % Monocytes % Basophils % Metamyelocytes % Myelocytes % Nucleated RBC % Normal RBC Morphology Sodium Potassium Chloride Carbon Dioxide Anion Gap BUN Creatinine Est GFR ( Amer) Est GFR (Non-Af Amer) BUN/Creatinine Ratio Glucose POC Glucose (mg/dL) 159 H 140 H 124 H Calcium Magnesium 09/20/19 09/20/19 09/20/19 06:18 06:18 07:46 WBC 21.6 H RBC 2.90 L Hgb 8.7 L Hct 25 L MCV 88 MCH 30 MCHC 34 RDW 15 Plt Count 216 MPV 8.6 Neut % (Auto) 73.3 Lymph % (Auto) 10.8 [place] % (Auto) 14.7 Eos % (Auto) 0.1 Baso % (Auto) 1.1 Absolute Neuts (auto) 15.8 H Absolute Lymphs (auto) 2.3 Absolute Monos (auto) 3.2 H Absolute Eos (auto) 0.0 Absolute Basos (auto) 0.2 Absolute Nucleated RBC 0.0 Immature Gran % 13.0 H Neutrophils % 66.0 Band Neutrophils % 2.0 Lymphocytes % 9.0 Monocytes % 11.0 Basophils % 1.0 Metamyelocytes % 7.0 H Myelocytes % 4.0 H Nucleated RBC % 0.1 Normal RBC Morphology Normal Sodium 141 Potassium 3.2 L Chloride 102 Carbon Dioxide 33 H Anion Gap 6 BUN 20 Creatinine 3.59 H Est GFR ( Amer) 20.1 Est GFR (Non-Af Amer) 16.6 BUN/Creatinine Ratio 5.6 L Glucose 102 H POC Glucose (mg/dL) 120 H Calcium 7.3 L Magnesium 2.1 Exam: Gen: no distress HEENT: MMM, mucositis which appears to be improving skin: marked improvment from admission. one open area on the buttocks, all other lesions have healed CV: RRR, no m/r/g Resp: CTA, no w/c/r Abd: soft, nonTTP Ext: diffuse edema, ~2+ [Assessment: []74 yo M w CTCL a/w pancytopenia, febrile neutropenia and hypocellular marrow, likely related to MTX, with improvement now c/b a large GIB, likely from a cecal ulceration with biopsies pending. Lymphoma is getting better, etiology of cecal mass is unclear. Plan: []1. GI Bleed: - likely from cecal ulceration - biopsy results are pending - cont IV protonix 40 mg BID - upgrade to soft diet 2. Acute Blood loss anemia: - Hgb appears stable - keep Hgb >8 given other comorbities - b12 BL at 210, B12 IM x 1 today - add on Retic and Epo to am labs. 3. Electrolyte imbalance. Now on BID Lasix - Ca improved today, follow - K-dur 20 mg po bid, hold for K > 3.9 - give additional IV potassium today - Check K and Mg daily. 4. Renal failure - appreciate nephrology consultation - serum bicarb is noted to be high - stopped HCO3 drip and oral supplementation - Lasix per nephrology, appears closer to euvolemic today but Cr rising without change in BUN 5. Mucositis: improving - cont. Magic Mouth Wash - Valtrex for possible HSV 6. 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 - MTX held and has completed 4 days HD steriods, appears to be improving which is likely r/t Mtx therefore, - Will need close follow up on discharge, re-start MTX 20 mg po weekly with weekly CBC. - much less skin breakdown then on admission. 8. tachy/amrita: - stable at this time - Replete Mg and K. 9. DNR 10. Anticipate dc to [facility] tomorrow]
[2019-09-20 10:38] LABS: Corrected Retic Count 1.1 % (0.5-1.5); Hematocrit for Retic CNT 25 % (42-52); Immature Retic Fraction 0.52; RBC Retic Count 2.85 10^6/uL (4.18-5.48)
[2019-09-20] MEDS: KCL 10 MEQ/50 ML IVPREMIX* 10 MEQ/50 ML BAG IV SCH ×3 (11:18→17:43)
[2019-09-20] MEDS ORDERED: fentaNYL Patch Check Q Shift 1 NOTE FOLLOW UP ONE (13:00)
--- NOTE | 2019-09-20 15:07 | PN ---
PROGRESS NOTE: DATE OF VISIT: 09/20/19 SUBJECTIVE: The patient was seen and examined at bedside. The patient appears significantly better than how he was a week and a half ago in the ICU. Vitals and labs have been reviewed. PHYSICAL EXAMINATION: HEENT: NC/AT. Heart: S1, S2 present. Regular. Lungs: Clear to auscultatio n. Abdomen: Soft. Extremities noted to have edema. Neuro: Alert. ASSESSMENT AND PLAN: 1. Acute kidney injury secondary to acute tubular necrosis, recovering well; however, the patient george d a second hit with a gastrointestinal bleed and had worsening in his kidney function, which is again recovering slowly. 2. Metabolic alkalosis secondary to bicarb drip and p.o. bicarb that the patient was on, initially w as acidotic. Agree with holding the bicarbonate for now. 3. Hypokalemia. Replace. 4. We will hold the Lasix as the patient was volume overloaded and currently euvolemic and to check labs. 5. Discussed with Oncology. As the plan is to discharge the patient to rehab, the patient can have his BMP checked 1 to 2 weeks from now and follow up with Dr. Nicholson in the clinic as an outpatient. We will follow with the medical team. [id number]/[facility] #: [id number]
[2019-09-20] MEDS: ValACYclovir (*) 1 GM TAB PO SCH (17:25)
[2019-09-20] MEDS: Tamsulosin CAP* 0.4 MG PO SCH (20:12)
[2019-09-21 05:09] LABS: Hematocrit 23 % (42-52); Hemoglobin 7.7 g/dL (14.0-18.0); Mean Corpuscular HGB Conc 33 g/dL (31-36); Mean Corpuscular Hemoglobin 29 pg (27-31); Mean Corpuscular Volume 88 fL (80-94); Mean Platelet Volume 8.4 fL (7.4-10.4); Platelet Count 235 10^3/uL (150-450); Red Blood Count 2.66 10^6 /uL (4.18-5.48); Red Cell Distribution Width 15 % (10-15); White Blood Count 21.1 10^3/uL (3.5-10.8)
[2019-09-21 05:26] LABS: Albumin 2.1 g/dL (3.2-5.2); Albumin/Globulin Ratio 0.8 (1-3); BUN/Creatinine Ratio 5.8 (8-20); Calcium 7.3 mg/dL (8.6-10.3); EGFR Non-African American 16.6 (>60); Globulin 2.8 g/dL (2-4); Potassium 3.4 mmol/L (3.5-5.0); Total Bilirubin 0.7 mg/dL (0.2-1.0); Total Protein 4.9 g/dL (6.4-8.9)
[2019-09-21 05:53] LABS: ABS Basophils 0.3 10^3/ul (0-0.2); ABS Lymphocytes 2.8 10^3/ul (1.0-4.8); ABS Monocytes 3.5 10^3/ul (0-0.8); ABS Neutrophils 14.5 10^3/ul (1.5-7.7); Eosinophil % 0.1 %; Lymphocyte % 13.2 %
[2019-09-21] MEDS: Insulin LISPRO* 1 UNITS UNIT SUBCUT SCH ×4 (08:48→20:33)
--- NOTE | 2019-09-21 10:16 | PN ---
Progress Note - Progress Note Date of Service: 09/21/19 SOAP: Subjective: []Feeling OK. Still tired. No major change today. Nursing notes recurrent tachycardia this AM with attempt at OOB activity and PT. Reviewed recurrent anemia and concern for bleeding mass leading to recommendation to delay discharge. Loose stools, but denies bright red blood. Frustrated by need to stay but states understanding. Worried about . Medications: Acetaminophen (Tylenol Adult Liq*) 650 mg PO Q4H PRN PRN Reason: MILD PAIN or TEMP > 100.4 Dextrose (Dextrose 50% Vial 50 Ml*) 25 ml IV PUSH .FOR FS < 60 - SS PRN PRN Reason: FS < 60 Ergocalciferol (Drisdol Cap*) 50,000 unit PO Q7D [facility] Last Admin: 09/16/19 21:27 Dose: Not Given Finasteride (Proscar Tab*) 5 mg PO DAILY [facility] Last Admin: 09/20/19 10:03 Dose: 5 mg Folic Acid (Folvite Tab*) 1 mg PO DAILY [facility] Last Admin: 09/20/19 10:03 Dose: 1 mg Insulin Human Lispro (Humalog*) 0 units SUBCUT [facility]; Protocol Last Admin: 09/21/19 08:48 Dose: Not Given Lidocaine (Xylocaine 2% Viscous*) 15 ml SWISH SPIT TID PRN PRN Reason: PAIN - MILD Last Admin: 09/13/19 13:43 Dose: 15 ml Loperamide HCl (Imodium Liq*) 2 mg PO .SEE ORDER PRN PRN Reason: DIARRHEA Last Admin: 09/13/19 15:23 Dose: 2 mg Morphine Sulfate (Morphine Inj (Syringe))*) 4 mg IV Q4H PRN PRN Reason: PAIN - MODERATE WHILE NPO Multi-Ingredient Mouthwash/Gargle (Magic Mouth Was-Clyde/Maal/Lido*) 10 ml SWISH SPIT QID [facility] Last Admin: 09/20/19 20:48 Dose: 10 ml Pantoprazole Sodium (Protonix Iv*) 40 mg IV BID [facility] Last Admin: 09/20/19 20:12 Dose: 40 mg Potassium Chloride (Klor Con Er Tab*) 40 meq PO DAILY [facility] Tamsulosin HCl (Flomax Cap*) 0.4 mg PO BEDTIME [facility] Last Admin: 09/20/19 20:12 Dose: 0.4 mg Valacyclovir HCl (Valtrex 1 Gm(*)) 1 gm PO Q24H [facility]; Protocol Last Admin: 09/20/19 17:25 Dose: 1 gm Objective: [] Vital Signs Temp Pulse Resp BP Pulse Ox 99.5 F 92 16 130/54 98 09/21/19 07:56 09/21/19 07:56 09/21/19 07:56 09/21/19 07:56 09/21/19 07:56 A&Ox3, EOMI, neuro grossly non-focal HRR, review of tele with SR and intermittent SVT non-sustained LS clear +BS, abd. soft and non-tender Diffuse lesions stable Laboratory Results - last 24 hr 09/18/19 09/19/19 09/20/19 05:39 07:27 06:18 WBC 21.6 H RBC 2.90 L RBC (Retic) 2.85 L Hgb 8.7 L Hct 25 L HCT (Retic) 25 L MCV 88 MCH 30 MCHC 34 RDW 15 Plt Count 216 MPV 8.6 Neut % (Auto) 73.3 Lymph % (Auto) 10.8 [place] % (Auto) 14.7 Eos % (Auto) 0.1 Baso % (Auto) 1.1 Absolute Neuts (auto) 15.8 H Absolute Lymphs (auto) 2.3 Absolute Monos (auto) 3.2 H Absolute Eos (auto) 0.0 Absolute Basos (auto) 0.2 Absolute Nucleated RBC 0.0 Immature Gran % 13.0 H Neutrophils % 66.0 Band Neutrophils % 2.0 Lymphocytes % 9.0 Monocytes % 11.0 Basophils % 1.0 Metamyelocytes % 7.0 H Myelocytes % 4.0 H Nucleated RBC % 0.1 Normal RBC Morphology Normal Retic Count, Calc 1.9 H Corrected Retic Count 1.1 Retic Shift Factor 2.0 Retic Production Index 0.60 Immature Retic Fraction 0.52 Mean Retic Volume 140.7 Hem Pathologist Commnt Sodium Potassium Chloride Carbon Dioxide Anion Gap BUN Creatinine Est GFR ( Amer) Est GFR (Non-Af Amer) BUN/Creatinine Ratio Glucose POC Glucose (mg/dL) Calcium Magnesium Total Bilirubin AST ALT Alkaline Phosphatase Total Protein Albumin Globulin Albumin/Globulin Ratio 09/20/19 09/20/19 09/20/19 11:26 16:23 20:05 WBC RBC RBC (Retic) Hgb Hct HCT (Retic) MCV MCH MCHC RDW Plt Count MPV Neut % (Auto) Lymph % (Auto) [place] % (Auto) Eos % (Auto) Baso % (Auto) Absolute Neuts (auto) Absolute Lymphs (auto) Absolute Monos (auto) Absolute Eos (auto) Absolute Basos (auto) Absolute Nucleated RBC Immature Gran % Neutrophils % Band Neutrophils % Lymphocytes % Monocytes % Basophils % Metamyelocytes % Myelocytes % Nucleated RBC % Normal RBC Morphology Retic Count, Calc Corrected Retic Count Retic Shift Factor Retic Production Index Immature Retic Fraction Mean Retic Volume Hem Pathologist Commnt Sodium Potassium Chloride Carbon Dioxide Anion Gap BUN Creatinine Est GFR ( Amer) Est GFR (Non-Af Amer) BUN/Creatinine Ratio Glucose POC Glucose (mg/dL) 211 H 194 H 169 H Calcium Magnesium Total Bilirubin AST ALT Alkaline Phosphatase Total Protein Albumin Globulin Albumin/Globulin Ratio 09/21/19 09/21/19 09/21/19 04:55 04:58 08:04 WBC 21.1 H RBC 2.66 L RBC (Retic) Hgb 7.7 L Hct 23 L HCT (Retic) MCV 88 MCH 29 MCHC 33 RDW 15 Plt Count 235 MPV 8.4 Neut % (Auto) 68.9 Lymph % (Auto) 13.2 [place] % (Auto) 16.4 Eos % (Auto) 0.1 Baso % (Auto) 1.4 Absolute Neuts (auto) 14.5 H Absolute Lymphs (auto) 2.8 Absolute Monos (auto) 3.5 H Absolute Eos (auto) 0.0 Absolute Basos (auto) 0.3 H Absolute Nucleated RBC 0.0 Immature Gran % 1.0 Neutrophils % 74.0 Band Neutrophils % 1.0 Lymphocytes % 13.0 Monocytes % 12.0 Basophils % Metamyelocytes % Myelocytes % Nucleated RBC % 0.0 Normal RBC Morphology Normal Retic Count, Calc Corrected Retic Count Retic Shift Factor Retic Production Index Immature Retic Fraction Mean Retic Volume Hem Pathologist Commnt Sodium 139 Potassium 3.4 L Chloride 102 Carbon Dioxide 32 Anion Gap 5 BUN 21 Creatinine 3.60 H Est GFR ( Amer) 20.0 Est GFR (Non-Af Amer) 16.6 BUN/Creatinine Ratio 5.8 L Glucose 104 H POC Glucose (mg/dL) 128 H Calcium 7.3 L Magnesium 2.0 Total Bilirubin 0.70 AST 16 ALT 9 Alkaline Phosphatase 68 Total Protein 4.9 L Albumin 2.1 L Globulin 2.8 Albumin/Globulin Ratio 0.8 L Assessment: []74 yo M w CTCL a/w pancytopenia, febrile neutropenia and hypocellular marrow, likely related to MTX, with improvement now c/b a large GIB, likely from a cecal ulceration with biopsies pending. Lymphoma has improved, but acute blood loss remains significant concern. Plan: []1. Acute blood loss anemia 2/2 GI Bleed: - likely from cecal ulceration - biopsy results are pending - cont IV protonix 40 mg BID - upgraded to soft diet yesterday and recurrent drop in hmg today - repeat H&H @ noon to assess degree of bleed - plan 1 unit PRBCs this afternoon 2. Electrolyte imbalance. Now on BID Lasix - Ca improved today, follow - K-dur 40 mg daily, follow - Check K and Mg daily. 3. Renal failure - appreciate nephrology consultation - follow Cr closely, mallory. with GI blood loss 4. Mucositis: improving - cont. Magic Mouth Wash - Valtrex for possible HSV 5. 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 - MTX held and has completed 4 days HD steriods, appears to be improving which is likely r/t Mtx therefore, - Will need close follow up on discharge, re-start MTX 20 mg po weekly with weekly CBC. - much less skin breakdown then on admission. 7. tachy/amrita: - essentially asymtpomatic with SVT, though minimal exertion - Follow on tele and monitor electrolytes closely 8. DNR Disposition: recurrent drop in hmg with pending path therefore requires cont.'d inpt. care, will be d/c'd to [facility] once ready
[2019-09-21] MEDS: Folic Acid TAB* 1 MG PO SCH (10:21)
[2019-09-21] MEDS: Finasteride TAB* 5 MG PO SCH (10:21)
[2019-09-21] MEDS: Pantoprazole IV* 40 MG IV SCH ×2 (10:21→20:33)
[2019-09-21] MEDS: Potassium Chlor TAB* 20 MEQ TAB.ER PO SCH (10:21)
[2019-09-21] MEDS: Magic Mouth Was-BEN/MAAL/LIDO SWISH SPIT SCH ×4 (10:24→20:32)
[2019-09-21] MEDS ORDERED: Furosemide IV* 10 MG/ML 2 ML VIAL (20 MG) IV ONE (11:38)
--- NOTE | 2019-09-21 12:18 | PN ---
PROGRESS NOTE: DATE OF VISIT: 09/21/19 SUBJECTIVE: The patient was seen and examined at bedside. The patient is receiving a unit of blood today and staying in the hospital, blood count dropped further. Vitals and labs have been reviewed. PHYSICAL EXAMINATION: HEENT: NC/AT. Heart: S1 and S2 present, regular. Lungs: Clear to auscultat ion. Abdomen: Soft. Extremities: Edema. Neuro: Alert. ASSESSMENT AND PLAN: 1. Acute kidney injury in the setting of acute tubular necrosis, was recovering but had a second hit in the setting of GI bleeding. Currently creatinine fluctuating in relation to his blood loss and d iarrhea. 2. We will follow his creatinine closely. 3. His routine diuretics were held yesterday as the patient was still having active GI bleed and was also having diarrhea and volume loss. However, we will give 20 mg of Lasix IV after his blood trans fusion today and monitor closely and decide on further need for Lasix. The patient may benefit from low-dose Lasix once his bleeding and diarrhea has stabilized as an outpatient as well. 4. Hypokalemia in the setting of diarrhea and diuretics is on replacement with KCl. 5. We will follow. [id number]/[facility] #: [id number]
[2019-09-21 12:19] LABS: Hematocrit 24 % (42-52)
--- NOTE | 2019-09-21 17:43 | PN ---
Subjective Date of Service: 09/21/19 Interval History: Mr. Dlegado is a 74 yo male with PMH significant for CAD, HLD, PAD s/p femoral stenting, chronic renal insufficiency, DM2, psoriasis, and cutaneous T cell lymphoma. He presented to the hospital at the request of Oncology for dehydration and was found to have neutropenic fever. He presented to the hospital with lesions on the extremities and torso secondary to T cell lymphoma. The wounds have been treated with Vaseline during this hospitalization. Developed pressure injuries to bilateral heels during his hospitalization, first noted on 09/19/19. Patient seen and examined at bedside. Family History: Unchanged from Admission Social History: Unchanged from Admission Past Medical History: Unchanged from Admission Objective Active Medications: Acetaminophen (Tylenol Adult Liq*) 650 mg PO Q4H PRN Reason: MILD PAIN or TEMP > 100.4 Dextrose (Dextrose 50% Vial 50 Ml*) 25 ml IV PUSH PRN Reason: FS < 60 Ergocalciferol (Drisdol Cap*) 50,000 unit PO Q7D [facility] Finasteride (Proscar Tab*) 5 mg PO DAILY [facility] Folic Acid (Folvite Tab*) 1 mg PO DAILY [facility] Insulin Human Lispro (Humalog*) 0 units SUBCUT [facility]; Protocol Lidocaine (Xylocaine 2% Viscous*) 15 ml SWISH SPIT TID PRN Reason: PAIN - MILD Loperamide HCl (Imodium Liq*) 2 mg PO .SEE ORDER PRN Reason: DIARRHEA Morphine Sulfate (Morphine Inj (Syringe))*) 4 mg IV Q4H PRN Reason: PAIN - MODERATE WHILE NPO Multi-Ingredient Mouthwash/Gargle (Magic Mouth Was-Clyde/Maal/Lido*) 10 ml SWISH SPIT QID [facility] Pantoprazole Sodium (Protonix Iv*) 40 mg IV BID [facility] Potassium Chloride (Klor Con Er Tab*) 40 meq PO DAILY [facility] Tamsulosin HCl (Flomax Cap*) 0.4 mg PO BEDTIME [facility] Valacyclovir HCl (Valtrex 1 Gm(*)) 1 gm PO Q24H [facility]; Protocol Vital Signs - 8 hr 09/21/19 11:48 Temperature 98.4 F Pulse Rate 84 Respiratory 20 Rate Blood Pressure 111/44 (mmHg) O2 Sat by Pulse 99 Oximetry Oxygen Devices in Use Now: Nasal Cannula Appearance: NAD, laying in bed Ears/Nose/Mouth/Throat: Mucous Membranes Moist Respiratory: Symmetrical Chest Expansion and Respiratory Effort Skin: - - See skin note below Neurological: Alert and Oriented x 3 Result Diagrams: 09/22/19 05:39 09/22/19 05:39 Additional Lab and Data: Above labs were pulled into the note, when the note was edited prior to signing. Please see below for labs from day of consultation. Laboratory Tests 09/14/19 09/21/19 09/21/19 05:12 04:55 04:58 WBC 21.1 H Hgb 7.7 L Hct 23 L Plt Count 235 Sodium 139 Potassium 3.4 L Chloride 102 Carbon Dioxide 32 BUN 21 Creatinine 3.60 H Glucose 104 H Total Protein 4.9 L Albumin 2.1 L Prealbumin 18 Microbiology and Other Data: 07/21/19 - Skin Biopsy: 1. Skin, right superior lateral mid back, biopsy: -- Cutaneous T cell lymphoma (mycosis fungoides); see comment. 2. Skin, right lateral abdomen, biopsy: -- Subacute spongiotic dermatitis; see comment. Skin Deviation Note - Skin Deviation Findings Left heel - There is an open area that appears to be a blister that has been unroofed. The total open area, measures 2.2 cm x 3.1 cm x 0.1 cm. There is a small area of black moist eschar, measures 0.7 cm x 0.7 cm. There is a small amount of serous drainage. The surrounding skin is intact. The heel is slightly boggy. Right heel - Superficial open area, measures 0.7 cm x 0.5 cm x 0.1 cm. The surrounding skin is intact with mild erythema. The heel is slightly boggy on the posterior aspect. No drainage. Wound Problem/Plan Assessment: Mr. Delgado is a 74 yo male with PMH significant for CAD, HLD, PAD s/p femoral stenting, chronic renal insufficiency, DM2, psoriasis, and cutaneous T cell lymphoma. He presented to the hospital at the request of Oncology for dehydration and was found to have neutropenic fever. He presented to the hospital with lesions on the extremities and torso secondary to T cell lymphoma. Now with pressure injuries to his heels. 1. Left heel pressure injury, unstageable. Recommend washing with soap and water. Apply sanyl to the area of eschar, followed by calcium alginate and rolled gauze; change daily. Keep heels elevated off the bed, rotate between spanko boots and legs elevated on pillows. Consider obtaining ABIs. 2. Right heel pressure injury, stage 2 - Recommend washing with soap and water. Apply telfa, followed by rolled gauze; change daily. Keep heels elevated off the bed, rotate between spanko boots and legs elevated on pillows. Consider obtaining ABIs. 3. Ulcers secondary to cutaneous T cell lymphoma. Recommend washing the skin with soap and water, apply lotion to the intact area. Apply petroleum jelly or petroleum impregnated gauze to the open areas once daily and as needed. Could consider using rolled gauze on the legs to help keep the ointment/dressing in place. Consider obtaining ABIs to evaluate vascular status in legs. 4. Psoriasis. On methotrexate at home. 5. DM2. HgA1C was 6.1 on 07/26/19. 6. Diet. Unrestricted, soft diet. 7. Code Status. DNR. 8. Disposition. Inpatient, disposition per primary team. TIME SPENT: Time for this wound consultation was 20 minutes and 10 minutes was spent with the patient at bedside assessing, measuring, and photographing wounds. Is Patient a Wound Clinic Patient: No Attending: Zoila Atikns
[2019-09-21] MEDS: ValACYclovir (*) 1 GM TAB PO SCH (18:40)
[2019-09-21 20:30] LABS: Hematocrit 27 % (42-52); Hemoglobin 8.9 g/dL (14.0-18.0)
[2019-09-21] MEDS: Tamsulosin CAP* 0.4 MG PO SCH (20:33)
[2019-09-22 06:17] LABS: Hematocrit 26 % (42-52); Hemoglobin 8.6 g/dL (14.0-18.0); Mean Corpuscular HGB Conc 33 g/dL (31-36); Mean Corpuscular Hemoglobin 29 pg (27-31); Mean Corpuscular Volume 89 fL (80-94); Mean Platelet Volume 8.7 fL (7.4-10.4); Platelet Count 266 10^3/uL (150-450); Red Blood Count 2.98 10^6 /uL (4.18-5.48); Red Cell Distribution Width 15 % (10-15)
[2019-09-22 06:36] LABS: Albumin 2.2 g/dL (3.2-5.2); Albumin/Globulin Ratio 0.7 (1-3); BUN/Creatinine Ratio 5.8 (8-20); Calcium 7.3 mg/dL (8.6-10.3); EGFR African American 19.9 (>60); EGFR Non-African American 16.4 (>60); Magnesium 1.9 mg/dL (1.9-2.7); Potassium 3.5 mmol/L (3.5-5.0); Total Bilirubin 0.7 mg/dL (0.2-1.0); Total Protein 5.2 g/dL (6.4-8.9)
[2019-09-22 06:59] LABS: ABS Basophils 0.4 10^3/ul (0-0.2); ABS Lymphocytes 2.7 10^3/ul (1.0-4.8); ABS Monocytes 3.1 10^3/ul (0-0.8); ABS Neutrophils 14.7 10^3/ul (1.5-7.7); Eosinophil % 0.2 %
[2019-09-22] MEDS: Insulin LISPRO* 1 UNITS UNIT SUBCUT SCH ×2 (08:00→13:28)
[2019-09-22] MEDS: Potassium Chlor TAB* 20 MEQ TAB.ER PO SCH (10:16)
[2019-09-22] MEDS: Folic Acid TAB* 1 MG PO SCH (10:16)
[2019-09-22] MEDS: Finasteride TAB* 5 MG PO SCH (10:16)
[2019-09-22] MEDS: Pantoprazole IV* 40 MG IV SCH (10:16)
[2019-09-22] MEDS: Magic Mouth Was-BEN/MAAL/LIDO SWISH SPIT SCH ×2 (10:16→15:53)
[2019-09-22] MEDS ORDERED: Collagenase 250 UNITS/GM OINT* 1 APPLIC OINT TOPICAL SCH (12:00)
[2019-09-22 13:04] VITALS: BP 123/62
--- NOTE | 2019-09-22 13:58 | DS ---
CC: Dr. Rafaela Gaviria; Dr. Jonna German; Dr. Kyaw Mayes * DISCHARGE SUMMARY: DATE OF ADMISSION: 09/01/19 DATE OF DISCHARGE: 09/22/19 PRIMARY CARE PROVIDER: Dr. Rafaela Gaviria. PRIMARY ONCOLOGIST AND ATTENDING PHYSICIAN: Dr. Espinoza Botello.* (DICTATED BY SAMI JAMES) CONSULTING REGISTERED CLINICAL DIETITIAN: Dr. Michelle De La Torre. CONSULTING GOAT HERDER: Dr. Jonna German. DISCHARGING PROVIDER: SAMI James PRIMARY DISCHARGE DIAGNOSES: 1. Neutropenic fever with associated pancytopenia secondary to methotrexate toxicity. 2. Acute kidney injury secondary to acute tubular necrosis. 3. GI bleed from a bleeding cecal ulceration. 4. Cutaneous T-cell lymphoma. 5. Hyperglycemia exacerbated by corticosteroids in the setting of non-insulin- dependent diabetes. DISCHARGE MEDICATIONS: 1. Finasteride 5 mg p.o. daily. 2. Folic acid 1 mg p.o. daily. 3. Magic mouthwash 10 mL swish and spit 4 times daily. 4. Omeprazole 40 mg p.o. daily. 5. Oxycodone 5 mg p.o. q.4 hours as needed for pain. 6. Potassium chloride 40 mEq p.o. daily. 7. Flomax 0.4 mg p.o. at bedtime. HOSPITAL IMAGIN. Chest x-ray, 09/03/19, shows progression of a diffuse pattern of coarse reticular opacification suggestive of an acute interstitial process. 2. Liver ultrasound, 09/03/19, shows findings consistent with gallbladder sludge or stones without evidence of biliary obstruction or acute inflammatory changes. Findings are consistent with hepatic steatosis. 3. Chest x-ray, 09/03/19, confirming placement of an NG tube. 4. Chest x-ray, 09/06/19, shows findings consistent with interstitial pulmonary edema, which appears slightly improved. 5. Chest x-ray, 09/07/19, shows cardiomegaly and interstitial edema with some vascular congestion. 6. Chest x-ray, 09/08/19, shows no significant interval change and diffuse bilateral reticulonodular pulmonary infiltrates. PATHOLOGY: 1. Bone marrow biopsy shows a hypocellular bone marrow (5% with marked trilineage hyperplasia, no morphologic or immunophenotypic evidence for malignancy.) 2. Duodenum, benign small intestinal mucosa with nodular Ben glands without significant pathologic abnormalities. 3. Colon biopsy, 09/16/19, shows mucosal infiltrate of mixed inflammatory cells. No evidence of neoplasia. HOSPITAL COURSE: This is a 74-year-old gentleman with a relatively recent diagnosis of cutaneous T-cell lymphoma under the care of Dr. Botello, who was started on oral methotrexate as an outpatient, but was found to have progressive skin lesions and general decline in functional status. Routine labs were completed on an outpatient basis, which showed an acute rise in creatinine and pancytopenia and the patient was subsequently referred to the emergency department. The patient had an initial temperature of 100.1 degrees Fahrenheit, which quickly increased to 101 and 102 degrees Fahrenheit while in the emergency department, was found to be tachycardic with heart rates in the 120s and hypertensive. Initial labs demonstrated pancytopenia with a total white blood cell count of 800, neutrophils of 100, hemoglobin of 6 and a platelet count of 70. Chemistries showed a creatinine of 3.05 with a baseline just greater than 1, mild elevation and a total bilirubin of 1.4. No other significant electrolyte abnormalities. The patient was subsequently admitted to ICU for neutropenic fever and associated sepsis at which point he received broad-spectrum antibiotics and blood transfusion for his hemoglobin of 6. Due to the severity of the patient's pancytopenia in the setting of known cutaneous T-cell lymphoma, the patient underwent bone marrow biopsy to determine whether his cytopenias were secondary to bone marrow infiltration from his lymphoma versus bone marrow suppression from his methotrexate therapy. The patient underwent a CT guided bone marrow biopsy which demonstrated the severely hypocellular bone marrow consistent with suppression secondary to methotrexate and no evidence for malignancy. The patient received supportive care measures including high dose steroids with noted improvement in his skin lesions and transfusions of both packed red cells and platelets as necessary. He was subsequently started on Neupogen and his neutropenia eventually resolved on approximately day 7 of his hospital stay. Creatinine continued to climb following admission, peaking at approximately 4.3 and slowly improving with improved urine output. The patient initially was complaining of severe weakness and anorexia, which improved throughout his hospital stay as well. The patient was discharged from ICU to the medical floor shortly after which he developed bright red blood per rectum with a significant drop in hemoglobin from 10 to 6.3 over a 3 day period. The patient underwent upper and lower endoscopy. Upper endoscopy demonstrated a small duodenal ulcer which did not appear to be bleeding recently and was subsequently clipped and lower endoscopy demonstrated a large ulceration at the cecum without an obvious associated mass. Biopsies were taken from the cecal ulceration, which showed unspecified inflammatory cells, but no evidence of malignancy. Due to the severity of his bleeding, the patient was temporarily transferred to the ICU following his colonoscopy. Hemoglobin remained stable and he was discharged back to the medical floor. The patient was slowly advanced from a clear liquid diet back to a soft diet and did not experience any additional bloody stools or abdominal pain. In regard to his creatinine, this improved to 2.8 at its lowest point during his hospital stay and climb again in association with GI bleed, discharged with a creatinine of 3.6, but without a great urine output. The patient's skin lesions responded to high dose steroids and nearly all of his skin lesions were healed at the time of discharge. He did have some residual skin breakdown over the buttocks and heels, which were being addressed with dry dressing changes and efforts to decrease pressure over these areas. DISCHARGE PLAN AND DISPOSITION: The patient is being discharged in stable condition to subacute rehab to [facility]. The patient is severely deconditioned and requires extensive rehab to be able to return home independently where he has been living with his . He will not be continued on steroids or antibiotics at the time of discharge. He does require a close followup with Oncology as well as Nephrology and Gastroenterology. Oncology followup with Dr. Botello has been established for 09/28/19, at the [place] office. Depending on his improvement to the subacute rehab, we will discuss further options for treatment of his T-cell lymphoma at that time. Regarding Nephrology followup, we will plan to repeat labs at the 09/28/19 office visit and the patient would prefer to see Nephrology in [place] if at all possible and a referral has been initiated to the nephrology group in [place]. Ideally, the patient would be seen within 3 or 4 weeks of discharge. Regarding Gastroenterology, the patient should be seen by Dr. Mayes in 3 to 4 weeks' time and consider repeat colonoscopy for evaluation of cecal ulceration as there is not clear etiology and if persistent, repeat biopsy at that time. The patient will be monitored closely for additional GI bleeding, but as mentioned above is stable at the time of discharge. RHETT MCHUGH, SAMI [id number]/[facility] #: [id number] DONYA
--- NOTE | 2019-09-22 16:54 | PN ---
PROGRESS NOTE: DATE OF VISIT: 09/22/19 SUBJECTIVE: The patient was seen and examined at bedside. Possible discharge to rehab today. Vitals and labs have been reviewed. PHYSICAL EXAMINATION: HEENT: NC/AT. Heart: S1, S2 present, regular. Lungs: Clear to auscultation. Abdomen: Soft. 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 ASSESSMENT AND PLAN: 1. Acute kidney injury in the setting of acute tubular necrosis which was recovering, but a second hit in the setting of gastrointestinal bleeding. Currently creatinine fluctuating but noted to be stable. Ongoing diarrhea. 2. Recommend checking labs on him in a week to evaluate kidney function and to follow up as an outpatient with Dr. Ellington. 3. Can hold off on routine diuretics and can assess further needs based on his lab indices and clinical picture as he is having some diarrhea. Was given Lasix after his transfusion yesterday. 4. Hypokalemia in the setting of diarrhea and on diuretics. He is on replacement with KCl. Can continue KCl replacement when the diarrhea is ongoing and then hopefully can be stopped. 5. The patient to follow up in the nephrology clinic as an outpatient in 2 weeks. [id number]/[facility] #: [id number] [facility] HOSPITALFreda
== END 2019-09-22 16:58 | DRG 871 ==
LOC: ICU 13:36 → MED 09-11 14:19 → ICU 09-16 16:03 → MEDTELE 09-17 17:18
PROVIDERS: ADMIT Internal Medicine Critical Care Medicine; ATTEND Internal Medicine Hematology & Oncology
PROC: 30233N1 Transfusion of Nonautologous Red Blood Cells into Peripheral Vein, Percutaneous Approach (ICD-10-PCS; 2019-09-01)
PROC: 0BH17EZ Insertion of Endotracheal Airway into Trachea, Via Natural or Artificial Opening (ICD-10-PCS; principal; 2019-09-03)
PROC: 5A1945Z Respiratory Ventilation, 24-96 Consecutive Hours (ICD-10-PCS; 2019-09-03)
PROC: 0DB98ZX Excision of Duodenum, Via Natural or Artificial Opening Endoscopic, Diagnostic (ICD-10-PCS; 2019-09-15)
PROC: 0W3P8ZZ Control Bleeding in Gastrointestinal Tract, Via Natural or Artificial Opening Endoscopic (ICD-10-PCS; 2019-09-15)
PROC: 0DJ08ZZ Inspection of Upper Intestinal Tract, Via Natural or Artificial Opening Endoscopic (ICD-10-PCS; 2019-09-16)
PROC: 0DBB8ZX Excision of Ileum, Via Natural or Artificial Opening Endoscopic, Diagnostic (ICD-10-PCS; 2019-09-16)
DX: A41.9 Sepsis, unspecified organism (principal); D61.811 Other drug-induced pancytopenia; N17.0 Acute kidney failure with tubular necrosis; C84.A0 Cutaneous T-cell lymphoma, unspecified, unspecified site; E87.2 Acidosis; E87.0 Hyperosmolality and hypernatremia; K63.3 Ulcer of intestine; D62 Acute posthemorrhagic anemia; D70.2 Other drug-induced agranulocytosis; R50.81 Fever presenting with conditions classified elsewhere; I25.10 Atherosclerotic heart disease of native coronary artery without angina pectoris; E78.5 Hyperlipidemia, unspecified; K26.9 Duodenal ulcer, unspecified as acute or chronic, without hemorrhage or perforation; I73.9 Peripheral vascular disease, unspecified; N18.9 Chronic kidney disease, unspecified; L40.9 Psoriasis, unspecified; K29.70 Gastritis, unspecified, without bleeding; E11.22 Type 2 diabetes mellitus with diabetic chronic kidney disease; E11.51 Type 2 diabetes mellitus with diabetic peripheral angiopathy without gangrene; I12.9 Hypertensive chronic kidney disease with stage 1 through stage 4 chronic kidney disease, or unspecified chronic kidney disease; E80.6 Other disorders of bilirubin metabolism; E86.0 Dehydration; T45.1X5A Adverse effect of antineoplastic and immunosuppressive drugs, initial encounter; E83.51 Hypocalcemia; E83.42 Hypomagnesemia; E11.65 Type 2 diabetes mellitus with hyperglycemia; T38.0X5A Adverse effect of glucocorticoids and synthetic analogues, initial encounter; Y92.239 Unspecified place in hospital as the place of occurrence of the external cause; Z87.891 Personal history of nicotine dependence
CPT/HCPCS: 20225; 36415; 36600; 38222; 71045; 76705; 77012; 80048; 80053; 80202; 81003; 81015; 81479; 82248; 82272; 82306; 82668; 82803; 82947; 83605; 83735; 83921; 83970; 84100; 84134; 84443; 84550; 85014; 85018; 85025; 85027; 85045; 85049; 85060; 85097; 85610; 85730; 86078; 86850; 86900; 86901; 86922; 87086; 87641; 88184; 88185; 88187; 88188; 88189; 88237; 88264; 88271; 88275; 88291; 88305; 88311; 88312; 88313; 88342; 93005; 93306; 94002; 94003; 99156; 99157; 99232; 99233; 99239; A9270-GY; C8929; G0452; G8978-GP-CL; G8978-GP-CM; G8979-GP-CJ; G8979-GP-CK; J0610; J1100; J1170; J1644; J1940; J2250; J2270; J2543; J3010; J3370; J3420; J3475; J3480; J3490; P9035; P9040; P9047; Q5101

== ENCOUNTER 2019-11-09 11:49 | Inpatient (IN) | payer MEDICARE ==
--- OUTSIDE RECORDS SUMMARY | 2019-11-09 13:56 | XMS REPORT | Continuity of Care Document ---
:1945 External Reference #:[id number] Author Name Eden Otto Care Team Providers Name Role Phone Rafaela Gaviria MD - Family Medicine Care Team Information Network Security Engineer [phone] Problems Active Problems Provider Date Peripheral vascular disease Jose Main M.D., Onset: 01/08/2012 [facility] Testicular hypofunction Charline Shi M.D. Onset: [...] MD Onset: 08/26/2018 Hypertensive chronic kidney disease Rafeala Gaviria MD Onset: 08/26/2018 with stage 1 through stage 4 chronic kidney disease, or unspecified chronic kidney disease Dyspnea Jose Main M.D., Onset: 09/23/2018 [facility] Chronic obstructive lung disease Jose Main M.D., Onset: 12/21/2018 [facility] Type 2 diabetes mellitus Rafaela Gaviria MD Onset: 01/24/2019 History of acute renal failure Rafaela Gaviria MD Onset: 05/06/2019 Atopic dermatitis Rafeala Gaviria MD Onset: 08/02/2019 [place]-Everette syndrome Rafaela Gaviria MD Onset: 08/20/2019 Malignant lymphoma of extranodal Rafaela Gaviria MD Onset: 10/29/2019 AND/OR solid organ site Orthostatic hypotension Rafaela Gaviria MD Onset: 10/29/2019 Atherosclerosis of [place] arteries of Rafaela Gaviria MD Onset: 10/29/2019 left leg with ulceration of heel and midfoot Social History Type Date Description Comments Sex Unknown Tobacco Use Start: Unknown End: Unknown Quit Cigarette Use Pack Years - 48 Smoking Status Reviewed: 10/29/19 Quit ETOH Use Denies alcohol use Tobacco Use Start: Unknown End: Unknown Patient is a former smoker Tobacco Use Start: Unknown Quit 10/2006 Allergies, Adverse Reactions, Alerts Description No Known Drug Allergies Medications Active Medications SIG Qnty Indications Ordering Date Provider Oxycodone HCL 1 tab by mouth 120caps Rafaela Gaviria, 10/29/2019 5mg every 6 hrs if MD Capsules needed for mod. to severe pain Reference #: [id number] Midodrine HCL 1 tab 3x/day if 90tabs I95.1 Rafaela Gaviria, 10/29/2019 2.5mg needed for bp < MD Tablets 110/40 Methotrexate 6 tabs by mouth 42tabs Rafaela Gaviria, 08/02/2019 2.5mg each Sat. MD Tablets Folic Acid 1 by mouth every 100tabs Rafaela Gaviria, 08/02/2019 1mg day derm MD Tablets Finasteride 1 by mouth every 90tabs Harper, 08/11/2018 5mg day Katina Noel Tablets Levothyroxine Sodium 1 by mouth every 90tabs Vanessa Enriquez, 09/24/2017 day M.D. 25mcg Tablets Alcohol Swabs when checking 200units Vanessa Enriquez, 09/23/2017 70% blood glucose M.D. Pads Tamsulosin HCL 1 by mouth every 90caps N40.1 Harper, 07/08/2017 0.4mg day at bedtime Kaitna Noel Capsules Freestyle Lite Test test fingerstick 200units Vanessa Enriquez, 08/07/2016 blood sugar three M.D. Strips times a day Onetouch Ultra Blue use to test blood 100units E11.9 Yuridia, 05/29/2015 sugar 1-2 a day Katina Olivier Strips Onetouch Ultra use to check bs 1units E11.9 Yuridia, 05/29/2015 System one to two times a Katina Olivier W/Device Kit day dx: 250.62 Plavix 1 po qd 90tabs Unknown 75mg Tablets Lovastatin take one tablet by 90tabs Rafaela Gaviria, 20mg mouth every day MD Tablets Triamcinolone apply to psoriatic 80gm Rafaela Gaviria, Acetonide lesions two times 0.1% Cream a day Morphine Sulfate ER 1 ppo bid Espinoza Morley Katina Quezada 15mg Tablets ER History Medications Lidocaine Viscous 15 min gargle, 300ml K12.0 Kole Logan 2018 - 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/29/2019 2% Solution swallow up to 4 x a day Prednisone 1 by mouth 7tabs Rafaela Gaviria MD 08/02/2019 - 50mg every day until 08/20/2019 Tablets gone Hydroxyzine HCL 2 tablets by 100tabs Rafaela Gaviria MD 08/02/2019 - mouth every 4 10/29/2019 25mg Tablets hours as needed for itching Clobetasol apply to 30gm Rafaela Gaviria MD 08/02/2019 - Propionate affected 10/29/2019 Emollient area(s) at 0.05% bedtime as Cream needed Sore Throat 1 lozenger 36units L20.9 Rafaela Gaviria MD 08/02/2019 - Lozenges every 2 hrs as 10/29/2019 6-10mg needed for Lozenges throat pain Immunizations CPT Code Status Date Vaccine Lot # [id number] Given 07/20/2018 Influenza High Dose [id number] 02373 Given 07/31/2017 Influenza High Dose [id number] Q2038 Given 07/26/2016 Influenza Vaccine (Fluzone) Age 3 And Older [id number] 68631 Given 09/06/2015 Pneumococcal Conjugate Vaccine 13 Valent For [id number] Intramuscular Use Q2038 Given 07/11/2015 Influenza Vaccine (Fluzone) Age 3 And Older 60859 Given 05/29/2015 Tdap injection [id number] 85679 Given 07/19/2014 flu vaccination 28337 Given 07/18/2013 flu vaccination 72889 Given 07/22/2012 flu vaccination 58132 Given 09/02/2011 flu vaccination 06420 Given 09/02/2011 flu vaccination 28573 Given 08/29/2010 Pneumovax Injection 13281 Given 08/29/2010 flu vaccination 21656 Given 01/23/2010 H1N1 Immuniation Adminstration 36085 Given 07/27/2009 flu vaccination Vital Signs Date Vital Result Comment 10/29/2019 11:24am BP Systolic Sitting Left Arm 100 mmHg BP Diastolic Sitting Left Arm 56 mmHg Body Temperature 98.7 F Heart Rate 100 /min Respiratory Rate 20 /min Height 72 inches 6'0" Weight 203.00 lb BMI (Body Mass Index) 27.5 kg/m2 BSA (Body Surface Area) 2.14 m2 Berthold body weight in kilograms 81 kg O2 % BldC Oximetry 99 % 08/20/2019 11:06am BP Systolic Sitting Left Arm 120 mmHg BP Diastolic Sitting Left Arm 64 mmHg Body Temperature 98.7 F Heart Rate 88 /min Respiratory Rate 18 /min Height 72 inches 6'0" Weight 225.00 lb BMI (Body Mass Index) 30.5 kg/m2 BSA (Body Surface Area) 2.24 m2 Berthold body weight in kilograms 81 kg O2 % BldC Oximetry 97 % Results Test Acquired Date Facility Test Result H/L Range Note CBC Auto 09/28/2019 [facility] White Blood 15.7 10^3/ uL High 3.5-10.8 1 Diff [phone] Count Red Blood Count 3.24 10^6/uL Low 4.18-5.48 Hemoglobin 9.9 g/dL Low 14.0-18.0 Hematocrit 30 % Low 42-52 Mean Corpuscular Volume 93 fL Normal 80-94 Mean Corpuscular Hemoglobin 30 pg Normal 27-31 Mean Corpuscular HGB Conc 33 g/dL Normal 31-36 Red Cell Distribution Width 17 % High 10-15 Platelet Count 517 10^3/uL High 150-450 Mean Platelet Volume 8.6 fL Normal 7.4-10.4 Abs Neutrophils 11.3 10^3/uL High 1.5-7.7 Abs Lymphocytes 2.7 10^3/uL Normal 1.0-4.8 Abs Monocytes 1.1 10^3/uL High 0-0.8 Abs Eosinophils 0.3 10^3/uL Normal 0-0.6 Abs Basophils 0.3 10^3/uL High 0-0.2 Abs Nucleated RBC 0.0 10^3/uL Granulocyte % 71.6 % Lymphocyte % 17.1 % Monocyte % 7.3 % Eosinophil % 2.2 % Basophil % 1.8 % Nucleated Red Blood Cells % 0.1 Iron & Iron Binding 09/28/2019 [facility] Iron 37 g /dL Low 50-212 Capacity [phone] Unsaturated Iron Binding < 167 g/dL Total Iron Binding Capacity 182 g/dL Low 250-450 Transferrin 130 mg/dL Low 203-362 % Iron Saturation 20 % Normal 15-55 Comp Metabolic 09/28/2019 [facility] Sodium 135 mmol/ L Normal 135-145 Panel [phone] Chloride 103 mmol/L Normal 101-111 Co2 Carbon Dioxide 23 mmol/L Normal 22-32 Calcium 8.1 mg/dL Low 8.6-10.3 Albumin 2.9 g/dL Low 3.2-5.2 Total Bilirubin 0.60 mg/dL Normal 0.2-1.0 Potassium 5.9 mmol/L High 3.5-5.0 Anion Gap 9 mmol/L Normal 2-11 Glucose 240 mg/dL High 70-100 Blood Urea Nitrogen 33 mg/dL High 6-24 Creatinine 3.13 mg/dL High 0.67-1.17 BUN/Creatinine Ratio 10.5 Normal 8-20 Total Protein 6.2 g/dL Low 6.4-8.9 Globulin 3.3 g/dL Normal 2-4 Albumin/Globulin Ratio 0.9 Low 1-3 Alkaline Phosphatase 91 U/L Normal 34-104 Alt 9 U/L Normal 7-52 Ast 16 U/L Normal 13-39 Egfr Non- 19.5 >60 Egfr 23.6 >60 2 Laboratory test 09/28/2019 [facility] Ferritin 831.5 ng/mL High 24-336 3 finding [phone] Vitamin B12 > 1450 pg/mL High 180-914 4 Manual 09/28/2019 [facility] Immature 4.0 % Normal 0-9 Differential [phone] Granulocytes Neutrophil % 62.0 % Band % 1.0 % Normal 0-8 Lymphocytes % 20.0 % Monocytes % 8.0 % Eosinophils % 5.0 % Basophil % 1.0 % Myelocytes % 3.0 % High 0-1 Macrocytosis 1+ Polychromasia 1+ Anisocytosis 2+ Laboratory test 09/16/2019 [facility] Surgical SEE RESULT 5 finding [phone] Pathology BELOW Order Lactic Acid 09/01/2019 [facility] Lactic Acid 6.2 mmol/L Critical 0.4- [address] high 1.9 [place] [address] [phone] Lab Reflex >2.0 for Sepsis? Y Comprehensive Metabolic 09/01/2019 [facility] Glucose 175 mg/dL High 74-[address] [place] [address] [phone] BUN 46 mg/dL High 7-18 Creatinine 3.6 mg/dL High 0.6-1.3 Glom Filtration Rate, Estimate 18 mL/min >60 If 21 mL/min >60 7 BUN/Creat 12.7 ratio Sodium 137 mmol/L Normal 136-145 Potassium 4.2 mmol/L Normal 3.5-5.1 Chloride 106 mmol/L Normal 98-107 Carbon Dioxide 16 mmol/L Low 21-32 Anion Gap 15 mEq/L Normal 8-16 Calcium 8.4 mg/dL Low 8.5-10.1 Total Protein 6.9 g/dL Normal 6.4-8.2 Albumin 2.6 g/dL Low 3.4-5.0 Globulin 4.3 g/dL Normal 1.9-4.3 Alb/Glob 0.6 ratio Bilirubin,Total 1.1 mg/dL High 0.2-1.0 Sgot/Ast 6 U/L Low 15-37 8 SGPT/Alt 16 U/L Normal 12-78 Alkaline Phosphatase 56 U/L Normal 45-117 Blood Culture 09/01/2019 [facility] Blood Culture NO GROWTH: FINAL [address] Aerobic <SEE NOTE> [place] [address] [phone] Blood Culture Anaerobic NO GROWTH: FINAL <SEE NOTE> 10 Blood Culture 09/01/2019 [facility] Blood Culture NO GROWTH: FINAL [address] Aerobic <SEE NOTE> [place] [address] [phone] Blood Culture Anaerobic NO GROWTH: FINAL <SEE NOTE> 12 Laboratory test 07/31/2019 [facility] Lipase 198 U/L Normal 56-289 13 finding [address] [place] [address] [phone] Comprehensive 07/31/2019 [facility] Glucose 139 mg/dL High 74-106 Metabolic Panel [address] [place] [address] [phone] BUN 43 mg/dL High 7-18 Creatinine 2.5 mg/dL High 0.6-1.3 Glom Filtration Rate, Estimate 27 mL/min >60 If 32 mL/min >60 14 BUN/Creat 17.2 ratio Sodium 136 mmol/L Normal [...] 12-78 Alkaline Phosphatase 72 U/L Normal 45-117 CBC W/Automated 07/31/2019 [facility] White Blood 7.7 K/uL Normal 3.4-10.[address] Count [place] [address] [phone] Red Blood Count 3.50 M/uL Low 4.20-5.80 [...] 33.0-73.0 Lymph % 22.0 % Normal 20.0-42.0 Rich % 0.8 % Normal 0.0-10.0 Eo% 2.2 % Normal 0.0-6.6 Bas% 0.4 % Normal 0.0-1.1 Immature Grans 0.5 % Normal 0.0-5.0 NRBC % 0.0 /100WBC < 10/ 100 WBC Neut# 5.69 K/uL Normal 1.8-7.0 Lymph # 1.69 K/uL Normal 1.0-4.0 Rich # 0.06 K/uL Normal 0.0-0.8 Eos # 0.17 K/uL Normal 0.0-0.5 Baso # 0.03 K/uL Normal 0.0-0.1 Immature Grans Absolute 0.04 K/uL NRBC # 0.00 K/uL Pseudomonas 07/31/2019 [facility] Ciprofloxacin <=0.25 Susceptible Species [address] [place] [address] [phone] Piperacillin/Tazobactam 8 Susceptible Ceftazidime 4 Susceptible Levofloxacin 0.5 Susceptible Gentamicin <=1 Susceptible Tobramycin <=1 Susceptible Urine Culture 07/31/2019 [facility] Urine PSEUDOMONAS SPEC Abnormal [address] Culture <SEE NOTE> [place], [place] [id number] [phone] Quantity 10,000 - 50,000 <SEE NOTE> 16 Urine Culture URETHRAL HUY Quantity < 10,000 CFU/mL Culture If 07/31/2019 [facility] Culture If CULTURE TO 17 Indicated Comment [address] Indicated Comment [place]LLO <[place] [address] NOTE> [phone] Source: URINE, CLEAN CAT <SEE NOTE> 18 Ua RFX Micro & 07/31/2019 [facility] Urine Color Light-Yellow Yellow Culture II [address] [place] [address] [phone] Urine Clarity Clear Clear Urine Glucose - Dipstick NEGATIVE mg/dL Negative Urine Bilirubin - Dipstick NEGATIVE Negative Urine Ketone NEGATIVE mg/dL Negative Urine Specific [place] 1.013 Normal 1.010-1.030 Urine Blood NEGATIVE 0-2 [...] Seen Source: URINE, CLEAN CAT <SEE NOTE> 19 CBC W/Automated 05/05/2019 [facility] White 10.3 K/uL Normal 3.4-10.5 [address] [place] [address] Count [phone] Red Blood Count 3.50 M/uL Low 4.20-5.80 [...] 33.0-73.0 Lymph % 24.7 % Normal 20.0-42.0 Rich % 7.5 % Normal 0.0-10.0 Eo% 5.4 % Normal 0.0-6.6 Bas% 0.4 % Normal 0.0-1.1 Immature Grans 0.9 % Normal 0.0-5.0 NRBC % 0.0 /100WBC < 10/ 100 WBC Neut# 6.30 K/uL Normal 1.8-7.0 Lymph # 2.54 K/uL Normal 1.0-4.0 Rich # 0.77 K/uL Normal 0.0-0.8 Eos # 0.56 K/uL High 0.0-0.5 Baso # 0.04 K/uL Normal 0.0-0.1 Immature Grans Absolute 0.09 K/uL NRBC # 0.00 K/uL Basic Metabolic Panel 05/05/2019 [facility] Glucose 91 mg/dL Normal 74-106 [address] [place] [address] [phone] BUN 36 mg/dL High 7-18 Creatinine 2.2 mg/dL High 0.6-1.3 Glom Filtration Rate, Estimate 31 mL/min >60 If 38 mL/min >60 21 BUN/Creat 16.3 ratio Sodium 143 mmol/L Normal 136-145 Potassium 4.1 mmol/L Normal 3.5-5.1 Chloride 113 mmol/L High 98-107 Carbon Dioxide 22 mmol/L Normal 21-32 Anion Gap 8 mEq/L Normal 8-16 Calcium 8.6 mg/dL Normal 8.5-10.1 1 [id number] 2 Because ethnic data is not always readily available, this report includes an eGFR for both -Americans and non- Americans. The National Kidney Disease Education Program (NKDEP) does not endorse the use of the MDRD equation for patients that are not between the ages of 18 and 70, are , have extremes of body size, muscle mass, or nutritional status, or are non- or non-. According to the National Kidney Foundation, irrespective of diagnosis, the stage of the disease is based on the level of kidney function: Stage Description GFR(mL/min/1.73 m(2)) 1 Kidney damage with normal or decreased GFR 90 2 Kidney damage with mild decrease in GFR 60-89 3 Moderate decrease in GFR 30-59 4 Severe decrease in GFR 15-29 5 Kidney failure <15 (or dialysis) 3 [id number] 4 Normal Range 180 to 914 Indeterminate Range 145 to 180 Deficient Range <145 5 SEE RESULT BELOW Name: AN DELGADO : [address]: Ligia Cornejo MD Acct: [id number] Unit: [id number] AGE: 74 Location: [place] [address] Re09/01/19 SEX: M Status: ADM IN SPEC: [id number] PATTIE: 09/16/19-15[address] [facility] [address]: Kyaw Mayes DO REQ: [id number] RECD: 09/16/19 STATUS: SEBASTIEN JASON DR: Rafaela Botello MD _ ORDERED: LEVEL 4, SPEC [facility] ADDENDUM A pankeratin immunohistochemical staining, with appropriately reacting controls, was performed and is negative, supporting the previously rendered diagnosis. Addendum Signed (signature on file) Anita Duong MD 1711 FINAL DIAGNOSIS Colon, cecum, biopsy: -- Mucosal infiltrate of mixed inflammatory cells; see comment. -- No evidence of neoplasia. COMMENT: Histologic sections show colonic mucosa with a lamina propria infiltrate of predominantly plasma cells and neutrophils admixed with mature adipose tissue. The clinical history of bone marrow biopsy approximately 1 week prior is noted. The findings could represent a bone marrow embolus; however, this cannot be histologically confirmed on the sampled material. A PAS stain, with appropriately reacting controls, is negative for megakaryocytes. Dr. Shaw reviewed this case in intradepartmental consultation and agrees with the diagnosis. CONTINUED ON NEXT PAGE DEPARTMENT OF PATHOLOGY, [address] [place] [address] Carroll Shaw M.D. Director [facility] # [id number] CLINICAL HISTORY Acute blood loss, anemia POST-OPERATIVE DIAGNOSIS EGD: esophagus-normal; gastric-gastritis; duodenum-duodenal ulcer, clip, no blood; colonoscopy to terminal ileum: extensive old blood, washed; ileocecal valve ulcer, question mass-biopsy; no bleeding at end of case GROSS DESCRIPTION The specimen is received in formalin labeled, Cecal Mass Biopsies, and consists of three preciado-yellow irregular to polypoid soft tissue fragments ranging from 0.3 x 0.2 x 0.1 cm to 0.4 x 0.3 x 0.2 cm, which are entirely submitted in one cassette. Signed by and Reported on: Anita Duong MD 09/21/19 1639 END OF REPORT DEPARTMENT OF PATHOLOGY, [address] [place] [id number] Carroll Shaw M.D. Director [facility] # [id number] 6 DR RANDHAWA, VERY DEHYDRATED 7 Note: Persistent reduction for 3 months or more in an eGFR <60 mL/min/1.73 m2 defines CKD. Patients with eGFR values >/=60 mL/min/1.73 m2 may also have CKD if evidence of persistent proteinuria is present. The original MDRD equation for estimated GFR is not valid for patients less than 18 years of age. Additional information may be found at www.kdoqi.org. 8 Values below the stated reference ranges of AST and ALT can be seen in normal populations. Clinical correlation is suggested. 9 NO GROWTH: FINAL REPORT 10 NO GROWTH: FINAL REPORT 11 NO GROWTH: FINAL REPORT 12 NO GROWTH: FINAL REPORT 13 FLU SYMPTOMS 14 Note: Persistent reduction for 3 months or more in an eGFR <60 mL/min/1.73 m2 defines CKD. Patients with eGFR values >/=60 mL/min/1.73 m2 may also have CKD if evidence of persistent proteinuria is present. The original MDRD equation for estimated GFR is not valid for patients less than 18 years of age. Additional information may be found at www.kdoqi.org. 15 PSEUDOMONAS SPECIES 16 10,000 - 50,000 CFU/mL 17 CULTURE TO FOLLOW 18 URINE, CLEAN CATCH 19 URINE, CLEAN CATCH 20 I12.9 D50.9 21 Note: Persistent reduction for 3 months or [...] at www.kdoqi.org. Procedures Date Code Description Status 08/19/2019 14174 Measurement Post Voiding Residual Urine By Completed Ultrasound,Non-Imaging 08/19/2019 50264 complex uroflowmetry electronic Completed 09/24/2017 307805859 Diabetic Foot Exam Completed 06/26/2015 [id number] Colonoscopy Completed Medical Devices Description No Information Available Encounters Type Date Location Provider Dx Diagnosis Office Visit 08/20/2019 Family Medicine Rafaela Gaviria, L51.1 Dagoberto- [place]rette 10:45a Christopher WETZEL MD syndrome Office Visit 08/19/2019 Urology Brian Kruger N40.1 Benign prostatic 10:15a SAMI Smith hyperplasia with lower urinary tract symp Office Visit 08/11/2019 Family [facility] [place], K12.0 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 Office Visit 08/02/2019 [facility] Rafaela Gaviria, L20.9 Atopic dermatitis, 1:45p Christopher WETZEL MD unspecified L40.9 Psoriasis, unspecified Office Visit 05/05/2019 2:45p [facility] Rafaela Gaviria, I12.9 Hypertensive Christopher WETZEL MD chronic kidney disease w stg 1-4/unsp chr kdny D50.9 Iron deficiency anemia, unspecified Assessments Date Code Description Provider 10/29/2019 C84.A0 Cutaneous T-cell lymphoma, unspecified, Rafaela Gaviria MD unspecified site 10/29/2019 I95.1 Orthostatic hypotension Rafaela Gaviria MD 10/29/2019 M54.5 Low back pain Rafaela Gaviria MD 10/29/2019 I70.244 Atherosclerosis of [place] arteries of Rafaela Gaviria MD left leg with ulceration of heel and midfoot 10/29/2019 I73.9 Peripheral vascular disease, unspecified Rafaela Gaviria MD 10/29/2019 E11.22 Type 2 diabetes mellitus with diabetic Rafaela Gaviria MD chronic kidney diseas 08/20/2019 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 Botello, obtain recent labsI95.1 Orthostatic hypotensionNew Medication:Midodrine HCL 2.5 mg - 1 tab 3x/day if needed for bp & lt; 110/40New Xrays:Spine, Lumbosacral, 2 Or 3 Views, Ordered: 01/03/20Comments: You need medication to keep your blood pressure up. You may takethis medication up to 3x/day.I will send you back to see Dr. Main.M54.5 Low back painComments:worse;oxycodone for pain;ordering back films for you, my nurse will call you about the timeI70.244 Atherosclerosis of [place] arteries of left leg with ulceration of heel and midfootComments:healing; you need to see dr. kowalski again to see what's going on;we'll get you in soon.I73.9 Peripheral vascular disease, wbjyrnsdsyzM10.22 Type 2 diabetes mellitus with diabetic chronic kidney diseasComments:check glu regularly; bring in glucometer next vistFollow up:2 weeks Functional Status Functional Condition Comment Date Status Independent with all ADL's Active Mental Status Description No Information Available Referrals Description No Information Available
--- OUTSIDE RECORDS SUMMARY | 2019-11-09 13:56 | XMS REPORT | Continuity of Care Document ---
:1945 External Reference #:[id number] Author Name Rafaela Gaviria MD Address [address] [place] [id number] Care Team Providers Name Role Phone Rafaela Gaviria MD - Family Medicine Care Team Information Code And Test Clerk Problems Active Problems Provider Date Peripheral vascular disease Jose Main M.D., Onset: 01/08/2012 [facility] Testicular hypofunction Charline Shi M.D. Onset: 03/02/2012 [...] disease Dyspnea Jose Main M.D., Onset: 09/23/2018 [facility] Chronic obstructive lung disease Jose Main M.D., Onset: 12/21/2018 [facility] Type 2 diabetes mellitus Rafaela Gaviria MD Onset: 01/24/2019 History of acute renal failure Rafaela Gaviria MD Onset: 05/06/2019 Atopic dermatitis Rafaela Gaviria MD Onset: 08/02/2019 [place] syndrome Rafaela Gaviria MD Onset: 08/20/2019 Malignant lymphoma of extranodal Rafaela Gaviria MD Onset: 10/29/2019 AND/OR solid organ site Orthostatic hypotension Rafaela Gaviria MD Onset: 10/29/2019 Atherosclerosis of [place] arteries of Rafaela Gaviria MD Onset: 10/29/2019 [...] for mod. to severe pain Reference #: [id number] Midodrine HCL 1 tab 3x/day if 90tabs [...] mouth every 90tabs Vanessa Enriquez, 09/24/2017 day M.DJaz 25mcg Tablets Alcohol Swabs when checking 200units Vanessa Enriquez, 09/23/2017 70% blood glucose M.DJaz Pads Tamsulosin HCL 1 by mouth every 90caps N40.1 Harper, 07/08/2017 0.4mg day at bedtime Katina Noel Capsules Freestyle Lite Test test fingerstick 200units Vanessa Enriquez, 08/07/2016 blood sugar three M.DJaz Strips times a day Onetouch Ultra Blue [...] Viscous 15 min gargle, 300ml K12.0 Kole Logan, 2018 - HCL swish and COMPUTER INFORMATION SYSTEMS INSTRUCTOR 10/29/2019 2% Solution swallow up to 4 [...] CPT Code Status Date Vaccine Lot # [id number] Given 07/20/2018 Influenza High Dose [id number] 59094 Given 07/31/2017 Influenza High Dose [id number] Q2038 Given 07/26/2016 Influenza Vaccine (Fluzone) Age 3 And Older [id number] 22652 Given 09/06/2015 Pneumococcal Conjugate Vaccine 13 Valent For [id number] Intramuscular Use Q2038 Given 07/11/2015 Influenza Vaccine (Fluzone) Age 3 And Older 61882 Given 05/29/2015 Tdap injection [id number] 37815 Given 07/19/2014 flu vaccination 76896 Given 07/18/2013 flu vaccination 39236 Given 07/22/2012 flu vaccination 11813 Given 09/02/2011 flu vaccination 56051 Given 09/02/2011 flu vaccination 05702 Given 08/29/2010 Pneumovax Injection 09793 Given 08/29/2010 flu vaccination 69515 Given 01/23/2010 H1N1 Immuniation Adminstration 46305 Given 07/27/2009 flu vaccination Vital Signs Date Vital Result Comment 10/29/2019 11:24am BP Systolic Sitting Left Arm 100 mmHg BP Diastolic Sitting Left Arm 56 mmHg Body Temperature 98.7 F Heart Rate 100 /min Respiratory Rate 20 /min Height 72 inches 6'0" Weight 203.00 lb BMI (Body Mass Index) 27.5 kg/m2 BSA (Body Surface Area) 2.14 m2 [place] body weight in kilograms 81 kg O2 % BldC Oximetry 99 % 08/20/2019 11:06am BP Systolic Sitting Left Arm 120 mmHg BP Diastolic Sitting Left Arm 64 mmHg Body Temperature 98.7 F Heart Rate 88 /min Respiratory Rate 18 /min Height 72 inches 6'0" Weight 225.00 lb BMI (Body Mass Index) 30.5 kg/m2 BSA (Body Surface Area) 2.24 m2 [place] body weight in kilograms 81 kg O2 % BldC Oximetry 97 % Results Test Acquired Date Facility Test Result H/L Range Note CBC Auto 09/28/2019 [facility] White Blood 15.7 10^3/ uL High 3.5-10.8 1 Diff [phone] Count Red Blood Count 3.24 10^6/uL Low [...] % 0.1 Iron & Iron Binding 09/28/2019 [facility] Iron 37 g /dL Low 50-212 Capacity [phone] Unsaturated Iron Binding < 167 g/dL Total Iron Binding Capacity 182 g/dL Low 250-450 Transferrin 130 mg/dL Low 203-362 % Iron Saturation 20 % Normal 15-55 Comp Metabolic 09/28/2019 [facility] Sodium 135 mmol/ L Normal 135-145 Panel [phone] Chloride 103 mmol/L Normal 101-111 Co2 Carbon [...] Egfr 23.6 >60 2 Laboratory test 09/28/2019 [facility] Ferritin 831.5 ng/mL High 24-336 3 finding [phone] Vitamin B12 > 1450 pg/mL High 180-914 4 Manual 09/28/2019 [facility] Immature 4.0 % Normal 0-9 Differential [phone] Granulocytes Neutrophil % 62.0 % Band % 1.0 % Normal 0-8 Lymphocytes % 20.0 % Monocytes % 8.0 % Eosinophils % 5.0 % Basophil % 1.0 % Myelocytes % 3.0 % High 0-1 Macrocytosis 1+ Polychromasia 1+ Anisocytosis 2+ Estimated glomerular 09/22/2019 N2N/CCD Import Estimated 16.4 filtration rate glomerular (GFR) non-Afr filtration rate (GFR) non- Serum or plasma 09/22/2019 N2N/CCD Import Serum or plasma 15 U/L 13- aspartate aspartate 39 aminotransferase aminotransferase measure measurement (enzymatic activity/volume) Serum or plasma 09/22/2019 N2N/CCD Import Serum or plasma 8 U/L 7-5 alanine alanine 2 aminotransferase aminotransferase measureme measurement (enzymatic activity/volume) Serum or plasma 09/22/2019 N2N/CCD Import Serum or plasma 68 U/L 34- alkaline phosphatase alkaline 104 measurement ( phosphatase measurement (enzymatic activity/volume) Serum or plasma 09/22/2019 N2N/CCD Import Serum or plasma 0.70 mg/dL 0.2 total bilirubin total bilirubin -1. measurement (mass/ measurement 0 (mass/volume) Serum or plasma 09/22/2019 N2N/CCD Import Serum or plasma 0.7 1-3 albumin/globulin albumin/globulin mass ratio mass ratio Lab Results 09/22/2019 N2N/CCD Import Globulin 3.0 g/dL 2-4 Serum or plasma 09/22/2019 N2N/CCD Import Serum or plasma 2.2 g/dL 3.2 albumin measurement albumin measurement -5. by bromocresol by bromocresol 2 green (BCG) dye binding method (ma Serum total protein 09/22/2019 N2N/CCD Import Serum total protein 5.2 g/dL 6.4 measurement measurement -8. (mass/volume) (mass/volume) 9 Serum or plasma 09/22/2019 N2N/CCD Import Serum or plasma 1.9 mg/dL 1.9 magnesium magnesium -2. measurement measurement 7 (mass/volume (mass/volume) Serum or plasma 09/22/2019 N2N/CCD Import Serum or plasma 7.3 mg/dL 8.6 calcium measurement calcium measurement -10 (mass/volume) (mass/volume) .3 Serum or plasma urea 09/22/2019 N2N/CCD Import Serum or plasma 5.8 8-2 nitrogen/creatinine urea 0 ratio nitrogen/creatinine ratio Serum or plasma 09/22/2019 N2N/CCD Import Serum or plasma 3.63 mg/dL 0.6 creatinine creatinine 7-1 measurement measurement .17 (mass/volum (mass/volume) Serum or plasma urea 09/22/2019 N2N/CCD Import Serum or plasma 21 mg/dL 6-2 nitrogen measurement urea nitrogen 4 (mass/vo measurement (mass/volume) Serum glucose 09/22/2019 N2N/CCD Import Serum glucose 99 mg/dL 70- measurement measurement 100 (mass/volume) (mass/volume) Serum or plasma 09/22/2019 N2N/CCD Import Serum or plasma 8 mmol/L 2-1 anion gap anion gap 1 Serum or plasma 09/22/2019 N2N/CCD Import Serum or plasma 29 mmol/L 22- carbon dioxide, carbon dioxide, 32 total measurement total measurement (moles/volume) Serum or plasma 09/22/2019 N2N/CCD Import Serum or plasma 103 mmol/L 101 chloride measurement chloride -11 (moles/volume measurement 1 (moles/volume) Serum or plasma 09/22/2019 N2N/CCD Import Serum or plasma 3.5 mmol/L 3.5 potassium potassium -5. measurement measurement 0 (moles/volum (moles/volume) Serum or plasma 09/22/2019 N2N/CCD Import Serum or plasma 140 mmol/L 135 sodium measurement sodium measurement -14 (moles/volume) (moles/volume) 5 Serum or plasma 09/20/2019 N2N/CCD Import Serum or plasma 22.9 mIU/mL erythropoietin (Epo) erythropoietin measurement ( (Epo) measurement (units/volume) Laboratory test 09/16/2019 [facility] Surgical Pathology SEE RESULT 5 finding [phone] Order BELOW Serum or plasma 09/16/2019 N2N/CCD Import Serum or plasma 146.4 pg/mL 12 - intact parathyroid intact parathyroid 88 hormone (iPTH) hormone (iPTH) measurement (moles/volume) Serum or plasma 09/16/2019 N2N/CCD Import Serum or plasma 5.9 mg/dL 8.6 calcium measurement calcium measurement -10 (mass/volume) (mass/volume) .3 CT biopsy liver 09/11/2019 N2N/CCD Import CT biopsy liver 2+ Serum or plasma 09/08/2019 N2N/CCD Import Serum or plasma 2.0 mg/dL 2.5 phosphate phosphate -5. measurement measurement 0 (mass/volume (mass/volume) Serum or plasma 09/05/2019 N2N/CCD Import Serum or plasma 0.5 mmol/L 0.5 lactate measurement lactate measurement -2. (moles/volume) (moles/volume) 0 CT biopsy liver 09/03/2019 N2N/CCD Import CT biopsy liver Normal Serum or plasma uric 09/03/2019 N2N/CCD Import Serum or plasma 5.7 mg/dL 4.4 acid measurement uric acid -7. (mass/volume measurement 6 (mass/volume) Lab Results 09/03/2019 N2N/CCD Import T-Cell Lymphoma Not (Fish) Order Date Reportable Lab Results 09/03/2019 N2N/CCD Import BM Chromosome See comment Interpretation Blood Culture 09/01/2019 [facility] Blood Culture NO GROWTH: 6, [address] Aerobic FINAL <[place] [address] NOTE> [phone] Blood Culture Anaerobic NO GROWTH: FINAL <SEE NOTE> 8 Lactic Acid 09/01/2019 [facility] Lactic Acid 6.2 mmol/L Critical 0.4-1.9 [address] [place] [address] [phone] Lab Reflex >2.0 for Sepsis? Y Comprehensive Metabolic 09/01/2019 [facility] Glucose 175 mg/dL High 74-106 Panel [address] [place] [address] [phone] BUN 46 mg/dL High 7-18 Creatinine 3.6 mg/dL High 0.6-1.3 Glom Filtration Rate, Estimate 18 mL/min >60 If 21 mL/min >60 9 BUN/Creat 12.7 ratio Sodium 137 mmol/L Normal [...] High 0.2-1.0 Sgot/Ast 6 U/L Low 15-37 10 SGPT/Alt 16 U/L Normal 12-78 Alkaline Phosphatase 56 U/L Normal 45-117 Blood Culture 09/01/2019 [facility] Blood Culture NO GROWTH: FINAL 11 [address] Aerobic <SEE NOTE> [place] [address] [phone] Blood Culture Anaerobic NO GROWTH: FINAL <SEE NOTE> 12 Serum or plasma 08/31/2019 N2N/CCD Import Serum or plasma 2.80 0.67- 1.17 creatinine creatinine mg/dL measurement measurement (mass/volum (mass/volume) Laboratory test 07/31/2019 [facility] Lipase 198 U/L Normal 56-289 13 finding [address] [place] [id number] [phone] Comprehensive 07/31/2019 [facility] Glucose 139 mg/dL High 74-106 Metabolic Panel [address] [place] [address] [phone] BUN 43 mg/dL High 7-18 Creatinine 2.5 [...] 72 U/L Normal 45-117 CBC W/Automated 07/31/2019 [facility] White Blood 7.7 K/uL Normal 3.4-10.[address] [place] [address] [phone] Red Blood Count 3.50 M/uL Low 4.20-5.80 [...] 33.0-73.0 Lymph % 22.0 % Normal 20.0-42.0 [place] % 0.8 % Normal 0.0-10.0 Eo% 2.2 % Normal 0.0-6.6 Bas% 0.4 % Normal 0.0-1.1 Immature Grans 0.5 % Normal 0.0-5.0 NRBC % 0.0 /100WBC < 10/ 100 WBC Neut# 5.69 K/uL Normal 1.8-7.0 Lymph # 1.69 K/uL Normal 1.0-4.0 [place] # 0.06 K/uL Normal 0.0-0.8 Eos # 0.17 K/uL Normal 0.0-0.5 Baso # 0.03 K/uL Normal 0.0-0.1 Immature Grans Absolute 0.04 K/uL NRBC # 0.00 K/uL Pseudomonas 07/31/2019 [facility] Ciprofloxacin <=0.25 Susceptible Species [address] [place] [address] [phone] Piperacillin/Tazobactam 8 Susceptible Ceftazidime 4 Susceptible Levofloxacin 0.5 Susceptible Gentamicin <=1 Susceptible Tobramycin <=1 Susceptible Urine Culture 07/31/2019 [facility] Urine PSEUDOMONAS SPEC Abnormal [address] Culture <SEE NOTE> [place] [address] [phone] Quantity 10,000 - 50,000 <SEE NOTE> 16 Urine Culture URETHRAL HUY Quantity < 10,000 CFU/mL Culture If 07/31/2019 [facility] Culture If CULTURE TO 17 Indicated Comment [address] Indicated Comment FOLLO <[place] [address] NOTE> [phone] Source: URINE, CLEAN CAT <SEE NOTE> 18 Ua RFX Micro & 07/31/2019 [facility] Urine Color Light-Yellow Yellow Culture II [address] [place] [address] [phone] Urine Clarity Clear Clear Urine Glucose - Dipstick NEGATIVE mg/dL Negative Urine Bilirubin - Dipstick NEGATIVE Negative Urine Ketone NEGATIVE mg/dL Negative Urine Specific [place] 1.013 Normal 1.010-1.030 Urine Blood NEGATIVE 0-2 [...] CAT <SEE NOTE> 19 CBC W/Automated 05/05/2019 [facility] White 10.3 K/uL Normal 3.4-10.5 [address] [place] [address] Count [phone] Red Blood Count 3.50 M/uL Low 4.20-5.80 [...] 33.0-73.0 Lymph % 24.7 % Normal 20.0-42.0 [place] % 7.5 % Normal 0.0-10.0 Eo% 5.4 % Normal 0.0-6.6 Bas% 0.4 % Normal 0.0-1.1 Immature Grans 0.9 % Normal 0.0-5.0 NRBC % 0.0 /100WBC < 10/ 100 WBC Neut# 6.30 K/uL Normal 1.8-7.0 Lymph # 2.54 K/uL Normal 1.0-4.0 [place] # 0.77 K/uL Normal 0.0-0.8 Eos # 0.56 K/uL High 0.0-0.5 Baso # 0.04 K/uL Normal 0.0-0.1 Immature Grans Absolute 0.09 K/uL NRBC # 0.00 K/uL Basic Metabolic Panel 05/05/2019 [facility] Glucose 91 mg/dL Normal 74-106 [address] [place] [address] [phone] BUN 36 mg/dL High 7-18 Creatinine 2.2 mg/dL High 0.6-1.3 Glom Filtration Rate, Estimate 31 mL/min >60 If 38 mL/min >60 21 BUN/Creat 16.3 ratio Sodium 143 mmol/L Normal 136-145 Potassium 4.1 mmol/L Normal 3.5-5.1 Chloride 113 mmol/L High 98-107 Carbon Dioxide 22 mmol/L Normal 21-32 Anion Gap 8 mEq/L Normal 8-16 Calcium 8.6 mg/dL Normal 8.5-10.1 1 [id number] 2 Because ethnic data is not always [...] 5 Kidney failure <15 (or dialysis) 3 [id number] 4 Normal Range 180 to 914 Indeterminate Range 145 to 180 Deficient Range <145 5 SEE RESULT BELOW Name: AN DELGADO : [address]: Ligia Cornejo MD Acct: [id number] Unit: [id number] AGE: 74 Location: [place] [address] Re09/01/19 SEX: M Status: ADM IN SPEC: [id number] PATTIE: 09/16/19-[address] [facility] [address]: Kyaw Mayes DO REQ: [id number] RECD: 09/16/19 STATUS: SEBASTIEN JASON DR: Rafaela Botello MD _ ORDERED: LEVEL 4, SPEC [facility] ADDENDUM A pankeratin immunohistochemical staining, with appropriately [...] CONTINUED ON NEXT PAGE DEPARTMENT OF PATHOLOGY, [address] [place] [address] Carroll Shaw M.D. Director [facility] # [id number] CLINICAL HISTORY Acute blood loss, anemia POST-OPERATIVE [...] END OF REPORT DEPARTMENT OF PATHOLOGY, [address] [place] [address] Carroll Shaw M.D. Director [facility] # [id number] 6 DR [place], VERY DEHYDRATED 7 NO GROWTH: FINAL REPORT 8 NO GROWTH: FINAL REPORT 9 Note: Persistent reduction for 3 months or more in an eGFR <60 mL/min/1.73 m2 defines CKD. Patients with eGFR values >/=60 mL/min/1.73 m2 may also have CKD if evidence of persistent proteinuria is present. The original MDRD equation for estimated GFR is not valid for patients less than 18 years of age. Additional information may be found at www.kdoqi.org. 10 Values below the stated reference ranges of AST and ALT can be seen in normal populations. Clinical correlation is suggested. 11 NO GROWTH: FINAL REPORT 12 NO [...] www.kdoqi.org. Procedures Date Code Description Status 08/19/2019 01991 Measurement Post Voiding Residual Urine By Completed Ultrasound,Non-Imaging 08/19/2019 42719 complex uroflowmetry electronic Completed 09/24/2017 [id number] Diabetic Foot Exam Completed 06/26/2015 [id number] Colonoscopy Completed Medical Devices Description No Information Available Encounters Type Date Location Provider Dx Diagnosis Office Visit 08/20/2019 Family Medicine Rafaela Gaviria, L51.1 [place] 10:45a Christopher WETZEL MD syndrome Office Visit 08/19/2019 Urology Brian Kruger N40.1 Benign prostatic 10:15a SAMI Smith hyperplasia with lower urinary tract symp Office Visit 08/11/2019 [facility] Ruben Logan, K12.0 Recurrent oral 11:00a serena Gilliland RDthae COMPUTER INFORMATION SYSTEMS INSTRUCTOR Office Visit 08/02/2019 Family Medicine Rafaela Gaviria, L20.9 Atopic dermatitis, 1:45p Christopher WETZEL MD unspecified L40.9 Psoriasis, unspecified Office Visit 05/05/2019 2:45p Family Rafaela Solo I12.9 Hypertensive Christopher WETZEL MD chronic kidney disease w 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/unsp chr kdny D50.9 Iron deficiency anemia, unspecified Assessments Date Code Description Provider 10/29/2019 C84.A0 Cutaneous T-cell lymphoma, unspecified, Rafaela Gaviria MD unspecified site 10/29/2019 I95.1 Orthostatic hypotension Rafaela Gaviria MD 10/29/2019 M54.5 Low back pain Rafaela Gaviria MD 10/29/2019 I70.244 Atherosclerosis of [place] arteries of Rafaela Gaviria MD left leg [...] 6:30 pm - Rafaela Gaviria MD at [facility] RD02/21/2020 1:15 pm - Brian Kruger PA at [id number] - Rafaela Gaviria, MDC84.A0 Cutaneous T-cell lymphoma, unspecified, unspecified siteComments:f/u with Dr. Botello, obtain recent labsI95.1 Orthostatic hypotensionNew Medication:Midodrine HCL 2.5 mg - 1 tab 3x/day if needed for bp & lt; 110/40New Xrays:Spine, Lumbosacral, 2 Or 3 Views, Ordered: 10/29/19Comments: You need medication to keep your blood pressure up. You may takethis medication up to 3x/day.I will send you back to see Dr. Main.M54.5 Low back painComments:worse;oxycodone for pain;ordering back films for you, my nurse will call you about the timeI70.244 Atherosclerosis of [place] arteries of left leg with ulceration of heel and midfootComments:healing; you need to see dr. kowalski again to see what's going on;we'll get you in soon.I73.9 Peripheral vascular disease, unspecifiedComments:plan as xhytyL41.22 Type 2 diabetes mellitus with diabetic chronic kidney diseasComments:check glu regularly; bring in glucometer next vistFollow up:2 weeks Functional Status Functional Condition Comment Date Status Independent with all ADL's Active Mental Status Description No Information Available Referrals Description No Information Available
--- OUTSIDE RECORDS SUMMARY | 2019-11-09 13:56 | XMS REPORT | Continuity of Care Document ---
:1945 External Reference #:[id number] Author Name Nikos Walters M.D. (transmitted by agent of provider Irma Bryson) Address [address] [address] Care Team Providers Name Role Phone Denae Kline MD - Care Team Information Office Cashier [phone] Ophthalmology Rafaela Gaviria MD - Family Medicine Care Team Information Office Cashier [phone] Problems Description No Information Available Social History Type Date Description Comments Sex Unknown Allergies, Adverse Reactions, Alerts Description No Information Available Medications Description No Information Available Immunizations Description No Information Available Vital Signs Description No Information Available Results Description No Information Available Procedures Date Code Description Status 07/21/2019 00253 Each Separate/Additional Lesion Completed 07/21/2019 17357 Tangential Biopsy Of Skin, Single Lesion Completed Medical Devices Description No Information Available Encounters Type Date Location Provider Dx Diagnosis Office Visit 08/31/2019 [facility] Esp[facility]za Rosmery, C84.A0 Cutaneous T- cell 9:00a [facility] AT [place] lymphoma, [place] unspecified, unspecified site 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, unspecified site D64.9 Anemia, unspecified D70.9 Neutropenia, unspecified N17.9 Acute kidney failure, unspecified K12.30 Oral mucositis (ulcerative), unspecified Office Visit 08/18/2019 11:10a [facility] Mervin Early, C84.00 Mycosis AT [place] fungoides, unspecified site Office Visit 08/03/2019 10:10a [facility] Mervin Early, L30.9 Dermatitis, AT [place] unspecified Assessments Date Code Description Provider 09/05/2019 N17.9 Acute kidney failure, unspecified Tania Nicholson MD 09/05/2019 E87.70 Fluid overload, unspecified Tania Nicholson MD 09/05/2019 E87.1 Hypo-osmolality and hyponatremia Tania Nicholson MD 09/03/2019 N17.9 Acute kidney failure, unspecified Tania Nicholson MD 09/03/2019 E87.70 Fluid overload, unspecified Tania Nicholson MD 09/03/2019 R34 Anuria and oliguria Tania Nicholson MD 08/31/2019 C84.A0 Cutaneous T-cell lymphoma, unspecified, Espino[place] Botello M.D. 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 08/31/2019 D64.9 Anemia, unspecified Espinoza Botello M.D. 08/31/2019 D70.9 Neutropenia, unspecified Espinoza Botello M.D. 08/31/2019 N17.9 Acute kidney failure, unspecified Espinoza Botello M.D. 08/31/2019 K12.30 Oral mucositis (ulcerative), unspecified Espinoza Botello M.D. 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
--- OUTSIDE RECORDS SUMMARY | 2019-11-09 13:56 | XMS REPORT | Continuity of Care Document ---
:1945 External Reference #:[id number] Author Name Nikos Walters M.D. (transmitted by agent of provider Irma Bryson) Address [address] [place] [id number] Care Team Providers Name Role Phone Denae Kline MD - Care Team Information Cloud Systems Administrator [phone] Ophthalmology Rafaela Gaviria MD - Family Medicine Care Team Information Cloud Systems Administrator [phone] Problems Description No Information Available Social History Type Date Description Comments Sex Unknown Allergies, Adverse Reactions, Alerts Description No Information Available Medications Description No Information Available Immunizations Description No Information Available Vital Signs Description No Information Available Results Description No Information Available Procedures Date Code Description Status 09/03/2019 11444 Endo-Trachial Tube Completed 07/21/2019 06261 Each Separate/Additional Lesion Completed 07/21/2019 53099 Tangential Biopsy Of Skin, Single Lesion Completed Medical Devices Description No Information Available Encounters Type Date Location Provider Dx Diagnosis Office Visit 08/31/2019 [facility] Botello, C84.A0 Cutaneous T- cell 9:00a [facility] AT [place] lymphoma, [place] unspecified, unspecified site 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, unspecified site D64.9 Anemia, unspecified D70.9 Neutropenia, unspecified N17.9 Acute kidney failure, unspecified K12.30 Oral mucositis (ulcerative), unspecified Office Visit 08/18/2019 11:10a [facility] Mervin Early, C84.00 Mycosis AT [place] fungoides, unspecified site Office Visit 08/03/2019 10:10a [facility] Mervin Early, L30.9 Dermatitis, AT [place] unspecified Assessments Date Code Description Provider 09/05/2019 [...] 11:00 am - Mervin Early MD at [facility] AT [place] Functional Status Description No Information Available Mental Status Description No Information Available Referrals Description No Information Available
[2019-11-09 15:27] LABS: ABS Eosinophils 0.1 10^3/ul (0-0.6); ABS Lymphocytes 1.6 10^3/ul (1.0-4.8); ABS Monocytes 0.5 10^3/ul (0-0.8); ABS Neutrophils 1.3 10^3/ul (1.5-7.7); Eosinophil % 2.8 %; Hematocrit 21 % (42-52); Hemoglobin 7.1 g/dL (14.0-18.0); Lymphocyte % 44.7 %; Mean Corpuscular HGB Conc 35 g/dL (31-36); Mean Corpuscular Hemoglobin 32 pg (27-31); Mean Corpuscular Volume 94 fL (80-94); Mean Platelet Volume 8.2 fL (7.4-10.4); Nucleated Red Blood Cells % 0.1; Platelet Count 103 10^3/uL (150-450); Red Blood Count 2.18 10^6 /uL (4.18-5.48); Red Cell Distribution Width 19 % (10-15); White Blood Count 3.5 10^3/uL (3.5-10.8)
[2019-11-09] MEDS: Magic Mouth Was-BEN/MAAL/LIDO SWISH SPIT SCH ×2 (19:27→22:37)
[2019-11-09] MEDS: Gabapentin CAP(*) 100 MG PO PRN (19:28)
[2019-11-09] MEDS: oxyCODONE TAB* 5 MG TAB PO PRN (19:29)
[2019-11-09] MEDS: Ondansetron ODT TAB* 4 MG SL PRN (19:30)
[2019-11-09] MEDS: NS 0.9% 1000 ML** 1,000 ML IV SCH (19:33)
[2019-11-10 06:10] LABS: Albumin 3.4 g/dL (3.2-5.2); Albumin/Globulin Ratio 1.2 (1-3); BUN/Creatinine Ratio 14.1 (8-20); Calcium 8.1 mg/dL (8.6-10.3); EGFR African American 43.5 (>60); EGFR Non-African American 35.9 (>60); Globulin 2.9 g/dL (2-4); Total Bilirubin 0.4 mg/dL (0.2-1.0); Total Protein 6.3 g/dL (6.4-8.9)
[2019-11-10] MEDS: cefTRIAXone(*) 1 GM in NS 0.9% 50 ML* 50 ML IVPB SCH (08:09)
[2019-11-10] MEDS: Magic Mouth Was-BEN/MAAL/LIDO SWISH SPIT SCH ×4 (08:10→19:52)
[2019-11-10] MEDS: Pantoprazole TAB * 40 MG TAB PO SCH (08:10)
[2019-11-10] MEDS: NS 0.9% 1000 ML** 1,000 ML IV SCH ×2 (08:12→19:54)
[2019-11-10 08:58] LABS: ABS Eosinophils 0.1 10^3/ul (0-0.6); ABS Lymphocytes 1.7 10^3/ul (1.0-4.8); ABS Monocytes 0.7 10^3/ul (0-0.8); ABS Neutrophils 1.2 10^3/ul (1.5-7.7); Eosinophil % 3.8 %; Hematocrit 23 % (42-52); Hemoglobin 7.6 g/dL (14.0-18.0); Lymphocyte % 45.3 %; Mean Corpuscular HGB Conc 34 g/dL (31-36); Mean Corpuscular Hemoglobin 31 pg (27-31); Mean Corpuscular Volume 94 fL (80-94); Mean Platelet Volume 7.9 fL (7.4-10.4); Nucleated Red Blood Cells % 0.2; Platelet Count 117 10^3/uL (150-450); Red Blood Count 2.43 10^6 /uL (4.18-5.48); Red Cell Distribution Width 20 % (10-15); White Blood Count 3.8 10^3/uL (3.5-10.8)
[2019-11-10 10:02] LABS: Urine Appearance Turbid; Urine Bilirubin Negative (Negative); Urine Blood 2+ (Negative); Urine Color Yellow; Urine Glucose Negative (Negative); Urine Ketones Negative (Negative); Urine Nitrite Negative (Negative); Urine Protein 1+(30 mg/dL) (Negative); Urine Specific Gravity 1.008 (1.010-1.030); Urine Urobilinogen Negative (Negative)
[2019-11-10 10:08] LABS: Urine Bacteria Absent (Absent); Urine Red Blood Cell 3+(>10/hpf) (Absent); Urine White Blood Cell 3+(>20/hpf) (Absent)
--- NOTE | 2019-11-10 11:08 | PN ---
Progress Note - Progress Note Date of Service: 11/10/19 SOAP: Subjective: feels better today than yesterday. reports that he was not dizzy when he sat up for breakfast this am. Hb with minimal bump despite 1 U. reports soft brown stools. no nausea. Objective: Vital Signs Temp Pulse Resp BP Pulse Ox 97.4 F 80 17 116/53 97 11/10/19 07:41 11/10/19 07:41 11/10/19 08:00 11/10/19 07:41 11/10/19 07:41 lying flat in nad perr eomi op no mucositis cta bl s1 s2 nl obese soft nt no le edema skin much clearer than last hospitalization A+O x 3, grossly nonfocal Laboratory Results - last 24 hr 11/09/19 11/09/19 11/10/19 15:15 15:15 05:24 WBC 3.5 3.8 RBC 2.18 L 2.43 L Hgb 7.1 L 7.6 L Hct 21 L 23 L MCV 94 94 MCH 32 H 31 MCHC 35 34 RDW 19 H 20 H Plt Count 103 L 117 L MPV 8.2 7.9 Neut % (Auto) 38.1 32.5 Lymph % (Auto) 44.7 45.3 [place] % (Auto) 13.9 17.8 Eos % (Auto) 2.8 3.8 Baso % (Auto) 0.5 0.6 Absolute Neuts (auto) 1.3 L 1.2 L Absolute Lymphs (auto) 1.6 1.7 Absolute Monos (auto) 0.5 0.7 Absolute Eos (auto) 0.1 0.1 Absolute Basos (auto) 0.0 0.0 Absolute Nucleated RBC 0.0 0.0 Nucleated RBC % 0.1 0.2 Sodium Potassium Chloride Carbon Dioxide Anion Gap BUN Creatinine Est GFR ( Amer) Est GFR (Non-Af Amer) BUN/Creatinine Ratio Glucose Calcium Total Bilirubin AST ALT Alkaline Phosphatase Total Protein Albumin Globulin Albumin/Globulin Ratio Cortisol Urine Color Urine Appearance Urine pH Ur Specific [place] Urine Protein Urine Ketones Urine Blood Urine Nitrate Urine Bilirubin Urine Urobilinogen Ur Leukocyte Esterase Urine WBC (Auto) Urine RBC (Auto) Urine Bacteria Urine Glucose Blood Type O Negative Antibody Screen Negative Crossmatch See Detail 11/10/19 11/10/19 05:27 09:30 WBC RBC Hgb Hct MCV MCH MCHC RDW Plt Count MPV Neut % (Auto) Lymph % (Auto) [place] % (Auto) Eos % (Auto) Baso % (Auto) Absolute Neuts (auto) Absolute Lymphs (auto) Absolute Monos (auto) Absolute Eos (auto) Absolute Basos (auto) Absolute Nucleated RBC Nucleated RBC % Sodium 138 Potassium 4.0 Chloride 116 H Carbon Dioxide 15 L Anion Gap 7 BUN 26 H Creatinine 1.84 H Est GFR ( Amer) 43.5 Est GFR (Non-Af Amer) 35.9 BUN/Creatinine Ratio 14.1 Glucose 96 Calcium 8.1 L Total Bilirubin 0.40 AST 11 L ALT 9 Alkaline Phosphatase 55 Total Protein 6.3 L Albumin 3.4 Globulin 2.9 Albumin/Globulin Ratio 1.2 Cortisol 6.79 Urine Color Yellow Urine Appearance Turbid Urine pH 5.0 Ur Specific [place] 1.008 L Urine Protein 1+(30 mg/dl) A Urine Ketones Negative Urine Blood 2+ A Urine Nitrate Negative Urine Bilirubin Negative Urine Urobilinogen Negative Ur Leukocyte Esterase 3+ A Urine WBC (Auto) 3+(>20/hpf) A Urine RBC (Auto) 3+(>10/hpf) A Urine Bacteria Absent Urine Glucose Negative Blood Type Antibody Screen Crossmatch Gabapentin (Neurontin Cap(*)) 100 mg PO TID PRN PRN Reason: PAIN - MODERATE Last Admin: 11/09/19 19:28 Dose: 100 mg Sodium Chloride (Ns 0.9% 1000 Ml) 1,000 mls @ 75 mls/hr IV PER RATE [facility] Last Admin: 11/10/19 08:12 Dose: 75 mls/hr Ceftriaxone Sodium 1 gm/ (Sodium Chloride) 50 mls @ 100 mls/hr IVPB Q24H [facility] Last Admin: 11/10/19 08:09 Dose: 100 mls/hr Multi-Ingredient Mouthwash/Gargle (Magic Mouth Was-Clyde/Maal/Lido*) 10 ml SWISH SPIT QID [facility] Last Admin: 11/10/19 08:10 Dose: 10 ml Ondansetron HCl (Zofran Odt Tab*) 4 mg SL Q6H PRN PRN Reason: NAUSEA/VOMITING Last Admin: 11/09/19 19:30 Dose: 4 mg Oxycodone HCl (Roxycodone Tab*) 5 mg PO Q4H PRN PRN Reason: PAIN - SEVERE Last Admin: 11/09/19 19:29 Dose: 5 mg Pantoprazole Sodium (Protonix Tab*) 40 mg PO DAILY [facility] Last Admin: 11/10/19 08:10 Dose: 40 mg Prednisone (Deltasone 20 Mg Tab) 40 mg PO DAILY [facility] Last Admin: 11/10/19 09:24 Dose: 40 mg Assessment: 74 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 Plan: Anemia: ?therapy related, though poor response to transfusion over night stool guaiac pending from this am, if positive will discuss with GI repeating upper and lower endoscopy transfuse another unit this am low cortisol: adrenal insufficiency may be causing orthostatic hypotension started prednisone 40 mg yesterday (will also have anti-lymphoma activity) and already appears to be improving. cont IVFs repeat orthostatics tomorrow am ?UTI: culture from [facility] pending, will follow up on this tomorrow and continue ceftriaxone for now no chemical DVT prophylaxis pending stool guaiac dnr
[2019-11-10] MEDS: Gabapentin CAP(*) 100 MG PO PRN (19:52)
[2019-11-10] MEDS: oxyCODONE TAB* 5 MG TAB PO PRN (19:53)
[2019-11-10] MEDS: Ondansetron ODT TAB* 4 MG SL PRN (19:54)
[2019-11-11 07:33] LABS: ABS Lymphocytes 1.9 10^3/ul (1.0-4.8); ABS Monocytes 0.8 10^3/ul (0-0.8); ABS Neutrophils 1.2 10^3/ul (1.5-7.7); Eosinophil % 1.1 %; Hematocrit 22 % (42-52); Hemoglobin 7.7 g/dL (14.0-18.0); Lymphocyte % 47.7 %; Mean Corpuscular HGB Conc 35 g/dL (31-36); Mean Corpuscular Hemoglobin 31 pg (27-31); Mean Corpuscular Volume 88 fL (80-94); Mean Platelet Volume 7.3 fL (7.4-10.4); Nucleated Red Blood Cells % 0.1; Platelet Count 158 10^3/uL (150-450); Red Blood Count 2.53 10^6 /uL (4.18-5.48); Red Cell Distribution Width 22 % (10-15)
--- NOTE | 2019-11-11 07:35 | PN ---
Progress Note - Progress Note Date of Service: 11/11/19 SOAP: Subjective: reports that he still got dizzy trying to stand up yesterday (not documented). guaiac positive yesterday. reports that he never followed up with GI as outpatient as instructed. 2 second pause over night Objective: Vital Signs Temp Pulse Resp BP Pulse Ox 97.8 F 62 19 127/46 100 11/11/19 03:15 11/11/19 03:15 11/11/19 03:15 11/11/19 03:15 11/11/19 03:15 perr eomi op moist cta bl s1 s2 nl soft nt +bs no le edema skin with old scarring, no open ulcerations A+O x 3, nonfocal neurological exam Laboratory Results - last 24 hr 11/09/19 11/09/19 11/10/19 15:12 15:15 05:24 WBC 3.8 RBC 2.43 L Hgb 7.6 L Hct 23 L MCV 94 MCH 31 MCHC 34 RDW 20 H Plt Count 117 L MPV 7.9 Neut % (Auto) 32.5 Lymph % (Auto) 45.3 [place] % (Auto) 17.8 Eos % (Auto) 3.8 Baso % (Auto) 0.6 Absolute Neuts (auto) 1.2 L Absolute Lymphs (auto) 1.7 Absolute Monos (auto) 0.7 Absolute Eos (auto) 0.1 Absolute Basos (auto) 0.0 Absolute Nucleated RBC 0.0 Nucleated RBC % 0.2 Sodium Potassium Chloride Carbon Dioxide Anion Gap BUN Creatinine Est GFR ( Amer) Est GFR (Non-Af Amer) BUN/Creatinine Ratio Glucose Hemoglobin A1c 5.6 Calcium Total Bilirubin AST ALT Alkaline Phosphatase Total Protein Albumin Globulin Albumin/Globulin Ratio Cortisol Urine Color Urine Appearance Urine pH Ur Specific [place] Urine Protein Urine Ketones Urine Blood Urine Nitrate Urine Bilirubin Urine Urobilinogen Ur Leukocyte Esterase Urine WBC (Auto) Urine RBC (Auto) Urine Bacteria Urine Glucose Blood Type O Negative Antibody Screen Negative Crossmatch See Detail 11/10/19 11/10/19 11/11/19 05:27 09:30 07:16 WBC 4.0 RBC 2.53 L Hgb 7.7 L Hct 22 L MCV 88 MCH 31 MCHC 35 RDW 22 H Plt Count 158 MPV 7.3 L Neut % (Auto) 29.7 Lymph % (Auto) 47.7 [place] % (Auto) 21.0 Eos % (Auto) 1.1 Baso % (Auto) 0.5 Absolute Neuts (auto) 1.2 L Absolute Lymphs (auto) 1.9 Absolute Monos (auto) 0.8 Absolute Eos (auto) 0.0 Absolute Basos (auto) 0.0 Absolute Nucleated RBC 0.0 Nucleated RBC % 0.1 Sodium 138 Potassium 4.0 Chloride 116 H Carbon Dioxide 15 L Anion Gap 7 BUN 26 H Creatinine 1.84 H Est GFR ( Amer) 43.5 Est GFR (Non-Af Amer) 35.9 BUN/Creatinine Ratio 14.1 Glucose 96 Hemoglobin A1c Calcium 8.1 L Total Bilirubin 0.40 AST 11 L ALT 9 Alkaline Phosphatase 55 Total Protein 6.3 L Albumin 3.4 Globulin 2.9 Albumin/Globulin Ratio 1.2 Cortisol 6.79 Urine Color Yellow Urine Appearance Turbid Urine pH 5.0 Ur Specific [place] 1.008 L Urine Protein 1+(30 mg/dl) A Urine Ketones Negative Urine Blood 2+ A Urine Nitrate Negative Urine Bilirubin Negative Urine Urobilinogen Negative Ur Leukocyte Esterase 3+ A Urine WBC (Auto) 3+(>20/hpf) A Urine RBC (Auto) 3+(>10/hpf) A Urine Bacteria Absent Urine Glucose Negative Blood Type Antibody Screen Crossmatch Gabapentin (Neurontin Cap(*)) 100 mg PO TID PRN PRN Reason: PAIN - MODERATE Last Admin: 11/10/19 19:52 Dose: 100 mg Sodium Chloride (Ns 0.9% 1000 Ml) 1,000 mls @ 75 mls/hr IV PER RATE [facility] Last Admin: 11/10/19 19:54 Dose: 75 mls/hr Ceftriaxone Sodium 1 gm/ (Sodium Chloride) 50 mls @ 100 mls/hr IVPB Q24H [facility] Last Admin: 11/10/19 08:09 Dose: 100 mls/hr Multi-Ingredient Mouthwash/Gargle (Magic Mouth Was-Clyde/Maal/Lido*) 10 ml SWISH SPIT QID [facility] Last Admin: 11/10/19 19:52 Dose: 10 ml Ondansetron HCl (Zofran Odt Tab*) 4 mg SL Q6H PRN PRN Reason: NAUSEA/VOMITING Last Admin: 01/15/20 19:54 Dose: 4 mg Oxycodone HCl (Roxycodone Tab*) 5 mg PO Q4H PRN PRN Reason: PAIN - SEVERE Last Admin: 11/10/19 19:53 Dose: 5 mg Pantoprazole Sodium (Protonix Tab*) 40 mg PO DAILY [facility] Last Admin: 11/10/19 08:10 Dose: 40 mg Prednisone (Deltasone 20 Mg Tab) 40 mg PO DAILY [facility] Last Admin: 11/10/19 09:24 Dose: 40 mg Assessment: 74 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 Stool guaiac positive. Plan: Anemia: likely multifactorial but guaiac positive with known ulcerations. discussed with GI and will likely plan upper and lower endoscopy tomorrow clear liquid diet for now repeat Hb now cont PPI low cortisol: adrenal insufficiency may be causing orthostatic hypotension prednisone 40 mg daily (will also have anti-lymphoma activity) cont IVFs repeat orthostatics this morning ?UTI: culture from [facility] pending, to call me later today with results, cont ceftriaxone for now no chemical DVT prophylaxis given positive stool guaiac dnr
[2019-11-11 07:51] LABS: Albumin 3.1 g/dL (3.2-5.2); Albumin/Globulin Ratio 1.1 (1-3); BUN/Creatinine Ratio 13.4 (8-20); Calcium 8.1 mg/dL (8.6-10.3); EGFR African American 44.9 (>60); EGFR Non-African American 37.1 (>60); Globulin 2.7 g/dL (2-4); Potassium 3.9 mmol/L (3.5-5.0); Total Bilirubin 0.5 mg/dL (0.2-1.0); Total Protein 5.8 g/dL (6.4-8.9)
[2019-11-11] MEDS: Pantoprazole TAB * 40 MG TAB PO SCH (08:15)
[2019-11-11] MEDS: Magic Mouth Was-BEN/MAAL/LIDO SWISH SPIT SCH ×4 (08:16→22:12)
[2019-11-11] MEDS: cefTRIAXone(*) 1 GM in NS 0.9% 50 ML* 50 ML IVPB SCH (08:17)
[2019-11-11] MEDS ORDERED: Polyethylene Glycol 3350* 17 GM PACKET PO PRN (11:26)
[2019-11-11 14:26] LABS: Hematocrit 26 % (42-52); Hemoglobin 8.6 g/dL (14.0-18.0)
[2019-11-11] MEDS: NS 0.9% 1000 ML** 1,000 ML IV SCH (14:55)
[2019-11-11] MEDS ORDERED: PEG 3000 GI LAVAGE* 1 GALLON PO ONE (15:20)
--- NOTE | 2019-11-11 16:48 | CONS ---
CC: Dr. Ligia Cornejo; Dr. Botello; Piedad Murphy NP * GASTROENTEROLOGY CONSULTATION: DATE OF CONSULT: 11/11/19 REASON FOR CONSULT: Anemia, occult positivity. HISTORY OF PRESENT ILLNESS: This is a very pleasant 74-year-old gentleman with a history of cutaneous T-cell lymphoma, peripheral arterial disease, recent hospitalization for GI bleed, presenting with near syncope and worsening of anemia. The patient reports that he gets dizzy upon standing. He denies any black or blood in the stool. States that he has been a little bit more constipated with difficulty moving his bowels. He denies any abdominal pain. He denies any heartburn, dysphagia, or odynophagia. He states his weight is stable and his skin has vastly improved from before. Appetite has been good. Remainder of the 14- point review of systems is grossly negative except for as described in the HPI. PAST MEDICAL HISTORY: Cutaneous T-cell lymphoma. EGD and colonoscopy done on 09/17/19 with duodenal ulceration, status post therapy and colonoscopy with views largely obscured by old blood and clots, but no active bleeding and an ulcer on the terminal ileum which was biopsied. I had recommended a repeat colonoscopy, but he was unable to accomplish this in [place] despite prodding from my office. PAST SURGICAL HISTORY: Appendectomy, bilateral ulnar nerve repair, right orchiectomy, lung biopsy, femoral artery stent. HOME MEDICATIONS: Include: 1. Finasteride. 2. Folic acid. 3. Magic mouthwash. 4. Omeprazole. 5. Oxycodone. 6. Potassium chloride. 7. Tamsulosin. ALLERGIES: No known drug allergies. SOCIAL HISTORY: Former smoker. No alcohol or drug use. REVIEW OF SYSTEMS: Remainder of the 14-point review of systems is grossly negative except for as described in the HPI. PHYSICAL EXAM: Vital Signs: Blood pressure is 127/42, pulse is 55, respiratory rate is 19, temperature is 98.5, he is 95% on room air. General: Alert and oriented x3, in no acute distress. HEENT: Atraumatic, normocephalic. Pupils equal, round, reactive to light. Extraocular movements are intact. Conjunctivae are pink. Sclerae are anicteric. Cardiovascular: Regular rate and rhythm. S1, S2. Lungs: Clear to auscultation bilaterally. Abdomen: Soft, nontender, nondistended. Bowel sounds positive. Extremities: No clubbing, cyanosis, or edema. Psych: Appropriate mood and affect. LABORATORY DATA: Hemoglobin 7.1 on admission, then 7.7, after transfusion 8.6. BUN is 24, creatinine 1.79. AST is 10, ALT is 7. Albumin is 3.1. ASSESSMENT AND PLAN: This is a 74-year-old male with near syncope, cutaneous T - cell lymphoma, presenting with worsening anemia. He was found to have 3 positive guaiac cards. He did have a history of a recent large gastrointestinal bleed; however, at that point he was on aspirin and Plavix with a duodenal ulcer. There was also an ulcer within the cecum, which was unusual in appearance. Biopsies were inconclusive and I had recommended a repeat colonoscopy. He was unable to accomplish this in [place]. I recommended a repeat EGD and colonoscopy to evaluate the source and to look specifically at that cecal ulceration again. 1. [id number] blood loss anemia. We will plan EGD and colonoscopy as above. Continue PPI. Monitor H and H. Transfuse p.r.n. per primary service. 2. Cutaneous T-cell lymphoma. Per primary service. 3. Near syncope. On telemetry, he had short pause last night, but otherwise no clear correlation. Continue to monitor telemetry. 4. Constipation. The patient admits that he has been having difficulty with his bowel movements. We will plan on giving 4 L of GoLYTELY tonight and then a bottle of magnesium citrate on the morning of 11/12/19 before the colonoscopy. [id number]/[id number] #: [id number] [facility] CENTERFreda
[2019-11-12 04:34] LABS: ABS Lymphocytes 2.3 10^3/ul (1.0-4.8); ABS Monocytes 0.8 10^3/ul (0-0.8); Eosinophil % 0.5 %; Hematocrit 23 % (42-52); Lymphocyte % 54.4 %; Mean Corpuscular HGB Conc 35 g/dL (31-36); Mean Corpuscular Hemoglobin 31 pg (27-31); Mean Corpuscular Volume 89 fL (80-94); Mean Platelet Volume 7.5 fL (7.4-10.4); Nucleated Red Blood Cells % 0.1; Platelet Count 230 10^3/uL (150-450); Red Blood Count 2.59 10^6 /uL (4.18-5.48); Red Cell Distribution Width 22 % (10-15); White Blood Count 4.2 10^3/uL (3.5-10.8)
[2019-11-12 04:54] LABS: BUN/Creatinine Ratio 12.9 (8-20); EGFR Non-African American 41.3 (>60); Potassium 3.7 mmol/L (3.5-5.0)
[2019-11-12] MEDS: NS 0.9% 1000 ML** 1,000 ML IV SCH (05:59)
[2019-11-12] MEDS ORDERED: Magnesium CITRATE* 300 ML BTL PO ONE (06:30)
[2019-11-12] MEDS: cefTRIAXone(*) 1 GM in NS 0.9% 50 ML* 50 ML IVPB SCH (08:34)
[2019-11-12] MEDS: Pantoprazole TAB * 40 MG TAB PO SCH (08:34)
[2019-11-12] MEDS: Magic Mouth Was-BEN/MAAL/LIDO SWISH SPIT SCH ×4 (08:34→20:19)
--- NOTE | 2019-11-12 09:46 | PN ---
Progress Note - Progress Note Date of Service: 11/12/19 SOAP: Subjective: []Skin and mouth soars are better, no itching. Has numbness and tingling in Left foot. Still weak, has dizzyness when he sits up for to long. Eating well. Urinating well. Gabapentin (Neurontin Cap(*)) 100 mg PO TID PRN PRN Reason: PAIN - MODERATE Last Admin: 11/10/19 19:52 Dose: 100 mg Sodium Chloride (Ns 0.9% 1000 Ml) 1,000 mls @ 75 mls/hr IV PER RATE [facility] Last Admin: 11/12/19 05:59 Dose: 75 mls/hr Ceftriaxone Sodium 1 gm/ (Sodium Chloride) 50 mls @ 100 mls/hr IVPB Q24H [facility] Last Admin: 11/12/19 08:34 Dose: 100 mls/hr Multi-Ingredient Mouthwash/Gargle (Magic Mouth Was-Clyde/Maal/Lido*) 10 ml SWISH SPIT QID [facility] Last Admin: 11/12/19 08:34 Dose: 10 ml Ondansetron HCl (Zofran Odt Tab*) 4 mg SL Q6H PRN PRN Reason: NAUSEA/VOMITING Last Admin: 11/10/19 19:54 Dose: 4 mg Oxycodone HCl (Roxycodone Tab*) 5 mg PO Q4H PRN PRN Reason: PAIN - SEVERE Last Admin: 11/10/19 19:53 Dose: 5 mg Pantoprazole Sodium (Protonix Tab*) 40 mg PO DAILY [facility] Last Admin: 11/12/19 08:34 Dose: 40 mg Polyethylene Glycol/Electrolytes (Miralax*) 17 gm PO DAILY PRN PRN Reason: CONSTIPATION Last Admin: 11/11/19 11:43 Dose: 17 gm Prednisone (Deltasone 20 Mg Tab) 40 mg PO DAILY [facility] Last Admin: 11/12/19 08:33 Dose: 40 mg Objective: [] Vital Signs Temp Pulse Resp BP Pulse Ox 97.8 F 60 20 119/47 98 11/12/19 07:15 11/12/19 07:15 11/12/19 08:00 11/12/19 07:15 11/12/19 07:15 Telemetry: No clear arrhythmia overnight. 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 He has history of colonic ulcer on prior admission, stool guaiac positive. Treated with PRBC, IVF , antibiotics and steroids and overall has significant improvement. Plan: 1. Anemia. Secondary to GI loss, marrow supression on MTX, CRI. - Given continued dizziness, Tx 1 U PRBC - Colonoscopy and EGD today - Will need to resolve GIB to continue therapy MF. - Cont PPI 2. Syncopal symptoms. - adrenal insufficiency, now on Prednisone - Tx to Hgb > 9.0 given underlying cardiac disease. 3. MF. On prednisone at this time but will need start systemic chemotherapy on discharge. 4. CRI. Improved with IVF.
[2019-11-12] MEDS ORDERED: Midazolam* 1 MG/ML 10 ML VIAL (10 MG) ONE (13:33)
[2019-11-12] MEDS ORDERED: fentaNYL* 50 MCG/ML 2 ML VIAL (100 MCG VIAL) ONE (13:33)
--- NOTE | 2019-11-12 15:03 | PN ---
Progress Note - Progress Note Date of Service: 11/12/19 Note: GI Brief EGD and Colonoscopy Note E: nml G: nml D: old granulation tissue from prior ulcer, no active ulceration or ulcer base. Push to D4/jejunum: no fresh or old blood. colon to TI x 25 Excellent prep No fresh or old blood. small terminal ileal diverticulum 4-5cm prox to TI valve, no evidence of old blood. Mild jefferson diverticulosis Grade I internal hemorrhoids Bx removal of 2 small 3mm polyps in sig and rectum Rec: PPI indefinitely with prior ulcer. The two prior ulcers within cecum and duodenum have healed No evidence of active GI loss. occult may have been + from internal hemorrhoids If overt bleeding in future would get capsule. restart full diet May be d/c from GI JONO Mayes DO 11/12/19 [id number]
--- NOTE | 2019-11-13 01:19 | PRO ---
CC: Dr. Espinoza Botello; Dr. Rafaela Gaviria * EGD AND COLONOSCOPY REPORT: DATE OF PROCEDURE: 11/12/19 PRIMARY CARE PHYSICIAN: Dr. Rafaela Gaviria. INDICATION FOR PROCEDURE: Anemia due to chronic blood loss. PROCEDURE PERFORMED: Complete esophagogastroduodenoscopy and complete colonoscopy to the terminal ileum with biopsy polypectomy. MEDICATIONS GIVEN: Include: 1. 8 mg IV midazolam. 2. 25 mcg IV fentanyl. DESCRIPTION OF PROCEDURE: After the EGD and colonoscopy procedure including the risks, benefits, and alternatives with the risks not limited to perforation , surgery, missed lesions, and/or were explained to the patient, written informed consent was obtained, IV medication was given, and a bite block was placed between the teeth. The adult Olympus gastroscope was then inserted into the patient's oropharynx, into the tubular esophagus. The tubular esophagus was normal in appearance. The scope was advanced through the lower esophageal sphincter into the stomach. Direct views are normal. On retroflexion, the views were normal as well. The scope was then advanced through the widely patent pylorus into the duodenum. In the bulb, there was some old granulation tissue in the beginning of C-loop where the site of the previous ulcer was; however, the ulceration had healed at this point. There was no ulcer base. No fresh or old blood. The scope was then advanced all the way to D4 and into proximal jejunum and there was no evidence of fresh or old blood and the mucosa was normal. The scope was then removed from the patient. He tolerated the procedure well. He was then rotated, given additional IV sedation medication. A rectal exam was performed. The rectal exam was unremarkable. The adult Olympus colonoscope was then inserted into the patient's rectum and advanced very carefully through the entirety of the colon into the cecal base. Cecal base was carefully inspected and normal in appearance. Quality of the preparation was excellent. A photograph was taken of the cecal cap. The terminal ileum was identified and intubated x20 to 25 cm and carefully inspected. A small diverticulum was noted about 4 to 5 cm proximal to the ileocecal valve. There was no fresh or old blood anywhere within this area. The scope was then returned to the cecum. Over the next 10 minutes, the scope was carefully withdrawn inspecting the mucosa. Two small polyps were removed in the sigmoid and rectum with biopsy polypectomy in entirety. There were mild diverticulosis coli throughout the colon. On returning to the rectum, direct views were normal. On retroflexion, grade I internal hemorrhoids were appreciated. The scope was then removed from the patient. He tolerated the procedure well. He returned to the recovery room in stable condition. IMPRESSION: 1. Complete esophagogastroduodenoscopy. 2. Old granulation tissue, but no evidence of active ulceration. 3. No fresh or old blood on entire exam. 4. Complete colonoscopy to the terminal ileum x25 cm. 5. Biopsy polypectomy x2 small polyps as above. 6. Small ileal diverticulum 4 to 5 cm proximal to the IC valve, but no evidence of bleeding. 7. Mild pancolonic diverticulosis. 8. Grade I internal hemorrhoids. 9. Biopsy polypectomy of 2 polyps as above. 10. Excellent prep. RECOMMENDATIONS: No evidence for overt GI bleeding at this point. The 2 prior sites of the ulceration within the cecum and duodenum have now healed. His occult blood positivity may have been from the internal hemorrhoids. If he develops overt bleeding, I would recommend getting a capsule endoscopy at that point. May restart a full diet. Recommend a PPI indefinitely given the ulceration he did have in the upper GI tract. His 2 polyps are very small and at his age, would not recommend further colonoscopy unless symptomatic. [id number] #: [id number] [facility]OSPITALFreda
[2019-11-13 06:08] LABS: Hematocrit 27 % (42-52); Hemoglobin 8.9 g/dL (14.0-18.0); Mean Corpuscular HGB Conc 34 g/dL (31-36); Mean Corpuscular Hemoglobin 30 pg (27-31); Mean Corpuscular Volume 90 fL (80-94); Mean Platelet Volume 7.3 fL (7.4-10.4); Platelet Count 291 10^3/uL (150-450); Red Blood Count 2.96 10^6 /uL (4.18-5.48); Red Cell Distribution Width 22 % (10-15); White Blood Count 3.9 10^3/uL (3.5-10.8)
[2019-11-13 06:26] LABS: Albumin/Globulin Ratio 1.2 (1-3); BUN/Creatinine Ratio 13.4 (8-20); Calcium 7.8 mg/dL (8.6-10.3); EGFR Non-African American 38.9 (>60); Globulin 2.6 g/dL (2-4); Magnesium 1.9 mg/dL (1.9-2.7); Potassium 3.7 mmol/L (3.5-5.0); Total Bilirubin 0.4 mg/dL (0.2-1.0); Total Protein 5.6 g/dL (6.4-8.9)
[2019-11-13 06:47] LABS: ABS Lymphocytes 2.1 10^3/ul (1.0-4.8); ABS Monocytes 0.9 10^3/ul (0-0.8); ABS Neutrophils 0.8 10^3/ul (1.5-7.7); Lymphocyte % 54.9 %; Nucleated Red Blood Cells % 0.2
[2019-11-13] MEDS: cefTRIAXone(*) 1 GM in NS 0.9% 50 ML* 50 ML IVPB SCH (09:07)
[2019-11-13] MEDS: Pantoprazole TAB * 40 MG TAB PO SCH (09:07)
[2019-11-13] MEDS: NS 0.9% 1000 ML** 1,000 ML IV SCH (09:07)
[2019-11-13] MEDS: Magic Mouth Was-BEN/MAAL/LIDO SWISH SPIT SCH ×4 (10:41→22:44)
--- NOTE | 2019-11-13 13:36 | PN ---
Progress Note - Progress Note Date of Service: 11/13/19 SOAP: Subjective: [EGD/colonoscopy were WNL. Prior cecal and duodenal lesions appeared healed. He received 1U PRBCs yesterday. Reports he is still dizzy with standing after ~ 1 min. He is asx at rest. Tolerated scope well. Appetite good.] Objective: [ Vital Signs: Temp Pulse Resp BP Pulse Ox 98.3 F 50 20 119/49 100 11/13/19 03:15 11/13/19 03:15 11/13/19 03:15 11/13/19 03:15 11/13/19 03:15 Gabapentin (Neurontin Cap(*)) 100 mg PO TID PRN PRN Reason: PAIN - MODERATE Last Admin: 11/10/19 19:52 Dose: 100 mg Sodium Chloride (Ns 0.9% 1000 Ml) 1,000 mls @ 75 mls/hr IV [facility] Last Admin: 11/13/19 09:07 Dose: 75 mls/hr Multi-Ingredient Mouthwash/Gargle (Magic Mouth Was-Clyde/Maal/Lido*) 10 ml SWISH SPIT QID [facility] Last Admin: 11/13/19 13:16 Dose: Not Given Ondansetron HCl (Zofran Odt Tab*) 4 mg SL Q6H PRN PRN Reason: NAUSEA/VOMITING Last Admin: 11/10/19 19:54 Dose: 4 mg Oxycodone HCl (Roxycodone Tab*) 5 mg PO Q4H PRN PRN Reason: PAIN - SEVERE Last Admin: 11/10/19 19:53 Dose: 5 mg Pantoprazole Sodium (Protonix Tab*) 40 mg PO DAILY [facility] Last Admin: 11/13/19 09:07 Dose: 40 mg Polyethylene Glycol/Electrolytes (Miralax*) 17 gm PO DAILY PRN PRN Reason: CONSTIPATION Last Admin: 11/11/19 11:43 Dose: 17 gm Prednisone (Deltasone 20 Mg Tab) 40 mg PO DAILY [facility] Last Admin: 11/13/19 09:07 Dose: 40 mg Laboratory Results - last 24 hr 11/12/19 11/13/19 11/13/19 04:09 05:53 05:53 WBC 3.9 RBC 2.96 L Hgb 8.9 L Hct 27 L MCV 90 MCH 30 MCHC 34 RDW 22 H Plt Count 291 MPV 7.3 L Neut % (Auto) 20.5 Lymph % (Auto) 54.9 [place] % (Auto) 23.1 Eos % (Auto) 1.0 Baso % (Auto) 0.5 Absolute Neuts (auto) 0.8 L Absolute Lymphs (auto) 2.1 Absolute Monos (auto) 0.9 H Absolute Eos (auto) 0.0 Absolute Basos (auto) 0.0 Absolute Nucleated RBC 0.0 Nucleated RBC % 0.2 Sodium 139 Potassium 3.7 Chloride 115 H Carbon Dioxide 17 L Anion Gap 7 BUN 23 Creatinine 1.72 H Est GFR ( Amer) 47.0 Est GFR (Non-Af Amer) 38.9 BUN/Creatinine Ratio 13.4 Glucose 83 Calcium 7.8 L Magnesium 1.9 Total Bilirubin 0.40 AST 11 L ALT 8 Alkaline Phosphatase 51 Total Protein 5.6 L Albumin 3.0 L Globulin 2.6 Albumin/Globulin Ratio 1.2 Blood Type O Negative Antibody Screen Negative Crossmatch See Detail Exam Gen: 74 yo male in NAD, seated comfortably HEENT: Pale, OM moist, no oral lesions, no thrush Resp: CTA CV: Irregular, S1S2 Abd: +BS NT ND Ext: Tr edema Skin: no open lesions Assessment: 74 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 He has history of colonic ulcer on prior admission, stool guaiac positive. Treated with PRBC, IVF , antibiotics and steroids. Repeat upper and lower endoscopy shows no obvious source of bleeding or evidence of recent bleeding. He noted to now be neutropenic on labs today. Plan: 1. Anemia. Secondary to GI loss, marrow supression on MTX, CRI. - Given continued dizziness, Tx 1 U PRBC - Colonoscopy and EGD negative for any bleeding and prior ulcerations in the duodenum and cecum have resolved - Cont PPI 2. Neutropenia - now neutropenic, ANC 800 - unlikely due to prior MTX exposure, could be due to ceftriaxone which he was receiving for a presumed UTI but nonsignificant organism grew in small numbers on culture - stop ceftriaxone - consider BMBx if neutropenia does not improve over the next couple of days - no plans to initiate growth factor support at this time - neutropenic precautions 2. Syncopal symptoms. - adrenal insufficiency, now on Prednisone - give 1 additional unit of PRBCs today and reassess orthostatic VS following transfusion - nl echo from 08/2019 - consider carotid US and/or MRI brain if symptoms persist 3. MF. - On prednisone at this time but will start additional systemic chemotherapy on discharge. 4. CRI. - Improved with IVF. Dispo: cont inpatient stay. Hopeful for dc home within the next couple of days. ]
[2019-11-13] MEDS: Acetaminophen TAB* 325 MG PO PRN (22:44)
[2019-11-14] MEDS: NS 0.9% 1000 ML** 1,000 ML IV SCH (01:37)
--- NOTE | 2019-11-14 02:32 | PN ---
Hospitalist Progress Note Date of Service: 11/14/19 ON-CALL MD NOTE: Was notified on tele- having episodes of heart block second degree: Graeme Lew. Patient asleep at the time. Continue to monitor.
[2019-11-14] MEDS: Magic Mouth Was-BEN/MAAL/LIDO SWISH SPIT SCH ×4 (08:15→21:26)
[2019-11-14] MEDS: Pantoprazole TAB * 40 MG TAB PO SCH (08:16)
[2019-11-14 11:21] LABS: Albumin 3.4 g/dL (3.2-5.2); Albumin/Globulin Ratio 1.1 (1-3); BUN/Creatinine Ratio 17.7 (8-20); Calcium 8.1 mg/dL (8.6-10.3); EGFR African American 51.9 (>60); EGFR Non-African American 42.9 (>60); Globulin 3.1 g/dL (2-4); Potassium 3.4 mmol/L (3.5-5.0); Total Bilirubin 0.4 mg/dL (0.2-1.0); Total Protein 6.5 g/dL (6.4-8.9)
--- NOTE | 2019-11-14 12:02 | CONS ---
CC: Dr. Botello CARDIOLOGY CONSULTATION: DATE OF CONSULT: 11/14/19 INDICATION FOR CONSULTATION: Syncope, bradycardia. HISTORY OF PRESENT ILLNESS: The patient is a 74-year-old gentleman with a history of cutaneous T-adalberto l lymphoma, who was admitted to the hospital because of a syncopal episode. He was ultimately diagno sed with anemia. Workup including upper endoscopy and lower endoscopy was unremarkable. Since the patient has been in the hospital, he has had no episodes of syncope. His telemetry has ana wn continuous sinus bradycardia usually around 50 beats per minute during the day. At night, it does drop down to about 40 beats per minute. One episode of second-degree heart block type 1 when he was asleep with no symptoms. In speaking with the patient today, he really has no complaints. He states that he gets his heart ev aluated by Dr. Main in [place] once a year and has had no problems. PAST MEDICAL HISTORY: Significant for hyperlipidemia, peripheral vascular disease, renal insufficien cy, diabetes, cutaneous T-cell lymphoma. PAST SURGICAL HISTORY: Appendectomy, ulnar nerve repair, femoral stents. OUTPATIENT MEDICATIONS: 1. Aspirin 81 mg a day. 2. Plavix 75 mg a day. 3. Proscar 5 mg a day. 4. Lovastatin 20 mg a day. 5. Tamsulosin 0.4 mg a day. ALLERGIES: No known drug allergies. SOCIAL HISTORY: He is . He lives with his . He denies tobacco use; he quit in 2006. De nies alcohol use. Does not get any regular exercise. REVIEW OF SYSTEMS: Positive for fatigue. Negative for changes in bowel or bladder habits. Positive for slight weight loss. No fevers and chills. PHYSICAL EXAM: Height is 6 feet, weight is 197 pounds, temperature 98.7, heart rate is 59, blood pre ssure 143/48, respiratory rate is 18, oxygen saturation 98%. Sclerae anicteric. Oropharynx is pink w ithout erythema. Carotids are 2+ without bruits. JVD is normal. Thyroid is normal. Cardiac Exam: S1, S2 without any murmurs, rubs, or gallops. PMI is normal. Lungs are clear to auscultation bilat erally. There is no dullness to percussion. Abdomen is soft, nontender, nondistended with normoacti ve bowel sounds. Extremities show no edema. He has 2+ pulses throughout. He does have a rash on hi s entire body. The patient is awake, alert, and oriented. He moves all 4 extremities equally. DIAGNOSTIC STUDIES/LAB DATA: An echocardiogram done on 09/05/19 showed normal LV size and systolic f unction, left atrial enlargement, [id number] tricuspid regurgitation. Laboratory studies: White cell count 3.9, hemoglobin 9, hematocrit 27, platelet count 291. Chemistr ies: BUN 23, creatinine 1.7 which is at his baseline. AST and ALT are normal. IMPRESSION AND PLAN: This is a 74-year-old gentleman who has cutaneous T-cell lymphoma. He was admi tted to the hospital because of a syncopal episode. He was found to be anemic. While he has been in the hospital on telemetry, he has shown no significant arrhythmias. He does hav e sinus bradycardia at rest. He had 1 episode of normal sinus rhythm with second-degree heart block type 1. This occurred when he was at night and was asymptomatic. At this point, I do not think any other workup is necessary. His episode of syncope was likely due t o his low blood pressure and anemia. The patient will continue to follow up as an outpatient with Dr. Main. [id number]/[facility] #: [id number]
[2019-11-14 13:28] LABS: ABS Lymphocytes 0.9 10^3/ul (1.0-4.8); ABS Monocytes 0.4 10^3/ul (0-0.8); Eosinophil % 0.4 %; Hematocrit 33 % (42-52); Hemoglobin 10.9 g/dL (14.0-18.0); Lymphocyte % 38.7 %; Mean Corpuscular HGB Conc 33 g/dL (31-36); Mean Corpuscular Hemoglobin 31 pg (27-31); Mean Corpuscular Volume 92 fL (80-94); Mean Platelet Volume 7.3 fL (7.4-10.4); Nucleated Red Blood Cells % 0.1; Platelet Count 289 10^3/uL (150-450); Red Blood Count 3.56 10^6 /uL (4.18-5.48); Red Cell Distribution Width 22 % (10-15); White Blood Count 2.4 10^3/uL (3.5-10.8)
--- NOTE | 2019-11-14 14:22 | PN ---
Progress Note - Progress Note Date of Service: 11/14/19 SOAP: Subjective: [Feels a little better today. Still feels quite unsteady on his feet with ambulation. Repeat orthostatic VS after blood transfusion are still very positive with a 35 mmHg drop in BP and 35 bpm rise in HR. Overnight, he had 2 episodes of 2nd degree, type I heart block. He was asx and sleeping at that time. During the day, he remains in sinus bradycardia, but with appropriate HR response to activity.] Objective: [ Vital Signs: Temp Pulse Resp BP Pulse Ox 99 F 47 16 158/50 97 11/14/19 07:19 11/14/19 07:19 11/14/19 07:19 11/14/19 07:19 11/14/19 07:19 Acetaminophen (Tylenol Tab*) 650 mg PO Q6H PRN PRN Reason: MILD PAIN or TEMP > 100.4 Last Admin: 11/13/19 22:44 Dose: 650 mg Gabapentin (Neurontin Cap(*)) 100 mg PO TID PRN PRN Reason: PAIN - MODERATE Last Admin: 11/10/19 19:52 Dose: 100 mg Midodrine (Midodrine) 2.5 mg PO TID [facility]; Protocol Multi-Ingredient Mouthwash/Gargle (Magic Mouth Was-[place]/Maal/Lido*) 10 ml SWISH SPIT QID [facility] Last Admin: 11/14/19 13:43 Dose: 10 ml Ondansetron HCl (Zofran Odt Tab*) 4 mg SL Q6H PRN PRN Reason: NAUSEA/VOMITING Last Admin: 11/10/19 19:54 Dose: 4 mg Oxycodone HCl (Roxycodone Tab*) 5 mg PO Q4H PRN PRN Reason: PAIN - SEVERE Last Admin: 11/10/19 19:53 Dose: 5 mg Pantoprazole Sodium (Protonix Tab*) 40 mg PO DAILY [facility] Last Admin: 11/14/19 08:16 Dose: 40 mg Polyethylene Glycol/Electrolytes (Miralax*) 17 gm PO DAILY PRN PRN Reason: CONSTIPATION Last Admin: 11/11/19 11:43 Dose: 17 gm Prednisone (Deltasone 20 Mg Tab) 40 mg PO DAILY [facility] Last Admin: 11/14/19 08:16 Dose: 40 mg Laboratory Results - last 24 hr 11/12/19 11/14/19 11/14/19 04:09 10:59 13:21 WBC 2.4 L RBC 3.56 L Hgb 10.9 L Hct 33 L MCV 92 MCH 31 MCHC 33 RDW 22 H Plt Count 289 MPV 7.3 L Neut % (Auto) 44.7 Lymph % (Auto) 38.7 [place] % (Auto) 15.8 Eos % (Auto) 0.4 Baso % (Auto) 0.4 Absolute Neuts (auto) 1.0 L Absolute Lymphs (auto) 0.9 L Absolute Monos (auto) 0.4 Absolute Eos (auto) 0.0 Absolute Basos (auto) 0.0 Absolute Nucleated RBC 0.0 Nucleated RBC % 0.1 Sodium 138 Potassium 3.4 L Chloride 113 H Carbon Dioxide 17 L Anion Gap 8 BUN 28 H Creatinine 1.58 H Est GFR ( Amer) 51.9 Est GFR (Non-Af Amer) 42.9 BUN/Creatinine Ratio 17.7 Glucose 117 H Calcium 8.1 L Total Bilirubin 0.40 AST 17 ALT 11 Alkaline Phosphatase 57 Total Protein 6.5 Albumin 3.4 Globulin 3.1 Albumin/Globulin Ratio 1.1 Blood Type O Negative Antibody Screen Negative Crossmatch See Detail Exam Gen: 74 yo male in NAD, seated comfortably HEENT: Pale, OM moist, no oral lesions, no thrush Resp: CTA CV: Irregular, S1S2 Abd: +BS NT ND Ext: Tr edema Skin: no open lesions Assessment: 74 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 He has history of colonic ulcer on prior admission, stool guaiac positive. Treated with PRBC, IVF , antibiotics and steroids. Repeat upper and lower endoscopy shows no obvious source of bleeding or evidence of recent bleeding. He noted to now be neutropenic over the last few days. Noted 2nd degree, type I heart block overnight but asx. Plan: 1. Anemia. Ddx. GI loss, marrow supression on MTX, CRI - Colonoscopy and EGD negative for any bleeding and prior ulcerations in the duodenum and cecum have resolved - Cont PPI 2. Neutropenia - now neutropenic, ANC 800 yesterday, today improved to 1000 after stopping ceftriaxone - unlikely due to prior MTX exposure, could be due to recent ceftriaxone which he was receiving for a presumed UTI but nonsignificant organism grew in small numbers on culture - stopped ceftriaxone 11/13 - consider BMBx if neutropenia does not improve over the next couple of days - no plans to initiate growth factor support at this time - neutropenic precautions until ANC >1000 3. Syncopal symptoms. - adrenal insufficiency, now on Prednisone - remains symptomatic following blood transfusion - nl echo from 08/2019 - check carotid US - start midodrine 2.5 mg tid for persistent orthostatic hypotension - recheck orthostatic vital signs tomorrow am 4. MF. - On prednisone at this time but will start additional systemic chemotherapy on discharge. 5. CRI. - Improved with IVF. 6. 2nd degree, type I heart block with sinus bradycardia - requested cardiology consultation - unlikely to need additional evaluation - cont telemetry monitoring Dispo: cont inpatient stay. Reassess tomorrow am for possible dc tomorrow if improved with midodrine.
[2019-11-14] MEDS: Acetaminophen TAB* 325 MG PO PRN ×2 (15:24→21:25)
[2019-11-15 06:08] LABS: Hematocrit 33 % (42-52); Hemoglobin 11.2 g/dL (14.0-18.0); Mean Corpuscular HGB Conc 34 g/dL (31-36); Mean Corpuscular Hemoglobin 31 pg (27-31); Mean Corpuscular Volume 91 fL (80-94); Mean Platelet Volume 7.5 fL (7.4-10.4); Platelet Count 354 10^3/uL (150-450); Red Blood Count 3.58 10^6 /uL (4.18-5.48); Red Cell Distribution Width 21 % (10-15); White Blood Count 4.4 10^3/uL (3.5-10.8)
[2019-11-15 06:21] LABS: ABS Lymphocytes 2.3 10^3/ul (1.0-4.8); ABS Monocytes 1.1 10^3/ul (0-0.8); ABS Neutrophils 0.9 10^3/ul (1.5-7.7); Eosinophil % 0.2 %; Lymphocyte % 53.5 %; Nucleated Red Blood Cells % 0.1
[2019-11-15 06:25] LABS: BUN/Creatinine Ratio 19.2 (8-20); Calcium 8.3 mg/dL (8.6-10.3); EGFR African American 52.6 (>60); EGFR Non-African American 43.5 (>60); Potassium 3.8 mmol/L (3.5-5.0)
[2019-11-15] MEDS: Magic Mouth Was-BEN/MAAL/LIDO SWISH SPIT SCH ×2 (09:32→12:58)
[2019-11-15] MEDS: Pantoprazole TAB * 40 MG TAB PO SCH (09:33)
[2019-11-15] MEDS: Acetaminophen TAB* 325 MG PO PRN (09:38)
[2019-11-15 11:29] VITALS: BP 92/45
--- NOTE | 2019-11-15 12:57 | DS ---
- Discharge Summary Admission Date: 11/09/19 Discharge Date: 11/15/19 Discharge Diagnosis: 1. Orthostatic hypotension: related to adrenal insufficiency with low AM cortisol, slow improvement with addition of Midodrine 2. Anemia: partially related to prior chemotherapy (just under 1 mo. out from last Mtx.) and blood loss related to internal hemorrhoids 3. Cutaneous T-cell Lymphoma: on steroids for now with plan for second line therapy in near future Discharge Medications: Medication Instructions Recorded Confirmed Type Omeprazole 40 mg PO DAILY #30 capsule. 09/22/19 11/09/19 Rx oxyCODONE TAB* [Roxycodone TAB 5 5 mg PO Q4H PRN #90 tab MDD 20 mg 09/22/19 Rx mg*] Acetaminophen TAB* [Tylenol TAB*] 650 mg PO Q6H PRN tab 11/15/19 Rx Magic Mouth Was-LAZ/MAAL/LIDO* 10 ml SWISH SPIT QID PRN #0 ml 11/15/19 11/09/19 Rx Midodrine 2.5 mg PO TID #90 tab 11/15/19 Rx Ondansetron ODT TAB* [Zofran 4 MG 4 mg SL Q6H PRN #40 tab 11/15/19 Rx Odt TAB*] Polyethylene Glycol 3350* 17 gm PO DAILY PRN packet 11/15/19 Rx [Miralax*] predniSONE 20 mg TAB [Deltasone 20 40 mg PO DAILY #30 tab 11/15/19 Rx MG TAB*] Condition: Good Disposition: Home Diet: renal diet Activity: slow position changes, activity as tolerated, fall precautions Hospital Course: Please see admission note for full H&P, however, briefly, Mr. Delgado is well known to our service due to his unfortunate diagnosis of cutaneous T-cell Lymphoma. He was recently taken off of his dose reduced methotrexate due to progressive disease and has been monitored off therapy pending authorization of next line treatment. He presented to the [facility] on 11/09/19 with syncope and was found to be severely anemic and due to his malignancy was transferred to [facility] for further management. On admission a unit of blood was ordered and further work-up including AM cortisol to evaluate for adrenal insufficiency causing his orthostatic hypotension and stool occult blood to evaluate for recurrent GI bleed (prior ulcerations seen on EGD in August). He received a second unit on 11/10/19 and was started on Prednisone. Stool occult blood was positive on 11/10/19 and GI consult occurred on 11/11/19 followed by full EGD and colonoscopy on 11/12/19. This was negative for acute findings with resolution of prior ulceration and bleeding was felt most likely to have originated from internal hemorrhoids. Mr. Delgado received two additional units of blood on 11/12 and 11/13. With continued orthostatic hypotension and intermittent bradycardia cardiology was consulted on 11/14/19 with no recommendation for further work-up. Finally, a carotid Doppler was obtained to rule out underlying vascular compromise and this , too, was negative. On 11/14/19 Midodrine was added and Mr. Delgado tells me today he feels great and ready for discharge home. He continues to have orthostatic hypotension, however demonstrates safe transfers and feels less dizzy than on admission. He will be discharged home in good condition with plan to continue PPI and midodrine indefinitely. He will follow-up with Dr. Botello on 11/30/19 with plan to start second line therapy in the near future. He has been instructed to follow- up with both his primary care doctor and his manager life insurance in the near future.
== END 2019-11-15 14:24 | disposition home or self-care (01) | DRG 644 ==
LOC: MEDTELE 13:52
PROVIDERS: ADMIT Internal Medicine Hematology & Oncology; ATTEND Internal Medicine Hematology & Oncology
PROC: 0DJ08ZZ Inspection of Upper Intestinal Tract, Via Natural or Artificial Opening Endoscopic (ICD-10-PCS; principal; 2019-11-12)
PROC: 0DBP8ZZ Excision of Rectum, Via Natural or Artificial Opening Endoscopic (ICD-10-PCS; 2019-11-12)
PROC: 0DBN8ZZ Excision of Sigmoid Colon, Via Natural or Artificial Opening Endoscopic (ICD-10-PCS; 2019-11-12)
PROC: 30233N1 Transfusion of Nonautologous Red Blood Cells into Peripheral Vein, Percutaneous Approach (ICD-10-PCS; 2019-11-12)
DX: E27.40 Unspecified adrenocortical insufficiency (principal); C84.A0 Cutaneous T-cell lymphoma, unspecified, unspecified site; N39.0 Urinary tract infection, site not specified; I95.1 Orthostatic hypotension; D64.81 Anemia due to antineoplastic chemotherapy; T45.1X5A Adverse effect of antineoplastic and immunosuppressive drugs, initial encounter; Y92.9 Unspecified place or not applicable; Z79.899 Other long term (current) drug therapy; K64.8 Other hemorrhoids; D50.0 Iron deficiency anemia secondary to blood loss (chronic); R00.1 Bradycardia, unspecified; D70.1 Agranulocytosis secondary to cancer chemotherapy; I44.1 Atrioventricular block, second degree; E11.22 Type 2 diabetes mellitus with diabetic chronic kidney disease; I12.9 Hypertensive chronic kidney disease with stage 1 through stage 4 chronic kidney disease, or unspecified chronic kidney disease; N18.9 Chronic kidney disease, unspecified; K57.10 Diverticulosis of small intestine without perforation or abscess without bleeding; K57.30 Diverticulosis of large intestine without perforation or abscess without bleeding; K63.5 Polyp of colon; K62.1 Rectal polyp; E11.51 Type 2 diabetes mellitus with diabetic peripheral angiopathy without gangrene
CPT/HCPCS: 36415; 80048; 80053; 81003; 81015; 82272; 82533; 83036; 83735; 85014; 85018; 85025; 86618; 86850; 86900; 86901; 86922; 87086; 87106; 88305; 93880; 99156; 99157; 99222; 99232; 99233; A9270-GY; J0696; J2250; J3010; J7512; P9040

== ENCOUNTER 2020-07-13 14:48 | Inpatient (IN) ==
[2020-07-13] MEDS ORDERED: Lactated Ringers 1000 ml BAG 1,000 ML IV ONE ×2 (15:24→21:12)
[2020-07-13] MEDS ORDERED: Lactated Ringers 1000 ml BAG 1,000 ML IV SCH ×2 (16:00→18:00)
[2020-07-13 16:21] LABS: Hematocrit 20 % (42-52); Hemoglobin 6.5 g/dL (14.0-18.0); Mean Corpuscular HGB Conc 32 g/dL (31-36); Mean Corpuscular Hemoglobin 29 pg (27-31); Mean Corpuscular Volume 90 fL (80-94); Red Blood Count 2.26 10^6 /uL (4.18-5.48); Red Cell Distribution Width 14 % (10-15); White Blood Count 8.3 10^3/uL (3.5-10.8)
[2020-07-13 16:43] LABS: Activated Partial Thrombo Time 26.8 seconds (26.0-38.0); INR 1.95 (0.82-1.09)
[2020-07-13 16:46] LABS: ALT 4 U/L (7-52); AST 8 U/L (13-39); Albumin 2.7 g/dL (3.2-5.2); Albumin/Globulin Ratio 1.1 (1-3); Alkaline Phosphatase 46 U/L (34-104); BUN/Creatinine Ratio 22.5 (8-20); Blood Urea Nitrogen 40 mg/dL (6-24); CO2 Carbon Dioxide 17 mmol/L (22-32); EGFR African American 45.1 (>60); EGFR Non-African American 37.2 (>60); Globulin 2.4 g/dL (2-4); Glucose 98 mg/dL (70-100); Potassium 3.7 mmol/L (3.5-5.0); Sodium 141 mmol/L (135-145); Total Protein 5.1 g/dL (6.4-8.9)
[2020-07-13 16:48] LABS: Anion Gap 8 mmol/L (2-11); Chloride 116 mmol/L (101-111)
[2020-07-13 16:49] LABS: Urine Appearance Turbid; Urine Color Red
[2020-07-13 16:51] LABS: Troponin I 1.74 ng/mL (<0.03)
[2020-07-13 16:52] LABS: Calcium 6.4 mg/dL (8.6-10.3)
[2020-07-13 17:02] LABS: TSH Ultra Thyroid Stim Horm 0.07 mcIU/mL (0.34-5.60); Urine Bacteria Absent (Absent); Urine Red Blood Cell 3+(>10/hpf) (Absent); Urine Specific Gravity 1.012 (1.010-1.030); Urine White Blood Cell 2+(11-20/hpf) (Absent)
[2020-07-13 17:04] LABS: Free T4 0.84 ng/dL (0.61-1.12)
[2020-07-13 17:11] LABS: ABS Monocytes 0.7 10^3/ul (0-0.8); ABS Neutrophils 5.5 10^3/ul (1.5-7.7); Eosinophil % 0.5 %; Lymphocyte % 23.9 %
[2020-07-13 17:13] LABS: Spherocytes 1+
[2020-07-13 17:15] LABS: Mean Platelet Volume 9.2 fL (7.4-10.4); Platelet Count 61 10^3/uL (150-450)
[2020-07-13] MEDS ORDERED: Calcium Gluconate 3 GM in NS 0.9% 250 ml 250 ML IVPB ONE (17:20)
[2020-07-13] MEDS ORDERED: Vancomycin 1,000 MG in NS 0.9% 250 ml 250 ML IV ONE (17:23)
[2020-07-13] MEDS ORDERED: Dextrose 50% Syringe 50 ml 25 GM/50 ML SYRINGE IV PUSH PRN (18:04)
[2020-07-13] MEDS: Pantoprazole VIAL 40 MG VIAL IV SCH (18:10)
[2020-07-13] MEDS ORDERED: cefTRIAXone 1 gm/50 mL NS BAG 1 GM/50 ML BAG IVPB SCH (18:30)
[2020-07-13] MEDS ORDERED: Acetaminophen IV 1 GM/100ML 100 ML IVPB ONE (19:45)
[2020-07-13 20:32] LABS: Hematocrit 23 % (42-52); Hemoglobin 7.5 g/dL (14.0-18.0); Mean Corpuscular HGB Conc 32 g/dL (31-36); Mean Corpuscular Hemoglobin 29 pg (27-31); Mean Corpuscular Volume 90 fL (80-94); Red Blood Count 2.61 10^6 /uL (4.18-5.48); Red Cell Distribution Width 14 % (10-15); White Blood Count 8.4 10^3/uL (3.5-10.8)
[2020-07-13 20:42] LABS: Troponin I 3.04 ng/mL (<0.03)
[2020-07-13 20:53] LABS: Anion Gap 10 mmol/L (2-11); BUN/Creatinine Ratio 20.6 (8-20); Blood Urea Nitrogen 45 mg/dL (6-24); CO2 Carbon Dioxide 18 mmol/L (22-32); Chloride 111 mmol/L (101-111); EGFR African American 35.7 (>60); EGFR Non-African American 29.5 (>60); Glucose 115 mg/dL (70-100); Potassium 4.3 mmol/L (3.5-5.0); Sodium 139 mmol/L (135-145)
[2020-07-13 21:01] LABS: ABS Lymphocytes 2.4 10^3/ul (1.0-4.8); ABS Monocytes 0.8 10^3/ul (0-0.8); ABS Neutrophils 5.2 10^3/ul (1.5-7.7); Eosinophil % 0.5 %; Lymphocyte % 28.5 %; Mean Platelet Volume 9.6 fL (7.4-10.4); Platelet Count 68 10^3/uL (150-450)
[2020-07-13 23:17] LABS: Troponin I 2.88 ng/mL (<0.03)
[2020-07-14 02:25] LABS: Urine Appearance Turbid; Urine Bacteria Absent (Absent); Urine Bilirubin Negative (Negative); Urine Blood 3+ (Negative); Urine Glucose Negative (Negative); Urine Ketones Negative (Negative); Urine Nitrite Negative (Negative); Urine Protein 2+(100 mg/dL) (Negative); Urine Red Blood Cell 3+(>10/hpf) (Absent); Urine Urobilinogen Negative (Negative); Urine White Blood Cell 3+(>20/hpf) (Absent)
[2020-07-14] MEDS ORDERED: Lactated Ringers 1000 ml BAG 1,000 ML IV ONE (02:32)
[2020-07-14 03:10] LABS: ABS Lymphocytes 1.3 10^3/ul (1.0-4.8); ABS Monocytes 0.8 10^3/ul (0-0.8); ABS Neutrophils 4.9 10^3/ul (1.5-7.7); BUN/Creatinine Ratio 18.7 (8-20); Calcium 8.1 mg/dL (8.6-10.3); EGFR African American 35.5 (>60); EGFR Non-African American 29.3 (>60); Eosinophil % 0.4 %; Hematocrit 23 % (42-52); Hemoglobin 7.4 g/dL (14.0-18.0); Lymphocyte % 17.9 %; Mean Corpuscular HGB Conc 33 g/dL (31-36); Mean Corpuscular Hemoglobin 29 pg (27-31); Mean Corpuscular Volume 88 fL (80-94); Mean Platelet Volume 9.4 fL (7.4-10.4); Platelet Count 61 10^3/uL (150-450); Potassium 4.3 mmol/L (3.5-5.0); Red Blood Count 2.58 10^6 /uL (4.18-5.48); Red Cell Distribution Width 14 % (10-15); White Blood Count 7.1 10^3/uL (3.5-10.8)
[2020-07-14 03:16] LABS: Urine Color Yellow
[2020-07-14] MEDS ORDERED: Norepinephrine 16MCG/ML IVPRE 4,000 MCG/250 ML BAG IV ONE (04:03)
[2020-07-14 04:44] LABS: ALT 4 U/L (7-52); AST 12 U/L (13-39); Albumin 2.4 g/dL (3.2-5.2); Alkaline Phosphatase 43 U/L (34-104); BUN/Creatinine Ratio 18.6 (8-20); Blood Urea Nitrogen 39 mg/dL (6-24); CO2 Carbon Dioxide 19 mmol/L (22-32); Calcium 7.9 mg/dL (8.6-10.3); EGFR African American 37.2 (>60); EGFR Non-African American 30.8 (>60); Globulin 2.3 g/dL (2-4); Glucose 107 mg/dL (70-100); Magnesium 1.5 mg/dL (1.9-2.7); Phosphorus 3.3 mg/dL (2.5-5.0); Potassium 4.1 mmol/L (3.5-5.0); Sodium 138 mmol/L (135-145); Total Protein 4.7 g/dL (6.4-8.9)
[2020-07-14 04:49] LABS: Anion Gap 7 mmol/L (2-11); Chloride 112 mmol/L (101-111)
[2020-07-14] MEDS ORDERED: Norepinephrine 16MCG/ML IVPREMIX 4,000 MCG/250 ML BAG IV SCH (05:00)
[2020-07-14 05:41] LABS: ABS Lymphocytes 1.5 10^3/ul (1.0-4.8); ABS Monocytes 0.9 10^3/ul (0-0.8); ABS Neutrophils 4.7 10^3/ul (1.5-7.7); Eosinophil % 0.5 %; Hematocrit 20 % (42-52); Hemoglobin 6.8 g/dL (14.0-18.0); Lymphocyte % 21.1 %; Mean Corpuscular HGB Conc 34 g/dL (31-36); Mean Corpuscular Hemoglobin 30 pg (27-31); Mean Corpuscular Volume 87 fL (80-94); Mean Platelet Volume 9.4 fL (7.4-10.4); Platelet Count 58 10^3/uL (150-450); Red Blood Count 2.31 10^6 /uL (4.18-5.48); Red Cell Distribution Width 14 % (10-15); White Blood Count 7.1 10^3/uL (3.5-10.8)
[2020-07-14] MEDS ORDERED: Magnesium Sulfate 2 gm BAG 2 GM/50 ML BAG IVPB ONE (07:21)
[2020-07-14] MEDS ORDERED: Magnesium Sulfate IV 1GM/100ML 1 GM/100 ML BAG IV ONE (07:21)
[2020-07-14] MEDS ORDERED: Magnesium Sulfate 3 GM IV IVPB ONE (08:00)
[2020-07-14] MEDS ORDERED: Perflutren Lipid Microsphere 3 ML VIAL ONE (08:36)
[2020-07-14] MEDS: Hydrocortisone INJ 100 MG/2ML 2 ML VIAL IV SCH ×3 (09:21→23:55)
[2020-07-14 09:30] LABS: Troponin I 3.62 ng/mL (<0.03)
[2020-07-14] MEDS: Pantoprazole VIAL 40 MG VIAL IV SCH (17:26)
[2020-07-14] MEDS: Cefepime 2 GM in Dextrose 2 GM/50 ML BAG IV SCH (17:44)
[2020-07-14 18:30] LABS: Hematocrit 26 % (42-52); Hemoglobin 8.5 g/dL (14.0-18.0); Mean Corpuscular HGB Conc 33 g/dL (31-36); Mean Corpuscular Hemoglobin 29 pg (27-31); Mean Corpuscular Volume 89 fL (80-94); Mean Platelet Volume 9.8 fL (7.4-10.4); Platelet Count 65 10^3/uL (150-450); Red Blood Count 2.91 10^6 /uL (4.18-5.48); Red Cell Distribution Width 14 % (10-15); White Blood Count 7.8 10^3/uL (3.5-10.8)
[2020-07-14 18:44] LABS: ABS Monocytes 0.6 10^3/ul (0-0.8); ABS Neutrophils 6.2 10^3/ul (1.5-7.7); Eosinophil % 0.3 %; Lymphocyte % 12.6 %; Nucleated Red Blood Cells % 0.1
[2020-07-14 21:16] LABS: ABS Monocytes 0.3 10^3/ul (0-0.8); ABS Neutrophils 4.7 10^3/ul (1.5-7.7); Eosinophil % 0.1 %; Hematocrit 24 % (42-52); Hemoglobin 8.1 g/dL (14.0-18.0); Lymphocyte % 16.5 %; Mean Corpuscular HGB Conc 34 g/dL (31-36); Mean Corpuscular Hemoglobin 30 pg (27-31); Mean Corpuscular Volume 89 fL (80-94); Mean Platelet Volume 9.6 fL (7.4-10.4); Platelet Count 71 10^3/uL (150-450); Red Blood Count 2.72 10^6 /uL (4.18-5.48); Red Cell Distribution Width 14 % (10-15)
[2020-07-14 21:25] LABS: Anion Gap 8 mmol/L (2-11); BUN/Creatinine Ratio 18.1 (8-20); Blood Urea Nitrogen 38 mg/dL (6-24); CO2 Carbon Dioxide 19 mmol/L (22-32); Calcium 7.9 mg/dL (8.6-10.3); Chloride 109 mmol/L (101-111); EGFR African American 37.2 (>60); EGFR Non-African American 30.8 (>60); Glucose 221 mg/dL (70-100); Magnesium 2.3 mg/dL (1.9-2.7); Sodium 136 mmol/L (135-145)
[2020-07-14 21:54] LABS: Troponin I 1.52 ng/mL (<0.03)
[2020-07-15] MEDS: Cefepime 2 GM in Dextrose 2 GM/50 ML BAG IV SCH ×2 (05:16→17:26)
[2020-07-15 06:22] LABS: ABS Lymphocytes 1.5 10^3/ul (1.0-4.8); ABS Monocytes 0.4 10^3/ul (0-0.8); ABS Neutrophils 4.1 10^3/ul (1.5-7.7); Albumin 2.7 g/dL (3.2-5.2); Calcium 7.9 mg/dL (8.6-10.3); Eosinophil % 0.1 %; Hematocrit 24 % (42-52); Hemoglobin 8.2 g/dL (14.0-18.0); Lymphocyte % 25.1 %; Magnesium 2.4 mg/dL (1.9-2.7); Mean Corpuscular HGB Conc 34 g/dL (31-36); Mean Corpuscular Hemoglobin 30 pg (27-31); Mean Corpuscular Volume 88 fL (80-94); Mean Platelet Volume 9.9 fL (7.4-10.4); Platelet Count 70 10^3/uL (150-450); Potassium 4.2 mmol/L (3.5-5.0); Red Blood Count 2.72 10^6 /uL (4.18-5.48); Red Cell Distribution Width 14 % (10-15); Total Bilirubin 0.4 mg/dL (0.2-1.0); White Blood Count 6.1 10^3/uL (3.5-10.8)
[2020-07-15 06:28] LABS: Albumin/Globulin Ratio 1.1 (1-3); BUN/Creatinine Ratio 18.4 (8-20); EGFR African American 34.7 (>60); EGFR Non-African American 28.7 (>60); Globulin 2.5 g/dL (2-4); Phosphorus 4.7 mg/dL (2.5-5.0); Total Protein 5.2 g/dL (6.4-8.9)
[2020-07-15] MEDS: Hydrocortisone INJ 100 MG/2ML 2 ML VIAL IV SCH ×3 (07:44→21:26)
[2020-07-15] MEDS: Pantoprazole VIAL 40 MG VIAL IV SCH ×2 (10:22→21:10)
[2020-07-15] MEDS: Lidocaine 2% JELLY 6 ML TOPICAL PRN (13:20)
[2020-07-16] MEDS: Cefepime 2 GM in Dextrose 2 GM/50 ML BAG IV SCH ×2 (03:58→16:00)
[2020-07-16] MEDS: Pantoprazole VIAL 40 MG VIAL IV SCH ×2 (08:51→20:46)
[2020-07-16] MEDS: Hydrocortisone INJ 100 MG/2ML 2 ML VIAL IV SCH (08:52)
[2020-07-17] MEDS: Cefepime 2 GM in Dextrose 2 GM/50 ML BAG IV SCH ×2 (04:56→16:40)
[2020-07-17] MEDS: Pantoprazole VIAL 40 MG VIAL IV SCH ×2 (09:16→20:40)
[2020-07-18] MEDS: Cefepime 2 GM in Dextrose 2 GM/50 ML BAG IV SCH ×2 (05:06→16:21)
[2020-07-18] MEDS ORDERED: BEXAROTENE PO SCH (09:00)
[2020-07-18] MEDS: Pantoprazole VIAL 40 MG VIAL IV SCH ×2 (09:11→19:23)
[2020-07-18] MEDS: BEXAROTENE PO SCH (10:41)
[2020-07-19] MEDS: Cefepime 2 GM in Dextrose 2 GM/50 ML BAG IV SCH ×2 (05:38→16:45)
[2020-07-19] MEDS: Pantoprazole VIAL 40 MG VIAL IV SCH (07:28)
[2020-07-19] MEDS: BEXAROTENE PO SCH (07:28)
[2020-07-19] MEDS ORDERED: HYDROmorphone 1 MG/1 ML SYRINGE IV SLOW PU ONE (09:19)
[2020-07-19] MEDS ORDERED: Morphine 2 MG/ML SYRINGE IV PRN (17:25)
[2020-07-19 18:51] LABS: Hematocrit 24 % (42-52); Mean Corpuscular HGB Conc 34 g/dL (31-36); Mean Corpuscular Hemoglobin 31 pg (27-31); Mean Corpuscular Volume 91 fL (80-94); Mean Platelet Volume 8.4 fL (7.4-10.4); Platelet Count 153 10^3/uL (150-450); Red Blood Count 2.62 10^6 /uL (4.18-5.48); Red Cell Distribution Width 15 % (10-15); White Blood Count 8.2 10^3/uL (3.5-10.8)
[2020-07-19 19:07] LABS: BUN/Creatinine Ratio 17.3 (8-20); Calcium 7.4 mg/dL (8.6-10.3); EGFR African American 40.1 (>60); EGFR Non-African American 33.1 (>60); Potassium 4.2 mmol/L (3.5-5.0)
[2020-07-20] MEDS: Cefepime 2 GM in Dextrose 2 GM/50 ML BAG IV SCH ×2 (06:00→16:28)
[2020-07-20] MEDS ORDERED: Phenylephrine IV 10 MG/ML 1 ml VIAL ONE (08:13)
[2020-07-20] MEDS ORDERED: Remifentanil 2 MG VIAL ONE (08:22)
[2020-07-20] MEDS ORDERED: Iohexol 180 (CONTRAST) 10 ML SDV IV ONE (08:37)
[2020-07-20 08:56] LABS: ABS Eosinophils 0.3 10^3/ul (0-0.6); ABS Monocytes 1.1 10^3/ul (0-0.8); ABS Neutrophils 5.1 10^3/ul (1.5-7.7); Eosinophil % 3.5 %; Hematocrit 24 % (42-52); Hemoglobin 8.1 g/dL (14.0-18.0); Lymphocyte % 31.6 %; Mean Corpuscular HGB Conc 33 g/dL (31-36); Mean Corpuscular Hemoglobin 30 pg (27-31); Mean Corpuscular Volume 91 fL (80-94); Mean Platelet Volume 8.9 fL (7.4-10.4); Platelet Count 149 10^3/uL (150-450); Red Blood Count 2.68 10^6 /uL (4.18-5.48); Red Cell Distribution Width 15 % (10-15); White Blood Count 9.5 10^3/uL (3.5-10.8)
[2020-07-20] MEDS ORDERED: Propofol 10 MG/ML 20 ML BTL ONE (09:01)
[2020-07-20] MEDS ORDERED: Lidocaine 2% PF 5 ML VIAL ONE (09:01)
[2020-07-20 09:03] LABS: Calcium 7.8 mg/dL (8.6-10.3); EGFR African American 40.8 (>60); EGFR Non-African American 33.7 (>60); Potassium 4.3 mmol/L (3.5-5.0)
[2020-07-20] MEDS ORDERED: Midazolam 2 mg/2 ml VIAL 1 mg/ml 2 ml VIAL (2 mg) ONE (09:09)
[2020-07-20] MEDS ORDERED: Ondansetron 4 mg VIAL 2 MG/ML 2 ml VIAL IV PRN (10:09)
[2020-07-20] MEDS ORDERED: fentaNYL 100 mcg/2 ml 50 MCG/ML VIAL IV PRN (10:09)
[2020-07-20] MEDS ORDERED: Naloxone 0.4 mg VIAL 0.4 mg/ml 1 ml VIAL IV PRN (10:09)
[2020-07-20] MEDS: BEXAROTENE PO SCH (12:30)
[2020-07-21] MEDS: Lidocaine 2% JELLY 6 ML TOPICAL PRN (03:32)
[2020-07-21] MEDS: BEXAROTENE PO SCH (08:54)
[2020-07-21 11:12] VITALS: BP 107/70
[2020-07-21 11:13] LABS: Urine Appearance Cloudy; Urine Color Red
[2020-07-21 11:25] LABS: Urine Specific Gravity 1.011 (1.010-1.030)
[2020-07-21 11:34] LABS: Urine Bacteria 2+ (Absent); Urine Red Blood Cell 3+(>10/hpf) (Absent); Urine Squamous Epithelial Cell Present (Absent); Urine White Blood Cell 3+(>20/hpf) (Absent)
[2020-07-27 16:04] LABS: TCG Specimen Type BLADDER BIOPSY
== END 2020-07-21 13:07 | disposition home or self-care (01) | DRG 853 ==
LOC: ED 14:48 → ICU 16:42 → MEDTELE 07-15 14:33
PROVIDERS: ADMIT Internal Medicine; ATTEND Internal Medicine

== ENCOUNTER 2020-07-26 17:16 | Inpatient (IN) ==
[2020-07-26] MEDS ORDERED: NS 0.9% 1000 ml BAG 1,000 ML IV ONE ×2 (17:30→19:05)
[2020-07-26 19:08] LABS: ALT 5 U/L (7-52); AST 11 U/L (13-39); Albumin/Globulin Ratio 0.8 (1-3); Alkaline Phosphatase 64 U/L (34-104); Anion Gap 10 mmol/L (2-11); BUN/Creatinine Ratio 11.5 (8-20); Blood Urea Nitrogen 30 mg/dL (6-24); CO2 Carbon Dioxide 19 mmol/L (22-32); Chloride 109 mmol/L (101-111); EGFR African American 28.8 (>60); EGFR Non-African American 23.8 (>60); Globulin 3.7 g/dL (2-4); Glucose 103 mg/dL (70-100); Magnesium 1.8 mg/dL (1.9-2.7); Potassium 4.8 mmol/L (3.5-5.0); Sodium 138 mmol/L (135-145); Total Protein 6.7 g/dL (6.4-8.9)
[2020-07-26 19:22] LABS: ABS Monocytes 0.7 10^3/ul (0-0.8); ABS Neutrophils 7.8 10^3/ul (1.5-7.7); Eosinophil % 0.2 %; Hematocrit 24 % (42-52); Hemoglobin 7.4 g/dL (14.0-18.0); Mean Corpuscular HGB Conc 32 g/dL (31-36); Mean Corpuscular Hemoglobin 29 pg (27-31); Mean Corpuscular Volume 91 fL (80-94); Mean Platelet Volume 8.4 fL (7.4-10.4); Platelet Count 213 10^3/uL (150-450); Red Blood Count 2.59 10^6 /uL (4.18-5.48); Red Cell Distribution Width 15 % (10-15); TSH Ultra Thyroid Stim Horm 0.69 mcIU/mL (0.34-5.60); White Blood Count 9.5 10^3/uL (3.5-10.8)
[2020-07-26 19:24] LABS: Troponin I 0.16 ng/mL (<0.03)
[2020-07-26] MEDS ORDERED: cefTRIAXone 1 gm/50 mL NS BAG 1 GM/50 ML BAG IV ONE (19:25)
[2020-07-26] MEDS ORDERED: Magnesium Sulfate IV 1GM/100ML 1 GM/100 ML BAG IV ONE (19:32)
[2020-07-26 20:04] LABS: Urine Appearance Turbid; Urine Bilirubin Negative (Negative); Urine Blood 2+ (Negative); Urine Color Yellow; Urine Glucose Negative (Negative); Urine Ketones Trace (Negative); Urine Nitrite Negative (Negative); Urine Protein 2+(100 mg/dL) (Negative); Urine Specific Gravity 1.011 (1.010-1.030); Urine Urobilinogen Negative (Negative)
[2020-07-26 20:08] LABS: Urine Bacteria Absent (Absent); Urine Red Blood Cell 3+(>10/hpf) (Absent); Urine White Blood Cell 3+(>20/hpf) (Absent)
[2020-07-26] MEDS ORDERED: Ondansetron 4 mg VIAL 2 MG/ML 2 ml VIAL IV PRN (20:25)
[2020-07-26] MEDS ORDERED: Enoxaparin 30 MG/0.3 ML SYR SUBCUT SCH (21:00)
[2020-07-27] MEDS: Cefepime 1 GM in Dextrose 1 GM/50 ML BAG IV SCH ×2 (00:27→21:37)
[2020-07-27] MEDS: CMCS: Lovastatin 10 mg TAB (NF) PO SCH (08:43)
[2020-07-27 09:21] LABS: Hematocrit 23 % (42-52); Hemoglobin 7.4 g/dL (14.0-18.0); Mean Corpuscular HGB Conc 32 g/dL (31-36); Mean Corpuscular Hemoglobin 29 pg (27-31); Mean Corpuscular Volume 90 fL (80-94); Red Blood Count 2.53 10^6 /uL (4.18-5.48); Red Cell Distribution Width 15 % (10-15)
[2020-07-27 09:24] LABS: Anion Gap 12 mmol/L (2-11); BUN/Creatinine Ratio 12.6 (8-20); Blood Urea Nitrogen 32 mg/dL (6-24); CO2 Carbon Dioxide 16 mmol/L (22-32); Calcium 7.7 mg/dL (8.6-10.3); Chloride 110 mmol/L (101-111); EGFR Non-African American 24.8 (>60); Glucose 82 mg/dL (70-100); Potassium 4.6 mmol/L (3.5-5.0); Sodium 138 mmol/L (135-145)
[2020-07-27 09:34] LABS: Troponin I 0.14 ng/mL (<0.03)
[2020-07-27] MEDS ORDERED: Furosemide 40 mg/4 ml IV VIAL IV ONE (09:36)
[2020-07-27 11:22] LABS: ABS Basophils 0.2 10^3/ul (0-0.2); ABS Eosinophils 0.2 10^3/ul (0-0.6); ABS Lymphocytes 3.1 10^3/ul (1.0-4.8); ABS Monocytes 0.9 10^3/ul (0-0.8); ABS Neutrophils 6.7 10^3/ul (1.5-7.7); Eosinophil % 1.5 %; Lymphocyte % 28.3 %; Mean Platelet Volume 8.5 fL (7.4-10.4); Platelet Count 192 10^3/uL (150-450)
[2020-07-28] MEDS: CMCS: Lovastatin 10 mg TAB (NF) PO SCH (10:04)
[2020-07-28 10:22] LABS: ABS Basophils 0.1 10^3/ul (0-0.2); ABS Eosinophils 0.2 10^3/ul (0-0.6); ABS Lymphocytes 2.4 10^3/ul (1.0-4.8); ABS Monocytes 0.6 10^3/ul (0-0.8); ABS Neutrophils 4.9 10^3/ul (1.5-7.7); Eosinophil % 2.4 %; Hematocrit 22 % (42-52); Hemoglobin 7.3 g/dL (14.0-18.0); Lymphocyte % 29.5 %; Mean Corpuscular HGB Conc 33 g/dL (31-36); Mean Corpuscular Hemoglobin 30 pg (27-31); Mean Corpuscular Volume 90 fL (80-94); Mean Platelet Volume 8.6 fL (7.4-10.4); Nucleated Red Blood Cells % 0.1; Platelet Count 233 10^3/uL (150-450); Red Blood Count 2.46 10^6 /uL (4.18-5.48); Red Cell Distribution Width 15 % (10-15); White Blood Count 8.2 10^3/uL (3.5-10.8)
[2020-07-28 10:26] LABS: BUN/Creatinine Ratio 12.8 (8-20); Calcium 7.8 mg/dL (8.6-10.3); EGFR African American 24.9 (>60); EGFR Non-African American 20.6 (>60); Potassium 4.3 mmol/L (3.5-5.0)
[2020-07-28] MEDS: Sodium Bicarb 650 mg (ANTACID) TAB PO SCH (21:53)
[2020-07-28] MEDS: Cefepime 0.5 GM in NS 0.9% 50 ML 50 ML IVPB SCH (22:42)
[2020-07-29 07:00] LABS: ABS Basophils 0.1 10^3/ul (0-0.2); ABS Eosinophils 0.3 10^3/ul (0-0.6); ABS Lymphocytes 2.1 10^3/ul (1.0-4.8); ABS Monocytes 0.4 10^3/ul (0-0.8); ABS Neutrophils 2.9 10^3/ul (1.5-7.7); Eosinophil % 4.7 %; Hematocrit 20 % (42-52); Hemoglobin 6.6 g/dL (14.0-18.0); Lymphocyte % 36.1 %; Mean Corpuscular HGB Conc 33 g/dL (31-36); Mean Corpuscular Hemoglobin 29 pg (27-31); Mean Corpuscular Volume 90 fL (80-94); Mean Platelet Volume 8.3 fL (7.4-10.4); Platelet Count 206 10^3/uL (150-450); Red Blood Count 2.27 10^6 /uL (4.18-5.48); Red Cell Distribution Width 15 % (10-15); White Blood Count 5.7 10^3/uL (3.5-10.8)
[2020-07-29 07:15] LABS: Anion Gap 10 mmol/L (2-11); BUN/Creatinine Ratio 12.7 (8-20); Blood Urea Nitrogen 36 mg/dL (6-24); CO2 Carbon Dioxide 19 mmol/L (22-32); Calcium 7.7 mg/dL (8.6-10.3); Chloride 110 mmol/L (101-111); EGFR African American 26.4 (>60); EGFR Non-African American 21.8 (>60); Glucose 85 mg/dL (70-100); Potassium 4.2 mmol/L (3.5-5.0); Sodium 139 mmol/L (135-145)
[2020-07-29] MEDS: CMCS: Lovastatin 10 mg TAB (NF) PO SCH (09:50)
[2020-07-29] MEDS: Sodium Bicarb 650 mg (ANTACID) TAB PO SCH ×2 (09:53→19:59)
[2020-07-29 12:13] LABS: Corrected Retic Count 0.9 % (0.5-1.5); Hematocrit for Retic CNT 21 % (42-52); Immature Retic Fraction 0.61; RBC Retic Count 2.31 10^6/uL (4.18-5.48)
[2020-07-29 12:18] LABS: % Iron Saturation 15 % (15-55); Iron 27 ug/dL (50-212); LDH 127 U/L (140-271); Total Iron Binding Capacity 185 mcg/dL (250-450); Transferrin 132 mg/dL (203-362); Unsaturated Iron Binding < 170 ug/dL
[2020-07-29 12:38] LABS: Ferritin 626.4 ng/mL (24-336)
[2020-07-29 14:59] LABS: Urine Appearance Turbid; Urine Bacteria Absent (Absent); Urine Bilirubin Negative (Negative); Urine Blood 3+ (Negative); Urine Color Amber; Urine Glucose Negative (Negative); Urine Ketones Negative (Negative); Urine Nitrite Negative (Negative); Urine Protein 2+(100 mg/dL) (Negative); Urine Red Blood Cell 3+(>10/hpf) (Absent); Urine Specific Gravity 1.011 (1.010-1.030); Urine Urobilinogen Negative (Negative); Urine White Blood Cell 3+(>20/hpf) (Absent)
[2020-07-29] MEDS: Cefepime 0.5 GM in NS 0.9% 50 ML 50 ML IVPB SCH (23:10)
[2020-07-30 06:22] LABS: ABS Eosinophils 0.3 10^3/ul (0-0.6); ABS Lymphocytes 2.8 10^3/ul (1.0-4.8); ABS Monocytes 0.4 10^3/ul (0-0.8); ABS Neutrophils 2.3 10^3/ul (1.5-7.7); Eosinophil % 4.3 %; Hematocrit 21 % (42-52); Hemoglobin 7.1 g/dL (14.0-18.0); Lymphocyte % 48.3 %; Mean Corpuscular HGB Conc 33 g/dL (31-36); Mean Corpuscular Hemoglobin 30 pg (27-31); Mean Corpuscular Volume 89 fL (80-94); Mean Platelet Volume 8.1 fL (7.4-10.4); Nucleated Red Blood Cells % 0.1; Platelet Count 220 10^3/uL (150-450); Red Cell Distribution Width 15 % (10-15); White Blood Count 5.9 10^3/uL (3.5-10.8)
[2020-07-30 06:37] LABS: BUN/Creatinine Ratio 11.8 (8-20); Calcium 7.7 mg/dL (8.6-10.3); EGFR African American 26.8 (>60); EGFR Non-African American 22.2 (>60); Potassium 4.2 mmol/L (3.5-5.0)
[2020-07-30] MEDS: CMCS: Lovastatin 10 mg TAB (NF) PO SCH (10:03)
[2020-07-30] MEDS: Sodium Bicarb 650 mg (ANTACID) TAB PO SCH ×2 (10:03→21:00)
[2020-07-30] MEDS: BEXAROTENE PO SCH (10:48)
[2020-07-30 20:55] LABS: BUN/Creatinine Ratio 12.1 (8-20); Calcium 7.8 mg/dL (8.6-10.3); EGFR African American 27.5 (>60); EGFR Non-African American 22.7 (>60); Potassium 4.2 mmol/L (3.5-5.0)
[2020-07-30] MEDS: Cefepime 0.5 GM in NS 0.9% 50 ML 50 ML IVPB SCH (21:01)
[2020-07-31 06:54] LABS: ABS Eosinophils 0.3 10^3/ul (0-0.6); ABS Lymphocytes 2.6 10^3/ul (1.0-4.8); ABS Monocytes 0.5 10^3/ul (0-0.8); ABS Neutrophils 3.1 10^3/ul (1.5-7.7); Eosinophil % 4.1 %; Hematocrit 24 % (42-52); Hemoglobin 7.8 g/dL (14.0-18.0); Lymphocyte % 40.2 %; Mean Corpuscular HGB Conc 33 g/dL (31-36); Mean Corpuscular Hemoglobin 30 pg (27-31); Mean Corpuscular Volume 90 fL (80-94); Platelet Count 236 10^3/uL (150-450); Red Blood Count 2.65 10^6 /uL (4.18-5.48); Red Cell Distribution Width 15 % (10-15); White Blood Count 6.5 10^3/uL (3.5-10.8)
[2020-07-31] MEDS: CMCS: Lovastatin 10 mg TAB (NF) PO SCH (09:43)
[2020-07-31] MEDS: Sodium Bicarb 650 mg (ANTACID) TAB PO SCH ×2 (09:44→22:05)
[2020-07-31] MEDS: BEXAROTENE PO SCH ×2 (10:07→18:25)
[2020-07-31] MEDS: Cefepime 0.5 GM in NS 0.9% 50 ML 50 ML IVPB SCH (22:06)
[2020-08-01 07:59] LABS: Hematocrit 26 % (42-52); Hemoglobin 8.5 g/dL (14.0-18.0); Mean Corpuscular HGB Conc 33 g/dL (31-36); Mean Corpuscular Hemoglobin 29 pg (27-31); Mean Corpuscular Volume 91 fL (80-94); Mean Platelet Volume 7.9 fL (7.4-10.4); Platelet Count 243 10^3/uL (150-450); Red Cell Distribution Width 15 % (10-15); White Blood Count 6.8 10^3/uL (3.5-10.8)
[2020-08-01 08:10] LABS: Calcium 8.3 mg/dL (8.6-10.3); EGFR African American 31.8 (>60); EGFR Non-African American 26.3 (>60); Potassium 4.1 mmol/L (3.5-5.0)
[2020-08-01] MEDS: Sodium Bicarb 650 mg (ANTACID) TAB PO SCH ×2 (09:57→22:01)
[2020-08-01] MEDS: CMCS: Lovastatin 10 mg TAB (NF) PO SCH (09:58)
[2020-08-01] MEDS: BEXAROTENE PO SCH (09:59)
[2020-08-01] MEDS: Cefepime 0.5 GM in NS 0.9% 50 ML 50 ML IVPB SCH (21:52)
[2020-08-02 07:10] LABS: Hematocrit 24 % (42-52); Hemoglobin 7.8 g/dL (14.0-18.0)
[2020-08-02 07:27] LABS: EGFR African American 37.9 (>60); EGFR Non-African American 31.3 (>60)
[2020-08-02] MEDS: Sodium Bicarb 650 mg (ANTACID) TAB PO SCH ×2 (09:33→21:56)
[2020-08-02] MEDS: CMCS: Lovastatin 10 mg TAB (NF) PO SCH (09:34)
[2020-08-02] MEDS ORDERED: Buffered Lidocaine 1% SYRIN 1 ml INTRADERM ONE (10:06)
[2020-08-02] MEDS: BEXAROTENE PO SCH (10:11)
[2020-08-02] MEDS ORDERED: Cefepime 1 GM in Dextrose 1 GM/50 ML BAG IV SCH (22:00)
[2020-08-03 07:16] LABS: Hematocrit 23 % (42-52); Hemoglobin 7.6 g/dL (14.0-18.0)
[2020-08-03 07:32] LABS: EGFR African American 39.9 (>60); EGFR Non-African American 32.9 (>60)
[2020-08-03] MEDS ORDERED: Buffered Lidocaine 1% SYRIN 1 ml INTRADERM ONE (09:00)
[2020-08-03] MEDS: BEXAROTENE PO SCH (09:55)
[2020-08-03 10:50] LABS: C Reactive Protein 54.83 mg/L (<8.01)
[2020-08-03] MEDS: CMCS: Lovastatin 10 mg TAB (NF) PO SCH (11:05)
[2020-08-03] MEDS: Sodium Bicarb 650 mg (ANTACID) TAB PO SCH (11:07)
[2020-08-03 15:29] VITALS: BP 105/52
[2020-08-03] MEDS ORDERED: Cefepime 1 GM in Dextrose 1 GM/50 ML BAG IV SCH (17:00)
[2020-08-03 22:23] LABS: Kappa Free Light Chain 17.2 mg/dL; Lambda Free Light Chain 9.92 mg/dL
[2020-08-04 13:05] LABS: Albumin 2.1 g/dL (3.4-4.7); Albumin/Globulin Ratio 0.63; Total Protein(PEP) 5.5 g/dL (6.3 - 7.9)
== END 2020-08-03 18:00 | disposition home health service (06) | DRG 699 ==
LOC: ED 17:16 → MED 17:16
PROVIDERS: ADMIT Student in an Organized Health Care Education/Training Program; ATTEND Internal Medicine

== ENCOUNTER 2020-09-06 13:10 | Inpatient (IN) ==
[2020-09-06 14:28] LABS: ABS Basophils 0.1 10^3/ul (0-0.2); ABS Lymphocytes 0.7 10^3/ul (1.0-4.8); ABS Monocytes 0.3 10^3/ul (0-0.8); ABS Neutrophils 6.1 10^3/ul (1.5-7.7); Eosinophil % 0.1 %; Hematocrit 26 % (42-52); Hemoglobin 8.1 g/dL (14.0-18.0); Lymphocyte % 10.3 %; Mean Corpuscular HGB Conc 31 g/dL (31-36); Mean Corpuscular Hemoglobin 29 pg (27-31); Mean Corpuscular Volume 94 fL (80-94); Mean Platelet Volume 7.8 fL (7.4-10.4); Nucleated Red Blood Cells % 0.1; Platelet Count 163 10^3/uL (150-450); Red Blood Count 2.78 10^6 /uL (4.18-5.48); Red Cell Distribution Width 20 % (10-15); White Blood Count 7.1 10^3/uL (3.5-10.8)
[2020-09-06 14:41] LABS: INR 1.55 (0.82-1.09)
[2020-09-06 14:51] LABS: Troponin I 2.63 ng/mL (<0.03)
[2020-09-06 15:03] LABS: ALT 4 U/L (7-52); AST 15 U/L (13-39); Albumin 3.2 g/dL (3.2-5.2); Alkaline Phosphatase 51 U/L (34-104); Anion Gap 10 mmol/L (2-11); BUN/Creatinine Ratio 15.6 (8-20); Blood Urea Nitrogen 32 mg/dL (6-24); CO2 Carbon Dioxide 17 mmol/L (22-32); Chloride 108 mmol/L (101-111); EGFR African American 38.3 (>60); EGFR Non-African American 31.6 (>60); Globulin 3.3 g/dL (2-4); Glucose 82 mg/dL (70-100); Magnesium 1.3 mg/dL (1.9-2.7); Potassium 4.1 mmol/L (3.5-5.0); Sodium 135 mmol/L (135-145); Total Protein 6.5 g/dL (6.4-8.9)
[2020-09-06 15:19] LABS: TSH Ultra Thyroid Stim Horm 0.32 mcIU/mL (0.34-5.60)
[2020-09-06 15:50] LABS: Urine Appearance Turbid; Urine Bilirubin Negative (Negative); Urine Blood 3+ (Negative); Urine Color Yellow; Urine Glucose Negative (Negative); Urine Ketones Negative (Negative); Urine Nitrite Negative (Negative); Urine Protein 2+(100 mg/dL) (Negative); Urine Specific Gravity 1.011 (1.010-1.030); Urine Urobilinogen Negative (Negative)
[2020-09-06 15:53] LABS: Urine Bacteria 1+ (Absent); Urine Red Blood Cell 3+(>10/hpf) (Absent); Urine White Blood Cell 3+(>20/hpf) (Absent)
[2020-09-06] MEDS ORDERED: NS 0.9% 1000 ml BAG 1,000 ML IV ONE (16:18)
[2020-09-06 16:49] LABS: C Reactive Protein 118.49 mg/L (<8.01)
[2020-09-06] MEDS ORDERED: Meropenem 1 GM PREMIX(*) 1 GM/50 ML BAG IV ONE (16:50)
[2020-09-06] MEDS ORDERED: Magnesium Sulfate 2 gm BAG 2 GM/50 ML BAG IVPB ONE (18:48)
[2020-09-06] MEDS: NS 0.9% 1000 ml BAG 1,000 ML IV SCH (18:49)
[2020-09-06] MEDS ORDERED: Hydrocortisone INJ 100 MG/2ML 2 ML VIAL IV ONE (18:53)
[2020-09-06 20:48] LABS: Troponin I 4.68 ng/mL (<0.03)
[2020-09-06] MEDS ORDERED: Heparin 5000 UNITS/ML 1 mL VIAL SUBCUT SCH (22:00)
[2020-09-06] MEDS ORDERED: Norepinephrine 16MCG/ML IVPRE 4,000 MCG/250 ML BAG IV ONE (22:17)
[2020-09-06] MEDS ORDERED: Norepinephrine 16MCG/ML IVPRE 4,000 MCG/250 ML BAG IV SCH (23:00)
[2020-09-06 23:39] LABS: Troponin I 4.79 ng/mL (<0.03)
[2020-09-07] MEDS ORDERED: Norepinephrine 16MCG/ML IVPRE 4,000 MCG/250 ML BAG IV SCH (01:32)
[2020-09-07 02:41] LABS: Troponin I 3.47 ng/mL (<0.03)
[2020-09-07] MEDS ORDERED: Hydrocortisone INJ 100 MG/2ML 2 ML VIAL IV SCH (03:00)
[2020-09-07] MEDS: Hydrocortisone INJ 100 MG/2ML 2 ML VIAL IV SCH ×3 (03:01→18:13)
[2020-09-07 04:31] LABS: ABS Lymphocytes 0.6 10^3/ul (1.0-4.8); ABS Monocytes 0.2 10^3/ul (0-0.8); ABS Neutrophils 5.1 10^3/ul (1.5-7.7); Hematocrit 23 % (42-52); Hemoglobin 7.2 g/dL (14.0-18.0); Lymphocyte % 10.7 %; Mean Corpuscular HGB Conc 32 g/dL (31-36); Mean Corpuscular Hemoglobin 30 pg (27-31); Mean Corpuscular Volume 92 fL (80-94); Mean Platelet Volume 7.6 fL (7.4-10.4); Platelet Count 141 10^3/uL (150-450); Red Blood Count 2.44 10^6 /uL (4.18-5.48); Red Cell Distribution Width 19 % (10-15); White Blood Count 5.9 10^3/uL (3.5-10.8)
[2020-09-07 04:43] LABS: BUN/Creatinine Ratio 18.3 (8-20); C Reactive Protein 171.59 mg/L (<8.01); Calcium 7.3 mg/dL (8.6-10.3); EGFR African American 37.7 (>60); EGFR Non-African American 31.1 (>60); Magnesium 1.8 mg/dL (1.9-2.7); Potassium 4.4 mmol/L (3.5-5.0)
[2020-09-07] MEDS ORDERED: Meropenem 1 GM PREMIX(*) 1 GM/50 ML BAG IV SCH (05:30)
[2020-09-07] MEDS ORDERED: Magnesium Sulfate 2 gm BAG 2 GM/50 ML BAG IVPB ONE (05:39)
[2020-09-07] MEDS: NS 0.9% 1000 ml BAG 1,000 ML IV SCH (05:45)
[2020-09-07] MEDS ORDERED: BEXAROTENE PO SCH (09:00)
[2020-09-07] MEDS: Potassium Chlor 20 meq TAB.ER PO SCH (10:04)
[2020-09-07] MEDS: LOVASTATIN 10 MG PO SCH (10:05)
[2020-09-07] MEDS ORDERED: Zosyn per Pharmacy NOTE FOLLOW UP PRN (17:21)
[2020-09-07] MEDS ORDERED: ZOSYN 3.375 GM x ONE DOSE over 30 miuntes IV (17:30)
[2020-09-07] MEDS: ZOSYN 3.375 GM Q8H per EXTENDED INFUSION IV SCH (21:16)
[2020-09-08] MEDS: Hydrocortisone INJ 100 MG/2ML 2 ML VIAL IV SCH ×2 (00:57→10:15)
[2020-09-08] MEDS: ZOSYN 3.375 GM Q8H per EXTENDED INFUSION IV SCH ×3 (05:01→21:03)
[2020-09-08 05:27] LABS: ABS Monocytes 0.2 10^3/ul (0-0.8); ABS Neutrophils 6.9 10^3/ul (1.5-7.7); Hematocrit 24 % (42-52); Hemoglobin 7.9 g/dL (14.0-18.0); Lymphocyte % 11.8 %; Mean Corpuscular HGB Conc 32 g/dL (31-36); Mean Corpuscular Hemoglobin 30 pg (27-31); Mean Corpuscular Volume 91 fL (80-94); Mean Platelet Volume 8.5 fL (7.4-10.4); Platelet Count 129 10^3/uL (150-450); Red Blood Count 2.66 10^6 /uL (4.18-5.48); Red Cell Distribution Width 18 % (10-15); White Blood Count 8.1 10^3/uL (3.5-10.8)
[2020-09-08 05:51] LABS: BUN/Creatinine Ratio 22.2 (8-20); Calcium 7.2 mg/dL (8.6-10.3); EGFR African American 36.8 (>60); EGFR Non-African American 30.4 (>60); Potassium 4.5 mmol/L (3.5-5.0)
[2020-09-08] MEDS: Potassium Chlor 20 meq TAB.ER PO SCH (08:37)
[2020-09-08] MEDS: LOVASTATIN 10 MG PO SCH (08:38)
[2020-09-08] MEDS: BEXAROTENE PO SCH (08:41)
[2020-09-08] MEDS ORDERED: Influenza VAC *QUAD* 2020-21* 0.5 ML SYRINGE IM ONE (09:00)
[2020-09-08 09:02] LABS: Magnesium 2.2 mg/dL (1.9-2.7)
[2020-09-08] MEDS ORDERED: NS 0.9% 100 ml BAG 100 ML ONE (14:04)
[2020-09-09] MEDS: ZOSYN 3.375 GM Q8H per EXTENDED INFUSION IV SCH ×3 (05:23→22:26)
[2020-09-09 05:53] LABS: ABS Lymphocytes 1.6 10^3/ul (1.0-4.8); ABS Monocytes 0.3 10^3/ul (0-0.8); ABS Neutrophils 4.9 10^3/ul (1.5-7.7); Eosinophil % 0.1 %; Hematocrit 25 % (42-52); Hemoglobin 7.8 g/dL (14.0-18.0); Lymphocyte % 23.7 %; Mean Corpuscular HGB Conc 31 g/dL (31-36); Mean Corpuscular Hemoglobin 29 pg (27-31); Mean Corpuscular Volume 93 fL (80-94); Mean Platelet Volume 9.1 fL (7.4-10.4); Nucleated Red Blood Cells % 0.1; Platelet Count 126 10^3/uL (150-450); Red Blood Count 2.69 10^6 /uL (4.18-5.48); Red Cell Distribution Width 19 % (10-15); White Blood Count 6.8 10^3/uL (3.5-10.8)
[2020-09-09 06:09] LABS: BUN/Creatinine Ratio 22.4 (8-20); Calcium 7.4 mg/dL (8.6-10.3); EGFR African American 37.2 (>60); EGFR Non-African American 30.8 (>60); Potassium 4.2 mmol/L (3.5-5.0)
[2020-09-09] MEDS ORDERED: Influenza VAC *QUAD* 2020-21* 0.5 ML SYRINGE IM ONE (09:00)
[2020-09-09] MEDS: Potassium Chlor 20 meq TAB.ER PO SCH (09:23)
[2020-09-09] MEDS: LOVASTATIN 10 MG PO SCH (09:26)
[2020-09-09] MEDS: BEXAROTENE PO SCH (09:28)
[2020-09-10] MEDS: ZOSYN 3.375 GM Q8H per EXTENDED INFUSION IV SCH ×3 (05:55→20:47)
[2020-09-10] MEDS: Potassium Chlor 20 meq TAB.ER PO SCH (08:26)
[2020-09-10] MEDS: LOVASTATIN 10 MG PO SCH (08:27)
[2020-09-10] MEDS: BEXAROTENE PO SCH (08:45)
[2020-09-10] MEDS ORDERED: Witch Hazel PAD JAR TOPICAL SCH (13:00)
[2020-09-11] MEDS: ZOSYN 3.375 GM Q8H per EXTENDED INFUSION IV SCH ×3 (05:59→23:33)
[2020-09-11 06:28] LABS: ABS Eosinophils 0.2 10^3/ul (0-0.6); ABS Lymphocytes 2.7 10^3/ul (1.0-4.8); ABS Monocytes 0.5 10^3/ul (0-0.8); ABS Neutrophils 3.3 10^3/ul (1.5-7.7); Eosinophil % 3.2 %; Hematocrit 26 % (42-52); Hemoglobin 8.2 g/dL (14.0-18.0); Lymphocyte % 39.7 %; Mean Corpuscular HGB Conc 32 g/dL (31-36); Mean Corpuscular Hemoglobin 29 pg (27-31); Mean Corpuscular Volume 91 fL (80-94); Mean Platelet Volume 8.3 fL (7.4-10.4); Platelet Count 111 10^3/uL (150-450); Red Blood Count 2.83 10^6 /uL (4.18-5.48); Red Cell Distribution Width 18 % (10-15); White Blood Count 6.7 10^3/uL (3.5-10.8)
[2020-09-11 06:45] LABS: BUN/Creatinine Ratio 18.8 (8-20); Calcium 7.6 mg/dL (8.6-10.3); EGFR African American 37.7 (>60); EGFR Non-African American 31.1 (>60); Potassium 4.5 mmol/L (3.5-5.0)
[2020-09-11] MEDS: LOVASTATIN 20 MG PO SCH (08:55)
[2020-09-11] MEDS: Potassium Chlor 20 meq TAB.ER PO SCH (08:55)
[2020-09-11] MEDS: BEXAROTENE PO SCH (08:55)
[2020-09-11] MEDS ORDERED: Lidocaine 2% PF 10 ML AMP ONE (18:08)
[2020-09-11] MEDS ORDERED: Bupivacaine 0.5% SDV PF 30ML VIAL ONE (18:08)
[2020-09-11] MEDS ORDERED: ROPIVACAINE 5 MG/ML 30 ML BTL (0.5%) ONE (18:08)
[2020-09-11] MEDS ORDERED: Midazolam 2 mg/2 ml VIAL 1 mg/ml 2 ml VIAL (2 mg) ONE ×4 (18:10→20:26)
[2020-09-11] MEDS ORDERED: Succinylcholine 200 mg VIAL 20 mg/ml 10 ml VIAL (200 mg) ONE (18:14)
[2020-09-11] MEDS ORDERED: Bupivacaine 0.5% 50 ML MDV VIAL ONE (18:15)
[2020-09-11] MEDS ORDERED: ceFAZolin 2 GM PREMIX 2 GM/50 ML BAG ONE (19:14)
[2020-09-11] MEDS ORDERED: fentaNYL 100 mcg/2 ml 50 MCG/ML VIAL ONE (19:53)
[2020-09-11] MEDS ORDERED: Ondansetron 4 mg VIAL 2 MG/ML 2 ml VIAL IV PRN (19:54)
[2020-09-11] MEDS ORDERED: fentaNYL 100 mcg/2 ml 50 MCG/ML VIAL IV PRN (19:54)
[2020-09-11] MEDS ORDERED: HYDROmorphone 1 MG/1 ML SYRINGE IV PRN (19:54)
[2020-09-11] MEDS ORDERED: Naloxone 0.4 mg VIAL 0.4 mg/ml 1 ml VIAL IV PRN (19:54)
[2020-09-12] MEDS: ZOSYN 3.375 GM Q8H per EXTENDED INFUSION IV SCH ×3 (06:36→22:30)
[2020-09-12 07:04] LABS: ABS Eosinophils 0.3 10^3/ul (0-0.6); ABS Lymphocytes 2.1 10^3/ul (1.0-4.8); ABS Monocytes 0.5 10^3/ul (0-0.8); ABS Neutrophils 4.9 10^3/ul (1.5-7.7); Eosinophil % 3.3 %; Hematocrit 29 % (42-52); Hemoglobin 9.3 g/dL (14.0-18.0); Lymphocyte % 26.6 %; Mean Corpuscular HGB Conc 32 g/dL (31-36); Mean Corpuscular Hemoglobin 29 pg (27-31); Mean Corpuscular Volume 91 fL (80-94); Mean Platelet Volume 8.6 fL (7.4-10.4); Platelet Count 123 10^3/uL (150-450); Red Blood Count 3.17 10^6 /uL (4.18-5.48); Red Cell Distribution Width 18 % (10-15); White Blood Count 7.8 10^3/uL (3.5-10.8)
[2020-09-12 07:24] LABS: BUN/Creatinine Ratio 17.3 (8-20); Calcium 7.8 mg/dL (8.6-10.3); EGFR African American 43.1 (>60); EGFR Non-African American 35.6 (>60); Potassium 4.4 mmol/L (3.5-5.0)
[2020-09-12 07:57] LABS: C Reactive Protein 82.6 mg/L (<8.01)
[2020-09-12] MEDS: BEXAROTENE PO SCH (08:41)
[2020-09-12] MEDS: LOVASTATIN 20 MG PO SCH (08:44)
[2020-09-12] MEDS: Potassium Chlor 20 meq TAB.ER PO SCH (08:45)
[2020-09-12] MEDS: Morphine 2 MG/ML SYRINGE IV PRN ×2 (15:50→19:58)
[2020-09-13] MEDS: Morphine 2 MG/ML SYRINGE IV PRN ×3 (01:41→20:08)
[2020-09-13] MEDS: ZOSYN 3.375 GM Q8H per EXTENDED INFUSION IV SCH (05:36)
[2020-09-13 05:49] LABS: Hematocrit 26 % (42-52); Hemoglobin 8.3 g/dL (14.0-18.0); Mean Corpuscular HGB Conc 33 g/dL (31-36); Mean Corpuscular Hemoglobin 30 pg (27-31); Mean Corpuscular Volume 91 fL (80-94); Mean Platelet Volume 8.1 fL (7.4-10.4); Platelet Count 119 10^3/uL (150-450); Red Blood Count 2.82 10^6 /uL (4.18-5.48); Red Cell Distribution Width 18 % (10-15); White Blood Count 6.5 10^3/uL (3.5-10.8)
[2020-09-13 06:11] LABS: BUN/Creatinine Ratio 14.4 (8-20); Calcium 7.7 mg/dL (8.6-10.3); EGFR African American 42.6 (>60); EGFR Non-African American 35.2 (>60); Potassium 4.3 mmol/L (3.5-5.0)
[2020-09-13] MEDS: Potassium Chlor 20 meq TAB.ER PO SCH (08:37)
[2020-09-13] MEDS: LOVASTATIN 20 MG PO SCH (08:38)
[2020-09-13] MEDS: BEXAROTENE PO SCH (08:39)
[2020-09-13] MEDS: cefTRIAXone 2 GM ADDV.VIAL 2 GM in NS 0.9% 100 ml BAG 100 ML IV SCH (12:38)
[2020-09-13] MEDS: Vancomycin 750 MG in NS 0.9% 250 ml 250 ML IVPB SCH (14:27)
[2020-09-13] MEDS ORDERED: Vancomycin per Pharmacy 1 EA NOTE FOLLOW UP PRN (15:24)
[2020-09-14] MEDS: Vancomycin 750 MG in NS 0.9% 250 ml 250 ML IVPB SCH ×2 (00:46→13:35)
[2020-09-14] MEDS: Potassium Chlor 20 meq TAB.ER PO SCH (09:13)
[2020-09-14] MEDS: LOVASTATIN 20 MG PO SCH (09:15)
[2020-09-14] MEDS: BEXAROTENE PO SCH (09:20)
[2020-09-14] MEDS: cefTRIAXone 2 GM ADDV.VIAL 2 GM in NS 0.9% 100 ml BAG 100 ML IV SCH (12:25)
[2020-09-15] MEDS: Vancomycin 750 MG in NS 0.9% 250 ml 250 ML IVPB SCH ×2 (01:12→14:21)
[2020-09-15] MEDS: LOVASTATIN 20 MG PO SCH (08:03)
[2020-09-15] MEDS: Potassium Chlor 20 meq TAB.ER PO SCH (08:04)
[2020-09-15] MEDS: BEXAROTENE PO SCH (10:25)
[2020-09-15] MEDS: cefTRIAXone 2 GM ADDV.VIAL 2 GM in NS 0.9% 100 ml BAG 100 ML IV SCH (12:24)
[2020-09-15] MEDS ORDERED: Vancomycin Trough Check NOTE FOLLOW UP ONE (13:00)
[2020-09-15] MEDS: Morphine 2 MG/ML SYRINGE IV PRN (15:33)
[2020-09-16] MEDS: VANCOMYCIN 1500 MG IVPB SCH (05:01)
[2020-09-16] MEDS: Morphine 2 MG/ML SYRINGE IV PRN ×2 (05:12→08:38)
[2020-09-16 05:31] LABS: ABS Eosinophils 0.1 10^3/ul (0-0.6); ABS Lymphocytes 2.6 10^3/ul (1.0-4.8); ABS Monocytes 0.7 10^3/ul (0-0.8); Eosinophil % 1.8 %; Hematocrit 23 % (42-52); Hemoglobin 7.3 g/dL (14.0-18.0); Lymphocyte % 40.4 %; Mean Corpuscular HGB Conc 32 g/dL (31-36); Mean Corpuscular Hemoglobin 29 pg (27-31); Mean Corpuscular Volume 92 fL (80-94); Mean Platelet Volume 8.5 fL (7.4-10.4); Platelet Count 119 10^3/uL (150-450); Red Cell Distribution Width 18 % (10-15); White Blood Count 6.3 10^3/uL (3.5-10.8)
[2020-09-16 05:43] LABS: BUN/Creatinine Ratio 11.4 (8-20); Calcium 7.8 mg/dL (8.6-10.3); EGFR African American 43.4 (>60); EGFR Non-African American 35.8 (>60); Potassium 4.3 mmol/L (3.5-5.0)
[2020-09-16] MEDS: Potassium Chlor 20 meq TAB.ER PO SCH (08:36)
[2020-09-16] MEDS: LOVASTATIN 20 MG PO SCH (08:42)
[2020-09-16] MEDS: BEXAROTENE PO SCH (08:45)
[2020-09-16] MEDS: cefTRIAXone 2 GM ADDV.VIAL 2 GM in NS 0.9% 100 ml BAG 100 ML IV SCH (11:46)
[2020-09-16] MEDS ORDERED: Furosemide 40 mg/4 ml IV VIAL IV SLOW PU ONE (22:28)
[2020-09-17] MEDS: VANCOMYCIN 1500 MG IVPB SCH (05:58)
[2020-09-17] MEDS: Potassium Chlor 20 meq TAB.ER PO SCH (09:31)
[2020-09-17] MEDS: LOVASTATIN 20 MG PO SCH (09:32)
[2020-09-17] MEDS: BEXAROTENE PO SCH (10:09)
[2020-09-17] MEDS: Morphine 2 MG/ML SYRINGE IV PRN (12:48)
[2020-09-17] MEDS: cefTRIAXone 2 GM ADDV.VIAL 2 GM in NS 0.9% 100 ml BAG 100 ML IV SCH (12:53)
[2020-09-18 04:59] LABS: ABS Eosinophils 0.2 10^3/ul (0-0.6); ABS Lymphocytes 2.4 10^3/ul (1.0-4.8); ABS Monocytes 0.6 10^3/ul (0-0.8); ABS Neutrophils 2.7 10^3/ul (1.5-7.7); Eosinophil % 2.7 %; Hematocrit 28 % (42-52); Hemoglobin 8.9 g/dL (14.0-18.0); Lymphocyte % 40.6 %; Mean Corpuscular HGB Conc 32 g/dL (31-36); Mean Corpuscular Hemoglobin 29 pg (27-31); Mean Corpuscular Volume 91 fL (80-94); Mean Platelet Volume 8.3 fL (7.4-10.4); Platelet Count 136 10^3/uL (150-450); Red Blood Count 3.04 10^6 /uL (4.18-5.48); Red Cell Distribution Width 17 % (10-15); White Blood Count 5.8 10^3/uL (3.5-10.8)
[2020-09-18 05:11] LABS: BUN/Creatinine Ratio 11.8 (8-20); Calcium 8.3 mg/dL (8.6-10.3); EGFR African American 42.8 (>60); EGFR Non-African American 35.4 (>60); Potassium 4.3 mmol/L (3.5-5.0)
[2020-09-18] MEDS ORDERED: Vancomycin Trough Check NOTE FOLLOW UP ONE (05:30)
[2020-09-18] MEDS: VANCOMYCIN 1500 MG IVPB SCH (05:59)
[2020-09-18] MEDS: cefTRIAXone 2 GM ADDV.VIAL 2 GM in NS 0.9% 100 ml BAG 100 ML IV SCH (11:18)
[2020-09-18] MEDS: Potassium Chlor 20 meq TAB.ER PO SCH (11:21)
[2020-09-18] MEDS: LOVASTATIN 20 MG PO SCH (11:26)
[2020-09-18] MEDS: BEXAROTENE PO SCH (11:38)
[2020-09-18 16:01] VITALS: BP 104/48
== END 2020-09-18 15:00 | disposition home health service (06) | DRG 673 ==
LOC: ED 13:10 → MEDTELE 17:48 → ICU 21:20 → MED 09-08 17:31
PROVIDERS: ADMIT Internal Medicine; ATTEND Student in an Organized Health Care Education/Training Program

== ENCOUNTER 2020-09-25 19:26 | Inpatient (IN) ==
[2020-09-25] MEDS ORDERED: NS 0.9% 1000 ml BAG 1,000 ML IV ONE (19:45)
[2020-09-25 21:01] LABS: ABS Basophils 0.1 10^3/ul (0-0.2); ABS Eosinophils 0.3 10^3/ul (0-0.6); ABS Monocytes 0.6 10^3/ul (0-0.8); ABS Neutrophils 2.1 10^3/ul (1.5-7.7); Eosinophil % 5.9 %; Hematocrit 31 % (42-52); Hemoglobin 9.8 g/dL (14.0-18.0); Lymphocyte % 39.2 %; Mean Corpuscular HGB Conc 32 g/dL (31-36); Mean Corpuscular Hemoglobin 29 pg (27-31); Mean Corpuscular Volume 92 fL (80-94); Mean Platelet Volume 8.2 fL (7.4-10.4); Platelet Count 211 10^3/uL (150-450); Red Blood Count 3.39 10^6 /uL (4.18-5.48); Red Cell Distribution Width 17 % (10-15)
[2020-09-25 21:15] LABS: INR 1.36 (0.82-1.09); Vancomycin Random 27.2 mcg/mL
[2020-09-25 21:16] LABS: Albumin 3.1 g/dL (3.2-5.2); Albumin/Globulin Ratio 0.7 (1-3); BUN/Creatinine Ratio 11.3 (8-20); C Reactive Protein 95.26 mg/L (<8.01); Calcium 9.2 mg/dL (8.6-10.3); EGFR African American 33.5 (>60); EGFR Non-African American 27.7 (>60); Globulin 4.4 g/dL (2-4); Potassium 4.6 mmol/L (3.5-5.0); Total Bilirubin 0.4 mg/dL (0.2-1.0); Total Protein 7.5 g/dL (6.4-8.9); Urine Appearance Turbid; Urine Bilirubin Negative (Negative); Urine Blood 3+ (Negative); Urine Color Yellow; Urine Glucose Negative (Negative); Urine Ketones Negative (Negative); Urine Nitrite Negative (Negative); Urine Protein 2+(100 mg/dL) (Negative); Urine Specific Gravity 1.009 (1.010-1.030); Urine Urobilinogen Negative (Negative)
[2020-09-25 21:32] LABS: Urine Bacteria Absent (Absent); Urine Red Blood Cell 3+(>10/hpf) (Absent); Urine White Blood Cell 3+(>20/hpf) (Absent)
[2020-09-25] MEDS ORDERED: Ondansetron ODT 4 mg TAB 4 MG TAB SL PRN (23:06)
[2020-09-25] MEDS ORDERED: NS 0.9% 1000 ml BAG 1,000 ML IV SCH (23:15)
[2020-09-25] MEDS ORDERED: Vancomycin per Pharmacy 1 EA NOTE FOLLOW UP SCH (23:45)
[2020-09-26] MEDS ORDERED: Morphine 2 MG/ML SYRINGE ONE (00:09)
[2020-09-26] MEDS ORDERED: Alteplase (CATHFLO) 2 MG VIAL IV ONE (00:27)
[2020-09-26 02:28] LABS: Urine Appearance Turbid; Urine Bilirubin Negative (Negative); Urine Blood 3+ (Negative); Urine Color Yellow; Urine Glucose Negative (Negative); Urine Ketones Negative (Negative); Urine Nitrite Negative (Negative); Urine Protein 2+(100 mg/dL) (Negative); Urine Specific Gravity 1.009 (1.010-1.030); Urine Urobilinogen Negative (Negative)
[2020-09-26 02:31] LABS: Urine Bacteria Absent (Absent); Urine Red Blood Cell 3+(>10/hpf) (Absent); Urine White Blood Cell 3+(>20/hpf) (Absent)
[2020-09-26 04:21] LABS: ABS Eosinophils 0.3 10^3/ul (0-0.6); ABS Lymphocytes 2.2 10^3/ul (1.0-4.8); ABS Monocytes 0.5 10^3/ul (0-0.8); ABS Neutrophils 1.9 10^3/ul (1.5-7.7); Eosinophil % 6.5 %; Hematocrit 28 % (42-52); Hemoglobin 8.7 g/dL (14.0-18.0); Lymphocyte % 43.8 %; Mean Corpuscular HGB Conc 32 g/dL (31-36); Mean Corpuscular Hemoglobin 29 pg (27-31); Mean Corpuscular Volume 91 fL (80-94); Mean Platelet Volume 7.7 fL (7.4-10.4); Platelet Count 184 10^3/uL (150-450); Red Blood Count 3.02 10^6 /uL (4.18-5.48); Red Cell Distribution Width 17 % (10-15); White Blood Count 4.9 10^3/uL (3.5-10.8)
[2020-09-26 04:37] LABS: Calcium 8.4 mg/dL (8.6-10.3); EGFR African American 35.9 (>60); EGFR Non-African American 29.6 (>60); Potassium 4.4 mmol/L (3.5-5.0)
[2020-09-26] MEDS: Heparin 5000 UNITS/ML 1 mL VIAL SUBCUT SCH ×3 (05:40→20:57)
[2020-09-26] MEDS ORDERED: Lactated Ringers 1000 ml BAG 1,000 ML IV ONE (08:39)
[2020-09-26] MEDS ORDERED: Vancomycin Random Level NOTE FOLLOW UP ONE (09:00)
[2020-09-26] MEDS ORDERED: CEFTRIAXONE 2 GM IV SCH (09:00)
[2020-09-26] MEDS: Potassium Chlor 20 meq TAB.ER PO SCH (10:00)
[2020-09-26] MEDS: BEXAROTENE PO SCH (10:01)
[2020-09-26] MEDS: Collagenase 250 units/gm OINT 1 tube TOPICAL SCH (20:57)
[2020-09-27] MEDS: Heparin 5000 UNITS/ML 1 mL VIAL SUBCUT SCH ×3 (04:29→22:01)
[2020-09-27 05:25] LABS: ABS Basophils 0.1 10^3/ul (0-0.2); ABS Eosinophils 0.3 10^3/ul (0-0.6); ABS Lymphocytes 2.3 10^3/ul (1.0-4.8); ABS Monocytes 0.4 10^3/ul (0-0.8); ABS Neutrophils 1.5 10^3/ul (1.5-7.7); Eosinophil % 6.9 %; Hematocrit 27 % (42-52); Hemoglobin 8.5 g/dL (14.0-18.0); Lymphocyte % 50.5 %; Mean Corpuscular HGB Conc 32 g/dL (31-36); Mean Corpuscular Hemoglobin 29 pg (27-31); Mean Corpuscular Volume 91 fL (80-94); Nucleated Red Blood Cells % 0.1; Platelet Count 183 10^3/uL (150-450); Red Cell Distribution Width 17 % (10-15); White Blood Count 4.6 10^3/uL (3.5-10.8)
[2020-09-27 05:49] LABS: BUN/Creatinine Ratio 11.4 (8-20); Calcium 8.3 mg/dL (8.6-10.3); EGFR African American 41.1 (>60); EGFR Non-African American 33.9 (>60); Potassium 4.4 mmol/L (3.5-5.0)
[2020-09-27] MEDS ORDERED: Dextrose 50% VIAL 50 ml IV PRN (05:57)
[2020-09-27] MEDS ORDERED: Dextrose 50% Syringe 50 ml 25 GM/50 ML SYRINGE ONE (05:58)
[2020-09-27] MEDS ORDERED: Dextrose 50% Syringe 50 ml 25 GM/50 ML SYRINGE PRN (06:00)
[2020-09-27] MEDS: BEXAROTENE PO SCH (08:02)
[2020-09-27] MEDS: Potassium Chlor 20 meq TAB.ER PO SCH (08:03)
[2020-09-27] MEDS: Collagenase 250 units/gm OINT 1 tube TOPICAL SCH ×3 (08:09→22:00)
[2020-09-27] MEDS ORDERED: Vancomycin 500 MG in NS 0.9% 250 ML IVPB ONE (16:00)
[2020-09-28] MEDS: Heparin 5000 UNITS/ML 1 mL VIAL SUBCUT SCH ×3 (05:42→21:57)
[2020-09-28] MEDS ORDERED: Vancomycin Random Level NOTE FOLLOW UP ONE (06:00)
[2020-09-28] MEDS: Collagenase 250 units/gm OINT 1 tube TOPICAL SCH ×2 (08:45→21:59)
[2020-09-28] MEDS: Potassium Chlor 20 meq TAB.ER PO SCH (09:47)
[2020-09-28] MEDS: BEXAROTENE PO SCH (09:50)
[2020-09-29] MEDS ORDERED: Alteplase (CATHFLO) 2 MG VIAL IV ONE (01:05)
[2020-09-29] MEDS: Heparin 5000 UNITS/ML 1 mL VIAL SUBCUT SCH ×3 (05:23→22:00)
[2020-09-29] MEDS ORDERED: Vancomycin Random Level NOTE FOLLOW UP ONE (06:00)
[2020-09-29] MEDS: BEXAROTENE PO SCH (09:04)
[2020-09-29] MEDS: Potassium Chlor 20 meq TAB.ER PO SCH (09:07)
[2020-09-29] MEDS: Collagenase 250 units/gm OINT 1 tube TOPICAL SCH ×2 (09:08→22:00)
[2020-09-29] MEDS ORDERED: Vancomycin 500 MG in NS 0.9% 250 ML IVPB ONE (11:00)
[2020-09-30] MEDS ORDERED: Vancomycin Random Level NOTE FOLLOW UP ONE (06:00)
[2020-09-30] MEDS: Heparin 5000 UNITS/ML 1 mL VIAL SUBCUT SCH ×3 (06:19→21:58)
[2020-09-30 06:54] LABS: EGFR Non-African American 42.1 (>60)
[2020-09-30 07:01] LABS: Vancomycin Random 18.7 mcg/mL
[2020-09-30] MEDS: BEXAROTENE PO SCH (09:04)
[2020-09-30] MEDS: Potassium Chlor 20 meq TAB.ER PO SCH (09:06)
[2020-09-30] MEDS ORDERED: Vancomycin 500 MG in NS 0.9% 250 ML IVPB ONE (09:30)
[2020-09-30] MEDS: Collagenase 250 units/gm OINT 1 tube TOPICAL SCH ×2 (10:45→21:58)
[2020-10-01] MEDS ORDERED: NS 0.9% 1000 ml BAG 1,000 ML IV SCH (00:15)
[2020-10-01] MEDS ORDERED: Vancomycin Random Level NOTE FOLLOW UP ONE (06:00)
[2020-10-01] MEDS: Heparin 5000 UNITS/ML 1 mL VIAL SUBCUT SCH ×3 (06:16→21:24)
[2020-10-01 06:42] LABS: EGFR African American 52.5 (>60); EGFR Non-African American 43.4 (>60); Vancomycin Random 19.3 mcg/mL
[2020-10-01] MEDS: Collagenase 250 units/gm OINT 1 tube TOPICAL SCH ×2 (08:23→21:24)
[2020-10-01] MEDS: BEXAROTENE PO SCH (08:57)
[2020-10-01] MEDS: Potassium Chlor 20 meq TAB.ER PO SCH (08:58)
[2020-10-01] MEDS ORDERED: Vancomycin 500 MG in NS 0.9% 250 ML IVPB ONE (09:00)
[2020-10-02] MEDS ORDERED: Vancomycin Random Level NOTE FOLLOW UP ONE (06:00)
[2020-10-02] MEDS: Heparin 5000 UNITS/ML 1 mL VIAL SUBCUT SCH ×3 (06:24→22:47)
[2020-10-02 07:29] LABS: Blood Urea Nitrogen 19 mg/dL (6-24); EGFR African American 48.5 (>60); EGFR Non-African American 40.1 (>60)
[2020-10-02] MEDS: Collagenase 250 units/gm OINT 1 tube TOPICAL SCH ×2 (08:02→22:48)
[2020-10-02] MEDS: Potassium Chlor 20 meq TAB.ER PO SCH (08:03)
[2020-10-02 08:30] LABS: Vancomycin Random 16.8 mcg/mL
[2020-10-02 09:20] LABS: C Reactive Protein 26.51 mg/L (<8.01)
[2020-10-02] MEDS: BEXAROTENE PO SCH (09:28)
[2020-10-02 09:46] LABS: Corrected Retic Count 0.7 % (0.5-1.5); Hematocrit for Retic CNT 26 % (42-52); Immature Retic Fraction 0.49; RBC Retic Count 2.84 10^6/uL (4.18-5.48)
[2020-10-02] MEDS ORDERED: Vancomycin 500 MG in NS 0.9% 250 ML IVPB SCH (11:00)
[2020-10-02 12:19] LABS: % Iron Saturation 51 % (15-55); Iron 91 ug/dL (50-212); Total Iron Binding Capacity 179 mcg/dL (250-450); Transferrin 128 mg/dL (203-362); Unsaturated Iron Binding < 164 ug/dL
[2020-10-02 12:43] LABS: TSH Ultra Thyroid Stim Horm 0.07 mcIU/mL (0.34-5.60)
[2020-10-02 12:47] LABS: Free T4 0.98 ng/dL (0.61-1.12)
[2020-10-02 12:50] LABS: Ferritin 592.3 ng/mL (24-336)
[2020-10-02 12:55] LABS: Vitamin B12 631 pg/mL (180-914)
[2020-10-03 05:01] LABS: ABS Basophils 0.1 10^3/ul (0-0.2); ABS Eosinophils 0.4 10^3/ul (0-0.6); ABS Lymphocytes 2.7 10^3/ul (1.0-4.8); ABS Monocytes 0.5 10^3/ul (0-0.8); ABS Neutrophils 2.1 10^3/ul (1.5-7.7); Eosinophil % 7.2 %; Hematocrit 27 % (42-52); Hemoglobin 8.5 g/dL (14.0-18.0); Lymphocyte % 47.4 %; Mean Corpuscular HGB Conc 32 g/dL (31-36); Mean Corpuscular Hemoglobin 29 pg (27-31); Mean Corpuscular Volume 91 fL (80-94); Platelet Count 162 10^3/uL (150-450); Red Blood Count 2.93 10^6 /uL (4.18-5.48); Red Cell Distribution Width 17 % (10-15); White Blood Count 5.8 10^3/uL (3.5-10.8)
[2020-10-03 05:18] LABS: BUN/Creatinine Ratio 11.9 (8-20); Calcium 8.6 mg/dL (8.6-10.3); EGFR African American 51.3 (>60); EGFR Non-African American 42.4 (>60); HDL Cholesterol 8.7 mg/dL; Potassium 4.2 mmol/L (3.5-5.0)
[2020-10-03] MEDS: Heparin 5000 UNITS/ML 1 mL VIAL SUBCUT SCH (06:19)
[2020-10-03] MEDS: BEXAROTENE PO SCH (10:03)
[2020-10-03] MEDS: Collagenase 250 units/gm OINT 1 tube TOPICAL SCH (10:03)
[2020-10-03] MEDS: Potassium Chlor 20 meq TAB.ER PO SCH (10:03)
[2020-10-03] MEDS ORDERED: DAPTOMYCIN IVPB SCH (11:00)
[2020-10-03 11:12] VITALS: BP 107/40
[2020-10-05] MEDS ORDERED: Vancomycin Trough Check NOTE FOLLOW UP ONE (11:00)
== END 2020-10-03 16:00 | disposition home or self-care (01) | DRG 539 ==
LOC: ICU 19:26 → ED 19:26 → SSU 09-27 20:03
PROVIDERS: ADMIT Hospitalist; ATTEND Internal Medicine